=== PATIENT | male | born 1945 | race Caucasian/White ===

== ENCOUNTER → 2017-10-01 11:45 | Outpatient (CLI) | payer MEDICARE, OTHER, SELFPAY | PROVIDERS: Family Provider Family Medicine; PCP Family Medicine; Visit Provider Family Medicine | DX: G63 Polyneuropathy in diseases classified elsewhere (principal); G62.9 Polyneuropathy, unspecified | CPT/HCPCS: 95886; 95912 ==

== ENCOUNTER → 2017-10-14 12:05 | Outpatient (CLI) | payer MEDICARE, OTHER, SELFPAY ==
[2017-10-14 14:10] LABS: Vitamin B12 > 1000 pg/mL (239-931)
[2017-10-16 18:37] LABS: Homocysteine 9.8 umol/L (< 11.4)
== END ==
PROVIDERS: Family Provider Family Medicine; PCP Family Medicine; Visit Provider Family Medicine
DX: E53.8 Deficiency of other specified B group vitamins (principal); E88.9 Metabolic disorder, unspecified; G63 Polyneuropathy in diseases classified elsewhere; G53 Cranial nerve disorders in diseases classified elsewhere
CPT/HCPCS: 36415; 81291; 82607; 83090

== ENCOUNTER → 2018-04-06 11:11 | Outpatient (CLI) | payer MEDICARE, OTHER, SELFPAY ==
[2018-04-06 12:13] LABS: Hemoglobin A1C% w Est Avg Glu 5.7 % (4.0-6.0)
[2018-04-06 12:14] LABS: BUN Creatinine Ratio 13.3 (6-22); Blood Urea Nitrogen 12 mg/dL (9-20); Calcium 9.9 mg/dL (8.4-10.2); Carbon Dioxide 27 mmol/L (22-32); Chloride 105 mmol/L (98-107); Estimated Glomerular Filt Rate > 60.0 mL/min (>60); Glucose 96 mg/dL (80-110); HEMOLYSIS < 15 (0-50); Potassium 4.5 mmol/L (3.4-5.1); Sodium 144 mmol/L (137-145)
== END ==
PROVIDERS: Family Provider Family Medicine; PCP Family Medicine; Visit Provider Family Medicine
DX: E11.40 Type 2 diabetes mellitus with diabetic neuropathy, unspecified (principal)
CPT/HCPCS: 36415; 80048; 83036

== ENCOUNTER → 2018-05-28 09:37 | Outpatient (CLI) | payer MEDICARE, OTHER, SELFPAY ==
[2018-06-01 22:15] LABS: Albumin 100 %; Protein/ Creatinine Ratio 99 mg/g creat (22-128); Total Urine Protein 11 mg/dL (5-25); Urine Creatinine, Random 111 mg/dL (20-320)
[2018-06-04 12:06] LABS: Albumin 4.2 g/dL (3.8-4.8); Alpha 1 Globulin 0.3 g/dL (0.2-0.3); Alpha 2 Globulin 0.8 g/dL (0.5-0.9); Beta 1 Globulin 0.4 g/dL (0.4-0.6); Gamma Globulin 0.7 g/dL (0.8-1.7); Protein, Total 6.8 g/dL (6.1-8.1)
== END ==
PROVIDERS: PCP Family Medicine; Visit Provider Family Medicine
DX: E88.9 Metabolic disorder, unspecified (principal); G63 Polyneuropathy in diseases classified elsewhere
CPT/HCPCS: 36415; 84155; 84156; 84165; 84166; 84443

== ENCOUNTER → 2018-06-08 14:44 | Outpatient (CLI) | payer MEDICARE, OTHER, SELFPAY ==
--- NOTE | 2018-06-08 14:46 | DI.MRI.S_ITS ---
PROCEDURE: MR HEAD/BRAIN WO CON INDICATIONS: idiopathic neuropathy, rule out NPH, tumor TECHNIQUE: Non-contrast axial T1 spin echo, axial T2 fast spin echo, sagittal and axial FLAIR, coronal T2 fast spin echo, axial gradient echo, axial diffusion and ADC through the brain. COMPARISON: [facility], MR, STROKE PROTOCOL, 02/11/2016, 7:56. FINDINGS: Image quality: Excellent. CSF spaces: Ventricles are moderately dilated but symmetric in size and shape. Basal cisterns are patent. No extra-axial fluid collections. Brain: No intracranial bleeds or mass effects. There is moderate cerebral volume loss for age. Foci of periventricular white matter T2 hyperintensity are slightly increased compared to the last exam on 02/11/2016, compatible chronic small vessel ischemic changes. Brainstem appears normal. Diffusion-weighted images show no acute ischemic insults. No chronic ischemic insults. Normal intravascular flow voids are present. Skull and face: Calvarial bone marrow is normal in signal. Orbits are normal. Unchanged subcutaneous nodule at midline. Sinuses: Bilateral maxillary sinus mucosal thickening and mucous retention cysts. Mastoids are clear. IMPRESSION: 1. No acute intracranial abnormalities. 2. Ventricular dilation may be secondary to central atrophy or normal pressure hydrocephalus. Recommend clinical correlation. 3. There are foci of periventricular white matter T2 hyperintensity, compatible chronic small vessel ischemic changes. A differential diagnosis is demyelinating process such as multiple sclerosis. 4. Bilateral maxillary sinusitis. Dictated by: Elsa Pickard M.D. on 06/08/2018 at 16:13 Approved by: Elsa Pickard M.D. on 06/08/2018 at 16:21
== END ==
PROVIDERS: PCP Family Medicine; Visit Provider Family Medicine
DX: G60.9 Hereditary and idiopathic neuropathy, unspecified (principal); J32.0 Chronic maxillary sinusitis; E88.9 Metabolic disorder, unspecified
CPT/HCPCS: 70551

== ENCOUNTER → 2019-01-06 08:48 | Outpatient (CLI) | payer MEDICARE, OTHER, SELFPAY ==
[2019-01-06 09:27] LABS: Hemoglobin A1C% w Est Avg Glu 5.6 % (4.0-6.0)
[2019-01-06 09:53] LABS: Alanine Aminotransferase 21 IU/L (21-72); Albumin Globulin Ratio 1.5 (1.0-2.8); Alkaline Phosphatase 82 U/L (38-126); Aspartate Aminotransferase 32 IU/L (17-59); Bilirubin Total 0.6 mg/dL (0.2-1.3); Blood Urea Nitrogen 18 mg/dL (9-20); Calcium 9.8 mg/dL (8.4-10.2); Carbon Dioxide 27 mmol/L (22-32); Chloride 104 mmol/L (98-107); Cholesterol 206 mg/dL (140-199); Estimated Glomerular Filt Rate > 60.0 mL/min (>60); Globulin 2.6 g/dL (1.7-4.1); Glucose 114 mg/dL (80-110); HDL Cholesterol 47 mg/dL (40-60); HEMOLYSIS < 15 (0-50); LDL Cholesterol Calculated 107 mg/dL (<100); Potassium 4.4 mmol/L (3.4-5.1); Sodium 139 mmol/L (137-145); Total Protein 6.6 g/dL (6.3-8.2); Triglycerides 261 mg/dL (35-150)
[2019-01-06 09:54] LABS: Creatinine Urine Random 90.5 mg/dL
== END ==
PROVIDERS: PCP Family Medicine; Visit Provider Family Medicine
DX: E11.40 Type 2 diabetes mellitus with diabetic neuropathy, unspecified (principal); E53.8 Deficiency of other specified B group vitamins; E66.9 Obesity, unspecified; E78.5 Hyperlipidemia, unspecified; E88.9 Metabolic disorder, unspecified; G63 Polyneuropathy in diseases classified elsewhere; I10 Essential (primary) hypertension; I25.10 Atherosclerotic heart disease of native coronary artery without angina pectoris; Z95.5 Presence of coronary angioplasty implant and graft
CPT/HCPCS: 36415; 80053; 80061; 82043; 82570; 83036

== ENCOUNTER → 2019-03-01 16:29 | Outpatient (CLI) | payer MEDICARE, OTHER, SELFPAY ==
--- NOTE | 2019-03-01 16:35 | DI.MRI.S_ITS ---
PROCEDURE: MR CERVICAL SPINE WO CON INDICATIONS: radiculopathy TECHNIQUE: Noncontrast sagittal T1 spin echo and T2 fast spin echo, sagittal STIR, foraminal oblique sagittal T2 fast spin echo, and axial gradient echo or T2 fast spin echo through the cervical spine. COMPARISON: [facility], MR, MR THORACIC SPINE WO CON, 03/01/2019, 16:59. FINDINGS: Image quality: Excellent. Alignment and Curvature: There is normal bony alignment. Bone Marrow: Degenerative marrow signal changes are present. Spinal Cord: Visualized spinal cord has normal size and signal. No cerebellar tonsillar herniation. Paraspinous Soft Tissues: No paravertebral masses. Prevertebral soft tissues are normal in thickness. C2-C3: Preserved disc height. Mild disc desiccation. There is diffuse posterior disc bulge. Uncovertebral hypertrophy. There is bilateral facet arthropathy, moderate on the left and mild on the right. The central canal is patent. Severe left foraminal stenosis. No right foraminal stenosis. Possible left nerve root impingement. C3-C4: Mild loss of disc height. Mild disc desiccation. There is diffuse posterior disc bulge. Uncovertebral hypertrophy. There is moderate bilateral facet arthropathy. The central canal is patent. Severe left and moderate right foraminal stenosis.. Possible left nerve root impingement. C4-C5: Moderate loss of disc height. Mild disc desiccation. There is diffuse posterior disc bulge. Uncovertebral hypertrophy. Severe right and moderate left facet arthropathy. The central canal is mildly narrowed. Severe right and moderate to severe left foraminal stenosis.. Possible right nerve root impingement. C5-C6: Moderate loss of disc height. Mild disc desiccation. There is diffuse posterior disc bulge. Uncovertebral hypertrophy. Moderate bilateral facet arthropathy. The central canal is mildly narrowed. Severe right and mild left foraminal stenosis. Possible right nerve root impingement. C6-C7: Mild loss of disc height. Mild disc desiccation. There is diffuse posterior disc bulge. Uncovertebral hypertrophy. Moderate bilateral facet arthropathy. The central canal is mildly narrowed. Moderate left and mild right foraminal stenosis. Possible left nerve root impingement. C7-T1: Minimal loss of disc height. Mild disc desiccation. There is mild posterior disc bulge. The central canal is patent. No significant foraminal stenosis. IMPRESSION: 1. Multilevel degenerative disc disease and facet arthropathy as described. 2. Mild central canal stenosis at C5 and C5, C5-C6 and C6-C7. 3. Multilevel foraminal stenosis as described. Dictated by: Elsa Pickard M.D. on 03/02/2019 at 10:29 Approved by: Elsa Pickard M.D. on 03/02/2019 at 18:25
--- NOTE | 2019-03-01 16:35 | DI.MRI.S_ITS ---
PROCEDURE: MR THORACIC SPINE WO CON INDICATIONS: radiculopathy TECHNIQUE: Noncontrast sagittal T1 spine echo and T2 fast spin echo, sagittal STIR, axial T1 and T2 fast spin echo through the thoracic spine. COMPARISON: [facility], , MR LUMBAR SPINE WO CON, 03/01/2019, 17:17. FINDINGS: Image quality: Excellent. Alignment and Curvature: There is normal bony alignment. Bone Marrow: Marrow is of normal overall signal. No acute vertebral body compression fractures. Spinal Cord: Visualized spinal cord is normal in size and signal. Paraspinous Soft Tissues: No paravertebral masses. Miscellaneous: There is diffuse mild to moderate degenerative disease in thoracic spine there is mild central canal at T8-T9, T9-T10 and T10-T11. The foramina appear widely patent at all scanned levels. IMPRESSION: 1. Diffuse mild to moderate degenerative disc disease in thoracic spine. 2. Mild central canal stenosis at T8-T9, T9-T10 and T10-T11. Dictated by: Elsa Pickard M.D. on 03/02/2019 at 10:26 Approved by: Elsa Pickard M.D. on 03/02/2019 at 18:26
--- NOTE | 2019-03-01 16:35 | DI.MRI.S_ITS ---
PROCEDURE: MR LUMBAR SPINE WO CON INDICATIONS: radiculopathy TECHNIQUE: Noncontrast sagittal T1 spin echo and T2 fast echo, sagittal STIR, axial T1 and T2 fast spin echo through the lumbar spine. In cases with scoliosis, additional coronal T2 fast spin echo may be performed. COMPARISON: None. FINDINGS: Image quality: Excellent. Alignment and Curvature: There is normal bony alignment. Bone Marrow: Degenerative endplate signal changes are present in lumbar spine, most pronounced in the inferior endplate of L4 and L5, and superior endplate of S1. No acute vertebral body compression fractures. Spinal Cord: Conus medullaris terminates at the L1-L2 level. Visualized cord demonstrates normal signal and size. Paraspinous Soft Tissues: No paravertebral masses. L1-L2: Preserved disc height. Mild disc desiccation. There is diffuse posterior disc bulge. Mild bilateral facet arthropathy and hypertrophy of ligamentum flavum. The central canal is mildly narrowed. No foraminal stenosis. No definitive nerve root impingement. L2-L3: Preserved disc height. Mild disc desiccation. There is diffuse posterior disc bulge and disc osteophyte complex. Mild bilateral facet arthropathy and hypertrophy of ligamentum flavum. The central canal is moderately narrowed. There is moderate narrowing of the lateral recess bilaterally. Mild bilateral foraminal stenosis. No definitive nerve root impingement. L3-L4: Preserved disc height. Moderate disc desiccation. There is diffuse posterior disc bulge and disc osteophyte complex, more eccentric on the left. Moderate bilateral facet arthropathy and hypertrophy of ligamentum flavum. There is epidural lipomatosis. The central canal is severely narrowed. There is mild narrowing of lateral recesses bilaterally. Moderate left and mild right foraminal stenosis. Possible left nerve root impingement. L4-L5: Mild loss of disc height. Moderate disc desiccation. There is diffuse posterior disc bulge and disc osteophyte complex. There is superimposed posterior central disc protrusion. Mild bilateral facet arthropathy and hypertrophy of ligamentum flavum. There is epidural lipomatosis. The central canal is severely narrowed. There is moderate to severe narrowing of lateral recesses bilaterally. Moderate bilateral foraminal stenosis. Possible bilateral nerve root impingement. L5-S1: Mild loss of disc height. Moderate disc desiccation. There is diffuse posterior disc bulge and disc osteophyte complex. Moderate bilateral facet arthropathy. The central canal is mildly narrowed. Moderate left and mild right foraminal stenosis. No definitive bilateral nerve root impingement. IMPRESSION: 1. Multilevel degenerative disc disease and facet arthropathy as described. 2. Severe central canal stenosis at L3-L4 and L4-L5, and moderate central canal stenosis at L2 at L3. 3. Multilevel foraminal stenoses and narrowing of lateral recesses as described. Dictated by: Elsa Pickard M.D. on 03/02/2019 at 10:13 Approved by: Elsa Pickard M.D. on 03/02/2019 at 18:27
== END ==
PROVIDERS: PCP Family Medicine; Visit Provider Family Medicine
DX: M50.11 Cervical disc disorder with radiculopathy, high cervical region (principal); M51.14 Intervertebral disc disorders with radiculopathy, thoracic region; M51.16 Intervertebral disc disorders with radiculopathy, lumbar region; M51.17 Intervertebral disc disorders with radiculopathy, lumbosacral region; M47.22 Other spondylosis with radiculopathy, cervical region; M47.26 Other spondylosis with radiculopathy, lumbar region; M47.27 Other spondylosis with radiculopathy, lumbosacral region; M48.02 Spinal stenosis, cervical region; M48.04 Spinal stenosis, thoracic region; M48.061 Spinal stenosis, lumbar region without neurogenic claudication; M48.07 Spinal stenosis, lumbosacral region; G91.2 (Idiopathic) normal pressure hydrocephalus; R27.0 Ataxia, unspecified
CPT/HCPCS: 72141; 72146; 72148

== ENCOUNTER 2019-04-11 17:59 | Emergency (ER) | payer MEDICARE, OTHER, SELFPAY ==
[2019-04-11 18:11] VITALS: BP 146/83; PULSE 114; RESP 19; TEMP 36.8; O2SAT 96; BMI 29.6
--- NOTE | 2019-04-11 18:20 | ED_ITS ---
HPI - Extremity Injury (Lower) General Chief Complaint: Extremity Injury, Lower Stated Complaint: GLF Time Seen by Provider: 04/11/19 18:05 Source: patient, family and EMS Mode of arrival: EMS Limitations: no limitations History of Present Illness HPI Narrative: The patient has peripheral neuropathy. Recent evaluation has included MRIs of the brain, C-spine, T-spine, and L-spine. Hydrocephalus has been discomfort. He has no history of stroke or TIA. He generally has restless leg type symptoms in the left leg. Around his house he generally uses a cane or a walker. He took trash out tonight prior to arrival. He developed weakness in his legs and fell and is yard. There is no head, neck or torso injury. He has no confusion, no visual changes or speech changes. He has no deficits in his extremities. He complains of no pain at this time. Is normal range of motion upper extremities. He has no problem moving his lower extremities while sitting on the gurney here in the ER. He complained of weakness earlier when he was out and about. Related Data Home Medications Medication Instructions Recorded Confirmed furosemide 40 mg PO PRN PRN #0 10/04/16 04/01/19 aspirin 325 mg tablet,delayed 325 mg PO DAILY 09/09/17 04/01/19 release Previous Rx's Medication Instructions Recorded Disabled parking permit #1 ea 09/09/17 cyanocobalamin (vitamin B-12) 1,000 mcg PO DAILY #90 tab 09/10/17 1,000 mcg tablet ketoconazole 2 % shampoo 1 applictn TOP Q2W #120 ml 05/26/18 Disabled Parking Permit #1 ea 09/06/18 gabapentin 100 mg capsule 100 mg PO QID #360 cap 01/12/19 atorvastatin 40 mg tablet 40 mg PO HS #90 tab 04/01/19 carvedilol 3.125 mg tablet 3.125 mg PO BID #180 tab 04/01/19 folic acid 1 mg tablet 1 mg PO DAILY #90 tab 04/01/19 lisinopril 10 mg tablet 10 mg PO BID #180 tab 04/01/19 metformin 500 mg tablet 250 mg PO BIDCC #90 tab 04/01/19 pyridoxine (vitamin B6) 50 mg 50 mg PO DAILY #90 tab 04/01/19 tablet Allergies Allergy/AdvReac Type Severity Reaction Status Date / Time No Known Drug Allergies Allergy Verified 04/01/19 08:52 Review of Systems Review of Systems ROS Unobtainable: All systems reviewed & are unremarkable except as noted in HPI and below Constitutional Constitutional: Denies lethargy and Reports weakness Eyes Eyes: Denies change in vision, Denies eye discharge, Denies irritation and Denies loss of vision ENT Ears, Nose, Mouth, and Throat: Denies change in voice, Denies vertigo, Denies dizziness, Denies neck pain and Denies sore throat Cardiovascular Cardiovascular: Denies chest pain, Denies lightheadedness, Denies palpitations, Denies dyspnea and Denies orthopnea Respiratory Respiratory: Denies cough, Denies dyspnea and Denies wheezing Gastrointestinal Gastrointestinal: Denies abdominal pain, Denies change in bowel habits, Denies diarrhea, Denies nausea and Denies vomiting Genitourinary Genitourinary: Denies urinary incontinence and Denies urinary urgency Musculoskeletal Musculoskeletal: Denies back pain, Denies neck pain and Denies numbness Comments: Lower extremity weakness Integumentary/Breasts Skin/Breast: Denies pruritus, Denies erythema, Denies rash and Denies wounds Neurologic Neurologic: Denies confusion, Denies vertigo, Denies dizziness, Denies loss of vision, Denies memory loss, Denies numbness and Reports weakness Psychiatric Psychiatric: Denies confusion and Denies memory loss Endocrine Endocrine: Denies palpitations Hematologic/Lymphatic Hematologic/Lymphatic: Denies easy bleeding and Denies easy bruising Allergic/Immunologic Allergic/Immunologic: Denies wheezing Patient History Medical History (Updated 04/12/19 @ 01:58 by Jose Alejandro Castanon MD) Acne (Chronic ~1958) CAD (coronary artery disease) (Chronic ~2012) Chickenpox (Chronic ~1949) Class 1 obesity (08/28/16) Collar bone fracture (Resolved ~1950) Community acquired pneumonia (Inactive) History of ankle fracture (Resolved ~2015) History of rib fracture (Resolved ~1984) 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 Father No problems noted. Sister No problems noted. Social History Smoking Status: Never smoker Smoking Status: Never smoker alcohol intake frequency: 3 or more drinks per day Alcohol type: wine Substance Use Type: does not use Exam Initial Vital Signs Initial Vital Signs: Vital Signs Temperature 98.2 F 04/11/19 18:11 Pulse Rate 114 H 04/11/19 18:11 Respiratory Rate 19 04/11/19 18:11 Blood Pressure 146/83 H 04/11/19 18:11 Pulse Oximetry 96 04/11/19 18:11 Const General: cooperative and well developed Nutritional Appearance: well nourished Orientation: alert, awake, oriented x3 and not confused HENMN Head: normocephalic and atraumatic Eyes General: appearance normal, both eyes and all related structures Eyelids: eyelids normal Conjunctivae: conjunctivae normal Sclera: sclerae normal Pupils: PERRL EOM: EOM intact bilaterally Neck Neck: full ROM and No tender Chest Chest: normal inspection of the chest Resp Effort & Inspection: normal respiratory effort and able to speak in complete s entences Auscultation: clear to auscultation bilaterally, no rales, no rhonchi and no wheezes Cardio Rate: regular rate Rhythm: regular rhythm Heart Sounds: no click, no gallops, no murmurs and no rubs Pulses: normal peripheral pulses GI Inspection: non-distended Palpation: soft, no hepatosplenomegaly and No tender Auscultation: normal bowel sounds Back/Spine/Pelvis Back: No back tenderness and No ecchymosis Skin General: no rashes or lesions noted, No jaundice and No petechiae Neuro General: alert, oriented x3, gait normal and no focal motor deficits Speech: speech normal Motor: other (Right foot drop, motor exam is otherwise intact.) Sensory Exam: no sensory deficits noted Other: The patient has a wide-based gait, the right footdrop is noted when he is up and ambulating. He has tested in the ER with a walker. Course Course Course Narrative: Recent MRIs reviewed. He has had receptive the brain MRI. He has multilevel DJD noted on the C-spine, T-spine and L-spine. Especially notable in the L-spine is L4-5 area of central canal stenosis, with moderate bilateral foraminal stenosis. Possible bilateral nerve root impingement is noted. His exam is not indicative of radiculopathy, more consistent with a isolated right footdrop. The patient has had extensive evaluation. He has undergone recent MRIs as discussed. He has been seen by Neurology. Apparently he has undergone testing of peripheral nerves in the past. He has been prescribed bilateral posterior splints for his legs. He is not commonly using the splints. He was not using a walker cane when he fell tonight. He complains primarily of right leg pain, but there is no obvious abnormality on exam. He is the chronic foot drop. We discussed his extensive prior workup. We discussed MRI results in the clinic findings. I have recommend he uses the right foot posterior splint more consistently, I do not see a need for him to use the left posterior splint. We discussed more consistent use of canes and walkers avoid falls. I've asked him to follow up with his PCM to further use records, and discuss potential further workup and/or management. Vital Signs Vital signs: Vital Signs - 8 hr 04/11/19 18:11 04/11/19 19:29 Temperature 98.2 F Pulse Rate 114 H 94 H Respiratory Rate 19 19 Blood Pressure 146/83 H 153/81 H Pulse Oximetry 96 94 Discharge Plan Departure Patient Disposition: Home Clinical Impression: Foot drop, right Peripheral neuropathy Qualifiers: Peripheral neuropathy type: polyneuropathy, unspecified Qualified Code(s): G62.9 - Polyneuropathy, unspecified Discharge Date/Time: 04/11/19 19:30 Instructions: DI for Peripheral Neuropathy Activity Restrictions/Additional Instructions: I would recommend you keep the right foot posterior splint on any time your up and about. Use a cane or walker as a situation demands. Use extra caution to avoid falls. Follow-up with her doctor regarding the neuropathy. It sounds like you've had rather extensive neurologic evaluation. Your doctor can guide you with additional workup if necessary, but also provide suggestions with ongoing management of the neuropathy and dropped foot. Return the ER as necessary. Prescriptions: No Action furosemide 40 MG tablet 40 mg PO PRN PRNQty: 0 RF: 0 cyanocobalamin (vitamin B-12) 1,000 mcg tablet 1,000 mcg PO DAILY Qty: 90 RF: 3 (DME) Disabled Parking Permit Qty: 1 RF: 0 aspirin 325 mg tablet,delayed release (DR/EC) 325 mg PO DAILY RF: 0 (DME) Disabled parking permit Qty: 1 RF: 0 ketoconazole 2 % shampoo 1 applictn TOP Q2W Qty: 120 RF: 0 gabapentin 100 mg capsule 100 mg PO QID Qty: 360 RF: 1 carvedilol 3.125 mg tablet 3.125 mg PO BID Qty: 180 RF: 3 folic acid 1 mg tablet 1 mg PO DAILY Qty: 90 RF: 3 lisinopril 10 mg tablet 10 mg PO BID Qty: 180 RF: 3 pyridoxine (vitamin B6) 50 mg tablet 50 mg PO DAILY Qty: 90 RF: 3 metformin [Glucophage] 500 mg tablet 250 mg PO BIDCC Qty: 90 RF: 3 atorvastatin 40 mg tablet 40 mg PO HS Qty: 90 RF: 3 Referrals: Tatum Yen DO [Primary Care Provider] -
[2019-04-11 19:29] VITALS: BP 153/81; PULSE 94; RESP 19; O2SAT 94
== END 2019-04-11 19:30 | disposition home or self-care (01) ==
PROVIDERS: Emergency Provider Emergency Medicine; PCP Family Medicine
DX: M21.371 Foot drop, right foot (principal); G62.9 Polyneuropathy, unspecified
CPT/HCPCS: 99282

== ENCOUNTER 2019-04-14 17:21 | Observation (INO) | payer MEDICARE, OTHER, SELFPAY ==
--- NOTE | 2019-04-14 14:40 | DI.RAD.S_ITS ---
PROCEDURE: XR KNEE RT 3V INDICATIONS: leg/ankle pain after fall TECHNIQUE: 3 views of the knee were acquired. COMPARISON: [facility], , KNEE 3V RIGHT, 12/03/2014, 11:20. FINDINGS: Bones: There is an oblique fracture involving the fibular neck with mild displacement. No suspicious bony lesions. Chondrocalcinosis. Degenerative disease. Soft tissues: No joint effusion. No suspicious soft tissue calcifications. IMPRESSION: 1. Mildly displaced proximal fibular fracture. 2. 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 Dictated by: Elsa Pickard M.D. on 04/14/2019 at 16:06 Approved by: Elsa Pickard M.D. on 04/14/2019 at 16:09
--- NOTE | 2019-04-14 14:40 | DI.RAD.S_ITS ---
PROCEDURE: XR FOOT RT MIN 3V INDICATIONS: ankle and foot pain after fall TECHNIQUE: 3 views of the foot were acquired. COMPARISON: None. FINDINGS: Bones: Old distal fibular fracture is internal fixation. Multiple ossicles are seen adjacent to the medial relative, likely sequelae of old injury. No definitive acute fractures. Degenerative changes of the tarsometatarsal joints and interphalangeal joint. No suspicious bony lesions. There is calcaneal spurring. Soft tissues: Small tibiotalar joint effusion. Achilles tendon appears normal. IMPRESSION: No definitive acute fractures. Old distal fibular fracture with internal fixation and old medial malleolar fracture. Dictated by: Elsa Pickard M.D. on 04/14/2019 at 16:03 Approved by: Elsa Pickard M.D. on 04/14/2019 at 16:06
--- NOTE | 2019-04-14 14:40 | DI.RAD.S_ITS ---
PROCEDURE: XR ANKLE RT MIN 3V INDICATIONS: ankle and foot pain after fall TECHNIQUE: 3 views of the ankle were acquired. COMPARISON: [facility], CR, XR KNEE RT 3V, 04/14/2019, 14:45. FINDINGS: Bones: Old healed internally fixed distal fibular fracture. Osseous fragment distal to the medial malleolus are probably sequelae of old injury. There is a surgical anchor in the medial malleolus. Ankle mortise is slightly widened medially. No suspicious bony lesions. There is calcaneal spurring. Soft tissues: [id number] tibiotalar joint effusion. Achilles tendon appears normal. IMPRESSION: 1. Old distal fibular fracture and medial malleolar fracture. 2. Slight widening of the medial ankle mortise. 3. [id number] tibiotalar joint effusion. Dictated by: Elsa Pickard M.D. on 04/14/2019 at 15:57 Approved by: Elsa Pickard M.D. on 04/14/2019 at 16:03
--- NOTE | 2019-04-14 14:40 | DI.RAD.S_ITS ---
PROCEDURE: XR ELBOW RT MIN 3V INDICATIONS: fall on right elbow TECHNIQUE: 3 views of the elbow were acquired. COMPARISON: [facility], CR, XR KNEE RT 3V, 04/14/2019, 14:45. [facility], CR, XR FOOT RT MIN 3V, 04/14/2019, 14:45. [facility], CR, XR ANKLE RT MIN 3V, 04/14/2019, 14:45. FINDINGS: Bones: There is a fracture of the olecranon process with 6 mm displacement of a fracture fragment. Cannot rule out a No suspicious bony lesions. Mild/moderate degenerative joint disease. Possible small intra-articular body. Soft tissues: Suspect small elbow joint effusion. No suspicious soft tissue calcifications. Marked soft tissue swelling is present over the olecranon IMPRESSION: 1. Displaced olecranon fracture with marked soft tissue swelling. 2. Cannot rule out a nondisplaced radial head fracture. 3. Small elbow effusion. The result was discussed with Dr. Yen. Dictated by: Elsa Pickard M.D. on 04/14/2019 at 15:47 Approved by: Elsa Pickard M.D. on 04/14/2019 at 15:53
[2019-04-14 16:30] VITALS: BP 154/86; PULSE 83; RESP 20; TEMP 37
[2019-04-14 17:36] VITALS: BMI 28.8
--- NOTE | 2019-04-14 18:05 | P.HP_ITS ---
History of Present Illness History of Present Illness Date Patient Seen: 04/14/19 Time Patient Seen: 18:08 Chief complaint: RUE AND RLE FRACTURES Narrative: Patient is a 73-year-old male with a history of peripheral neuropathy, right-sided foot drop, possible normal pressure hydrocephalus, CAD, diabetes, hypertension, hyperlipidemia who was cleaning out magazines on Thursday night. He placed them in the bin and then tried to pivot on his right foot which gave way and snapped. He fell, hitting his right knee as well as his right elbow. He was seen here in the emergency department and evaluated and thought to have minor injuries and sent home to follow up with me in clinic. He does have a history of a right ankle fracture and has AFO's for that ankle. He reported tenderness over the proximal fibula down the right leg and has swelling and pain to the right elbow. Given his history of fractures without significant pain I orderd xrays and He was found to have fractures at both locations. 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) Hypertension (Chronic ~1999) Measles (Chronic ~1949) Normal pressure hydrocephalus (Acute) Peripheral neuropathy (Acute) Psoriasis (Chronic ~2015) Viral cardiomyopathy (Chronic ~2014) Family & Social History Social History: household members spouse Prior Living Arrangements House Safety & Behavioral: Feels Safe in Current Yes Environment Been Physically Hurt or No Threatened By a Person Suicidal Ideation Description None Suicide Plan Description No Plan Tobacco & Substance use: Smoking Status Never smoker alcohol intake current alcohol intake frequency 0-2 drinks per day Substance Use Type does not use Meds Home Medications and Allergies Home Medications Medication Instructions Recorded Confirmed Type Disabled parking permit #1 ea 09/09/17 04/14/19 Rx aspirin 325 mg tablet,delayed 325 mg PO DAILY 09/09/17 04/14/19 History release cyanocobalamin (vitamin B-12) 1,000 mcg PO DAILY #90 tab 09/10/17 04/14/19 Rx 1,000 mcg tablet Disabled Parking Permit #1 ea 09/06/18 04/14/19 Rx atorvastatin 40 mg tablet 40 mg PO HS #90 tab 04/01/19 04/14/19 Rx carvedilol 3.125 mg tablet 3.125 mg PO BID #180 tab 04/01/19 04/14/19 Rx folic acid 1 mg tablet 1 mg PO DAILY #90 tab 04/01/19 04/14/19 Rx lisinopril 10 mg tablet 10 mg PO BID #180 tab 04/01/19 04/14/19 Rx metformin 500 mg tablet 250 mg PO BIDCC #90 tab 04/01/19 04/14/19 Rx pyridoxine (vitamin B6) 50 mg 50 mg PO DAILY #90 tab 04/01/19 04/14/19 Rx tablet gabapentin 100 mg PO QID PRN MDD 400 mg 04/14/19 04/14/19 History Allergies Allergy/AdvReac Type Severity Reaction Status Date / Time No Known Drug Allergies Allergy Verified 04/14/19 14:07 Review of Systems Constitutional Constitutional: Denies chills, Denies fever(s) and Denies night sweats Eyes Eyes: Denies blurry vision and Denies irritation ENT Ears, Nose, Mouth, and Throat: No nasal congestion, No nasal discharge, No post nasal drip and No sore throat Cardiovascular Cardiovascular: Denies chest pain, Denies lightheadedness and Denies shortness of breath Respiratory Respiratory: Denies cough and Denies dyspnea Gastrointestinal Gastrointestinal: Denies abdominal pain, Denies heartburn, Denies nausea and Denies vomiting Exam Vital Signs (past 8 hours): - 04/14/19 16:30 Temperature 98.6 F Pulse Rate 83 Respiratory Rate 20 Blood Pressure 154/86 H Narrative Exam Narrative: General: Well-developed, well-nourished, male, no acute distress. Heart: Regular rate and rhythm, no murmurs appreciated Lungs: Clear to auscultation bilaterally, no wheezes, rales or rhonchi Extremities: Warm and well perfused, he has a 6-7 cm diameter 3 cm deep fluid- filled swelling on his right olecranon process, he has good range of motion of the elbow, has tenderness to palpation over the proximal end of the fibula no pain over the lateral malleolus Objective Imaging Elbow x-ray: Radiologist's impression: FINDINGS: Bones: There is a fracture of the olecranon process with 6 mm displacement of a fracture fragment. Cannot rule out a No suspicious bony lesions. Mild/moderate degenerative joint disease. Possible small intra-articular body. Soft tissues: Suspect small elbow joint effusion. No suspicious soft tissue calcifications. Marked soft tissue swelling is present over the olecranon IMPRESSION: 1. Displaced olecranon fracture with marked soft tissue swelling. 2. Cannot rule out a nondisplaced radial head fracture. 3. Small elbow effusion. Knee x-ray: Radiologist's impression: FINDINGS: Bones: There is an oblique fracture involving the fibular neck with mild displacement. No suspicious bony lesions. Chondrocalcinosis. Degenerative disease. Soft tissues: No joint effusion. No suspicious soft tissue calcifications. IMPRESSION: 1. Mildly displaced proximal fibular fracture. 2. 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 Assessment & Plan Assessment & Plan narrative: 73-year-old male with peripheral neuropathy and proximal fibula fracture and olecranon fracture admitted for fracture managemen t. 1. Consult to orthopedics. 2. PT/OT evaluation 3. pain control. so far this has not been an issue. will do tylenol and ketorolac. Will continue his home medications for blood pressure, diabetes, and peripheral neuropathy. DVT prophylaxis: lovenox Code status: DNR Anticipate that patient will discharge home once his fractures are stabilized and a plan made for home care. Quality VTE Deep Vein Thrombosis/Pulmonary Embolism Present on Admission: No
[2019-04-14] MEDS: LISINOPRIL 10 MG TABLET PO (20:21)
[2019-04-14] MEDS: ATORVASTATIN 20 MG TABLET 40 MG PO (20:21)
[2019-04-14] MEDS: METFORMIN HCL 500 MG TABLET 250 MG PO (20:22)
--- NOTE | 2019-04-14 20:25 | PM.CN ---
History of Present Illness Consult details Date Patient Seen: 04/14/19 Time Patient Seen: 20:25 Chief complaint: RUE AND RLE FRACTURES Reason for consult: Right olecranon enthesophyte fracture, right proximal fibula fracture. Narrative: Patient is a 63-year-old male with a diagnosis of normal pressure hydrocephalus which hasn't have severe balance issues. He also has peripheral neuropathy. He is acutely aware of his balance issues but still has occasional falls. The other day patient was taking the trash out to the curb and was making a slow terminally states he felt like his right leg gave out from underneath him he fell onto his right leg and his right elbow. Since that time he has had a large swelling of the right elbow but has been using his elbow pain free since that time. Regarding his right leg he does have pain with weight-bearing but has been able be weight-bearing as tolerated since that time with a front wheel walker. He has no pain in the leg at baseline only with weight-bearing at this time. Patient denies any ankle pain. Patient does have previous bilateral ankle fractures. [facility] Medical History Acne (Chronic ~1958) CAD (coronary artery disease) (Chronic ~2012) Chickenpox (Chronic ~1949) Class 1 obesity (08/28/16) Collar bone fracture (Resolved ~1950) Community acquired pneumonia (Inactive) History of ankle fracture (Resolved ~2015) History of rib fracture (Resolved ~1984) Homozygous MTHFR mutation [id number] (Chronic) Hypertension (Chronic ~1999) Measles (Chronic ~1949) Normal pressure hydrocephalus (Acute) Peripheral neuropathy (Acute) Psoriasis (Chronic ~2015) Viral cardiomyopathy (Chronic ~2014) Surgical History Anesthesia (Inactive) History of angioplasty (08/09/14) History of inguinal hernia repair (Resolved ~1954) Status post appendectomy (~1952) Undescended testicle, unilateral (Resolved) Family History Brother No problems noted. Father No problems noted. Sister No problems noted. Social History household members: spouse Smoking Status: Never smoker alcohol intake: current Meds Home Medications and Allergies Home Medications Medication Instructions Recorded Confirmed Type Disabled parking permit #1 ea 09/09/17 04/14/19 Rx aspirin 325 mg tablet,delayed 325 mg PO DAILY 09/09/17 04/14/19 History release cyanocobalamin (vitamin B-12) 1,000 mcg PO DAILY #90 tab 09/10/17 04/14/19 Rx 1,000 mcg tablet Disabled Parking Permit #1 ea 09/06/18 04/14/19 Rx atorvastatin 40 mg tablet 40 mg PO HS #90 tab 04/01/19 04/14/19 Rx carvedilol 3.125 mg tablet 3.125 mg PO BID #180 tab 04/01/19 04/14/19 Rx folic acid 1 mg tablet 1 mg PO DAILY #90 tab 04/01/19 04/14/19 Rx lisinopril 10 mg tablet 10 mg PO BID #180 tab 04/01/19 04/14/19 Rx metformin 500 mg tablet 250 mg PO BIDCC #90 tab 04/01/19 04/14/19 Rx pyridoxine (vitamin B6) 50 mg 50 mg PO DAILY #90 tab 04/01/19 04/14/19 Rx tablet gabapentin 100 mg PO QID PRN MDD 400 mg 04/14/19 04/14/19 History Allergies Allergy/AdvReac Type Severity Reaction Status Date / Time No Known Drug Allergies Allergy Verified 04/14/19 14:07 Review of Systems Review of Systems ROS Unobtainable: All systems reviewed & are unremarkable except as noted in HPI and below Exam Vital Signs (past 8 hours): - 04/14/19 16:30 Temperature 98.6 F Pulse Rate 83 Respiratory Rate 20 Blood Pressure 154/86 H Narrative Exam Narrative: Large bursal swelling over the right elbow. Full strength with flexion and extension range of motion of the elbow. Mild tenderness to palpation of the tip of the olecranon. No open wounds at the right elbow. No pain with pronation supination of the forearm. Neurovascular intact in the right upper extremity. Tenderness to palpation over the right proximal fibula. Mild swelling and ecchymosis. No pain whatsoever at the medial malleolus or lateral malleolus of the ankle no pain with external rotation stress test. Objective Imaging Right elbow: My impression: Small chip fracture of the tip of the olecranon which likely represents only a small portion of the triceps insertion. Right leg: My impression: Minimally displaced proximal fibular fracture. Previous right ankle fracture. No acute fractures in the ankle. Assessment & Plan Assessment & Plan narrative: Patient is a 73-year-old male who sustained a right proximal fibula fracture during a ground level fall as well as a small tip of the olecranon/enthesophyte fracture of the right elbow. Regarding his right elbow he can continue to use the elbow as tolerated. Regarding the right lower extremity on transition into a Cam boot and be weight-bearing as tolerated in his Cam boot while in follow-up with me in my clinic in 2 weeks time. Time Spent With Patient Time with patient: 15-24 minutes
[2019-04-14] MEDS: carvediloL 3.125 MG TABLET PO (20:27)
[2019-04-14 23:35] VITALS: BP 151/74; PULSE 86; RESP 16; TEMP 36.2; O2SAT 98
[2019-04-15] VITALS: O2SAT 98
[2019-04-15 04:03] VITALS: BP 139/69; PULSE 85; RESP 16; TEMP 36.4; O2SAT 95
[2019-04-15 07:00] VITALS: BP 150/88; PULSE 77; RESP 17; TEMP 36.8; O2SAT 98
--- NOTE | 2019-04-15 07:38 | P.DS_ITS ---
History of Present Illness History of Present Illness Chief complaint: RUE AND RLE FRACTURES Narrative: Patient is a 73-year-old male with a history of peripheral neuropathy, right-sided foot drop, possible normal pressure hydrocephalus, CAD, diabetes, hypertension, hyperlipidemia who was cleaning out magazines on Thursday night. He placed them in the bin and then tried to pivot on his right foot which gave way and snapped. He fell, hitting his right knee as well as his right elbow. He was seen here in the emergency department and evaluated and thought to have minor injuries and sent home to follow up with me in clinic. He does have a history of a right ankle fracture and has AFO's for that ankle. He reported tenderness over the proximal fibula down the right leg and has swelling and pain to the right elbow. Given his history of fractures without significant pain I orderd xrays and He was found to have fractures at both locations. Discharge Providers Provider Date of admission: 04/14/19 17:21 Discharge Date: 04/15/19 Primary care physician: Tatum Yen DO Consults: 04/14/19 17:38 Consult to Discharge Planning Routine Comment: Consult to Occupational Therapy Evaluate & Treat Comment: fracture Physician Instructions: Evaluate and treat Consult to Orthopedic Surgery Routine Comment: Consulting Provider: Jhonatan Birch Reason for consultation: fractures Has provider been notified: Yes Consult to Physical Therapy Evaluate & Treat Comment: fracture Physician Instructions: Evaluate and Treat Discharge provider: Tatum Yen DO Summary Hospital Course Discharge Diagnosis: Fracture of the right proximal fibula Right ulna fracture Diabetes Hypertension Hyperlipidemia Peripheral neuropathy Normal pressure hydrocephalus Gait disturbance Hospital Course: 73-year-old male with peripheral neuropathy and proximal fibula fracture and olecranon fracture admitted for fracture management. Appreciate orthopedics consult. The right elbow does not need any intervention at this time. I will continue to follow him outpatient for his swollen bursa. Cam boot to of right lower extremity. He will follow-up with orthopedics in 2 weeks. Worked with physical therapy on appropriate ambulation given his pre- existing balance issues. Home medications for blood pressure, diabetes, and peripheral neuropathy were continued. DVT prophylaxis: lovenox Code status: DNR Status at Discharge Cognitive/behavioral status at discharge: oriented Functional status at discharge: uses cane/walker Overall status at discharge: patient is progressing back to baseline Time Spent with Patient Time spent: Less than 30 minutes Exam Vital Signs (past 8 hours): - 04/15/19 00:00 04/15/19 04:03 Temperature 97.6 F Pulse Rate 85 Respiratory Rate 16 Blood Pressure 139/69 Pulse Oximetry 98 95 Oxygen Delivery Method Room Air Oxygen Flow Rate 0 Narrative Exam Narrative: General: Well-developed, well-nourished, male, no acute d istress. Heart: Regular rate and rhythm, no murmurs appreciated Lungs: Clear to auscultation bilaterally, no wheezes, rales or rhonchi Extremities: Warm and well perfused, he has a 6-7 cm diameter 3 cm deep fluid- filled swelling on his right olecranon process, he has good range of motion of the elbow, has tenderness to palpation over the proximal end of the fibula no pain over the lateral malleolus Discharge Plan Discharge Plan Patient Disposition: Home Discharge orders & Medications Prescriptions: Continued cyanocobalamin (vitamin B-12) 1,000 mcg tablet 1,000 mcg PO DAILY Qty: 90 RF: 3 (DME) Disabled Parking Permit Qty: 1 RF: 0 aspirin 325 mg tablet,delayed release (DR/EC) 325 mg PO DAILY RF: 0 (DME) Disabled parking permit Qty: 1 RF: 0 carvedilol 3.125 mg tablet 3.125 mg PO BID Qty: 180 RF: 3 folic acid 1 mg tablet 1 mg PO DAILY Qty: 90 RF: 3 lisinopril 10 mg tablet 10 mg PO BID Qty: 180 RF: 3 pyridoxine (vitamin B6) 50 mg tablet 50 mg PO DAILY Qty: 90 RF: 3 metformin [Glucophage] 500 mg tablet 250 mg PO BIDCC Qty: 90 RF: 3 atorvastatin 40 mg tablet 40 mg PO HS Qty: 90 RF: 3 gabapentin 100 mg capsule 100 mg PO QID MDD 400 mg PRN (Reason: Pain (Scale Score 4-6)) RF: 0 Follow up/Referrals: Jhonatan Birch MD [Physician] - 2 Weeks Tatum Yen DO [Primary Care Provider] - 1 Week Discharge Health Status Multidrug resistant organism: No MDRO Diet/Activity/Treatments Diet: Diet as Tolerated Discharge Data Primary Care Provider: Tatum Yen Attending Provider: Tatum Yen Admit Date/Time: 04/14/19 17:21 Quality VTE Deep Vein Thrombosis/Pulmonary Embolism Present on Admission: No
[2019-04-15] MEDS: METFORMIN HCL 500 MG TABLET 250 MG PO (08:00)
[2019-04-15] MEDS: carvediloL 3.125 MG TABLET PO (08:01)
[2019-04-15] MEDS: ENOXAPARIN 40 MG/0.4 ML SYRINGE SUBCUT (08:01)
[2019-04-15] MEDS: LISINOPRIL 10 MG TABLET PO (08:01)
--- NOTE | 2019-04-15 08:39 | DI.RAD.S_ITS ---
PROCEDURE: XR TIBIA FUBULA RT 2V INDICATIONS: fibula fracture TECHNIQUE: 2 views of the tibia and fibula were acquired. COMPARISON: [facility], CR, ANKLE 3 VIEWS RIGHT, 05/31/2015, 14:45. [facility], CR, KNEE 3V RIGHT, 12/03/2014, 11:20. [facility], CR, XR KNEE RT 3V, 04/14/2019, 14:45. [facility], CR, XR FOOT RT MIN 3V, 04/14/2019, 14:45. [facility], CR, XR ANKLE RT MIN 3V, 04/14/2019, 14:45. [facility], CR, ANKLE 3 VIEWS LEFT, 10/09/2016, 10:56. [facility], CR, FOOT 3V LEFT, 10/09/2016, 10:56. FINDINGS: Bones: There is a redemonstrated acute oblique fracture of the proximal fibular metadiaphysis with mild anterior and medial displacement of the distal fracture component. There is redemonstration of internal fixation hardware along the right distal fibular metadiaphysis, similar in appearance to prior comparison exams. Partially imaged calcific bodies distal to the medial malleolus are consistent with the sequela of prior chronic fracture/injury. Soft tissues: Vascular calcifications are noted. IMPRESSION: 1. Redemonstrated mildly displaced acute oblique fracture of the proximal right fibular metadiaphysis. 2. Redemonstrated internal fixation hardware along the distal right fibula. Dictated by: Hernesto Banuelos M.D. on 04/15/2019 at 9:14 Approved by: Hernesto Banuelos M.D. on 04/15/2019 at 9:26
--- NOTE | 2019-04-15 09:00 | OT.IP.EVAL ---
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) Hypertension (Chronic ~1999) Measles (Chronic ~1949) Normal pressure hydrocephalus (Acute) Peripheral neuropathy (Acute) Psoriasis (Chronic ~2015) Viral cardiomyopathy (Chronic ~2014) Surgical History (Last Reviewed 04/14/19 @ 20:26 by Jhonatan Birch MD) Anesthesia (Inactive) History of angioplasty (08/09/14) History of inguinal hernia repair (Resolved ~1954) Status post appendectomy (~1952) Undescended testicle, unilateral (Resolved) Occupational Therapy Inpatient Evaluation/Re-Eval M1 PT/OT-IP Prior Functional Status Start: 04/15/19 10:07 Freq: NEEDED Status: Active Protocol: Document 04/15/19 10:07 [facility] (Rec: 04/15/19 10:34 [facility] [id number]) Medical Review Prior Functional Status Medical History Reviewed Yes Communication Independent. Mobility and Gait Prior to fall, per pt right leg gave out while taking the trash out used a SPC all the time. Now pt has one FWW upstairs and another oone downstairs. Activities of Daily Living and IADL's Per pt completely independent. Social History Household Members spouse Living Arrangements House Number of Floors (Floors) Two Floors Number of Stairs To Enter/Railing? 3 steps with bilateral wide rails to get into the house. 8 steps, landing, and another 6 steps with right handrail going down on both set of steps to get to master bedroom. Home Environment Standard Height Toilet,Walk in Shower,Built-In Shower Seat Home Equipment Front Wheel Walker,Straight Cane,Grab Bars Near Toilet, Grab Bars In Shower Additional Social History Comment Pt able to provide lifting assist for pt. M2 OT-IP Current Condition Start: 04/15/19 10:07 Freq: Status: Active Protocol: Document 04/15/19 10:07 [facility] (Rec: 04/15/19 10:34 [facility] [id number]) Occupational Therapy Current Condition Current Condition Evaluation Date 04/15/19 Treatment Diagnosis Right olecranon enthesophyte fx, right proximal fibula fx, decreased mob. Diagnosis Onset Date 04/15/19 Weight Bearing Status Weight Bearing Status Weight Bear as Tolerated Allowed Weight Bearing Amount (enter % Per Dr. Birch, pt use of right or #) (%) elbow as tolerated and RLE use of CAm boot WBAT. M3 OT- IP Subjective and Pain Start: 04/15/19 10:07 Freq: Status: Active Protocol: Document 04/15/19 10:07 [facility] (Rec: 04/15/19 10:34 [facility] [id number]) OT- Subjective Occupational Therapy Visit Type Type Initial Evaluation Visit Start Time 09:00 Visit Stop Time 09:05 Total Visit Minutes 15 Notes Pt also seen when present from 954 to 1005. Occupational Therapy Visit Comments Patient Comments Pt not wanting to shower and states just wants to go home. Patient/Caregiver Goals To go home. OT Pain Assessment Pain When Pain Assessed At Rest Pain Present Pain Present Denied Pain M4 OT- IP ADL's Start: 04/15/19 10:07 Freq: Status: Active Protocol: Document 04/15/19 10:07 [facility] (Rec: 04/15/19 10:34 [facility] [id number]) OT [id number] Comments OT Self-Feeding Comments Not at meal time. OT ADL-Dressing General Eval Upper Body Dressing Ability Independent Lower Body Dressing Ability Standby Assistance Areas Needing Assistance Orthosis/Prosthesis Comments OT Dressing Comments Pt needing initial cues how to dolores CAM boot, in addition educated to dolores pants first and then boot. Encouraged pt to sit for LB dressing needs at this time for safety. Suggested at home can wear old sweat pants and cut off at the bottom . OT ADL-Toileting Comments OT Toileting Comments Pt not having to use the toilet. OT ADL-Bathing Comments OT Bathing Comments Pt refused. Educated to place a trash bag over his boot while showering and can be taken off to clean his leg for hygiene needs. M6 OT- IP Functional Cognition Start: 04/15/19 10:07 Freq: Status: Active Protocol: Document 04/15/19 10:07 [facility] (Rec: 04/15/19 10:34 [facility] [id number]) Cognitive Factors Limiting Selfcare Function Cognitive Ability Level of Alertness Alert Patient Orientation Name,Place,Situation Attention Span Ability Capable of Focused Attention, Capable of Sustained Attention Ability to Follow Commands Able to Follow One Step Commands,Able to Follow Multi- Step Commands Memory Description Short Term Impaired Safety Awareness Underestimates Need for Assistance Problem Solving Ability Needs Assist to Identify Solutions Executive Function Ability Unable to Switch Focus,Unable to Filter Distractions Cognitive Comments Cognitive Assessment Comments Pt gets distracted easily and needing cues to focus on one thing at a time. Pt's aware and able to provide safety cues for pt. OT- Vision and Hearing OT- Vision Assessment Visual Acuity Glasses All The Time M7 OT- IP Mobility and Balance Start: 04/15/19 10:07 Freq: Status: Active Protocol: Document 04/15/19 10:07 [facility] (Rec: 04/15/19 10:34 [facility] [id number]) OT-Transfer Assessment Sit to and From Stand Sit to and from Stand Contact Guard Assistance,1 Person Assistance,Use of Upper Extremities Transfers Transfer Ability Contact Guard Assistance Devices Transfer Assistive Devices Gait Belt,Front Wheeled Walker Comments Mobility Comments Recommended pt have gait belt at home, but pt and states will not need it as pt does not want to have to assist him for his fear of her getting hurt if falling. OT- Balance Assessment Sitting Balance and Reactions Static Sitting Balance Ability Normal Dynamic Sitting Balance Ability Normal Standing Balance and Reactions Static Standing Balance Ability Good M8 OT- IP Objective Assessments Start: 04/15/19 10:07 Freq: Status: Active Protocol: Document 04/15/19 10:07 [facility] (Rec: 04/15/19 10:34 [facility] [id number]) OT Sensation Assessment Edema Edema Present Edema Comments Right elbow swollen. M9 OT- IP Assessment and Plan Start: 04/15/19 10:07 Freq: Status: Active Protocol: Document 04/15/19 10:07 [facility] (Rec: 04/15/19 10:34 [facility] [id number]) OT Summary Assessment and Plan Potential Rehabilitation Potential Good Analytic Complexity at Evaluation Low Summary OT Impairments Balance,Functional Cognition, Dressing,Bathing,Shower Transfers Progress Towards Goals Progressing Toward Goals Assessment Summary Pt low complexity and main barriers are decreased safety awareness, dynamic balance, easily distracted and needing to slow down. Pt looking to go home with to assist but not able to provide physical assist. Recommended outpt PT. Goals Self-Feeding Goal Independent Grooming Goal Independent Dressing Goal Independent Toileting Goal Independent Bathing Goal Minimal Assistance Toilet Transfer Goal Independent Shower Transfer Goal Contact Guard Assistance Patient/Caregiver Education Goal Caregiver Independent Assisting Patient Days to Meet Goals 3 Frequency of Treatment Frequency Of Treatment Once a Day Treatment Plan OT Treatment Plan ADL Training,Functional Cognition Training,Functional Mobility,Patient/Family Education,Discharge Planning Discharge Recommendations OT Discharge Recommendations Home with 17/11 Assist, Outpatient PT
--- NOTE | 2019-04-15 09:07 | CM.DANOTE ---
Addendum entered by Bella Bloom LPN 04/15/19 14:17: PT did see pt as planned and notes that pt will have supportive assist from his and his 's sister (who lives with them). He is currently going to OUTPT PT and PT recommends he continue this after d/c. Original Note: Discharge Planning/Care Management DCP: assessment: case received, EMR reviewed,dc order and d/c summary noted. Met with pt. Introduced self and role. Pt is a 73 year old male who admitted to care of PCP Dr. Delaney. Payer: Medicare and [employer]. Admission status: in review: Per UR RIKY Arias. Pt with a recent fall at home that resulted in RUE and LE fractures. Dr. Birch,orthopedics, has consulted and with plan for outpt followup. Pt was currently in process of working with OT Chelsi who explained that PT would also see pt and the therapists were in process of obtained the needed specialized boot for RLE. Pt confirms this, says his Geri is able to provide any supportive assist that may be needed. He says he expects to go home today after he is fitted with the boot and received training from the therapy team. Will follow prn. As per above: plan: d/c to home setting today. CM Discharge Assessment Start: 04/15/19 09:06 Freq: Status: Active Protocol: Document 04/15/19 09:06 [facility] (Rec: 04/15/19 09:07 IT [id number]) Discharge Planning Assessment Advance Directives? Yes History Provided By Patient,Medical Record Prior Living Arrangements House Household Members spouse Independent with ADL's Yes Is patient alert and oriented? Yes Review Status In Process
--- NOTE | 2019-04-15 10:17 | PC.NURSE ---
Addendum entered by Eden Louis R.N. 04/15/19 12:46: camboot order placed for patients r.leg. Verbal . Original Note: Pt is a&Ox3. He has a tennis ball sized lump to his r.elbow from where he fell and fx area. Pt also fitted for a boot to his r.leg as he fx this. Worked with physical therapist and he is ok to go home.. He will be leaving soon.
--- NOTE | 2019-04-15 12:31 | PT.IIE ---
Current Diagnoses Pain in unspecified ankle and joints of unspecified foot (04/14/19) Pain in unspecified lower leg (04/14/19) Unspecified fall, initial encounter (04/14/19) Personal history of (healed) traumatic fracture (04/14/19) Surgical History (Last Reviewed 04/14/19 @ 20:26 by Jhonatan Birch MD) Anesthesia (Inactive) History of angioplasty (08/09/14) History of inguinal hernia repair (Resolved ~1954) Status post appendectomy (~1952) Undescended testicle, unilateral (Resolved) Medical History (Last Reviewed 04/14/19 @ 20:26 by Jhonatan Birch MD) Acne (Chronic ~1958) CAD (coronary artery disease) (Chronic ~2012) Chickenpox (Chronic ~1949) Class 1 obesity (08/28/16) Collar bone fracture (Resolved ~1950) Community acquired pneumonia (Inactive) History of ankle fracture (Resolved ~2015) History of rib fracture (Resolved ~1984) Homozygous MTHFR mutation [id number] (Chronic) Hypertension (Chronic ~1999) Measles (Chronic ~1949) Normal pressure hydrocephalus (Acute) Peripheral neuropathy (Acute) Psoriasis (Chronic ~2015) Viral cardiomyopathy (Chronic ~2014) Physical Therapy Inpatient Evaluation/Re-Eval M1 PT/OT-IP Prior Functional Status Start: 04/15/19 08:13 Freq: NEEDED Status: Active Protocol: Document 04/15/19 09:20 [facility] (Rec: 04/15/19 11:20 [facility] [id number]) Medical Review Prior Functional Status Medical History Reviewed Yes Communication No noted deficits. Pt able to make needs known. Mobility and Gait Pt reports he was modified I with SPC for majority of mobility and gait (did not need in house) prior to fall earlier this week. Pt has been using cane and FWW since fall for inc'd stability. Pt also states he has used a R AFO since he broke his R ankle a couple years ago. Activities of Daily Living and IADL's Pt reports I with ADLs and IADLs. Prior Functional Level (Other details) Pt able to drive prior to fall . Pt notes that he has fallen several times in the last year but states they were nothing serious. He has been attending OP PT to improve his LE strength and balance. Social History Household Members spouse,family Living Arrangements House Number of Floors (Floors) Two Floors Number of Stairs To Enter/Railing? 3 steps with bilateral wide rails to get into the house bottom floor of house with pt' s bedroom. 6 steps, landing, and another 8 steps (L rail ascending) to get up to kitchen and main living area. 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 Pt has 3 EMILY bottom floor of house (B wide rails), and full flight of stairs up to main living area (L rail ascending). Pt's and her sister will be available to assist throughout the day as needed but likely will not be able to assist pt with mobility. M1 PT/OT-IP Prior Functional Status Start: 04/15/19 10:07 Freq: NEEDED Status: Active Protocol: Document 04/15/19 10:07 [facility] (Rec: 04/15/19 10:34 [facility] [id number]) Medical Review Prior Functional Status Medical History Reviewed Yes Communication Independent. Mobility and Gait Prior to fall, per pt right leg gave out while taking the trash out used a SPC all the time. Now pt has one FWW upstairs and another oone downstairs. Activities of Daily Living and IADL's Per pt completely independent. Social History Household Members spouse Living Arrangements House Number of Floors (Floors) Two Floors Number of Stairs To Enter/Railing? 3 steps with bilateral wide rails to get into the house. 8 steps, landing, and another 6 steps with right handrail going down on both set of steps to get to master bedroom. Home Environment Standard Height Toilet,Walk in Shower,Built-In Shower Seat Home Equipment Front Wheel Walker,Straight Cane,Grab Bars Near Toilet, Grab Bars In Shower Additional Social History Comment Pt able to provide lifting assist for pt. M2 PT-IP Current Condition Start: 04/15/19 08:13 Freq: NEEDED Status: Active Protocol: Document 04/15/19 09:20 [facility] (Rec: 04/15/19 11:20 [id number]) Physical Therapy Current Condition Current Condition Evaluation Date 04/15/19 Treatment Diagnosis R prox fibula fx, R olecranon fx, difficulty walking, limited activity vikotria Onset Date 04/11/19 Weight Bearing Status Weight Bearing Status Weight Bear as Tolerated Allowed Weight Bearing Amount (enter % R LE WBAT with cam boot or #) (%) R UE use as tolerated per Dr Alexandro Birch's consult M3 PT-IP Subjective Start: 04/15/19 08:13 Freq: NEEDED Status: Active Protocol: Document 04/15/19 09:20 [facility] (Rec: 04/15/19 11:20 [id number]) Subjective Physical Therapy Visit Type Type Initial Evaluation Visit Start Time 09:20 Visit Stop Time 09:52 Total Visit Minutes 32 Notes IE led by SPT Yeni, supervised by PT Ean 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 I was able to get around the house fine the past few days Patient Goals Return home Therapy Pain Assessment Pain When Pain Assessed At Rest Pain Present Pain Present Denied Pain Location R elbow Scale Used golf ball sized lump on R elbow, pt denies pain R leg Scale Used pt noted mild pain over R prox fibula during strength assessment Description Acute,Sharp M4 PT-IP Mobility and Gait Start: 04/15/19 08:13 Freq: NEEDED Status: Active Protocol: Document 04/15/19 09:20 [facility] (Rec: 04/15/19 11:20 [id number]) PT-Bed Mobility Assessment Supine to Sit Supine to Sit Standby Assistance Scooting Scooting to Edge of Bed Standby Assistance PT-Transfer Assessment Sit to and From Stand Sit to and from Stand Standby Assistance,Use of Upper Extremities Equipment Transfer Assistive Device Gait Belt,Front Wheeled Walker Orthotic/Prosthetic Devices or Brace: Yes Transfers Transfer Destination Chair Transfer Technique ambulate with FWW Transfer Ability Level of Assist Contact Guard Assistance,Use of Upper Extremities Comments Mobility Comments Pt in bed upon assessment. Pt required no more than SBA to complete supine to sit and scoot to EOB. Fitted pt with XL Cam boot. Pt able to stand SBA with FWW. Ambulated to stairs and back to room, and completed stand to sit to bed SBA. Pt then requested to move to chair and was able to complete sit to/from stand and step with FWW SBA. Pt left in chair at end of session, call light and needs within reach, in room. Pt demonstrated impulsive behavior throughout mobility and poor attention to task. Gait Assessment Gait Gait Assistance Required: Contact Guard Assist,Minimum Assistance,1 Person Assist Distance (Feet) 200 Able to Maintain Weight Bearing Status Yes During Gait Assistive Devices Assistive Device Gait Belt,Straight Cane,Front Wheeled Walker Orthotic/Prosthetic Devices or Brace: Yes Gait Deviations General Gait Pattern Antalgic,Decreased Stride Length,Decreased Feet Clearance Factors Limiting Gait Function Factors Limiting Gait Function Decreased Activity Tolerance, Decreased Sensation,Decreased Strength,Difficulty Following Directions,Poor Balance,Poor Safety Awareness Comments Gait Comments Pt able to ambulate ~200 ft to stairs and back to room, cam boot on. Pt required CGA to ambulate with FWW. Attempted ambulation with SPC and pt required CGA to min A d/t dec' d stability and safety. Educated pt and re: using FWW for mobility and ambulation at home to improve safety. Pt and agreed. Stair Climbing Assessment Evaluation Level of Assist On Stairs Contact Guard Assistance Devices Stair Climbing Assistive Devices Straight Cane,Left Railing, Right Railing Technique/Endurance Stair Climbing Direction Ascend and Descend Stair Climbing Technique Step to Step Number of Steps Climbed 3 Query Text: Stair Climbing Set # Repetitions (reps) 3 Comments Stair Climbing Comments Pt completed 3 rounds of stair climbing with CGA. Educated pt to use step to pattern and up with the good, down with the bad. Initial round completed with B railing support. Second round attempted with L railing support but pt demonstrated poor stability when descending . Third round completed with L railing and SPC for stability . Pt demonstrated improved stability with use of SPC. Educated pt to use SPC when climbing stairs to improve safety. PT-Balance Assessment Sitting Balance and Reactions Static Sitting Balance Ability Good Dynamic Sitting Balance Ability Good Standing Balance and Reactions Static Standing Balance Ability Fair Dynamic Standing Balance Ability Fair Device Used FWW, SPC M5 PT-IP Objective Assessments Start: 04/15/19 08:13 Freq: NEEDED Status: Active Protocol: Document 04/15/19 09:20 J (Rec: 04/15/19 11:20 J [id number]) Orientation Orientation/Cognition Level of Alertness Alert Orientation Name,Day of Week,Place, Situation Language Function Ability No Deficits Noted Safety Awareness Decreased Safety Awareness Memory Description No Deficits Noted Comments No noted communication deficits. Pt demonstrates impulsivity throughout session and decreased safety awareness. Required cuing for attention to task to improve safety. Gross Range of Motion Upper Extremity ROM Assessment Within Functional Limits Lower Extremity ROM Assessment Within Functional Limits Strength Upper Extremity Strength Assessment Right Impaired Lower Extremity Strength Assessment Right Impaired Hip 4/5 Knee 4/5 Ankle 4/5 Sensation Assessment Sensation Gross Sensation Right LE Impaired,Left LE Impaired Light Touch Impaired Comments Sensation Comments Pt reports hx of peripheral neuropathy with dec'd sensation around B ankles and feet Muscle Tone Muscle Tone WNL Yes M6 PT-IP Treatment Start: 04/15/19 08:13 Freq: NEEDED Status: Active Protocol: Document 04/15/19 09:20 JG (Rec: 04/15/19 11:20 JG [id number]) Physical Therapy Treatment Education Education Provided Weight Bearing Status,Safety Brace Education Donning,Patient,Caregiver Equipment Issued Equipment Type and Company Cam boot size XL M7 PT-IP Assessment and Plan Start: 04/15/19 08:13 Freq: NEEDED Status: Active Protocol: Document 04/15/19 09:20 JG (Rec: 04/15/19 11:20 JG [id number]) PT Summary Assessment and Plan Potential Rehabilitation Potential Excellent Status of Condition at Evaluation Stable Summary Impairments Pain,Strength,Balance, Sensation,Cognition,Bed Mobility,Transfers,Gait, Activity Tolerance Assessment Summary Pt is low complexity 73 yo male presenting 4 day s/p fall with R proximal tibia fx and R olecranon fx. Pt states that he did not fall, I twisted and felt the bone break and then my leg gave out from under me. Provided pt with cam boot. Pt required no more than SBA for bed mobility, CGA for mobility and ambulation with FWW. Recommended pt to use FWW vs SPC d/t dec'd safety with SPC. PT recommending d/c to home with assist and OP PT to improve strength and balance once medically cleared. Frequency of Treatment Frequency Of Treatment Discharge Recommendations To Nursing Amount of Assist Needed Standby Assistance Discharge Recommendations PT Discharge Recommendations Home with Assistance, Outpatient PT note reviewed by Ean , PT
== END 2019-04-15 11:30 | disposition home or self-care (01) ==
LOC: AC 17:28
PROVIDERS: Admitting Provider Family Medicine; PCP Family Medicine; Visit Provider Family Medicine
DX: S52.021D Displaced fracture of olecranon process without intraarticular extension of right ulna, subsequent encounter for closed fracture with routine healing (principal); M25.521 Pain in right elbow; S82.491D Other fracture of shaft of right fibula, subsequent encounter for closed fracture with routine healing; W18.39XD Other fall on same level, subsequent encounter; G62.9 Polyneuropathy, unspecified; I25.10 Atherosclerotic heart disease of native coronary artery without angina pectoris; I10 Essential (primary) hypertension; G91.2 (Idiopathic) normal pressure hydrocephalus
CPT/HCPCS: 73080; 73562; 73590; 73610; 73630; 96372; 97161; 97165; 97530; 99217; 99219; G0378; G0379; J1650

== ENCOUNTER → 2019-05-31 09:38 | Outpatient (CLI) | payer MEDICARE, OTHER, SELFPAY ==
[2019-05-31 10:22] LABS: Hemoglobin A1C% w Est Avg Glu 5.4 % (4.0-6.0)
[2019-05-31 10:26] LABS: Alanine Aminotransferase 21 IU/L (<50); Albumin 4.4 g/dL (3.5-5.0); Albumin Globulin Ratio 1.5 (1.0-2.8); Alkaline Phosphatase 95 U/L (38-126); Aspartate Aminotransferase 28 IU/L (17-59); Bilirubin Total 0.8 mg/dL (0.2-1.3); Blood Urea Nitrogen 16 mg/dL (9-20); Calcium 9.7 mg/dL (8.4-10.2); Carbon Dioxide 26 mmol/L (22-32); Chloride 103 mmol/L (98-107); Estimated Glomerular Filt Rate > 60.0 mL/min (>60); Glucose 121 mg/dL (80-110); HEMOLYSIS < 15 (0-50); Potassium 4.5 mmol/L (3.4-5.1); Sodium 141 mmol/L (137-145); Total Protein 7.4 g/dL (6.3-8.2)
[2019-05-31 11:16] LABS: Vitamin B12 632 pg/mL (239-931)
[2019-06-01 14:08] LABS: Homocysteine 12.3 umol/L (< 11.4)
[2019-06-06 08:50] LABS: Methylmalonic Acid 125 nmol/L (87-318)
== END ==
PROVIDERS: PCP Family Medicine; Referring Provider Family Medicine; Visit Provider Family Medicine
DX: E11.40 Type 2 diabetes mellitus with diabetic neuropathy, unspecified (principal); E72.12 Methylenetetrahydrofolate reductase deficiency; E88.9 Metabolic disorder, unspecified; G63 Polyneuropathy in diseases classified elsewhere; I10 Essential (primary) hypertension
CPT/HCPCS: 80053; 82607; 83036; 83090; 83921

== ENCOUNTER 2019-07-11 10:26 | Day surgery (SDC) | payer MEDICARE, OTHER, SELFPAY ==
[2019-07-11 10:47] VITALS: BMI 28.8
[2019-07-11 10:52] VITALS: BP 183/98; PULSE 106; RESP 15; TEMP 36.9; O2SAT 96
[2019-07-11] MEDS: LACTATED RINGERS 1,000 ML 200 ML IV (11:00)
--- NOTE | 2019-07-11 12:27 | P.HP_ITS ---
History of Present Illness History of Present Illness Date Patient Seen: 07/11/19 Time Patient Seen: 12:28 Chief complaint: [id number] SCREENING COLONOSCOPY Narrative: Patient presents for colorectal screening. They had a prior colonoscopy 10 years ago normal. No personal or family history of colon cancer. On further history denies any recent gastrointestinal symptoms. No nausea, vomiting, abdominal pain, loss of appetite, unexplained weight loss, change in bowel habits, diarrhea, constipation, melena, hematochezia, or bright red blood per rectum. 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 Father No problems noted. Sister No problems noted. Social History: household members spouse Tobacco & Substance use: Smoking Status Never smoker alcohol intake current alcohol intake frequency 0-2 drinks per day Substance Use Type does not use Meds Home Medications and Allergies Home Medications Medication Instructions Recorded Confirmed Type aspirin 325 mg tablet,delayed 325 mg PO DAILY 09/09/17 07/11/19 History release cyanocobalamin (vitamin B-12) 1,000 mcg PO DAILY #90 tab 09/10/17 07/11/19 Rx 1,000 mcg tablet Disabled Parking Permit #1 ea 09/06/18 06/08/19 Rx atorvastatin 40 mg tablet 40 mg PO HS #90 tab 04/01/19 07/11/19 Rx folic acid 1 mg tablet 1 mg PO DAILY #90 tab 04/01/19 07/11/19 Rx lisinopril 10 mg tablet 10 mg PO BID #180 tab 04/01/19 07/11/19 Rx metformin 500 mg tablet 250 mg PO BIDCC #90 tab 04/01/19 07/11/19 Rx pyridoxine (vitamin B6) 50 mg 50 mg PO DAILY #90 tab 04/01/19 07/11/19 Rx tablet gabapentin 100 mg PO QID PRN MDD 400 mg 04/14/19 07/11/19 History carvedilol 25 mg PO BID 07/11/19 07/11/19 History furosemide 40 mg PO DAILY PRN 07/11/19 07/11/19 History Allergies Allergy/AdvReac Type Severity Reaction Status Date / Time No Known Drug Allergies Allergy Verified 07/11/19 10:38 Review of Systems Review of Systems Narrative: A 10 point review of systems is negative except as noted in the HPI Exam Vital Signs (past 8 hours): - 07/11/19 10:52 Temperature 98.4 F Pulse Rate 106 H Respiratory Rate 15 Blood Pressure 183/98 H Pulse Oximetry 96 Oxygen Delivery Method Room Air Narrative Exam Narrative: General-no acute distress, well nourished HEENT-moist mucous membranes, no scleral icterus Neck-supple, no lymphadenopathy Chest- non labored respirations, clear to auscultation bilaterally Cardiac-regular rate no peripheral edema Abdomen-soft, nontender, non distended Extremities-warm, well perfused Neurological-alert and oriented, no focal deficits Assessment & Plan Assessment and plan (1) Screening for colon cancer: Current visit: Yes Status: Acute Assessment & Plan narrative: The patient requires colorectal screening and colo noscopy is recommended. Technical details were discussed. Risks, benefits, alternatives explained. Risks including but not limited to myocardial infarction, aspiration, bleeding, pain, missed lesion, incomplete examination, need for further radiographic studies, colonic perforation, and need for major abdominal surgery were discussed. All questions were answered to their satisfaction, and they are in agreement with this plan.
[2019-07-11] MEDS: MIDAZOLAM 5 MG/5 ML VIAL IV (12:53)
--- NOTE | 2019-07-11 12:53 | PM.OP.ENDO ---
Operative Date/Time/Diagnoses Date of procedure: 07/11/19 Time of procedure: 12:54 Pre-op diagnosis: Screening colonoscopy Post-op diagnosis: same Procedure & Clinicians Study performed: Colonoscopy Same procedure as scheduled: Yes Indications: Last colonoscopy 10 years ago presents for routine screening Surgeon: Hector Reyes Procedure Notes SCOAP/Timeout: Performed Procedure in detail: Patient placed in left lateral decubitus position. Time out was performed. Procedural sedation was administered with Versed and Fentanyl. A rectal exam demonstrated no external hemorrhoids no internal masses. Colonoscopy scope was placed into the rectum and advanced through the colon to the cecum. The ileocecal valve was identified. The scope was then slowly withdrawn examining colon thoroughly in all directions. The colonoscopy was notable for the following 1. Sigmoid diverticulosis 2. No masses or polyps 3. Quality of prep excellent Scope withdrawal time: 6 Sedation minutes: 20 Findings: polyp Specimen(s): none sent Complications: none Impression: Diverticulosis Post-procedure Recommendations: Colonscopy in 10 years Disposition: same day surgery
[2019-07-11] MEDS: fentaNYL 250 MCG/5 ML INJ IV (12:54)
[2019-07-11 12:58] VITALS: BP 144/80; PULSE 89; RESP 16; TEMP 37.8; O2SAT 96
[2019-07-11 13:15] VITALS: BP 143/81; PULSE 84; RESP 14; O2SAT 96
--- NOTE | 2019-07-11 13:24 | SUR.PHASEI ---
Pt awake and oriented, taken from endo to phase II, PO fluids given.
--- NOTE | 2019-07-11 13:45 | SUR.PHASEII ---
1320 800 ml IV fluid LR infused.
== END 2019-07-11 13:30 | disposition home or self-care (01) ==
PROVIDERS: PCP Family Medicine; Referring Provider Surgery; Visit Provider Surgery
PROC: 0DJD8ZZ Inspection of Lower Intestinal Tract, Via Natural or Artificial Opening Endoscopic (ICD-10-PCS; CPT 45378; principal; 2019-07-11 11:30)
DX: Z12.11 Encounter for screening for malignant neoplasm of colon (principal); E66.9 Obesity, unspecified; I10 Essential (primary) hypertension; I25.10 Atherosclerotic heart disease of native coronary artery without angina pectoris; K57.30 Diverticulosis of large intestine without perforation or abscess without bleeding
CPT/HCPCS: G0121; 99152; J2250; J3010

== ENCOUNTER → 2019-11-30 11:35 | Outpatient (CLI) | payer MEDICARE, OTHER, SELFPAY ==
[2019-11-30 13:19] LABS: Hemoglobin A1C% w Est Avg Glu 5.7 % (4.0-6.0)
[2019-11-30 14:02] LABS: Alanine Aminotransferase 25 IU/L (<50); Albumin 4.2 g/dL (3.5-5.0); Albumin Globulin Ratio 1.8 (1.0-2.8); Alkaline Phosphatase 89 U/L (38-126); Aspartate Aminotransferase 29 IU/L (17-59); BUN Creatinine Ratio 28.9 (6-22); Bilirubin Total 0.8 mg/dL (0.2-1.3); Blood Urea Nitrogen 24 mg/dL (9-20); Calcium 10.1 mg/dL (8.4-10.2); Carbon Dioxide 25 mmol/L (22-32); Chloride 104 mmol/L (98-107); Cholesterol 175 mg/dL (140-199); Estimated Glomerular Filt Rate > 60.0 mL/min (>60); Globulin 2.3 g/dL (1.7-4.1); Glucose 92 mg/dL (80-110); HDL Cholesterol 54 mg/dL (40-60); HEMOLYSIS < 15 (0-50); LDL Cholesterol Calculated 85 mg/dL (<100); Sodium 138 mmol/L (137-145); Total Protein 6.5 g/dL (6.3-8.2); Triglycerides 178 mg/dL (35-150)
[2019-11-30 15:17] LABS: Creatinine Urine Random 137.5 mg/dL
[2019-11-30 15:21] LABS: Microalbumin Urine Random 1.1 mg/dL (0-1.6)
[2019-12-01 07:09] LABS: Homocysteine 10.7 umol/L (0.0-19.2)
== END ==
PROVIDERS: PCP Family Medicine; Referring Provider Family Medicine; Visit Provider Family Medicine
DX: E11.40 Type 2 diabetes mellitus with diabetic neuropathy, unspecified (principal); E53.8 Deficiency of other specified B group vitamins; E72.12 Methylenetetrahydrofolate reductase deficiency; E78.5 Hyperlipidemia, unspecified; G62.9 Polyneuropathy, unspecified; I10 Essential (primary) hypertension
CPT/HCPCS: 36415; 80053; 80061; 82043; 82570; 83036; 83090

== ENCOUNTER → 2020-06-07 10:50 | Outpatient (CLI) | payer MEDICARE, OTHER, SELFPAY ==
[2020-06-07 11:41] LABS: Hemoglobin A1C% w Est Avg Glu 5.6 % (4.0-6.0)
[2020-06-07 12:08] LABS: Alanine Aminotransferase 21 IU/L (<50); Albumin 4.1 g/dL (3.5-5.0); Albumin Globulin Ratio 1.6 (1.0-2.8); Alkaline Phosphatase 84 U/L (38-126); Aspartate Aminotransferase 28 IU/L (17-59); Bilirubin Total 0.4 mg/dL (0.2-1.3); Blood Urea Nitrogen 17 mg/dL (9-20); Calcium 9.4 mg/dL (8.4-10.2); Carbon Dioxide 28 mmol/L (22-32); Chloride 107 mmol/L (98-107); Cholesterol 151 mg/dL (140-199); Estimated Glomerular Filt Rate > 60.0 mL/min (>60); Globulin 2.6 g/dL (1.7-4.1); Glucose 115 mg/dL (80-110); HDL Cholesterol 54 mg/dL (40-60); HEMOLYSIS < 15 (0-50); LDL Cholesterol Calculated 71 mg/dL (<100); Potassium 4.9 mmol/L (3.4-5.1); Sodium 139 mmol/L (137-145); Total Protein 6.7 g/dL (6.3-8.2); Triglycerides 128 mg/dL (35-150)
== END ==
PROVIDERS: PCP Family Medicine; Referring Provider Family Medicine; Visit Provider Family Medicine
DX: E11.40 Type 2 diabetes mellitus with diabetic neuropathy, unspecified (principal); E78.5 Hyperlipidemia, unspecified; I10 Essential (primary) hypertension
CPT/HCPCS: 36415; 80053; 80061; 83036

== ENCOUNTER → 2020-11-29 10:52 | Outpatient (CLI) | payer MEDICARE, OTHER, SELFPAY ==
[2020-11-29 12:17] LABS: Hemoglobin A1C% w Est Avg Glu 5.4 % (4.0-6.0)
[2020-11-29 12:23] LABS: Blood Urea Nitrogen 18 mg/dL (9-20); Calcium 9.2 mg/dL (8.4-10.2); Carbon Dioxide 24 mmol/L (22-32); Chloride 106 mmol/L (98-107); Estimated Glomerular Filt Rate > 60.0 mL/min (>60); Glucose 91 mg/dL (80-110); HEMOLYSIS < 15 (0-50); Potassium 4.7 mmol/L (3.4-5.1); Sodium 137 mmol/L (137-145)
== END ==
PROVIDERS: PCP Family Medicine; Referring Provider Family Medicine; Visit Provider Family Medicine
DX: E11.40 Type 2 diabetes mellitus with diabetic neuropathy, unspecified (principal)
CPT/HCPCS: 36415; 80048; 83036

== ENCOUNTER → 2021-01-02 11:04 | Outpatient (CLI) | payer MEDICARE, OTHER, SELFPAY ==
--- NOTE | 2021-01-02 | DI.MRI.S_ITS ---
PROCEDURE: MR LUMBAR SPINE WO CON INDICATIONS: Radiculopathy, lumbar region TECHNIQUE: Noncontrast sagittal T1 spin echo and T2 fast echo, sagittal STIR, axial T1 and T2 fast spin echo through the lumbar spine. In cases with scoliosis, additional coronal T2 fast spin echo may be performed. COMPARISON: [facility], MR, MR LUMBAR SPINE WO CON, 03/01/2019, 17:17. FINDINGS: Image quality: Excellent. Alignment and Curvature: There is normal bony alignment. Bone Marrow: Reactive endplate changes noted adjacent to the L4-L5 and L5-S1 discs. No acute vertebral body compression fractures. Spinal Cord: Conus medullaris terminates at the L1 level. Visualized cord demonstrates normal signal and size. Paraspinous Soft Tissues: No paravertebral masses. T12-L1: Normal appearance. L1-L2: Loss of disc signal. Mild, diffuse disc bulge. Mild narrowing of the central canal. Mild bilateral neural foraminal narrowing. No neural compression. L2-L3: Loss of disc signal. Mild, diffuse disc bulge. Mild bilateral facet hypertrophy. Mild to moderate narrowing of the central canal. Mild to moderate bilateral neural foraminal narrowing. No neural compression. Fissure noted in the posterior annulus. L3-L4: Loss of disc signal. Mild, diffuse disc bulge moderate bilateral facet hypertrophy. Moderate narrowing of the central canal. Mild to moderate bilateral neural foraminal narrowing. No neural compression. Fissure noted in the in the anterior annulus. L4-L5: Loss of disc signal and height. Moderate, diffuse disc bulge. Moderate bilateral facet hypertrophy. Severe narrowing of the central canal with compression of the nerve roots of the cauda equina. Moderate to severe right and moderate left neural foraminal narrowing with slight compression of the exiting right L4 nerve root. L5-S1: Loss of disc signal mild loss of disc height. Mild, diffuse disc bulge. Moderate bilateral facet hypertrophy. Mild to moderate narrowing of the central canal. Nhex-ty-sqtdhjpt right and moderate left neural foraminal narrowing. No neural compression. Fissure noted in the posterior annulus. IMPRESSION: 1. Multilevel degenerative disc disease. 2. Multilevel facet arthropathy. 3. Severe L4-L5 central canal narrowing with compression of the traversing nerve roots of the cauda equina. 3. Moderate to severe right L4-L5 neural foraminal narrowing with slight compression of the exiting right L4 nerve root. Dictated by: Dotty Nicole MD, PhD on 01/02/2021 at 17:14 Approved by: Dotty Nicole MD, PhD on 01/02/2021 at 17:17
== END ==
PROVIDERS: PCP Family Medicine; Referring Provider Physical Medicine & Rehabilitation; Visit Provider Physical Medicine & Rehabilitation
DX: M51.16 Intervertebral disc disorders with radiculopathy, lumbar region (principal); M51.17 Intervertebral disc disorders with radiculopathy, lumbosacral region; M47.26 Other spondylosis with radiculopathy, lumbar region; M47.27 Other spondylosis with radiculopathy, lumbosacral region; M48.061 Spinal stenosis, lumbar region without neurogenic claudication; M48.07 Spinal stenosis, lumbosacral region
CPT/HCPCS: 72148

== ENCOUNTER → 2021-01-30 10:33 | Outpatient (CLI) | payer MEDICARE, OTHER, SELFPAY ==
[2021-01-30 11:37] LABS: Add Manual Diff / Slide Review NO; Basophils Absolute Auto 0 /uL (0-100); Basophils Percent Auto 0.5 % (0-2); Eosinophils Absolute Auto 200 /uL (0-450); Hematocrit 41.3 % (41-53); Hemoglobin 13.5 g/dL (13.5-17.5); Lymphocytes Absolute Auto 900 /uL (1100-4500); Lymphocytes Percent Auto 13.7 % (25-40); Mean Corpuscular HGB Conc 32.6 % (30-36); Mean Corpuscular Hemoglobin 31.4 PG (26-34); Mean Corpuscular Volume 96.1 fL (80-100); Monocytes Absolute Auto 600 /uL (0-900); Monocytes Percent Auto 9.4 % (3-14); Neutrophils Absolute Auto 4700 /uL (1500-7000); Neutrophils Percent Auto 73.4 % (50-75); Platelet Count 193 X10^3/uL (150-400); White Blood Cell Count 6.3 X10^3/uL (4.5-11.0)
[2021-01-30 11:54] LABS: Hemoglobin A1C% w Est Avg Glu 5.5 % (4.0-6.0)
[2021-01-30 12:12] LABS: BUN Creatinine Ratio 28.4 (6-22); Blood Urea Nitrogen 27 mg/dL (9-20); Calcium 9.8 mg/dL (8.4-10.2); Carbon Dioxide 27 mmol/L (22-32); Chloride 106 mmol/L (98-107); Estimated Glomerular Filt Rate > 60.0 mL/min (>60); Glucose 122 mg/dL (80-110); HEMOLYSIS < 15 (0-50); Sodium 140 mmol/L (137-145)
== END ==
PROVIDERS: PCP Family Medicine; Referring Provider Orthopaedic Surgery Orthopaedic Surgery of the Spine; Visit Provider Orthopaedic Surgery Orthopaedic Surgery of the Spine
DX: Z01.818 Encounter for other preprocedural examination (principal); R73.9 Hyperglycemia, unspecified
CPT/HCPCS: 36415; 80048; 83036; 85025; 93005

== ENCOUNTER → 2021-02-04 14:07 | Outpatient (CLI) | payer MEDICARE, OTHER, SELFPAY ==
--- NOTE | 2021-02-04 14:14 | DI.CT.S_ITS ---
PROCEDURE: CT LUMBAR SPINE WO CON INDICATIONS: Spinal stenosis, lumbar region with neurogenic claudication TECHNIQUE: Noncontrast 3 mm thick sections acquired from the T12 level to the sacrum. Sagittal and coronal reformats were constructed. For radiation dose reduction, the following was used: automated exposure control. COMPARISON: [facility], RF, LUMBAR TRANSFORAMINAL SOPHIE, 08/20/2020, 14:27. [facility], MR, MR LUMBAR SPINE WO CON, 01/02/2021, 11:23. [facility], MR, MR LUMBAR SPINE WO CON, 03/01/2019, 17:17. FINDINGS: Image quality: Excellent. Bones: No acute vertebral body compression fractures. No suspicious lytic or blastic bony lesions. No pars defects. Mild levoconvex scoliotic curvature is noted. Minimal retrolisthesis can be seen at L2-L3 and at L4-L5. T12-L1: Normal. L1-L2: The disc height is well preserved. Moderate generalized disc bulge is seen. Mild facet joint hypertrophy is seen. There is [id number]-ygdtkzas left-sided and no significant right-sided neural foraminal narrowing seen Mild central canal narrowing is seen. L2-L3: Minimal loss of disc height is seen. Endplate irregularity and sclerosis can be seen. At least moderate disc bulge is seen. There is vznn-ud-pnzvbbfc left-sided and mild right-sided neural foraminal narrowing seen. At least moderate central canal narrowing is seen at this level. L3-L4: The disc height is well preserved. At least moderate disc bulge is seen at this level. At least moderate facet hypertrophy can be seen. Mild to moderate bilateral neural foraminal narrowing can be seen. At least moderate central canal narrowing is seen at this level. L4-L5: Moderate loss of disc height is seen. Vacuum disc phenomenon is seen at this level. Endplate irregularity and sclerosis can be seen. At least moderate disc bulge is seen. At least moderate facet hypertrophy can be seen at this level. There is at least moderate bilateral neural foraminal narrowing seen, right worse than left. At least moderate central canal narrowing is seen at this level. L5-S1: Moderate loss of disc height is seen. Vacuum disc phenomenon is seen at this level. Endplate irregularity and sclerosis can be seen. At least moderate disc bulge is seen. At least moderate facet hypertrophy is seen. There is moderate to severe bilateral neural foraminal narrowing seen. Moderate to severe central canal narrowing is also seen at this level. Soft tissues: No retroperitoneal masses or hematomas. Visualized aorta is normal in caliber. Atherosclerotic calcification is noted. IMPRESSION: Multiple levels of lumbar spine degenerative change are seen, which are overall worst at the L4-L5 and L5-S1 levels. The degenerate changes are similar to the recent prior MRI examination. Dictated by: Vahe Santana M.D. on 02/04/2021 at 16:44 Approved by: Vahe Santana M.D. on 02/04/2021 at 16:48
== END ==
PROVIDERS: PCP Family Medicine; Referring Provider Orthopaedic Surgery Orthopaedic Surgery of the Spine; Visit Provider Orthopaedic Surgery Orthopaedic Surgery of the Spine
DX: M48.062 Spinal stenosis, lumbar region with neurogenic claudication (principal); M47.816 Spondylosis without myelopathy or radiculopathy, lumbar region; M47.817 Spondylosis without myelopathy or radiculopathy, lumbosacral region
CPT/HCPCS: 72131

== ENCOUNTER → 2021-04-01 13:45 | Outpatient (CLI) | payer MEDICARE, OTHER, SELFPAY ==
[2021-04-01 17:06] LABS: COVID19 -Nasal RAPID Negative (Negative)
== END ==
PROVIDERS: PCP Family Medicine; Visit Provider Nurse Practitioner Family
DX: Z20.822 Contact with and (suspected) exposure to COVID-19 (principal)
CPT/HCPCS: 87635; C9803

== ENCOUNTER 2021-04-04 11:04 | Observation (INO) | payer MEDICARE, OTHER, SELFPAY ==
[2021-03-27 09:52] VITALS: BMI 30.8
[2021-04-03] VITALS (15 sets, daily range): BP systolic 120–164; BP diastolic 48–80; PULSE 72–91; RESP 8–16; TEMP 36.4–37.3; O2SAT 90–98; BMI 29.9
--- NOTE | 2021-04-03 | DI.RAD.S_ITS ---
PROCEDURE: XR LUMBAR SPINE 2-3V INDICATIONS: L4-5 L5-S1 TLIF TECHNIQUE: 3 views of the lumbar spine were acquired. COMPARISON: [facility] [place], CR, XR LUMBAR SPINE WITH OLBIQUES PLUS FLEXION EXTENSION, 11/04/2019, 15:38. [facility], RF, LUMBAR TRANSFORAMINAL SOPHIE, 08/20/2020, 14:27. [facility], CT, CT LUMBAR SPINE WO CON, 02/04/2021, 14:13. FINDINGS: 3 intraoperative fluoroscopy images demonstrate discectomy and posterior fusion at L4-L5 and L5-S1. Disc prostheses are noted. Pedicular screws and fusion rods are in expected position. IMPRESSION: Discectomy and posterior fusion at L4-L5 and L5-S1. Dictated by: Elsa Pickard M.D. on 04/03/2021 at 17:11 Approved by: Elsa Pickard M.D. on 04/03/2021 at 17:13
[2021-04-03] MEDS: LACTATED RINGERS 1,000 ML 42 ML IV ×2 (06:58→09:32)
[2021-04-03] MEDS: ACETAMINOPHEN 325 MG TABLET 975 MG PO (07:08)
--- NOTE | 2021-04-03 07:44 | PM.PREOP ---
Pre-operative Note COVID-19 COVID-19 status: Negative Result date/Date tested (Pos, Neg/Pending): 04/01/21 Interval Note History & Physical reviewed/Exam performed by Physician: Yes Changes to H&P: No
[2021-04-03] MEDS: CEFAZOLIN 2 GM/20 ML SYRINGE IV ×3 (08:00→23:45)
[2021-04-03] MEDS: BUPIVACAINE 0.25% (PF) 30 ML, EPINEPHrine 0.3 MG INJ (08:53)
--- NOTE | 2021-04-03 08:56 | SUR.OPER ---
Prone on spine table, head in foam head support, padded chest and pelvic supports, gel pad at knees, lower legs supported by pillows; nipples, genitalia and toes free of pressure, arms secured on foam padded arm boards at <90 degrees abduction. Tape over blanket at thigh secured to table.Gel pad placed between heels.
[2021-04-03] MEDS: BUPIVACAINE LIPOSOME 266 MG/20 ML VIAL INJ (11:34)
--- NOTE | 2021-04-03 11:45 | SUR.OPER ---
1140 to end of case Thuy lewis
--- NOTE | 2021-04-03 11:54 | P.OP_ITS ---
Operative Date/Time/Diagnoses Date of procedure: 04/03/21 Time of procedure: 07:45 Pre-op diagnosis: 1. L4-5, L5-S1 spinal stenosis with neurogenic claudication 2. Lumbar scoliosis Post-op diagnosis: same Procedure & Clinicians Procedure: 1. L4-5, L5-S1 Postero-lateral and posterior interbody fusion 2. L4-5, L5-S1 interbody cage placement. 3. L4-5, L5-S1 decompressive laminectomy with bilateral facetecomies 4. L4-5, L5-S1 Posterior segmental instrumentation 5. [place] of bone marrow from iliac crest 6. Utilization of microsurgical technique and operating microscope 7. Robotic navigation surgery Same procedure as scheduled: Yes Indications: Patient has been having chronic back pain and worsening lumbar radiculopathy. Patient failed multiple conservative management with worsening pain weakness and numbness in his lower extremity. Patient has been having difficulty performing activity of daily living. After discussing risks benefits of treatment options, patient elected proceed with surgery. Surgeon: Angelica Bolaños Manufacturing Inspector: Miko Smallwood Click Yes if Unassisted: No Anesthesia Type: General Operative Notes Closure Type: primary Specimen(s): none sent Prosthetic devices, grafts, tissues, transplants, or devices: Globus CREO MIS screws, Rise cages Applied: catheter Estimated Blood Loss (mL): 100 Blood products transfused: none Procedure in detail: Patient was seen in the preoperative area. Risks and benefits of the surgery was discussed with the patient. Informed consent was obtained from the patient and placed in the chart. Surgical site was marked. Patient was taken to the operati ve room. General anesthesia was administered. Prophylactic antibiotic was given to the patient less than 30 min before the incision was made. Patient was placed into a prone position on the [place] table. Patient's back was then prepped and draped in the sterile fashion. Time-out was performed at this time. After patient was prepped and draped, patient's PSIS was palpated and marked bilaterally. Small 1 cm incision was made over the PSIS for placement of the reference probes. Two trocar was placed into the PSIS 1 on each side. The reference probe was attached to the trocar of the reference apparatus. At this time the C-arm imaging was used to confirm AP and lateral of L4-L5, L5- S1 vertebrae and merged the C-arm imaging using the RSVP Law robotic navigation system with the CT of the lumbar spine. After successful merging was completed and confirmed, skin marker was used to nicolas out the skin incision using the RSVP Law robotic arm. Bilateral incision was made at this time. Pre templated trajectory was used and guided using the RSVP Law robotic navigation system for bilateral L4, L5, S1 pedicle screw placement. This was done by using the robotic arm to guide the high-speed bur to make a cortical entry point. Next a drill was placed also using the robotic arm and guided using the navigation system drilling partially through bilateral L4, L5 and S1 pedicles. Next L4, L5, S1 pedicle screws it was pre templated and measured was placed onto the power driver recruiter and inserted into the pedicles bilaterally. After all 6 screws were placed C-arm imaging was taken of both AP and lateral to confirm the placement. Excellent placement of the screws were confirmed and a matched precisely with the pre planned screw placement using the navigation system. MARs retractor was inserted using [employer] guidence. Globus MARS retractors was placed inside the incision and docked onto the L4 and L5 lamina. Using microsurgical technique and operating microscope, a L4, L5 laminectomy and L4-5, L5-S1 facetectomy was performed using a Kerr[place] rongeur. Patient was found have severe lateral recess and neural foramen stenosis which was fully decompressed after the laminectomy facetectomy. More than 75% of the facets were removed during the process of decompression rendering L4-5, L5-S1 level grossly unstable and required a fusion procedure at the same time. The disc space at L4-5, L5-S1 was identified, and a total diskectomy was performed at L4- 5, L5-S1 level. The endplates were decorticated using a rasp and shaver. The total diskectomy and decortication was performed at L4-5, L5-S1 level in order to to accomplish a L4-5, L5-S1 fusion. The local bone from the laminectomy and facetectomy was saved for local bone grafting. After the total diskectomy and decortication was completed, Trifecta bone graft material was combined with local bone that was harvested earlier. At this time, a separate skin is incision was made over the iliac crest. A Jamshidi needle was inserted into the iliac crest through a separate skin incision. 5 cc of bone marrow aspiration was obtained through the separate skin incision using a Jamshidi needle from the iliac crest. The bone marrow aspiration was combined with local bone and the Trifecta bone grafting material. The bone grafting material was placed into the L4-5, L5-S1 interbody space along with a expandable cage. The cage was expanded to its maximum height using the torque limiting screwdriver. The disc preparation as well as the cage insertion were also performed under navigation guidance. After the cage was placed, AP and lateral C-arm imaging was taken to confirm placement of the cage and excellent position was confirmed. Globus MARS retractor was inserted and docked onto the L4-5, L5-S1 posterol ateral gutter on the right side. Using the power drill, posterior-lateral decortication was performed at L4-5, L5-S1 level until bleeding cortical bone was identified. The remaining bone grafting material was placed into the L4-5, L5-S1 posterior lateral gutter he order to accomplish posterolateral fusion at the L4-5, L5-S1 level. At this time the tulips were attached to the L4, L5, S1 pedicle screw shanks. After measuring the length of the rods, they were inserted into the tulips of the pedicle screws and locked in place using locking caps and torque limiting screwdriver bilaterally. Total 6 caps and 2 titanium rods was used in order to complete the posterior instrumentation construct. After all the hardware was placed, and confirmed with AP and lateral C-arm imaging, the wound was then irrigated with sterile normal saline and packed with Ray-Robbi gauze for 3 min to accomplish hemostasis. After the gauze was removed the deep fascia was closed with #1 Vicryl suture. The subcutaneous layer was closed with 2-0 Vicryl. The skin was closed with skin deepthi. Patient tolerated the procedure well. There were no complications. Neuro monitoring system was used to monitor patient's neurologic status throughout entire procedure. There was no disturbance of the neural monitoring signals throughout the case. Complications: none Post-operative Condition: stable Disposition: PACU Plan for aftercare: Admit to inpatient hospital
[2021-04-03] MEDS: fentaNYL 100 MCG/2 ML INJ IV (12:30)
[2021-04-03] MEDS: hydrOXYzine 50 MG/ML INJ 25 MG IM (12:34)
[2021-04-03] MEDS: OXYCODONE IR 5 MG TABLET PO (12:57)
--- NOTE | 2021-04-03 13:47 | SUR.PHASEI ---
1350 hrs: Pt transported to room 210 in stable condition by RN and ADOLESCENT COUNSELOR. Bedside report to RIKY Miller, all questions answered.
[2021-04-03] MEDS: SODIUM CHLORIDE 0.9% 1,000 ML 100 ML IV ×2 (13:57→23:44)
--- NOTE | 2021-04-03 14:50 | PT.IIE ---
Current Diagnoses Other spondylosis with radiculopathy, thoracic region (04/03/21) Spinal stenosis, lumbar region without neurogenic claudication (04/03/21) Surgery Performed Operation Date: 04/03/21 07:45 Actual Procedures p L4-5, L5-S1 TLIF with posterior instrumentation-Robot - Angelica Bolaños MD Surgical History (Last Updated 03/27/21 @ 10:07 by Sheila Duckworth RN) Anesthesia History of angioplasty (08/09/14) Status post appendectomy (~1952) Undescended testicle, unilateral Medical History (Last Updated 03/29/20 @ 13:52 by Tatum Yen DO) Acne (~1958) Ankle effusion CAD (coronary artery disease) (~2012) Chickenpox (~1949) Class 1 obesity (08/28/16) Closed right fibular fracture Collar bone fracture (~1950) Community acquired pneumonia History of ankle fracture (~2015) History of rib fracture (~1984) Homozygous MTHFR mutation 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 Hypertension (~1999) Macular degeneration, age related, nonexudative (~03/29/20) Measles (~1949) Normal pressure hydrocephalus Olecranon fracture Peripheral neuropathy Psoriasis (~2015) Viral cardiomyopathy (~2014) Physical Therapy Inpatient Evaluation/Re-Eval M1 PT/OT-IP Prior Functional Status Start: 04/03/21 16:11 Freq: NEEDED Status: Active Protocol: Document 04/03/21 14:50 AB (Rec: 04/03/21 16:27 AB [id number]) Medical Review Prior Functional Status Medical History Reviewed Yes Communication able to make needs known Mobility and Gait pt stated that he is modified independent with all mobilities and ambulation using 2 walking sticks and occasionally one walking stick depending on back pain but uses his 4WW at night when he has to use the toilet Prior Functional Level (Other details) pt stated that he has ongoing balance issues due to his normal pressure hydrocephalus and has R ankle problems wherein a nerve test was conducted and stated that nerve for ankle control is affected Social History Household Members spouse Living Arrangements House Number of Floors (Floors) Two Floors Number of Stairs To Enter/Railing? pt will stay on main level of the house has 3 steps L rail ascending to enter and also uses his walking stick on the other side Home Environment Built-In Shower Seat Home Equipment Front Wheel Walker,Four Wheel Walker,Straight Cane,Hand Held Shower,Grab Bars Near Toilet, Grab Bars In Shower Additional Social History Comment spouse works and cannot be with pt all the time to assist but stated that she works ~ 4 min away and can come in to assist pt when needed M2 PT-IP Current Condition Start: 04/03/21 16:11 Freq: NEEDED Status: Active Protocol: Document 04/03/21 14:50 AB (Rec: 04/03/21 16:27 AB [email or web address]) Physical Therapy Current Condition Current Condition Evaluation Date 04/03/21 Treatment Diagnosis s/p L4-5, L5S1 TLIF; difficulty in walking Onset Date 04/03/21 M3 PT-IP Subjective Start: 04/03/21 16:11 Freq: NEEDED Status: Active Protocol: Document 04/03/21 14:50 AB (Rec: 04/03/21 16:27 AB [email or web address]) Subjective Physical Therapy Visit Type Type Initial Evaluation Visit Start Time 14:50 Visit Stop Time 15:40 Total Visit Minutes 50 Number of NEWS GATHERING TECHNICIAN Visits 0 Physical Therapy Visit Comments Patient Comments agreeable to do PT M4 PT-IP Mobility and Gait Start: 04/03/21 16:11 Freq: NEEDED Status: Active Protocol: Document 04/03/21 14:50 AB (Rec: 04/03/21 16:27 AB [email or web address]) PT-Bed Mobility Assessment Rolling Type of Rolling Log Rolling Level of Assist Moderate Assistance Supine to Sit Supine to Sit Minimal Assistance Sit to Supine Sit to Supine Minimal Assistance PT-Transfer Assessment Sit to and From Stand Sit to and from Stand Minimal Assistance,1 Person Assistance,Use of Upper Extremities Equipment Transfer Assistive Device Gait Belt,Front Wheeled Walker Orthotic/Prosthetic Devices or Brace: No Comments Mobility Comments educated pt on back precautions. spouse in room with pt. pt completed log roll supine to sit mod A for rolling and min A for supine to sit with max cues for techniques. pt was able to sit on EOB SBA. no c/o dizziness. pt completed sit to stand min A and cues. ambulated in room using FWW min A ~ 60 ft. presents with unsteady wide based gait with (+) R foot drop but able to elevate RLE up to clear off floor. pt requested to go back to bed after ambulation. completed sit to supine min A and cues for techniques. positioned pt in bed. call light and table placed within reach. caregiver training set up for tomorrow with pt and spouse: 10 am 04/04. Gait Assessment Gait Gait Assistance Required: Minimum Assistance Distance (Feet) 50 Able to Maintain Weight Bearing Status Yes During Gait Assistive Devices Assistive Device Gait Belt,Front Wheeled Walker Orthotic/Prosthetic Devices or Brace: No Gait Deviations General Gait Pattern Antalgic,Decreased Stride Length,Decreased Feet Clearance,Step-to Gait Factors Limiting Gait Function Factors Limiting Gait Function Decreased Activity Tolerance, Decreased Strength,Limited Range of Motion,Pain,Poor Balance,Poor Safety Awareness PT-Balance Assessment Sitting Balance and Reactions Static Sitting Balance Ability Good Dynamic Sitting Balance Ability Fair Standing Balance and Reactions Static Standing Balance Ability Fair Dynamic Standing Balance Ability Fair Device Used FWW M5 PT-IP Objective Assessments Start: 04/03/21 16:11 Freq: NEEDED Status: Active Protocol: Document 04/03/21 14:50 AB (Rec: 04/03/21 16:27 AB [email or web address]) Orientation Orientation/Cognition Level of Alertness Alert Orientation Name Safety Awareness Decreased Safety Awareness Memory Description Short Term Impaired Gross Range of Motion Lower Extremity ROM Assessment Within Functional Limits Strength Lower Extremity Strength Assessment Right Impaired Hip 4-/5 Knee 3+/5 Ankle DF 3-/5 Sensation Assessment Sensation Gross Sensation WNL Muscle Tone Muscle Tone WNL Yes M6 PT-IP Treatment Start: 04/03/21 16:11 Freq: NEEDED Status: Active Protocol: Document 04/03/21 14:50 AB (Rec: 04/03/21 16:27 AB [email or web address]) Physical Therapy Treatment Education Education Provided Precautions,Weight Bearing Status,Post-Op Packet,Safety M7 PT-IP Assessment and Plan Start: 04/03/21 16:11 Freq: NEEDED Status: Active Protocol: Document 04/03/21 14:50 AB (Rec: 04/03/21 16:27 AB [email or web address]) PT Summary Assessment and Plan Potential Rehabilitation Potential Fair Status of Condition at Evaluation Stable Summary Impairments Pain,ROM,Strength,Balance, Coordination,Sensation,Tone, Cognition,Bed Mobility, Transfers,Gait,Activity Tolerance Assessment Summary pt requiring min A with mobility. caregiver training set up for tomorrow at 10 am. stair climbing training also will be conducted prior to d/c . will continue to assess progress. Goals Bed Mobility Goal Standby Assistance Transfer Goal Standby Assistance,Front Wheeled Walker Gait Goal Standby Assistance,Front Wheel Walker Gait Distance 150 Other Goals improve bed mobility, transfers using FWW/4WW mod I improve ambulation using 4WW mod I 200 ft up/down 3 steps L rail + SPC SBA Days to Meet Goals 5 Frequency of Treatment Frequency Of Treatment Twice a Day Treatment Plan Physical Therapy Treatment Plan Bed Mobility Training,Transfer Training,Gait Training, Therapeutic Exercise,Balance Retraining,Post Op Education, Discharge Planning,Hot or Cold Pack,Neuromuscular Re-ed, Coordination Retraining,Manual Therapy Precautions Lumbar Precautions Log Roll,No Twisting,Limit Bending,Lifting Restriction of 10 lbs,Gait Belt above Incisional Area Recommendations To Nursing Amount of Assist Needed 1 Person Assist Discharge Recommendations PT Discharge Recommendations Home with Assistance,Home Health Transportation Needs at Discharge Private Vehicle
[2021-04-03] MEDS: METFORMIN HCL 500 MG TABLET 250 MG PO (16:51)
[2021-04-03] MEDS: SENNOSIDES 8.6 MG TABLET 17.2 MG PO (20:17)
[2021-04-03] MEDS: ATORVASTATIN 20 MG TABLET 40 MG PO (20:18)
[2021-04-03] MEDS: DOCUSATE 100 MG CAPSULE PO (20:18)
[2021-04-03] MEDS: carvediloL 12.5 MG TABLET 25 MG PO (20:20)
[2021-04-03] MEDS: lisinopriL 10 MG TABLET PO (20:20)
[2021-04-03] MEDS: ACETAMINOPHEN 325 MG TABLET 650 MG PO (23:45)
[2021-04-04 01:02] VITALS: BP 128/61; PULSE 73; RESP 16; TEMP 37.3; O2SAT 93
[2021-04-04 04:57] VITALS: BP 126/59; PULSE 69; RESP 17; TEMP 36.9; O2SAT 96
[2021-04-04 07:40] VITALS: BP 150/68; PULSE 68; RESP 16; TEMP 37.1; O2SAT 97
[2021-04-04] MEDS: carvediloL 12.5 MG TABLET 25 MG PO (08:15)
[2021-04-04] MEDS: METFORMIN HCL 500 MG TABLET 250 MG PO (08:16)
[2021-04-04] MEDS: PYRIDOXINE (VITAMIN B6) 50 MG TABLET PO (08:16)
[2021-04-04] MEDS: DOCUSATE 100 MG CAPSULE PO (08:16)
[2021-04-04] MEDS: lisinopriL 10 MG TABLET PO (08:16)
[2021-04-04] MEDS: CYANOCOBALAMIN (VITAMIN B-12) 500 MCG TABLET 1000 MCG PO (08:19)
[2021-04-04] MEDS: CODEINE/ACETAMINOPHEN 30/300 TABLET 1 TAB PO (08:53)
--- NOTE | 2021-04-04 09:34 | PM.DS.1 ---
History of Present Illness History of Present Illness Date Patient Seen: 04/04/21 Time Patient Seen: 07:45 Chief complaint: Low back pain s/p TLIF Narrative: Patient is complaining of mild low back pain this morning. His pain is well controlled with Tylenol. He worked with physical therapy yesterday and is overall feeling well and would like to be discharged home today. Denies any new numbness or tingling. No fevers, chills, night sweats. Discharge Providers Provider Discharge Date: 04/04/21 Primary care physician: Tatum Yen DO Consults: 04/03/21 13:16 Consult to Occupational Therapy Evaluate & Treat Comment: Physician Instructions: Evaluate and treat Consult to Physical Therapy Evaluate & Treat Comment: Physician Instructions: Evaluate and Treat Discharge provider: Andree Curtis PA-C Summary Hospital Course Discharge Diagnosis: 1. L4-5, L5-S1 spinal stenosis with neurogenic claudication 2. Lumbar scoliosis Hospital Course: Date of procedure: 04/03/21 Time of procedure: 07:45 Procedure & Clinicians Procedure: 1. L4-5, L5-S1 Postero-lateral and posterior interbody fusion 2. L4-5, L5-S1 interbody cage placement. 3. L4-5, L5-S1 decompressive laminectomy with bilateral facetecomies 4. L4-5, L5-S1 Posterior segmental instrumentation 5. [place] of bone marrow from iliac crest 6. Utilization of microsurgical technique and operating microscope 7. Robotic navigation surgery Same procedure as scheduled: Yes Indications: Patient has been having chronic back pain and worsening lumbar radiculopathy. Patient failed multiple conservative management with worsening pain weakness and numbness in his lower extremity.? Patient has been having difficulty performing activity of daily living.? After discussing risks benefits of treatment options, patient elected proceed with surgery. Surgeon: Agnelica Bolaños Plant Operator Control Room Operator: Miko Smallwood Click Yes if Unassisted: No Anesthesia Type: General Operative Notes Closure Type: primary Specimen(s): none sent Prosthetic devices, grafts, tissues, transplants, or devices: Globus CREO MIS screws, Rise cages Applied: catheter Estimated Blood Loss (mL): 100 Blood products transfused: none Status at Discharge Cognitive/behavioral status at discharge: oriented Functional status at discharge: uses cane/walker Overall status at discharge: patient is progressing back to baseline Exam Vital Signs (past 8 hours): - 04/04/21 04:57 04/04/21 07:40 Temperature 98.5 F 98.7 F Pulse Rate 69 68 Respiratory Rate 17 16 Blood Pressure 126/59 L 150/68 H Pulse Oximetry 96 97 Oxygen Delivery Method Room Air Oxygen Flow Rate 0 Narrative Exam Narrative: Pleasant 75-year-old male, resting comfortably in bed, no acute distress. Dressing demonstrates bloody discharge and was changed today. There is no active bleeding. Some ecchymosis, no signs of hematoma. Bilateral lower extremity: Lower extremity motor functions grossly intact, sensation is grossly intact to light touch, calves are soft and nontender to palpation. Objective Labs Result Diagrams: 04/04/21 06:30 Labs: Laboratory Results - last 24 hr 04/04/21 06:30 Hgb 12.0 L Hct 35.0 L PFSH Medical History Acne (~1958) Ankle effusion CAD (coronary artery disease) (~2012) Chickenpox (~1949) Class 1 obesity (08/28/16) Closed right fibular fracture Collar bone fracture (~1950) Community acquired pneumonia History of ankle fracture (~2015) History of rib fracture (~1984) Homozygous MTHFR mutation [id number] Hypertension (~1999) Macular degeneration, age related, nonexudative (~03/29/20) Measles (~1949) Normal pressure hydrocephalus Olecranon fracture Peripheral neuropathy Psoriasis (~2015) Viral cardiomyopathy (~2014) Surgical History Anesthesia History of angioplasty (08/09/14) History of inguinal hernia repair (~1954) History of selective injection of anesthetic agent around lumbar nerve root (~07/2020) Hx of hand surgery Status post appendectomy (~1952) Undescended testicle, unilateral Family History Brother No problems noted. Father No problems noted. Sister No problems noted. Social History household members: spouse Smoking Status: Never smoker alcohol intake: current Discharge Assessment & Plan Assessment and Plan Assessment: stable s/p TLIF Plan of Treatment: -mobilize with PT. Limit bending lifting twisting. Weightbearing as tolerated with front wheel walker -change pain medications to Tylenol No. 3 per patient request -DC home today once cleared by PT Discharge Plan Discharge Plan Patient Disposition: Home Discharge orders & Medications Discharge Orders: Discharge (Order); Ordered 04/04/21 Ordered By: Andree Curtis Prescriptions: New acetaminophen 500 mg capsule 500 mg PO Q4H MDD Max 3000 mg a day total PRN (Reason: Pain, Mild (1-3)) Qty: 90 0RF acetaminophen-codeine 300-30 mg Tablet 1 tab PO Q4HR MDD acetaminophen max 3,000mg/day PRN (Reason: Pain, Moderate (4-6)) Qty: 20 0RF docusate sodium 100 mg Capsule 100 mg PO BID PRN (Reason: Constipation from narcotic pain med) Qty: 14 0RF Continued (DME) Disabled Parking Permit Qty: 1 0RF Dose Instruction: As directed Rx Instructions: I find this patient to be medically disabled and qualified for disabled parking as indicated, and signed, on the accompanying disabled parking application. metformin [Glucophage] 500 mg tablet 250 mg PO BIDCC Qty: 90 3RF lisinopril 10 mg tablet 10 mg PO BID Qty: 180 3RF atorvastatin 40 mg tablet 40 mg PO HS Qty: 90 3RF cyanocobalamin (vitamin B-12) 1,000 mcg tablet 1,000 mcg PO DAILY Qty: 90 3RF pyridoxine (vitamin B6) 50 mg tablet 50 mg PO DAILY Qty: 90 3RF furosemide 40 mg tablet 40 mg PO DAILY PRN (Reason: Edema) Qty: 30 0RF gabapentin 100 mg capsule 100 mg PO QID MDD 400 mg PRN (Reason: Pain (Scale Score 4-6)) Qty: 360 1RF aspirin 325 mg tablet,delayed release (DR/EC) 325 mg PO DAILY 0RF (DME) Disabled parking pass Qty: 1 0RF Rx Instructions: Pt unable to walk more then 200 feet without stopping to rest. carvedilol 25 mg Tablet 25 mg PO BID 0RF Rx Instructions: must administer with a meal/food Follow up/Referrals: Angelica Bolaños MD [Physician] - (10-14 days for postoperative visit) Tatum Yen DO [Primary Care Provider] - Diet/Activity/Treatments Diet: Diet as Tolerated and Regular Other treatments: Medications: -OTC Tylenol 500 mg 1 tablet every 4 hours as needed for pain/fever. -Tylenol #3 take 1 tablet every 4 hours as needed for moderate-severe pain (narcotic pain medication). -Max 3,000mg acetaminophen per day from all sources. -As needed medications: -Ducolax and /or MiraLax as needed for constipation from narcotic pain medications. -Pepcid AC as needed for stomach upset. Dressing/Wound care: -Keep dressing in place until postoperative follow-up office visit. -Okay to shower. Keep wound out of direct water stream. Can use PressNSeal plastic wrap to protect from shower stream. No soaking or submerging until all the scabs fall off (approximately 6 weeks). -Please call the office if dressing becomes wet, soiled, or saturated. Activities: -Limit bending, lifting, twisting. -Weight-bearing as tolerated. Use front wheeled walker, and progress to cane when safe. -Continue with home exercises as directed by your physical therapist. -Ice your incision as needed for pain/inflammation/swelling. Protect your skin with a folded pillowcase. Follow-up: -Follow-up with your surgeon or PA in the office in 10-14 days after surgery. -Follow-up with your surgeon 6 weeks postoperatively. Call the office if you have chest pain, shortness of breath, significant swelling that will not resolve with elevating, fever over 101?, significantly worsening pain. [facility]: [phone] Skin/Wound/Dressing Care Report to your healthcare provider any signs of infection, such as:: chills, fever, night sweats, unusual drainage and unusual redness Visit Report/Discharge Packet Instructions: DI for Transforaminal Lumbar Interbody Fusion Stand Alone Forms: Surgery Discharge Discharge Data Primary Care Provider: Tatum Yen Attending Provider: Angelica Bolaños VTE Deep Vein Thrombosis/Pulmonary Embolism Present on Admission: No
--- NOTE | 2021-04-04 10:26 | PT.IPTN ---
Current Diagnoses Other spondylosis with radiculopathy, thoracic region (04/04/21) Spinal stenosis, lumbar region without neurogenic claudication (04/04/21) Surgery Performed Operation Date: 04/03/21 07:45 Actual Procedures p L4-5, L5-S1 TLIF with posterior instrumentation-Robot - Angelica Bolaños MD Physical Therapy Treatment Note M2 PT-IP Current Condition Start: 04/03/21 16:11 Freq: NEEDED Status: Active Protocol: Document 04/03/21 14:50 AB (Rec: 04/03/21 16:27 AB [id number]) Physical Therapy Current Condition Current Condition Evaluation Date 04/03/21 Treatment Diagnosis s/p L4-5, L5S1 TLIF; difficulty in walking Onset Date 04/03/21 M3 PT-IP Subjective Start: 04/03/21 16:11 Freq: NEEDED Status: Active Protocol: Document 04/04/21 10:03 KS (Rec: 04/04/21 12:25 KS [id number]) Subjective Physical Therapy Visit Type Type Treatment Note Visit Start Time 10:03 Visit Stop Time 10:26 Total Visit Minutes 23 Notes Spouse present for caregiver training Number of CERTIFIED LACTATION EDUCATOR Visits 1 Physical Therapy Visit Comments Patient Comments agreeable to do PT M4 PT-IP Mobility and Gait Start: 04/03/21 16:11 Freq: NEEDED Status: Active Protocol: Document 04/04/21 10:03 KS (Rec: 04/04/21 12:25 KS [id number]) PT-Bed Mobility Assessment Rolling Type of Rolling Log Rolling Level of Assist Standby Assistance Supine to Sit Supine to Sit Standby Assistance Sit to Supine Sit to Supine Contact Guard Assistance Scooting Scooting to Edge of Bed Standby Assistance PT-Transfer Assessment Sit to and From Stand Sit to and from Stand Contact Guard Assistance,1 Person Assistance,Use of Upper Extremities Equipment Transfer Assistive Device Gait Belt,Front Wheeled Walker Orthotic/Prosthetic Devices or Brace: No Transfers Transfer Destination Bed Transfer Technique pt ambulated w/ FWW Transfer Ability Level of Assist Contact Guard Assistance,1 Person Assistance,Use of Upper Extremities Comments Mobility Comments Pt in bed w/ spouse in room upon arrival from therapy and able to recall 3/3 spinal precautions. SBA for logroll and sup<>sit as well as scooting EOB. Demonstrated gaitbelt application. Pt sit<> stand CGA w/ cues for hand placement w/ FWW. He then ambulated ~120 ft to stairs w/ FWW CGA demonstrating his reported usual WBOS and R foot drop. He then ascended/ descended 3 stairs w/ 1 rail and 1 SPC SBA w/ step to pattern. He then ambulated additional ~120 ft back to room w/ FWW SBA to CGA and returned to bed, CGA for sit<> sup. Pt left in bed w/ all needs in reach. Gait Assessment Gait Gait Assistance Required: Standby Assistance,Contact Guard Assist,1 Person Assist Distance (Feet) 240 Able to Maintain Weight Bearing Status Yes During Gait Assistive Devices Assistive Device Gait Belt,Front Wheeled Walker Orthotic/Prosthetic Devices or Brace: No Gait Deviations General Gait Pattern Antalgic,Decreased Stride Length,Decreased Feet Clearance,Step-to Gait Factors Limiting Gait Function Factors Limiting Gait Function Decreased Activity Tolerance, Decreased Strength,Limited Range of Motion,Pain,Poor Balance,Poor Safety Awareness Comments Gait Comments Please refer to mobility section for details. Stair Climbing Assessment Evaluation Level of Assist On Stairs Standby Assistance,1 Person Assistance Devices Stair Climbing Assistive Devices Straight Cane,Right Railing Technique/Endurance Stair Climbing Direction Ascend and Descend Stair Climbing Technique Step to Step Number of Steps Climbed 3 Stair Climbing Set # Repetitions (reps) 1 Comments Stair Climbing Comments Pt ascended/descended 3 steps w/ 1 rail and SPC and step to pattern w/ min cues for sequencing. Pt and stated they feel safe to complete stairs at home. PT-Balance Assessment Sitting Balance and Reactions Static Sitting Balance Ability Good Dynamic Sitting Balance Ability Fair Standing Balance and Reactions Static Standing Balance Ability Fair Dynamic Standing Balance Ability Fair Device Used FWW M5 PT-IP Objective Assessments Start: 04/03/21 16:11 Freq: NEEDED Status: Active Protocol: Document 04/03/21 14:50 AB (Rec: 04/03/21 16:27 AB [id number]) Orientation Orientation/Cognition Level of Alertness Alert Orientation Name Safety Awareness Decreased Safety Awareness Memory Description Short Term Impaired Gross Range of Motion Lower Extremity ROM Assessment Within Functional Limits Strength Lower Extremity Strength Assessment Right Impaired Hip 4-/5 Knee 3+/5 Ankle DF 3-/5 Sensation Assessment Sensation Gross Sensation WNL Muscle Tone Muscle Tone WNL Yes M6 PT-IP Treatment Start: 12/08/21 16:11 Freq: NEEDED Status: Active Protocol: Document 04/04/21 10:03 KS (Rec: 04/04/21 12:25 KS [id number]) Physical Therapy Treatment Education Education Provided Precautions,Weight Bearing Status,Post-Op Packet,Safety Other Treatments Other Treatment Performed Caregiver training M7 PT-IP Assessment and Plan Start: 04/03/21 16:11 Freq: NEEDED Status: Active Protocol: Document 04/04/21 10:03 KS (Rec: 04/04/21 12:25 KS [id number]) PT Summary Assessment and Plan Potential Rehabilitation Potential Good Status of Condition at Evaluation Stable Summary Impairments Pain,ROM,Strength,Balance, Coordination,Sensation,Tone, Cognition,Bed Mobility, Transfers,Gait,Activity Tolerance Assessment Summary Pt showed improvement w/ bed mobility and tolerance for activity. SBA to CGA for bed mobility, CGA for transfers, SBA to CGA for ~240 ft ambulation w/ FWW and stairs w / 1 rail and SPC. Pts able to provide assist and cues needed. Pt with good recall of spinal precautions. Pt and state they feel safe to return home. He will benefit from outpatient rehab when appropriate to improve balance and mobility. Goals Bed Mobility Goal Standby Assistance Transfer Goal Standby Assistance,Front Wheeled Walker Gait Goal Standby Assistance,Front Wheel Walker Gait Distance 150 Other Goals improve bed mobility, transfers using FWW/4WW mod I improve ambulation using 4WW mod I 200 ft up/down 3 steps L rail + SPC SBA Days to Meet Goals 5 Frequency of Treatment Frequency Of Treatment Twice a Day Treatment Plan Physical Therapy Treatment Plan Bed Mobility Training,Transfer Training,Gait Training, Therapeutic Exercise,Balance Retraining,Post Op Education, Discharge Planning,Hot or Cold Pack,Neuromuscular Re-ed, Coordination Retraining,Manual Therapy Precautions Lumbar Precautions Log Roll,No Twisting,Limit Bending,Lifting Restriction of 10 lbs,Gait Belt above Incisional Area Recommendations To Nursing Amount of Assist Needed 1 Person Assist Discharge Recommendations PT Discharge Recommendations Home with Assistance,Home Health Transportation Needs at Discharge Private Vehicle
--- NOTE | 2021-04-04 11:44 | OT.IP.EVAL ---
Current Diagnoses Other spondylosis with radiculopathy, thoracic region (04/04/21) Spinal stenosis, lumbar region without neurogenic claudication (04/04/21) Surgery Performed Operation Date: 04/03/21 07:45 Actual Procedures p L4-5, L5-S1 TLIF with posterior instrumentation-Robot - Angelica Bolaños MD Past Medical History (Last Reviewed 04/04/21 @ 09:37 by Andree Curtis PA-C) Acne (~1958) Ankle effusion CAD (coronary artery disease) (~2012) Chickenpox (~1949) Class 1 obesity (08/28/16) Closed right fibular fracture Collar bone fracture (~1950) Community acquired pneumonia History of ankle fracture (~2015) History of inguinal hernia repair (~1954) History of rib fracture (~1984) History of selective injection of anesthetic agent around lumbar nerve root (~07/2020) 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 Hx of hand surgery Hypertension (~1999) Macular degeneration, age related, nonexudative (~03/29/20) Measles (~1949) Normal pressure hydrocephalus Olecranon fracture Peripheral neuropathy Psoriasis (~2015) Viral cardiomyopathy (~2014) Surgical History (Last Reviewed 04/04/21 @ 09:37 by Andree Curtis PA-C) Anesthesia History of angioplasty (08/09/14) History of inguinal hernia repair (~1954) History of selective injection of anesthetic agent around lumbar nerve root (~07/2020) Hx of hand surgery Status post appendectomy (~1952) Undescended testicle, unilateral Occupational Therapy Inpatient Evaluation/Re-Eval M1 PT/OT-IP Prior Functional Status Start: 04/03/21 16:11 Freq: NEEDED Status: Active Protocol: Document 04/04/21 11:32 [facility] (Rec: 04/04/21 12:19 [facility] [id number]) Medical Review Prior Functional Status Medical History Reviewed Yes Communication able to make needs known Mobility and Gait pt stated that he is modified independent with all mobilities and ambulation using 2 walking sticks and occasionally one walking stick depending on back pain but uses his 4WW at night when he has to use the toilet Activities of Daily Living and IADL's Pt states prior able to do his ADL needs. Prior Functional Level (Other details) pt stated that he has ongoing balance issues due to his normal pressure hydrocephalus and has R ankle problems wherein a nerve test was conducted and stated that nerve for ankle control is affected Social History Household Members spouse Living Arrangements House Number of Floors (Floors) Two Floors Number of Stairs To Enter/Railing? pt will stay on main level of the house has 3 steps L rail ascending to enter and also uses his walking stick on the other side Home Environment Built-In Shower Seat Home Equipment Front Wheel Walker,Four Wheel Walker,Straight Cane,Hand Held Shower,Grab Bars Near Toilet, Grab Bars In Shower Additional Social History Comment spouse works and cannot be with pt all the time to assist but stated that she works ~ 4 min away and can come in to assist pt when needed M2 OT-IP Current Condition Start: 04/04/21 12:10 Freq: Status: Active Protocol: Document 04/04/21 11:32 [facility] (Rec: 04/04/21 12:19 [facility] [id number]) Occupational Therapy Current Condition Current Condition Evaluation Date 04/04/21 Treatment Diagnosis S/P L4-5, L5-S1 TLIF Diagnosis Onset Date 04/03/21 Post Operative Precautions Lumbar Precautions Log Roll,No Twisting,Limit Bending,Lifting Restriction of 10 lbs,Gait Belt above Incisional Area M3 OT- IP Subjective and Pain Start: 04/04/21 12:10 Freq: Status: Active Protocol: Document 04/04/21 11:32 [facility] (Rec: 04/04/21 12:19 [facility] [id number]) OT- Subjective Occupational Therapy Visit Type Type Initial Evaluation Visit Start Time 11:32 Visit Stop Time 11:46 Total Visit Minutes 24 Occupational Therapy Visit Comments Patient Comments Pt agreed to get dresses. Patient/Caregiver Goals TO go home. OT Pain Assessment Pain When Pain Assessed During Mobility Pain Present Pain Present Pain Reported Location Lower Back Intensity 2 M4 OT- IP ADL's Start: 04/04/21 12:10 Freq: Status: Active Protocol: Document 04/04/21 11:32 [facility] (Rec: 04/04/21 12:19 [facility] [id number]) OT ADL-Oral Care Comments Oral Care Comments Pt states to do at home. Educated best to spit into a cup to best follow his back precautions. OT ADL-Dressing General Eval Lower Body Dressing Ability Standby Assistance Areas Needing Assistance Retrieving/Set-up of Clothing Comments OT Dressing Comments Pt able to use instructor tap dancing and long handled shoe horn to get dressed on his own. OT ADL-Toileting Comments OT Toileting Comments Pt states not having to go. Educated wet ones will be helpful for hygiene needs. OT ADL-Bathing Comments OT Bathing Comments Pt states to shower at home. Educated best to cover his back bandage while showering and to have his assist him. M5 OT- IP IADL's Start: 04/04/21 12:10 Freq: Status: Active Protocol: Document 04/04/21 11:32 [facility] (Rec: 04/04/21 12:19 [facility] [id number]) OT-Instrumental Activities of Daily Living Home Safety Awareness Home Safety Comments Pt's to assist for his needs. M6 OT- IP Functional Cognition Start: 04/04/21 12:10 Freq: Status: Active Protocol: Document 04/04/21 11:32 [facility] (Rec: 04/04/21 12:19 [facility] [id number]) Cognitive Factors Limiting Selfcare Function Cognitive Ability Level of Alertness Alert Patient Orientation Name,Place,Situation Attention Span Ability Capable of Focused Attention, Capable of Sustained Attention Ability to Follow Commands Able to Follow One Step Commands Safety Awareness Decreased Ability to Apply Precautions Cognitive Comments Cognitive Assessment Comments Pt needing reminders to keep the FWW close to him when coming to stand or sitting. Pt tends to push on the FWW to stand, pt states has higher surfaces at home to help come up to stand. OT- Vision and Hearing OT- Hearing Assessment OT- Hearing Assessment WFL OT- Vision Assessment Visual Acuity Glasses All The Time M7 OT- IP Mobility and Balance Start: 04/04/21 12:10 Freq: Status: Active Protocol: Document 04/04/21 11:32 [facility] (Rec: 04/04/21 12:19 [facility] [id number]) OT- Bed Mobility Assessment Rolling Type of Rolling Roll to Left Level of Assistance Standby Assistance Supine to Sit Supine to Sit Assist Standby Assistance OT-Transfer Assessment Sit to and From Stand Sit to and from Stand Standby Assistance,Contact Guard Assistance,Minimal Assistance Transfers Transfer Ability Standby Assistance Technique Transfer Destination Bed,Chair Transfer Technique Stand Step Pivot Devices Transfer Assistive Devices Gait Belt,Front Wheeled Walker Comments Mobility Comments Pending on level of surfaces coming to stand from, pt needing CAROL to no assist to stand. OT- Balance Assessment Sitting Balance and Reactions Static Sitting Balance Ability Good Dynamic Sitting Balance Ability Good Standing Balance and Reactions Static Standing Balance Ability Fair M9 OT- IP Assessment and Plan Start: 04/04/21 12:10 Freq: Status: Active Protocol: Document 04/04/21 11:32 [facility] (Rec: 04/04/21 12:19 [facility] [id number]) OT Summary Assessment and Plan Potential Rehabilitation Potential Good Analytic Complexity at Evaluation Low Summary OT Impairments Functional Mobility,Toileting, Bathing Progress Towards Goals Progressing Toward Goals Goals Toileting Goal Independent Bathing Goal Minimal Assistance Toilet Transfer Goal Independent Days to Meet Goals 1 Frequency of Treatment Frequency Of Treatment Once a Day Treatment Plan OT Treatment Plan ADL Training,Functional Cognition Training,Functional Mobility,Patient/Family Education,Discharge Planning Discharge Recommendations OT Discharge Recommendations Home with 17/11 Assist Available Home Equipment Needs Long shoe horn issued Transportation Needs at Discharge Private Vehicle
--- NOTE | 2021-04-04 14:22 | CM.DANOTE ---
DCP assessment- Brief: patient is a 75 yr old male who underwent a Spinal Surgery preformed by . Patient lives with his Geri in a two story home in [place] but only needs to be on the main floor. patient and patients have caregiver training at 10 am today to help assess patients readiness to DC home. Patient uses walking sticks at his base line and a 4WW at night to help ambulate to and from the bathroom. Patient works but only about 4 miles from their home and feels comfortable with being home when the patient needs her. Patient is independent with all other ADLs CM asked patient and patients if they were interested in services to help the patient at home and they said they didn't feel it was needed at this time. I: Medicare and for life Plan: Dc home with no identified DC planning needs identified at this time. Kasia Michaud Discharge Planning/Care Management CM Discharge Assessment Start: 04/04/21 14:21 Freq: Status: Active Protocol: Document 04/04/21 10:20 [facility] (Rec: 04/04/21 14:22 [id number]) Discharge Planning Assessment Assigned Component Overhaul Operator Kasia Spangler RN Case aron DPOA/Assigned Designee Name Geri Gaona- Contact Information [phone] Advance Directives? Yes Advance Directives on File No History Provided By Medical Record Prior Living Arrangements House Household Members spouse Type of transporation used prior to Drives own vehicle admit Independent with ADL's Yes Is patient alert and oriented? Yes DME Already Rented / Owned FWW / Walker Barriers to Discharge No Discharge Plan Home Referrals Initiated None needed Review Status In Process Next Review Type Continued Stay Review Pre-Anesthesia Assessment Start: 03/27/21 09:52 Freq: Status: Complete Protocol: Document 03/27/21 09:52 [facility] (Rec: 03/27/21 10:28 [facility] [id number]) Pre-Anesthesia Assessment Patient Information Reviewed Via Phone Assessment Assessment Completed With Patient Diagnostic Results BMP/CMP,CBC,EKG Comment Labs/EKG @ 01/30/21, COVID screen @ 04/01/21 Primary Care Provider Tatum Yen Seen Specialist in Last 12 Months Yes Specialist Seen Circuit Breaker Mechanic,Opthamologist/ Skydiving Instructor,Orthopedist Primary Language Scottish Preferred Language Scottish Jr. Java Developer Required No Height 187.96 cm Weight 108.862 kg Body Mass Index (BMI) 30.8 Hearing Ability Normal Visual Assist Glasses Dentition Type Teeth, Natural Present,Teeth, Missing Barriers to Learning None Hx Anesthesia Reactions No Hx Family Anesthesia Reaction No Hx Malignant Hyperthermia No Hx Blood Transfusions No Hx Blood Transfusion Reaction No Anesthesia Review Requested No Earth Mover No alcohol intake current alcohol intake frequency 0-2 drinks per day Smoking Status Never smoker Substance Use Type does not use Pain Present Pain Reported Musculoskeletal Symptoms Abnormal Gait,Back Pain, Difficulty Walking,Numbness, Radiating Pain into Limb History of Falling (Recent or History of Yes ) Patient is completely paralyzed or No completely immobile Prosthesis or Orthotic Device Cane Mental Status Oriented to own ability Comment Ambulates with two canes, balance issues Is patient on oxygen? No Does patient have LI/SOB No Hx Sleep Apnea No CPAP/BIPAP use not prescribed Currently Taking a Beta Bob Yes: Carvedilol Can You Climb a Flight of Stairs Without Yes SOB Hx Chest Pain No Hx SOB No Hx Syncope or Dizziness No Has a Circuit Breaker Mechanic Yes: Dr. Solorzano-last visit 01/30/21 Cardiac Testing Echo @ [facility] 01/31/21 Hx Pacemaker/ICD No Pacemaker Rep Required? No Cardiac Clearance Received Yes Comment Cardiac records scanned Diet Type At Home Regular dysphagia No Bladder Pattern Urgency Urinary Catheter Present No Hx Urinary Self Catheterization No Diabetes Yes: Pt does not check blood sugars at home HgbA1C 5.5 Date 01/30/21 Hx Drug Resistant Organism No Presence of External or Internal Medical Yes: Cardiac stents, hardware Devices in RT ankle Have you had any close contact with No someone diagnosed with COVID-19? Received a COVID vaccine? Yes: + Booster Received all doses? Yes Marital Status Lives With spouse,family Prior Living Arrangements House Number of Floors (Floors) Two Floors Support System Spouse Does the Patient Have Assistance After Yes Surgery Patient Discharge Plan Description Return Home Comment Pt advised 1-2 night length of stay per surgeon Feels Safe in Current Environment Yes Been Physically Hurt or Threatened By a No Person in Current Environment Do you have thoughts of harming yourself None or others? Are you currently considering suicide? No Do you have a plan to hurt yourself or No Plan others? Do You Have Any Spiritual Beliefs That No May Affect Your HC Choices? Do You Have Any Cultural Practices That No May Affect Your HC Choices? Comment [employer] Who Can We Speak to About Patient's Care Family, friends Identifying Code for Release of Patient Declines to issue Information Health Care Proxy/Next of Kin Geri () Health Care Proxy Emergency Contact Name Geri () Emergency Contact Advance Directives? Yes Advance Directives on File No Requested Patient Bring Advanced Yes Directives DOS Power of Fish Seiner Yes Power of Fish Seiner Name Geri Gaona Power of Fish Seiner PAC Instructions Diabetes instructions,Do not shave/clip surgical site, Durable medical equipment, Medications to take/avoid, Nasal antibiotic,No ETOH/ petroleum product on skin DOS, NPO,Post-op transportation,Pre -surgical wash,Sensory aids, Sturdy shoes/comfortable clothes,Do not bring valuables and remove jewelry
== END 2021-04-04 12:46 | disposition home or self-care (01) ==
LOC: OR 11:19 → AC 11:19
PROVIDERS: Admitting Provider Orthopaedic Surgery Orthopaedic Surgery of the Spine; PCP Family Medicine; Referring Provider Physical Medicine & Rehabilitation; Visit Provider Orthopaedic Surgery Orthopaedic Surgery of the Spine
PROC: (CPT 63047; principal; 2021-04-03 07:45)
DX: M48.061 Spinal stenosis, lumbar region without neurogenic claudication (principal); M47.26 Other spondylosis with radiculopathy, lumbar region; I25.10 Atherosclerotic heart disease of native coronary artery without angina pectoris; E11.9 Type 2 diabetes mellitus without complications; Z79.84 Long term (current) use of oral hypoglycemic drugs; I10 Essential (primary) hypertension; E78.5 Hyperlipidemia, unspecified
CPT/HCPCS: 63047; 63048; 22853 ×2; 22633; 22634; 22842; 36415; 72100; 76000; 82962; 85014; 85018; 97116; 97161; 97165; 97530; C1776; G0378; C9290; J0171; J0330; J0690; J1100; J2250; J2405; J2704; J3010; J3410

== ENCOUNTER → 2021-05-20 09:14 | Outpatient (CLI) | payer MEDICARE, OTHER, SELFPAY ==
[2021-04-03 13:48] VITALS: BMI 29.9
[2021-05-20 10:25] LABS: Hemoglobin A1C% w Est Avg Glu 5.4 % (4.0-6.0)
[2021-05-20 10:37] LABS: Creatinine Urine Random 108.5 mg/dL
[2021-05-20 10:38] LABS: Alanine Aminotransferase 16 IU/L (<50); Albumin Globulin Ratio 1.6 (1.0-2.8); Alkaline Phosphatase 100 U/L (38-126); Aspartate Aminotransferase 24 IU/L (17-59); BUN Creatinine Ratio 18.4 (6-22); Bilirubin Total 0.5 mg/dL (0.2-1.3); Blood Urea Nitrogen 14 mg/dL (9-20); Calcium 9.8 mg/dL (8.4-10.2); Carbon Dioxide 25 mmol/L (22-32); Chloride 105 mmol/L (98-107); Cholesterol 162 mg/dL (140-199); Estimated Glomerular Filt Rate > 60.0 mL/min (>60); Globulin 2.5 g/dL (1.7-4.1); Glucose 124 mg/dL (80-110); HDL Cholesterol 59 mg/dL (40-60); HEMOLYSIS < 15 (0-50); LDL Cholesterol Calculated 77 mg/dL (<100); Potassium 4.7 mmol/L (3.4-5.1); Sodium 136 mmol/L (137-145); Total Protein 6.5 g/dL (6.3-8.2); Triglycerides 128 mg/dL (35-150)
[2021-05-20 10:40] LABS: Microalbumi Creatinin Ratio Ur 16.5 ug/mg CR (<30); Microalbumin Urine Random 1.8 mg/dL (0-1.6)
== END ==
PROVIDERS: PCP Family Medicine; Referring Provider Family Medicine; Visit Provider Family Medicine
DX: E11.40 Type 2 diabetes mellitus with diabetic neuropathy, unspecified (principal); G62.9 Polyneuropathy, unspecified; E78.5 Hyperlipidemia, unspecified; I10 Essential (primary) hypertension; I25.10 Atherosclerotic heart disease of native coronary artery without angina pectoris; Z95.5 Presence of coronary angioplasty implant and graft
CPT/HCPCS: 36415; 80053; 80061; 82043; 82570; 83036

== ENCOUNTER → 2021-09-27 10:53 | Outpatient (CLI) | payer MEDICARE, OTHER, SELFPAY ==
[2021-04-03 13:48] VITALS: BMI 29.9
[2021-09-27 11:37] LABS: Add Manual Diff / Slide Review NO; Basophils Absolute Auto 0 /uL (0-100); Basophils Percent Auto 0.7 % (0-2); Eosinophils Absolute Auto 100 /uL (0-450); Eosinophils Percent Auto 3.1 % (2-4); Hematocrit 40.8 % (41-53); Hemoglobin 13.8 g/dL (13.5-17.5); Lymphocytes Absolute Auto 1100 /uL (1100-4500); Lymphocytes Percent Auto 23.9 % (25-40); Mean Corpuscular HGB Conc 33.8 % (30-36); Mean Corpuscular Hemoglobin 31.4 PG (26-34); Mean Corpuscular Volume 92.9 fL (80-100); Monocytes Absolute Auto 400 /uL (0-900); Monocytes Percent Auto 8.7 % (3-14); Neutrophils Absolute Auto 3000 /uL (1500-7000); Neutrophils Percent Auto 63.6 % (50-75); Platelet Count 160 X10^3/uL (150-400); Red Blood Cell Count 4.39 X10^6/uL (4.5-5.9); Red Cell Distribution Width 14.7 % (11.6-14.8); White Blood Cell Count 4.7 X10^3/uL (4.5-11.0)
[2021-09-27 11:47] LABS: Hemoglobin A1C% w Est Avg Glu 5.6 % (4.0-6.0)
[2021-09-27 12:14] LABS: Alanine Aminotransferase 19 IU/L (<50); Albumin 4.1 g/dL (3.5-5.0); Albumin Globulin Ratio 1.7 (1.0-2.8); Alkaline Phosphatase 92 U/L (38-126); Aspartate Aminotransferase 28 IU/L (17-59); BUN Creatinine Ratio 22.7 (6-22); Bilirubin Total 0.6 mg/dL (0.2-1.3); Blood Urea Nitrogen 20 mg/dL (9-20); Calcium 9.4 mg/dL (8.4-10.2); Carbon Dioxide 26 mmol/L (22-32); Chloride 106 mmol/L (98-107); Estimated Glomerular Filt Rate > 60 mL/min (>60); Globulin 2.4 g/dL (1.7-4.1); Glucose 112 mg/dL (80-110); HEMOLYSIS < 15 (0-50); Potassium 5.3 mmol/L (3.4-5.1); Sodium 139 mmol/L (137-145); Total Protein 6.5 g/dL (6.3-8.2)
[2021-09-27 12:45] LABS: Prostate Specific Antigen Scrn 1.13 ng/mL (0.1-4.0)
== END ==
PROVIDERS: PCP Family Medicine; Referring Provider Family Medicine; Visit Provider Family Medicine
DX: E11.40 Type 2 diabetes mellitus with diabetic neuropathy, unspecified (principal); Z12.5 Encounter for screening for malignant neoplasm of prostate; E78.2 Mixed hyperlipidemia; E88.9 Metabolic disorder, unspecified; G63 Polyneuropathy in diseases classified elsewhere; I10 Essential (primary) hypertension; R35.1 Nocturia
CPT/HCPCS: 36415; 80053; 83036; 85025; G0103

== ENCOUNTER 2021-11-06 09:44 | Observation (INO) | payer MEDICARE, OTHER, SELFPAY ==
[2021-04-03 13:48] VITALS: BMI 29.9
[2021-11-06] VITALS (21 sets, daily range): BP systolic 156–175; BP diastolic 76–94; PULSE 71–104; RESP 12–24; TEMP 36.6–37; O2SAT 95–98; BMI 29.9
[2021-11-06 10:05] LABS: Add Manual Diff / Slide Review NO; Basophils Absolute Auto 0 /uL (0-100); Basophils Percent Auto 0.6 % (0-2); Eosinophils Absolute Auto 200 /uL (0-450); Eosinophils Percent Auto 2.3 % (2-4); Hemoglobin 14.5 g/dL (13.5-17.5); Lymphocytes Absolute Auto 1300 /uL (1100-4500); Lymphocytes Percent Auto 20.5 % (25-40); Mean Corpuscular HGB Conc 34.5 % (30-36); Mean Corpuscular Hemoglobin 32.3 PG (26-34); Mean Corpuscular Volume 93.6 fL (80-100); Monocytes Absolute Auto 600 /uL (0-900); Monocytes Percent Auto 8.4 % (3-14); Neutrophils Absolute Auto 4500 /uL (1500-7000); Neutrophils Percent Auto 68.2 % (50-75); Platelet Count 225 X10^3/uL (150-400); Red Blood Cell Count 4.48 X10^6/uL (4.5-5.9); Red Cell Distribution Width 14.4 % (11.6-14.8); White Blood Cell Count 6.6 X10^3/uL (4.5-11.0)
[2021-11-06 10:11] LABS: Alanine Aminotransferase 27 IU/L (<50); Albumin 4.3 g/dL (3.5-5.0); Albumin Globulin Ratio 1.4 (1.0-2.8); Alkaline Phosphatase 108 U/L (38-126); Aspartate Aminotransferase 41 IU/L (17-59); BUN Creatinine Ratio 22.6 (6-22); Bilirubin Total 0.8 mg/dL (0.2-1.3); Blood Urea Nitrogen 19 mg/dL (9-20); Calcium 9.3 mg/dL (8.4-10.2); Carbon Dioxide 22 mmol/L (22-32); Chloride 104 mmol/L (98-107); Creatine Kinase 398 U/L (55-170); Estimated Glomerular Filt Rate > 60 mL/min (>60); Glucose 190 mg/dL (80-110); HEMOLYSIS < 15 (0-50); Potassium 4.9 mmol/L (3.4-5.1); Sodium 140 mmol/L (137-145); Total Protein 7.3 g/dL (6.3-8.2)
--- NOTE | 2021-11-06 10:15 | DI.CT.S_ITS ---
PROCEDURE: CT HEAD/BRAIN WO CON INDICATIONS: fall with head injury TECHNIQUE: Noncontrast 4.5 mm thick angled axial sections acquired from the foramen magnum to the vertex, with coronal and sagittal reformats. For radiation dose reduction, the following was used: automated exposure control, adjustment of mA and/or kV according to patient size. COMPARISON: [facility], CT, CT CERVICAL SPINE WO CON, 11/06/2021, 10:22. [facility], MR, MR HEAD/BRAIN WO CON, 06/08/2018, 15:01. FINDINGS: Image quality: Excellent. CSF spaces: Basal cisterns are patent. No extra-axial fluid collections. The ventricles are symmetric in size and shape. Brain: No intracranial bleeds or masses. There is cerebral volume loss for age, with resultant ventricular and sulcal prominence. There are periventricular and deep white matter chronic small vessel ischemic changes. There is intracranial internal carotid artery atherosclerosis. Skull and face: Mild scalp hematoma can be seen involving the left posterior superior region. No underlying calvarial fracture can be seen. Calvarium and visualized facial bones appear intact, without suspicious lesions. Sinuses: Mucous retention cysts are seen within the left maxillary sinus. Visualized sinuses and mastoids are otherwise relatively clear. IMPRESSION: No acute intracranial hemorrhage is seen. No acute intracranial process is seen. Left posterior scalp hematoma seen, without an associated calvarial fracture. Dictated by: Vahe Santana M.D. on 11/06/2021 at 9:33 Approved by: Vahe Santana M.D. on 11/06/2021 at 9:35
--- NOTE | 2021-11-06 10:17 | ED.SYNCOPE ---
HPI - Syncope General Chief Complaint: Fall Stated Complaint: Syncope Time Seen by Provider: 11/06/21 09:55 History of Present Illness HPI narrative: 75-year-old male nonsmoker with history of hypertension and hyperlipidemia as well as type 2 diabetes on metformin presents by EMS for evaluation of a syncopal episode with head injury just prior to arrival. He states he was in his normal state of health and walking across the room with his walker and the next thing he knew he was waking up on the ground. He states he had no dizziness or lightheadedness nor any chest pain, shortness of breath or palpitations leading into this. He had not just stood up, recently changed position, use the bathroom or other. He denies any recent medication or dietary change. He states that he struck his head suffering a laceration and denies other injury. He is never had a syncopal episode before. He denies runny nose, sore throat or cough. He denies any blurred vision or trouble with speech. He has no chest pain or shortness of breath. He has no abdominal pain nor extremity injury Related Data Home Medications Medication Instructions Recorded Confirmed aspirin 325 mg tablet,delayed 325 mg PO DAILY 09/09/17 11/06/21 release carvedilol 25 mg tablet 25 mg PO BID 03/27/21 11/06/21 Previous Rx's Medication Instructions Recorded Disabled Parking Permit #1 ea 09/06/18 Disabled parking pass #1 ea 08/15/19 atorvastatin 40 mg tablet 40 mg PO HS #90 tabs 09/03/20 cyanocobalamin (vitamin B-12) 1,000 mcg PO DAILY #90 tabs 09/03/20 1,000 mcg tablet lisinopril 10 mg tablet 10 mg PO BID #180 tabs 09/03/20 metformin 500 mg tablet 250 mg PO BIDCC #90 tabs 09/03/20 (Glucophage) pyridoxine (vitamin B6) 50 mg 50 mg PO DAILY #90 tabs 09/03/20 tablet furosemide 40 mg tablet 40 mg PO DAILY PRN Edema #30 tabs 09/12/20 docusate sodium 100 mg capsule 100 mg PO BID PRN Constipation 04/04/21 from narcotic pain med #14 caps gabapentin 100 mg capsule 100 mg PO QID PRN Pain (Scale 08/28/21 Score 4-6) #360 caps tamsulosin 0.4 mg capsule (Flomax) 0.4 mg PO BEDTIME #90 caps 09/24/21 Allergies Allergy/AdvReac Type Severity Reaction Status Date / Time No Known Drug Allergies Allergy Verified 09/24/21 13:04 Review of Systems Review of Systems Narrative: GENERAL: Denies chills, fatigue, malaise, fever, sweats. HEENT: Denies sinus pain, ear pain, sore throat, difficulty swallowing, dizziness. RESPIRATORY: Denies dyspnea, cough, wheezing, hemoptysis, sputum. CARDIOVASCULAR: See HPI GASTROINTESTINAL: Denies nausea, vomiting, abdominal pain, diarrhea, constipation, melena. : Denies dysuria, frequency, incontinence, hematuria, urinary retention. MUSCULOSKELETAL: denies weakness, joint pain, or bony pain SKIN: Denies rash, skin lesions, or other NEUROLOGIC: Denies weakness, headache, numbness, change in speech, confusion, seizures, incoordination. PSYCHIATRIC: No concerning psychosocial issues. 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 Father No problems noted. Sister No problems noted. Social History household members: spouse Smoking Status: Never smoker alcohol intake: current Smoking Status: Never smoker alcohol intake frequency: 0-2 drinks per day Alcohol type: wine Substance Use Type: does not use Exam Narrative Exam Narrative: GENERAL: [75] year old patient appears stated age. Well-developed patient, in mild distress. GCS 15 HEAD: EYES: Pupils equal round and reactive. No hyphema. Extraocular motions intact. No scleral icterus. No injection or drainage. ENT: Nose without bleeding, purulent drainage. No nasal septal hematoma or hemotympanum Throat without erythema, tonsillar hypertrophy or exudate. Airway patent. NECK: Trachea midline. Non tender CARDIOVASCULAR: Regular rate and rhythm without murmurs, gallops, or rubs. RESPIRATORY: Clear to auscultation. Breath sounds equal bilaterally. No wheezes, rales, or rhonchi. GASTROINTESTINAL: Abdomen soft, non-tender, nondistended. EXTREMITIES: No edema or joint tenderness. BACK: Nontender without deformity or crepitance. No flank tenderness. NEURO: AOx3. SKIN: No rash or erythema of visible areas Initial Vital Signs Initial Vital Signs: Vital Signs Pulse Rate 103 H 11/06/21 10:10 Pulse Oximetry 97 11/06/21 10:10 Course Orders Ordered: ED Orders 11/06/21 09:55 EKG-12 Lead Stat 11/06/21 10:01 Complete Blood Count AUTO DIFF Stat Comprehensive Metabolic Panel Stat D Dimer Stat NT-proBNP (BNP-Adult 18+) Stat Troponin & CK Cardiac Panel Stat 11/06/21 10:15 CT head/brain wo con Stat 11/06/21 10:23 COVID19 -Nasal RAPID/Pre-Proc Stat 11/06/21 10:27 CT cervical spine wo con Stat 11/06/21 11:43 CT angio chest PE protocol Stat Discontinued Medications Bupivacaine HCl/Epinephrine Bitart (Bupivacaine 0.5% W/ Epi (Pf) 30 Ml Vial) 5 ml SUBCUT NOW ONE Stop: 11/06/21 10:50 Last Admin: 11/06/21 11:12 Dose: 5 ml Documented By: SALLY Sodium Chloride (Normal Saline 0.9%) 500 mls @ 1,000 mls/hr IV BOLUS ONE Stop: 11/06/21 10:24 Last Infusion: 11/06/21 11:15 Dose: 0 mls/hr Documented By: Admin: 11/06/21 10:41 Dose: 1,000 mls/hr Documented By: SALLY Sodium Chloride (Normal Saline 0.9%) 500 mls @ 1,000 mls/hr IV BOLUS ONE Stop: 11/06/21 10:44 Last Infusion: 11/06/21 13:03 Dose: 0 mls/hr Documented By: Admin: 11/06/21 12:22 Dose: 1,000 mls/hr Documented By: SALLY Vital Signs Vital signs: Vital Signs - 8 hr 11/06/21 10:40 11/06/21 11:00 11/06/21 11:12 Pulse Rate 97 H 94 H 98 H Respiratory Rate 19 21 24 Blood Pressure Pulse Oximetry 96 98 97 11/06/21 11:12 11/06/21 11:30 11/06/21 11:30 Pulse Rate 100 H Respiratory Rate 23 Blood Pressure 171/86 H 161/77 H Pulse Oximetry 11/06/21 11:55 11/06/21 11:55 11/06/21 12:00 Pulse Rate 98 H Respiratory Rate 17 Blood Pressure 167/83 H 159/79 H Pulse Oximetry 98 11/06/21 12:00 11/06/21 12:30 11/06/21 12:30 Pulse Rate 95 H 92 H Respiratory Rate 12 Blood Pressure 156/76 H Pulse Oximetry 97 96 11/06/21 13:00 11/06/21 13:00 11/06/21 13:30 Pulse Rate 92 H Respiratory Rate 16 Blood Pressure 161/76 H 163/78 H Pulse Oximetry 97 11/06/21 13:30 11/06/21 14:00 11/06/21 14:00 Pulse Rate 91 H 95 H Respiratory Rate 12 18 Blood Pressure 168/89 H Pulse Oximetry 96 97 11/06/21 14:30 11/06/21 14:30 Pulse Rate 91 H Respiratory Rate 13 Blood Pressure 169/82 H Pulse Oximetry 95 MDM - Syncope Lab Data Result diagrams: 11/06/21 10:01 11/06/21 10:01 Labs: Lab Results 11/06/21 11/06/21 11/06/21 Range/Units 10:01 10:01 10:01 WBC 6.6 (4.5-11.0) X10^3/uL RBC 4.48 L (4.5-5.9) X10^6/uL Hgb 14.5 (13.5-17.5) g/dL Hct 42.0 (41-53) % MCV 93.6 (80-100) fL MCH 32.3 (26-34) PG MCHC 34.5 (30-36) % RDW 14.4 (11.6-14.8) % Plt Count 225 (150-400) X10^3/uL Neut % (Auto) 68.2 (50-75) % Lymph % (Auto) 20.5 L (25-40) % Meriwether % (Auto) 8.4 (3-14) % Eos % (Auto) 2.3 (2-4) % Baso % (Auto) 0.6 (0-2) % Neut # (Auto) 4500 (1599-6510) /uL Lymph # (Auto) 1300 (1472-0124) /uL Meriwether # (Auto) 600 (0-900) /uL Eos # (Auto) 200 (0-450) /uL Baso # (Auto) 0 (0-100) /uL D-Dimer 2795 H (<230) ng/mL Sodium 140 (137-145) mmol/L Potassium 4.9 (3.4-5.1) mmol/L Chloride 104 (98-107) mmol/L Carbon Dioxide 22 (22-32) mmol/L BUN 19 (9-20) mg/dL Creatinine 0.84 (0.66-1.25) mg/dL Estimated GFR > 60 (>60) mL/min BUN/Creatinine Ratio 22.6 H (6-22) Glucose 190 H (80-110) mg/dL Calcium 9.3 (8.4-10.2) mg/dL Total Bilirubin 0.8 (0.2-1.3) mg/dL AST 41 (17-59) IU/L ALT 27 (<50) IU/L Alkaline Phosphatase 108 (38-126) U/L Total Creatine Kinase 398 H (55-170) U/L CK-MB (CK-2) 6.91 H (<2.37) ng/mL CK-MB (CK-2) Rel Index 1.7 (1.5-5.0) % Troponin I 0.028 (0.01-0.034) ng/mL NT-Pro-B Natriuret Pep 402 (<450) pg/mL Total Protein 7.3 (6.3-8.2) g/dL Albumin 4.3 (3.5-5.0) g/dL Globulin 3.0 (1.7-4.1) g/dL Albumin/Globulin Ratio 1.4 (1.0-2.8) SARS-CoV-2 (PCR) (Negative) 11/06/21 Range/Units 10:23 WBC (4.5-11.0) X10^3/uL RBC (4.5-5.9) X10^6/uL Hgb (13.5-17.5) g/dL Hct (41-53) % MCV (80-100) fL MCH (26-34) PG MCHC (30-36) % RDW (11.6-14.8) % Plt Count (150-400) X10^3/uL Neut % (Auto) (50-75) % Lymph % (Auto) (25-40) % Meriwether % (Auto) (3-14) % Eos % (Auto) (2-4) % Baso % (Auto) (0-2) % Neut # (Auto) (5633-5519) /uL Lymph # (Auto) (3777-2999) /uL Meriwether # (Auto) (0-900) /uL Eos # (Auto) (0-450) /uL Baso # (Auto) (0-100) /uL D-Dimer (<230) ng/mL Sodium (137-145) mmol/L Potassium (3.4-5.1) mmol/L Chloride (98-107) mmol/L Carbon Dioxide (22-32) mmol/L BUN (9-20) mg/dL Creatinine (0.66-1.25) mg/dL Estimated GFR (>60) mL/min BUN/Creatinine Ratio (6-22) Glucose (80-110) mg/dL Calcium (8.4-10.2) mg/dL Total Bilirubin (0.2-1.3) mg/dL AST (17-59) IU/L ALT (<50) IU/L Alkaline Phosphatase (38-126) U/L Total Creatine Kinase (55-170) U/L CK-MB (CK-2) (<2.37) ng/mL CK-MB (CK-2) Rel Index (1.5-5.0) % Troponin I (0.01-0.034) ng/mL NT-Pro-B Natriuret Pep (<450) pg/mL Total Protein (6.3-8.2) g/dL Albumin (3.5-5.0) g/dL Globulin (1.7-4.1) g/dL Albumin/Globulin Ratio (1.0-2.8) SARS-CoV-2 (PCR) Negative (Negative) Imaging Data CT scan - head: Radiologist's Impression: No acute intracranial hemorrhage CT - cervical spine: Radiologist's Impression: Negative for acute fracture ECG Data Interpretation: [1014] EKG is sinus tachycardia [101] with left bundle branch block, no obvious ectopy or evidence of violations of Sgarbossa's criteria (unchanged from prior) Discharge Plan Departure Patient Disposition: Admitted as Observation Clinical Impression: Syncope Admit Date/Time: 11/06/21 14:49 Admit Provider: Shavonne Theodore
[2021-11-06 10:23] LABS: NT-proBNP (BNP-Adult 18+) 402 pg/mL (<450); Troponin I 0.028 ng/mL (0.01-0.034)
[2021-11-06 10:26] LABS: CKMB % Relative Index 1.7 % (1.5-5.0); Creatine Kinase MB 6.91 ng/mL (<2.37)
--- NOTE | 2021-11-06 10:27 | DI.CT.S_ITS ---
PROCEDURE: CT CERVICAL SPINE WO CON INDICATIONS: syncope, head injury TECHNIQUE: Noncontrast 3 mm thick sections acquired from the skull base to the T4 level. Sagittal and coronal reformats were then constructed. For radiation dose reduction, the following was used: automated exposure control, adjustment of mA and/or kV according to patient size. COMPARISON: [facility], CT, CT HEAD/BRAIN WO CON, 11/06/2021, 10:22. FINDINGS: Image quality: Excellent. Bones: No fractures or dislocations. Visualized superior ribs are intact. Levoconvex cervical thoracic scoliotic curvature is seen. No focal AP alignment abnormality is seen. Focal degenerative change is seen involving the C1-C2 interface anteriorly. Mild disc space narrowing is seen at C3-C4. There is moderate to severe disc space narrowing at C4-C5 and C5-C6, with moderate disc space narrowing at C6-C7. Posteriorly directed endplate osteophytes are seen, which are worst at C5-C6. Facet arthropathy is seen throughout, which is more prominent on the left than on the right. Soft tissues: Prevertebral soft tissues are normal in thickness. No paravertebral hematomas. No apical pneumothoraces. Atherosclerotic calcification is noted. There is a left neck lipoma seen on the right side inferiorly and deeply, as on series 3, image 28 measuring 6 cm. IMPRESSION: Negative for acute fracture. Multiple levels of degenerative change are seen, which are overall worst at the C5-C6 level. Dictated by: Vahe Santana M.D. on 11/06/2021 at 9:36 Approved by: Vahe Santana M.D. on 11/06/2021 at 9:38
[2021-11-06] MEDS: SODIUM CHLORIDE 0.9% 500 ML 1000 ML IV ×2 (10:41→12:22)
[2021-11-06 11:12] LABS: D Dimer 2795 ng/mL (<230)
[2021-11-06] MEDS: BUPIVACAINE 0.5% W/ EPI (PF) 30 ML VIAL 5 ML SUBCUT (11:12)
[2021-11-06 11:21] LABS: COVID19 -Nasal RAPID Negative (Negative)
--- NOTE | 2021-11-06 11:43 | DI.CT.S_ITS ---
PROCEDURE: CT ANGIO CHEST PE PROTOCOL INDICATIONS: syncope, tachycardia, critical trop TECHNIQUE: After the administration of intravenous contrast, 2 mm thick sections acquired from the pulmonary apices to the posterior costophrenic angles. 3-dimensional maximum intensity projection (MIP) coronal and sagittal reformats were then acquired through the thorax. For radiation dose reduction, the following was used: automated exposure control, adjustment of mA and/or kV according to patient size. COMPARISON: None. FINDINGS: Image quality: Excellent. Pulmonary arteries: Pulmonary arteries are normal in size, and demonstrate no intraluminal filling defects to suggest central pulmonary embolism. Lungs and pleura: There is a very minimal appearance of scattered ground-glass as well as patchy opacities which are most severe in the left base. No effusions. Mediastinum: Heart size is enlarged, without pericardial effusion. No mediastinal or hilar adenopathy. Thoracic aorta is normal in caliber and enhancement. Esophagus is normal in caliber, without hiatal hernia. Bones and chest wall: No suspicious bony lesions. Ribs and thoracic spine appear intact throughout. Thyroid gland is unremarkable. No axillary or supraclavicular adenopathy. Abdomen: Visualized upper abdominal solid organs appear normal in the early arterial phase of enhancement. IMPRESSION: No pulmonary embolism. Ground-glass and patchy opacities within the lungs bilaterally most severe in the left base. Overall appearance is most consistent with pneumonia. Recommend interval follow-up to document resolution. Dictated by: Kelsey Fortune M.D. on 11/06/2021 at 11:57 Approved by: Kelsey Fortune M.D. on 11/06/2021 at 11:58
--- NOTE | 2021-11-06 19:48 | DI.MRI.S_ITS ---
PROCEDURE: MR STROKE Pre- and post-contrast brain MRI, non-contrast brain MR angiogram, pre- and postcontrast neck MR angiogram INDICATIONS: syncope TECHNIQUE: Brain: Noncontrast axial T1 spin echo, axial T2 fast spin echo, sagittal and axial FLAIR, coronal T2 fast spin echo, axial gradient echo, axial diffusion and ADC through the brain. After the administration of contrast, axial 3D VIBE of the cranial vasculature and brain. Brain MRA: Non-contrast 3-D time of flight MR angiogram, with multiple tjiranv-tprwvhgqq-nvhjfbpkbq (MIP) reformats performed. Neck MRA: Axial and sagittal TruFISP through the neck. Coronal dynamic MR angiogram during administration of contrast in the arterial and venous phases, with 3-dimenstional aqudajy-hhexlethh-mvqbrqfbul (MIP) reformats constructed from subtraction images. COMPARISON: [facility], MR, MR HEAD/BRAIN WO CON, 06/08/2018, 15:01[facility], CT, CT HEAD/BRAIN WO CON, 11/06/2021, 10:22. [facility], MR, STROKE PROTOCOL, 02/11/2016, 7:56. FINDINGS: Image quality: Excellent. BRAIN: CSF spaces: There is moderate cerebral volume loss with prominence of the ventricles and sulci. Basal cisterns are patent. No extra-axial fluid collections. Brain: Diffusion weighted images demonstrate no acute infarcts. No intracranial hemorrhage, mass, or mass effect. There are subcortical and periventricular foci of white matter T2 hyperintensity consistent with mild chronic small vessel ischemic changes. Brainstem appears normal. No abnormal intracranial enhancement. Skull and face: Calvarial marrow signal is normal. Orbits appear normal. Sinuses: There is mild mucosal thickening within the ethmoid and maxillary sinuses. There is partial fluid opacification of the left mastoid air cells. BRAIN MR ANGIOGRAM: Anterior circulation: Intracranial internal carotid arteries are normal in size and patent bilaterally. The flow within the paired anterior cerebral arteries is symmetric and patent bilaterally. The flow within the middle cerebral arteries is symmetric and patent bilaterally. The anterior communicating artery is patent. No high-grade stenoses, occlusions, or aneurysms. Posterior circulation: The visualized portions of the vertebral arteries are patent and join to form a patent basilar artery. The flow within the posterior cerebral arteries is symmetric and patent bilaterally. No high-grade stenoses, occlusions, or aneurysms. NECK MR ANGIOGRAM: Carotids: Great vessels demonstrate a bovine aortic arch with common origin of the right brachiocephalic and left common carotid arteries as they arise from the aortic arch. The origins of the common carotid arteries appear patent. The calibers and courses of both common carotid arteries are normal. There is mild narrowing of less than 50% in the left carotid bulb. The right carotid bulb appears widely patent. There is also mild narrowing of less than 50% in the proximal left external carotid artery at its origin. The internal carotid arteries demonstrate normal course and caliber. Posterior circulation: The origins of the vertebral arteries appear patent. More superior portions of both vertebral arteries demonstrate normal course and caliber, and join to form a normal appearing basilar artery. Miscellaneous: Subclavian arteries appear patent. Pre-contrast images through the neck demonstrate no soft tissue abnormalities. IMPRESSION: BRAIN MRI: 1. No infarct or other acute intracranial abnormality. 2. Moderate cerebral volume loss and mild chronic white matter small vessel ischemic changes. BRAIN MR ANGIOGRAM: 1. No high-grade stenosis or occlusion of the central intracranial arteries. NECK MR ANGIOGRAM: 1. No high-grade stenosis or occlusion of the head and neck arteries. There is mild narrowing of less than 50% in the left carotid bulb. Dictated by: Omid Tapia M.D. on 11/06/2021 at 22:14 Approved by: Omid Tapia M.D. on 11/06/2021 at 22:21
--- NOTE | 2021-11-06 20:02 | DI.ECHO.S_ITS ---
[facility] +---------+ : : [address] : [place] : : : : [id number] : : : : Phone: [phone] Echocardiogram Report + + :Name: MAMADOU KHAN Study Date: 11/07/2021 Height: 75 in : :[facility] ReadingLocation: Weight: 240 lb : : Gender: Male BSA: 2.4 m2 : :: 1945 Age: 75 yrs BP: 147/77 mmHg: :Reason For Study: SYNCOPE : :Ordering Physician: DAQUAN, : :ABBY Performed By: Elaine Arredondo : :Referring: ABBY BUTT : + + Interpretation Summary 1) Mildly enlarged left ventricle with moderately reduced systolic function (EF 35-40%). 2) Normal right ventricular size and function. 3) Severely enlarged left atrium. 4) There is mild aortic regurgitation. 5) There is mild to moderate mitral regurgitation. 6) Compared to the Echo done 08/10/2014, LVEF has improved from 25-30% to 35- 40% on this study. Procedure: A two-dimensional transthoracic echocardiogram with color flow and Doppler was performed. The study quality was technically adequate. Comparison is made with the echocardiogram of 08/10/2014. The patient was in sinus rhythm with heart rates between 68-75 bpm during the exam. Left Ventricle: The left ventricle is mildly dilated. There is mild concentric left ventricular hypertrophy. The ejection fraction is estimated to be 35-40%. There is moderate global hypokinesis of the left ventricle. Right Ventricle: The right ventricle is normal in size and function. Atria: The left atrium is severely dilated. Right atrial size is normal. There is no Doppler evidence for an interatrial shunt. Mitral Valve: The mitral valve is normal in structure and function. There is mild to moderate mitral regurgitation. Aortic Valve: The aortic valve opens well. There is no aortic valve stenosis. There is mild aortic regurgitation. Tricuspid Valve: The tricuspid valve is normal in structure and function. There is mild tricuspid regurgitation. The right ventricular systolic pressure is estimated to be at least 31 mmHg based on an estimated right atrial pressure of 8 mm Hg. Pulmonic Valve: The pulmonic valve is not well visualized. There is trace pulmonic regurgitation. Great Vessels: The aortic root is normal size. The dimensions of the ascending aorta are normal. The IVC is dilated (diameter is greater than 2.1 cm) yet it collapses greater than 50% with a sniff. This suggests a right atrial pressure of 8 mm Hg. Pericardium/ Pleura There is no pericardial effusion. There is no pleural effusion. MMode/2D Measurements & Calculations LVIDd: 6.0 cm LVOT diam: 2.3 cm LVIDs: 4.4 cm Ao root diam: 3.7 cm FS: 25.9 % asc Aorta Diam: 3.8 cm EPSS: 1.4 cm IVSd: 1.2 cm LVPWd: 1.0 cm LV rush. diameter/BSA (cm/m^2): 2.5 LV sys. diameter/BSA (cm/m^2): 1.9 LA A2 area: 28.7 cm2 RA long axis: 5.3 cm LA A4 area: 30.7 cm2 RA area: 14.1 cm2 LA length (vol): 6.1 cm RA vol: 31.9 ml LA vol: 122.8 ml RA : 13.4 ml/m2 LA vol index: 51.8 ml/m2 IVC diam: 2.1 cm RVD1 (basal): 3.9 cm RVD2 (mid): 3.7 cm TAPSE: 2.3 cm Doppler Measurements & Calculations Ao V2 max: 152.0 cm/sec LVOT Max Jarrell: 80.1 cm/sec Ao V2 mean: 95.7 cm/sec LV V1 max P.6 mmHg Ao max P.2 mmHg LV V1 VTI: 17.5 cm Ao mean P.3 mmHg BLUE(I,D): 2.4 cm2 Ao V2 VTI: 30.4 cm BLUE(V,D): 2.2 cm2 sev ratio: 0.57 BLUE indexed to BSA (cm^2/m^2): 1.0 MV E max jarrell: 55.9 cm/sec TR max jarrell: 240.7 cm/sec MV A max jarrell: 48.6 cm/sec TR max P.2 mmHg MV E/A: 1.2 PA V2 max: 102.7 cm/sec Med Peak E' Jarrell: 4.8 cm/sec PA V2 mean: 65.3 cm/sec E/E' med: 11.5 PA mean P.0 mmHg Lat Peak E' Jarrell: 5.4 cm/sec PA Accel Time: 0.06 sec E/E' lat: 10.4 E/e' average: 11.0 MV P1/2t: 53.3 msec MV 2t max jarrell: 59.2 cm/sec SV(LVOT): 73.5 ml MVA(P1/2t): 4.1 cm2 Reading Physician:03:56 PM
[2021-11-06 20:36] LABS: Magnesium 1.8 mg/dL (1.6-2.3)
--- NOTE | 2021-11-06 21:16 | P.HP_ITS ---
History of Present Illness History of Present Illness Date Patient Seen: 11/06/21 Time Patient Seen: 18:11 Chief complaint: Syncope Narrative: Sanya Gaona is a 75-year-old male with a medical history CAD, hypertension, viral cardiomyopathy, chronic back pain with neuropathy, hyperlipidemia, anemia, spinal stenosis, and spondylosis ( lumbar-sacral), [id number]-[id number] type 2 diabetes, and nocturia who presented to the ED via EMS for evaluation of a syncopal episode with head laceration. The patient reported that he was in his normal state of health and walking across the room with his walker and the next thing he knew he was waking up on the ground.? Patient denied precipitating symptoms to syncope such as dizziness, lightheadedness, changes in vision, difficulty swallowing, dysarthria, new or different extremity pain numbness or tingling, weakness, numbness, chest pain, shortness of breath, or palpitations. He denies proceeding changes in position, use of bathroom, vomiting, fever, chills, nausea, diarrhea, dietary changes, or drops in blood pressure. Denies previous syncopal. The patient denies cough, respiratory symptoms, ear nose or mouth issues, head back or neck trauma, fever, body aches, chills, abdominal pain, constipation, dysuria or urinary symptoms, recent illness, injury, or trauma. Patient states he has recently started Flomax for nocturia, no other medication changes. [place] 2 [place] ago. Upon admit patient is resting comfortably in bed asymptomatic vital signs temp 98?, BP 166/83, HR 71, R 20, O2 saturation 97% on room air. The patient's CBC and CMP are predominantly WNL with the exception of glucose of 190. Patient's D-dimer 2795, CTA demonstrated no pulmonary emboli, but did demonstrate ground- glass and patchy opacities in bilateral lungs, greatest severity in the left lower lung. T CK 398, CK-MB 6.91, initial troponin is normal but slightly elevated 0.028. Patient's C-spine negative for any acute fractures, head CT negative for any acute intracranial processes, patient's EKG demonstrated sinus tachycardia with a rate of 101 a left bundle-branch block without ST or T-wave c hanges, no real changes in comparison to prior EKG on file. Patient admitted for syncope and risk stratification rule out. 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 Father No problems noted. Sister No problems noted. Social History: household members spouse Safety & Behavioral: Feels Safe in Current Yes Environment Been Physically Hurt or No Threatened By a Person Tobacco & Substance use: Smoking Status Never smoker alcohol intake current alcohol intake frequency 0-2 drinks per day Substance Use Type does not use Meds Home Medications and Allergies Home Medications Medication Instructions Recorded Confirmed Type aspirin 325 mg tablet,delayed 325 mg PO DAILY 09/09/17 11/06/21 History release Disabled Parking Permit #1 ea 09/06/18 11/06/21 Rx Disabled parking pass #1 ea 08/15/19 11/06/21 Rx atorvastatin 40 mg tablet 40 mg PO HS #90 tabs 09/03/20 11/06/21 Rx cyanocobalamin (vitamin B-12) 1,000 mcg PO DAILY #90 tabs 09/03/20 11/06/21 Rx 1,000 mcg tablet lisinopril 10 mg tablet 10 mg PO BID #180 tabs 09/03/20 11/06/21 Rx metformin 500 mg tablet 250 mg PO BIDCC #90 tabs 09/03/20 11/06/21 Rx (Glucophage) pyridoxine (vitamin B6) 50 mg 50 mg PO DAILY #90 tabs 09/03/20 11/06/21 Rx tablet furosemide 40 mg tablet 40 mg PO DAILY PRN Edema #30 tabs 09/12/20 11/06/21 Rx carvedilol 25 mg tablet 25 mg PO BID 03/27/21 11/06/21 History docusate sodium 100 mg capsule 100 mg PO BID PRN Constipation 04/04/21 11/06/21 Rx from narcotic pain med #14 caps gabapentin 100 mg capsule 100 mg PO QID PRN Pain (Scale 08/28/21 11/06/21 Rx Score 4-6) #360 caps tamsulosin 0.4 mg capsule (Flomax) 0.4 mg PO BEDTIME #90 caps 09/24/21 11/06/21 Rx Allergies Allergy/AdvReac Type Severity Reaction Status Date / Time No Known Drug Allergies Allergy Verified 09/24/21 13:04 Review of Systems Review of Systems Narrative: All 12 point systems reviewed with the patient and are negative except otherwise documented. Exam Vital Signs (past 8 hours): - 11/06/21 13:30 11/06/21 13:30 11/06/21 14:00 Temperature Pulse Rate 91 H Respiratory Rate 12 Blood Pressure 163/78 H 168/89 H Pulse Oximetry 96 Oxygen Flow Rate 11/06/21 14:00 11/06/21 14:30 11/06/21 14:30 Temperature Pulse Rate 95 H 91 H Respiratory Rate 18 13 Blood Pressure 169/82 H Pulse Oximetry 97 95 Oxygen Flow Rate 11/06/21 15:00 11/06/21 15:00 11/06/21 15:30 Temperature Pulse Rate 91 H Respiratory Rate 16 Blood Pressure 173/82 H 175/82 H Pulse Oximetry 95 Oxygen Flow Rate 11/06/21 15:30 11/06/21 15:45 11/06/21 20:00 Temperature 98.0 F 98.6 F Pulse Rate 90 71 87 Respiratory Rate 17 20 17 Blood Pressure 166/83 H 158/77 H Pulse Oximetry 95 97 96 Oxygen Flow Rate 0 Oxygen Delivery Method Room Air Oxygen Flow Rate 0 Narrative Exam Narrative: General: Patient is a well-developed, well-nourished pleasant elderly male who appears younger than stated age in no distress at this time. HEENT: Normocephalic, atraumatic, extraocular muscles intact, wears glasses, oral pharynx is clear and mucous membranes are moist. Neck is supple and symmetric, trachea is midline, no adenopathy, no thyroid enlargement, nontender, no masses palpated. Negative for JVD Chest: Normal AP diameter and contour without kyphoscoliosis, no nasal flaring, retractions, or tachypneic labored Lungs: Auscultation of all lung gibbs are clear without adventitious sounds, wheezes, rhonchi, or rales. Cardio: S1 & S2 with regular rate and rhythm without murmur, rubs, or gallops, no carotid bruit, no cardiac pulsations present. Abdomen: Soft nontender, negative for organomegaly, or masses. Bowel sounds are present in all 4 quadrants without guarding or rebound, no CVA tenderness. Musculoskeletal: Muscle strength and tone are equal within normal limits, no deformity, crepitus, effusions, cyanosis, clubbing or edema present. Full range of motion intact radial and pedal pulses are normal. Skin: Warm dry and intact without rashes, ulcerations or petechiae. Neuro: Alert and orientated x3, strength is +5/5 in all extremities, sensation to touch intact, no gross deficits noted of cranial nerves. Uses a walker. Psych: Patient has a well-kept appearance, appropriate affect, mental status attitude thought context and judgment are appropriate for age. Objective Labs Result Diagrams: 11/06/21 10:01 11/06/21 10:01 Labs: Laboratory Results - last 24 hr 11/06/21 11/06/21 11/06/21 10: 10:01 10:01 WBC 6.6 RBC 4.48 L Hgb 14.5 Hct 42.0 MCV 93.6 MCH 32.3 MCHC 34.5 RDW 14.4 Plt Count 225 Neut % (Auto) 68.2 Lymph % (Auto) 20.5 L [place] % (Auto) 8.4 Eos % (Auto) 2.3 Baso % (Auto) 0.6 Neut # (Auto) 4500 Lymph # (Auto) 1300 [place] # (Auto) 600 Eos # (Auto) 200 Baso # (Auto) 0 D-Dimer 2795 H Sodium 140 Potassium 4.9 Chloride 104 Carbon Dioxide 22 BUN 19 Creatinine 0.84 Estimated GFR > 60 BUN/Creatinine Ratio 22.6 H Glucose 190 H Calcium 9.3 Magnesium Total Bilirubin 0.8 AST 41 ALT 27 Alkaline Phosphatase 108 Total Creatine Kinase 398 H CK-MB (CK-2) 6.91 H CK-MB (CK-2) Rel Index 1.7 Troponin I 0.028 NT-Pro-B Natriuret Pep 402 Total Protein 7.3 Albumin 4.3 Globulin 3.0 Albumin/Globulin Ratio 1.4 SARS-CoV-2 (PCR) 11/06/21 11/06/21 10:01 10:23 WBC RBC Hgb Hct MCV MCH MCHC RDW Plt Count Neut % (Auto) Lymph % (Auto) [place] % (Auto) Eos % (Auto) Baso % (Auto) Neut # (Auto) Lymph # (Auto) [place] # (Auto) Eos # (Auto) Baso # (Auto) D-Dimer Sodium Potassium Chloride Carbon Dioxide BUN Creatinine Estimated GFR BUN/Creatinine Ratio Glucose Calcium Magnesium 1.8 Total Bilirubin AST ALT Alkaline Phosphatase Total Creatine Kinase CK-MB (CK-2) CK-MB (CK-2) Rel Index Troponin I NT-Pro-B Natriuret Pep Total Protein Albumin Globulin Albumin/Globulin Ratio SARS-CoV-2 (PCR) Negative Assessment & Plan Assessment & Plan narrative: Sanya Gaona is a 75-year-old male with a medical history CAD, hypertension, viral cardiomyopathy, chronic back pain with neuropathy, hyperlipidemia, anemia, spinal stenosis, and spondylosis ( lumbar-sacral), [id number] type 2 diabetes, and nocturia who presented to the ED via EMS for evaluation of a syncopal episode with head laceration. Admitted to observation for syncope and risk stratification. Will assess and trend patient's orthostatic blood pressures, troponin, lipids, and complete current MR and echo. 1. Syncope, unprovoked, acute, present on admission -patient is asymptomatic stable resting comfortably in bed -Risk stratification to rule out but not limited to autonomic dysfunction, sick sinus syndrome, stroke, hypotension, hypoglycemia. -Continue ASA, lipitor -NIH=0 -patient up with assist only, fall precautions -orthostatics Q 4 while awake -Risk stratification: Lipids, mag, UA, ordered. -MR Brain 06/08/2018:Noted ventricular dilation may be secondary to central atrophy or normal pressure hydrocephalus and foci of periventricular white matter T2 hyperintensity, compatible chronic small vessel ischemic changes. A differential diagnosis is demyelinating process such as multiple sclerosis.? -In reviewing patients medications he just recently started Flomax, which may be affecting his B/P. -I reviewed [facility], Dr. Colby orthopedic surgical, and Dr. Solorzano [facility] notes and diagnostics. 2. CAD of [place] artery without angina, chronic, with a history of viral cardiomyopathy, related to NIDDM, present on admission -orthostatics ordered -echo ordered for tomorrow -last echo 02/01/[address] [facility] [address] Solorzano: LVEF 65% no changes from 12/18/2017 -lipids 3. Essential hypertension, acute on chronic, present on admission -initial blood pressure 173/94, admitting 166/83 -will continue carvedilol, lisinopril-increased dosage from 10 mg b.i.d. to 20 mg b.i.d. -echo today -orthostatics q.4 hours while awake -initial troponin 0.028, patient is asymptomatic will trend troponin x3 q.6 hours -EKG demonstrated sinus tachycardia with a rate of 101, left bundle-branch block without ST or T-wave changes, EKG unchanged from previous. -tele monitoring 4. Hyperlipidemia, mixed, secondary to NIDDM, chronic, present on admission -continue Lipitor 5. Overweight as evidence by BMI of 30, acute on chronic, present on admission -dietary consult ordered for consideration 6. 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 Odz-rnnsljf-mpttykedr type 2 diabetes, acute on chronic, present on admission -initial glucose 190 -patient admitted under diabetic protocol, glucose checks a.c. HS, low carb diet -A1c ordered -continue metformin Code status:Full Surrogate decision maker: Geri THOMAS PCR: Negative DVT/VTE prophylaxis: Lovenox 40 and SCDs Disposition: Patient admitted for observation for syncope risk stratification, expected length of stay less than 2 midnights. I have utilized all available immediate resources to obtain, update, or review the patient's current medications. I confirmed that the patient's advanced care plan is present, Code status is documented and/or surrogate decision maker is listed in the patient's medical record. ? Time Spent With Patient Critical Care time: I spent a total of [] minutes of critical care time on this patient's care today; this time is exclusive of procedural time. Quality VTE Deep Vein Thrombosis/Pulmonary Embolism Present on Admission: No
[2021-11-06] MEDS: carvediloL 12.5 MG TABLET 25 MG PO (21:44)
[2021-11-06] MEDS: lisinopriL 10 MG TABLET PO (21:45)
[2021-11-06] MEDS: TAMSULOSIN 0.4 MG CAPSULE PO (21:45)
[2021-11-06] MEDS: GABAPENTIN 100 MG CAPSULE PO (21:46)
[2021-11-06] MEDS: DOCUSATE 100 MG CAPSULE PO (21:46)
[2021-11-06 22:48] LABS: Troponin I 0.193 ng/mL (0.01-0.034)
[2021-11-06 23:04] LABS: Hemoglobin A1C% w Est Avg Glu 5.8 % (4.0-6.0)
[2021-11-07] VITALS (12 sets, daily range): BP systolic 126–158; BP diastolic 66–84; PULSE 76–90; RESP 17–21; TEMP 36.4–37.4; O2SAT 96–100
[2021-11-07 01:16] LABS: Appearance Urine UA CLEAR; Bilirubin Urine UA NEGATIVE (NEGATIVE); Color Urine UA YELLOW; Glucose Urine UA NEGATIVE (Negative); Ketones Urine UA TRACE (NEGATIVE); Leukocyte Esterase Urine UA NEGATIVE (NEGATIVE); Nitrite Urine UA NEGATIVE (Negative); Occult Blood Urine UA NEGATIVE (Negative); Protein Urine UA NEGATIVE (Negative); Specific Gravity Urine UA 1.015 (1.000-1.035); Urobilinogen Urine UA 0.2 E.U./dL (0.2); pH Urine UA 6.5 (4.5-8.0)
[2021-11-07 01:23] LABS: Bacteria Urine None Seen; Culture Indicated Urine Cult Not Indicated; RBC Urine 0-1/HPF (0-5/HPF); WBC Urine None Seen (0-5/HPF)
[2021-11-07 05:54] LABS: Cholesterol 170 mg/dL (140-199); HDL Cholesterol 52 mg/dL (40-60); LDL Cholesterol Calculated 95 mg/dL (<100); Triglycerides 114 mg/dL (35-150)
[2021-11-07 06:03] LABS: NT-proBNP (BNP-Adult 18+) 4050 pg/mL (<450)
[2021-11-07 06:13] LABS: Troponin I 0.132 ng/mL (0.01-0.034)
[2021-11-07] MEDS: METFORMIN HCL 500 MG TABLET 250 MG PO ×2 (09:18→16:15)
[2021-11-07] MEDS: carvediloL 12.5 MG TABLET 25 MG PO ×2 (09:18→20:28)
[2021-11-07] MEDS: ASPIRIN EC 325 MG TABLET PO (09:18)
[2021-11-07] MEDS: lisinopriL 10 MG TABLET 20 MG PO ×2 (09:18→20:28)
[2021-11-07] MEDS: ENOXAPARIN 40 MG/0.4 ML SYRINGE SUBCUT (09:18)
[2021-11-07] MEDS: SODIUM CHLORIDE 0.9% FLUSH 10 ML IV ×2 (09:19→20:28)
--- NOTE | 2021-11-07 11:55 | PT.IIE ---
Surgical History (Last Reviewed 11/06/21 @ 21:33 by Lauren Rios [facility]) Anesthesia History of angioplasty (08/09/14) History of inguinal hernia repair (~1954) History of selective injection of anesthetic agent around lumbar nerve root (~07/2020) Hx of hand surgery Status post appendectomy (~1952) Undescended testicle, unilateral Medical History (Last Updated 09/24/21 @ 13:08 by Wilver Kerr MD) Acne (~1958) Ankle effusion CAD (coronary artery disease) (~2012) Chickenpox (~1949) Class 1 obesity (08/28/16) Closed right fibular fracture Collar bone fracture (~1950) Community acquired pneumonia History of ankle fracture (~2015) History of fracture of ankle (08/28/16) History of rib fracture (~1984) Homozygous MTHFR mutation [id number] Hypertension (~1999) Macular degeneration, age related, nonexudative (~03/29/20) Measles (~1949) Normal pressure hydrocephalus Olecranon fracture Psoriasis (~2015) Viral cardiomyopathy (~2014) Physical Therapy Inpatient Evaluation/Re-Eval M1 PT/OT-IP Prior Functional Status Start: 11/07/21 13:44 Freq: NEEDED Status: Active Protocol: Document 11/07/21 11:55 AB (Rec: 11/07/21 13:52 AB [id number]) Medical Review Prior Functional Status Medical History Reviewed Yes Communication able to make needs known Mobility and Gait pt stated that he is modified independent with all mobilities and ambulation using FWW indoors and 4WW for outdoor mobility Social History Household Members spouse Living Arrangements House Number of Floors (Floors) Two Floors Number of Stairs To Enter/Railing? pt stays on main level of the house has 3 steps L rail + R wall to enter the house Home Environment Standard Height Toilet,Walk in Shower,Built-In Shower Seat Home Equipment Front Wheel Walker,Four Wheel Walker,Straight Cane,Hand Held Shower,Grab Bars Near Toilet, Grab Bars In Shower M2 PT-IP Current Condition Start: 11/07/21 13:44 Freq: NEEDED Status: Active Protocol: Document 11/07/21 11:55 AB (Rec: 11/07/21 13:52 AB [email or web address]) Physical Therapy Current Condition Current Condition Evaluation Date 11/07/21 Treatment Diagnosis syncope; difficulty in walking Onset Date 11/06/21 M3 PT-IP Subjective Start: 11/07/21 13:44 Freq: NEEDED Status: Active Protocol: Document 11/07/21 11:55 AB (Rec: 11/07/21 13:52 AB [id number]) Subjective Physical Therapy Visit Type Type Initial Evaluation Visit Start Time 11:55 Visit Stop Time 12:25 Total Visit Minutes 30 Number of FIBER ARTIST Visits 0 Physical Therapy Visit Comments Patient Comments pt initially refusing PT and stated that he had PT before and there is nothing they can do with his legs. Explained to pt the purpose of PT eval while here in the hospital and agreed to do eval. Therapy Pain Assessment Pain Present Pain Present Denied Pain M4 PT-IP Mobility and Gait Start: 11/07/21 13:44 Freq: NEEDED Status: Active Protocol: Document 11/07/21 11:55 AB (Rec: 11/07/21 13:52 AB [email or web address]) PT-Transfer Assessment Sit to and From Stand Sit to and from Stand Independent Equipment Transfer Assistive Device Gait Belt,Front Wheeled Walker Orthotic/Prosthetic Devices or Brace: No Comments Mobility Comments pt sitting on chair and completed sit to stand mod I. ambulated in room using FWW SBA ~ 30 ft. agreed to ambulate in the hallway and completed ~ 250 ft using 4WW SBA. pt with chronic R ankle problems with nerve involvement and has a slight R foot drop but pt able to control RLE with use of FWW/ 4WW without LOB. completed up/ down steps using L rail and stated that he has a R side wall that he holds on to. completed x 2 sets SBA. pt assisted back to his room and ambulated from wc to chair using 4WW SBA. positioned pt on chair for lunch. call light and table placed within reach. pt refused further PT interventions. Gait Assessment Gait Gait Assistance Required: Standby Assistance,1 Person Assist Distance (Feet) 250 Able to Maintain Weight Bearing Status Yes During Gait Assistive Devices Assistive Device Front Wheeled Walker,4 Wheeled Walker Orthotic/Prosthetic Devices or Brace: No Gait Deviations General Gait Pattern Antalgic,Decreased Stride Length,Decreased Feet Clearance,Flexed Trunk Factors Limiting Gait Function Factors Limiting Gait Function Decreased Activity Tolerance, Decreased Sensation,Decreased Strength,Limited Range of Motion,Pain,Poor Balance,Poor Safety Awareness Stair Climbing Assessment Evaluation Level of Assist On Stairs Standby Assistance Devices Stair Climbing Assistive Devices Left Railing,Right Railing Technique/Endurance Stair Climbing Direction Ascend and Descend Stair Climbing Technique Step to Step Number of Steps Climbed 3 Query Text: Stair Climbing Set # Repetitions (reps) 2 PT-Balance Assessment Sitting Balance and Reactions Static Sitting Balance Ability Normal Dynamic Sitting Balance Ability Normal Standing Balance and Reactions Static Standing Balance Ability Good Dynamic Standing Balance Ability Fair Device Used FWW/4WW M5 PT-IP Objective Assessments Start: 11/07/21 13:44 Freq: NEEDED Status: Active Protocol: Document 11/07/21 11:55 AB (Rec: 11/07/21 13:52 AB [id number]) Orientation Orientation/Cognition Level of Alertness Alert Orientation Name,Age,Birthday,Month,Date, Year,Day of Week,Place, Situation Language Function Ability No Deficits Noted Safety Awareness Decreased Safety Awareness Memory Description No Deficits Noted Gross Range of Motion Lower Extremity ROM Assessment Within Functional Limits Strength Lower Extremity Strength Assessment Within Functional Limits Muscle Tone Muscle Tone WNL Yes M6 PT-IP Treatment Start: 11/07/21 13:44 Freq: NEEDED Status: Active Protocol: Document 11/07/21 11:55 AB (Rec: 11/07/21 13:52 AB [id number]) Physical Therapy Treatment Education Education Provided Safety M7 PT-IP Assessment and Plan Start: 11/07/21 13:44 Freq: NEEDED Status: Active Protocol: Document 11/07/21 11:55 AB (Rec: 11/07/21 13:52 AB [email or web address]) PT Summary Assessment and Plan Potential Rehabilitation Potential Good Status of Condition at Evaluation Stable Summary Impairments Pain,ROM,Strength,Balance, Coordination,Sensation,Tone, Cognition,Bed Mobility, Transfers,Gait,Activity Tolerance Assessment Summary PT eval completed and pt requiring SBA with mobility using FWW/4WW. pt refused further PT interventions and will have his spouse assist him when needed. pt may go home when medically stable. Frequency of Treatment Frequency Of Treatment Discharge Recommendations To Nursing Amount of Assist Needed Standby Assistance Discharge Recommendations PT Discharge Recommendations Home Transportation Needs at Discharge Private Vehicle
--- NOTE | 2021-11-07 12:33 | CM.DANOTE ---
Initial DCP Assessment Note Pt is a 75 yo male, resident [facility], arrives after a syncopal episode w/subsequent head laceration PCP: Wilver Kerr Payer: [employer] Reviewed chart, met w/patient to introduce self and role; patient lives independently with spouse and plans to return home upon DC, upon this visit, patient awaiting visit from Dr Theodore to discuss next steps in medical POC Plan: DC home w/family expected HUMAIRA Ríos Discharge Planning/Care Management CM Discharge Assessment Start: 11/07/21 12:31 Freq: Status: Active Protocol: Document 11/07/21 12:31 FRANCISCA (Rec: 11/07/21 12:33 [id number]) Discharge Planning Assessment Assigned [employer] HUMAIRA Funez DPOA/Assigned Designee Name Geri Gaona, spouse Contact Information [phone] cell [phone] home Advance Directives? Yes Advance Directives on File No History Provided By Patient,Medical Record Has Patient been admitted in last 30 No days? Prior Living Arrangements House Household Members spouse Type of transporation used prior to Drives own vehicle admit Independent with ADL's Yes Is patient alert and oriented? Yes Barriers to Discharge No Comment Home w/spouse when medically cleared Discharge Plan Home Referrals Initiated None needed
--- NOTE | 2021-11-07 13:29 | OT.IPNOTE ---
Attempted to see pt for OT eval , pt states has a supportive and feels back to baseline for his ADl needs. Therefore discharge OT eval orders.
--- NOTE | 2021-11-07 14:55 | DI.NM.S_ITS ---
PROCEDURE: NM LUCY PERF SPECT R&S PHARM Rest and pharmacological stress myocardial perfusion SPECT with gated imaging and ejection fraction RADIOPHARMACEUTICAL: 8.9 mCi Tc-99m tetrafosmin IV at rest and 27.4 mCi Tc-99m tetrafosmin IV at peak effect of pharmacological stress. Ydl-sfx-ahxowzye was performed. INDICATIONS: syncope TECHNIQUE: Radiopharmaceutical was injected at peak stress test, and also at rest. SPECT images were obtained. SPECT myocardial perfusion images were displayed in short axis, horizontal long axis, and vertical long axis views. Gated images were reviewed using [employer] software. COMPARISON: None. CARDIAC STRESS: A pharmacologic stress test was performed under the supervision of an attending staff, using an infusion of lexiscan 0.4mg IV X1. Hemodynamic data: There is normal blood pressure and heart rate response to pharmacologic stress. Symptoms: The patient denied anginal chest pain. Aminophylline: none EKG: Resting ECG showed sinus rhythm with LBBB. Non diagnostic ST segment with lexiscan due to baseline LBBB; occasional PVCs during the study. FINDINGS: Raw data: There is good myocardial uptake of radiotracer. No significant motion artifacts. Left ventricle function: Gated images demonstrate septal dysynchrony. No segmental wall motion abnormalities. No transient ischemic dilation; TID is 1.08 (normal less than 1.3). Left ventricle post stress end diastolic volume is 184 mL. Left ventricle stress ejection fraction is 58%; normal range is above 45%. Myocardial perfusion: There is a fixed mid-distal anterior wall defect that improves with prone imaging suggesting artifact but underlying old non-transmural infarction can't be excluded. No ischemia. IMPRESSION: Possibly normal, low risk pharm nuclear stress test 1) There is a fixed mid-distal anterior wall defect that improves with prone imaging suggesting artifact but underlying old non-transmural infarction can't be excluded. No ischemia. 2) Enlarged left ventricle (post stress EDV 184cc) with normal systolic function (EF post stress EF 58%). Septal wall motion consistent with the underlying LBBB. 3) No angina during the study. 4) ECG non-diagnostic due to baseline LBBB. 5) Compared to the nuc stress done 08/30/2014, no new perfusion defects are seen on this study. Dictated by: Yasmin Reyes MD on 11/08/2021 at 14:51 Approved by: Yasmin Reyes MD on 11/08/2021 at 14:55
--- NOTE | 2021-11-07 16:22 | PM.PN.1 ---
Subjective Subjective Date Patient Seen: 11/07/21 Interval history: 75 y/o male admitted following an unprovoked syncopal episode. Patient denies shortness of breath, chest pain, or light headedness. He was walking and fell abuptly to the floor. NO further episodes or prior episodes. No orthostatic changes in blood pressure ( patient on B-mendoza) Exam Vital Signs (past 8 hours): - 11/07/21 09:00 11/07/21 09:18 11/07/21 09:18 Temperature Pulse Rate 82 82 Pulse Rate [Orthostatic Lying] Pulse Rate [Orthostatic Sitting] Pulse Rate [Orthostatic Standing] Respiratory Rate Blood Pressure 158/84 H 158/84 H Blood Pressure [Orthostatic Lying] Blood Pressure [Orthostatic Sitting] Blood Pressure [Orthostatic Standing] Pulse Oximetry 97 Oxygen Delivery Method Room Air Oxygen Flow Rate 0 11/07/21 13:00 11/07/21 12:00 11/07/21 14:02 Temperature 97.6 F Pulse Rate 78 Pulse Rate [Orthostatic Lying] 82 Pulse Rate [Orthostatic Sitting] 84 Pulse Rate [Orthostatic Standing] 85 Respiratory Rate 21 Blood Pressure 147/68 H Blood Pressure [Orthostatic Lying] 148/72 H Blood Pressure [Orthostatic Sitting] 150/72 H Blood Pressure [Orthostatic Standing] 149/76 H Pulse Oximetry 96 98 Oxygen Delivery Method Room Air Oxygen Flow Rate 0 0 Oxygen Delivery Method Room Air Oxygen Flow Rate 0 Narrative Exam Narrative: pleasant male in no acute distress Resp Other: Lungs: clear to auscultation Cardio Other: CV: RRR nl Sl S2 GI Other: Abd: soft/ non tender/ non distended Extrem Other: No edema Objective Labs Result Diagrams: 11/06/21 10:01 11/06/21 10:01 Labs: Laboratory Results - last 24 hr 11/06/21 11/06/21 11/06/21 10:01 10:01 21:20 Hemoglobin A1c 5.8 Magnesium 1.8 Troponin I 0.193 H* NT-Pro-B Natriuret Pep Triglycerides Cholesterol LDL Cholesterol, Calc HDL Cholesterol Urine Color Urine Appearance Urine pH Ur Specific [place] Urine Protein Urine Glucose (UA) Urine Ketones Urine Occult Blood Urine Nitrate Urine Bilirubin Urine Urobilinogen Ur Leukocyte Esterase Urine RBC Urine WBC Urine Bacteria Ur Culture Indicated? 11/07/21 11/07/21 11/07/21 00:55 05:25 05:25 Hemoglobin A1c Magnesium Troponin I 0.132 H* NT-Pro-B Natriuret Pep 4050 H Triglycerides 114 Cholesterol 170 LDL Cholesterol, Calc 95 HDL Cholesterol 52 Urine Color Yellow Urine Appearance Clear Urine pH 6.5 Ur Specific [place] 1.015 Urine Protein Negative Urine Glucose (UA) Negative Urine Ketones Trace H Urine Occult Blood Negative Urine Nitrate Negative Urine Bilirubin Negative Urine Urobilinogen 0.2 Ur Leukocyte Esterase Negative Urine RBC 0-1/hpf Urine WBC None seen Urine Bacteria None seen Ur Culture Indicated? Cult not indicated [facility] Medical History (Updated 11/06/21 @ 21:[address] 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 Father No problems noted. Sister No problems noted. Social History household members: spouse Smoking Status: Never smoker alcohol intake: current Assessment & Plan Assessment & Plan narrative: Syncope, unprovoked, acute, present on admission -patient is asymptomatic stable resting comfortably in bed -Risk stratification to rule out but not limited to autonomic dysfunction, sick sinus syndrome, stroke, hypotension, hypoglycemia. -Continue ASA, lipitor -NIH=0 -patient up with assist only,? fall precautions -orthostatics Q 4 while awake -Risk stratification:? Lipids, mag, UA, ordered. -MR Brain 06/08/2018:Noted ventricular dilation may be secondary to central atrophy or normal pressure hydrocephalus and foci of periventricular white matter T2 hyperintensity, compatible chronic small vessel ischemic changes. A differential diagnosis is demyelinating process such as multiple sclerosis.? -no evidence of orthostasis -no evidence of stroke . 2. 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 Solorzano:? LVEF 65% no changes from 12/18/2017 -lipids -Cardiac enzymes elevated, troponin. .193, and .132, will get serial troponins -as he is asymptomatic, will get stress test tomorrow if troponins continue to trend downward -Echo ?Mildly enlarged left ventricle with moderately reduced systolic function (EF 35-40%). 2) Normal right ventricular size and function. 3) Severely enlarged left atrium. 4) There is mild aortic regurgitation. 5) There is mild to moderate mitral regurgitation. 6) Compared to the Echo done 08/10/2014, LVEF has improved from 25-30% to 35- 40% on this study. 3. Essential hypertension, acute on chronic, present on admission -initial blood pressure 173/94, admitting 166/83 -will continue carvedilol, lisinopril-increased dosage from 10 mg b.i.d. to 20 mg b.i.d. -echo today -orthostatics q.4 hours while awake -initial troponin 0.028, patient is asymptomatic will trend troponin x3 q.6 hours -EKG demonstrated sinus tachycardia with a rate of 101, left bundle-branch block without ST or T-wave changes, EKG unchanged from previous. -tele monitoring 4. Hyperlipidemia, mixed, secondary to NIDDM, chronic, present on admission -continue Lipitor 5. Overweight as evidence by BMI of 30, acute on chronic, present on admission -dietary consult ordered for consideration 6. 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 Fww-wqxnvxr-ziwommowo type 2 diabetes, acute on chronic, present on admission -initial glucose 190 -patient admitted under diabetic protocol, glucose checks a.c. HS, low carb diet -A1c ordered -continue metformin Time Spent With Patient Critical Care time: I spent a total of [] minutes of critical care time on this patient's care today; this time is exclusive of procedural time. Quality VTE Deep Vein Thrombosis/Pulmonary Embolism Present on Admission: No
[2021-11-07] MEDS: TAMSULOSIN 0.4 MG CAPSULE PO (20:29)
[2021-11-07] MEDS: ATORVASTATIN 20 MG TABLET 40 MG PO (20:29)
[2021-11-07 20:38] LABS: Troponin I 0.055 ng/mL (0.01-0.034)
[2021-11-08] VITALS (8 sets, daily range): BP systolic 133–149; BP diastolic 66–83; PULSE 76–89; RESP 18–22; TEMP 36.9–37.6; O2SAT 95–98
[2021-11-08] MEDS: ENOXAPARIN 40 MG/0.4 ML SYRINGE SUBCUT (08:30)
[2021-11-08] MEDS: SODIUM CHLORIDE 0.9% FLUSH 10 ML IV (08:31)
[2021-11-08] MEDS: ASPIRIN EC 325 MG TABLET PO (08:31)
--- NOTE | 2021-11-08 14:46 | DIET.CONS ---
Dietary Consultation Note Admission Date: 11/06/2021 14:49 Assessment: Rec OP nutrition counseling for BMI management. Ht: 190.5 cm Wt: 110.1 kg BMI: 29.9 UBW: 11/06/21 Breakfast Carbohydrate Consistent Diet Diet Modifications: Carbohydrate level: Small (2 CHO) Bedtime snack: Yes 11/06/21 Dinner Heart Healthy Diet Diet Modifications: Sodium Level: 2 gm Sodium Nutrition Percent Meal Consumed 100% 11/08/21 10:42 Percent Meal Consumed 100% 11/07/21 18:54 Percent Meal Consumed 100% 11/07/21 14:03 Percent Meal Consumed 100% 11/07/21 09:00 Percent Meal Consumed 90 11/06/21 17:47 Labs: RBC 4.48 X10^6/uL (4.5-5.9) L 11/06/21 10:01 Hgb 14.5 g/dL (13.5-17.5) 11/06/21 10:01 Hct 42.0 % (41-53) 11/06/21 10:01 Creatinine 0.84 mg/dL (0.66-1.25) 11/06/21 10:01 Hemoglobin A1c 5.8 % (4.0-6.0) 11/06/21 10:01 NT-Pro-B Natriuret Pep 4050 pg/mL (<450) H 11/07/21 05:25 Electronically Signed by: Joanna Álvarez 11/08/21 14:46 Clinical Dietitian [address] [address]
--- NOTE | 2021-11-08 16:24 | PM.DS.1 ---
History of Present Illness History of Present Illness Date Patient Seen: 11/08/21 Chief complaint: Syncope Narrative: Sanya Gaona is a 75-year-old male with a medical history CAD, hypertension, viral cardiomyopathy, chronic back pain with neuropathy, hyperlipidemia, anemia, spinal stenosis, and spondylosis ( lumbar-sacral), [id number] type 2 diabetes, and nocturia who presented to the ED via EMS for evaluation of a syncopal episode with head laceration. The patient reported that he was in his normal state of health and walking across the room with his walker and the next thing he knew he was waking up on the ground.? Patient denied precipitating symptoms to syncope such as dizziness, lightheadedness, changes in vision, difficulty swallowing, dysarthria, new or different extremity pain numbness or tingling, weakness, numbness, chest pain, shortness of breath, or palpitations. He denies proceeding changes in position, use of bathroom, vomiting, fever, chills, nausea, diarrhea, dietary changes, or drops in blood pressure.? Denies previous syncopal.? The patient denies cough, respiratory symptoms, ear nose or mouth issues, head back or neck trauma, fever, body aches, chills, abdominal pain, constipation, dysuria or urinary symptoms, recent illness, injury, or trauma.? Patient states he has recently started Flomax for nocturia, no other medication changes.? [place] 2 [place] ago. Upon admit patient is resting comfortably in bed asymptomatic vital signs temp 98?, BP 166/83, HR 71, R 20, O2 saturation 97% on room air.? The patient's CBC and CMP are predominantly WNL with the exception of glucose of 190.? Patient's D-dimer 2795, CTA demonstrated no pulmonary emboli, but did demonstrate ground-glass and patchy opacities in bilateral lungs, greatest severity in the left lower lung.? T CK 398, CK-MB 6.91, initial troponin is normal but slightly elevated 0.028.? Patient's C-spine negative for any acute fractures, head CT negative for any acute intracranial processes, patient's EKG demonstrated sinus tachycardia with a rate of 101 a left bundle-branch block without ST or T-wave changes, no real changes in comparison to prior EKG on file.? Patient admitted for syncope and risk stratification rule out. Discharge Providers Provider Date of admission: 11/06/21 14:49 Discharge Date: 11/08/21 Primary care physician: Wilver Kerr MD Consults: 11/06/21 19:46 Consult to Dietitian, Adult Routine Comment: Reason For Exam: BMI 30 Consult to Occupational Therapy Evaluate & Treat Comment: syncope, walker Physician Instructions: Evaluate and treat Consult to Physical Therapy Evaluate & Treat Comment: syncope, walker Physician Instructions: Evaluate and Treat 11/06/21 19:47 Consult to Discharge Planning Routine Comment: Safety in the home Discharge provider: Shavonne Theodore MD Summary Hospital Course Discharge Diagnosis: 1. Syncope 2. Elevated Troponin, no evidence of PA 3. Hypertension 4. Hyperlipidemia 5. Head Laceration 6. type 2 Diabetes 7. Chronic Back Pain Hospital Course: Patient admitted to the hospital for evaluation of an unprovoked syncopal episode. Patient had Orthostatic vitals that were negative. He underwent Brain MRI which was negative for acute stroke. Patient had a Chest CTA which revealed no pulmonary emboli He underwent Cardiac Echo which revealed the following: Mildly enlarged left ventricle with moderately reduced systolic function (EF 35-40%). 2) Normal right ventricular size and function. 3) Severely enlarged left atrium. 4) There is mild aortic regurgitation. 5) There is mild to moderate mitral regurgitation. 6) Compared to the Echo done 08/10/2014, LVEF has improved from 25-30% to 35- 40% on this study. Patient had no chest pain but did have elevated cardiac enzymes, Troponins were .193, .132, .055. As a result he had an echo with findings above. He underwent Stress test which revealed no reversible ischemia. Patient had no further syncope. He was deemed appropriate for discharge home. He will follow up with Dr. Alcantara for [place] Patch to monitor for tachy or bradyarrhythmias as an etiology of his syncope. If this is negative consider EEG to r/o seizure focus given history of NPH.. Status at Discharge Cognitive/behavioral status at discharge: oriented Functional status at discharge: uses cane/walker Overall status at discharge: patient is progressing back to baseline Exam Vital Signs (past 8 hours): - 11/08/21 09:00 11/08/21 12:21 11/08/21 12:05 Temperature 99 F Pulse Rate 76 Pulse Rate [Orthostatic Lying] 78 Pulse Rate [Orthostatic Sitting] 81 Pulse Rate [Orthostatic Standing] 89 Respiratory Rate 19 Blood Pressure 138/69 Blood Pressure [Orthostatic Lying] 133/67 Blood Pressure [Orthostatic Sitting] 134/66 Blood Pressure [Orthostatic Standing] 140/72 Pulse Oximetry 96 95 Oxygen Delivery Method Room Air Oxygen Flow Rate 0 11/08/21 12:05 Temperature 99.6 F Pulse Rate Pulse Rate [Orthostatic Lying] Pulse Rate [Orthostatic Sitting] Pulse Rate [Orthostatic Standing] Respiratory Rate 22 Blood Pressure Blood Pressure [Orthostatic Lying] Blood Pressure [Orthostatic Sitting] Blood Pressure [Orthostatic Standing] Pulse Oximetry 96 Oxygen Delivery Method Oxygen Flow Rate Oxygen Delivery Method Room Air Oxygen Flow Rate 0 Narrative Exam Narrative: Pleasant Male in No acute distress HENMT Other: NC/Posterior scalp with deepthi in place, no erythema or exudates Resp Other: Lungs: clear to auscultation Cardio Other: CV: RRR nl Sl S2 2/6 NELSY GI Other: Abd: soft/ nontender/ non distended Extrem Other: no edema Objective Labs Result Diagrams: 11/06/21 10:01 11/06/21 10:01 Labs: Laboratory Results - last 24 hr 11/07/21 19:55 Troponin I 0.055 H [facility] Medical History (Updated 11/06/21 @ 21:33 by JUANY Alvarado-ARNALDO) Acne (~1958) Ankle effusion CAD (coronary artery disease) (~2012) Chickenpox (~1949) Class 1 obesity (08/28/16) Closed right fibular fracture Collar bone fracture (~1950) Community acquired pneumonia History of ankle fracture (~2015) History of fracture of ankle (08/28/16) History of rib fracture (~1984) Homozygous MTHFR mutation [id number] Hypertension (~1999) Macular degeneration, age related, nonexudative (~03/29/20) Measles (~1949) Normal pressure hydrocephalus Olecranon fracture Psoriasis (~2015) Viral cardiomyopathy (~2014) Surgical History Anesthesia History of angioplasty (08/09/14) History of inguinal hernia repair (~1954) History of selective injection of anesthetic agent around lumbar nerve root (~07/2020) Hx of hand surgery Status post appendectomy (~1952) Undescended testicle, unilateral Family History (Reviewed 11/06/21 @ 21:33 by Lauren Rios [facility]) Brother No problems noted. Father No problems noted. Sister No problems noted. Social History household members: spouse Smoking Status: Never smoker alcohol intake: current Discharge Assessment & Plan Assessment and Plan Assessment: 1. Syncope 2. Elevated Troponin, no evidence of PA 3. Hypertension 4. Hyperlipidemia 5. Head Laceration 6. type 2 Diabetes 7. Chronic Back Pain Plan of Treatment: Discharge home f/u with Dr. Ann Discharge Plan Discharge Plan Patient Disposition: Home Discharge orders & Medications Prescriptions: Continued metformin [Glucophage] 500 mg tablet 250 mg PO BIDCC Qty: 90 3RF lisinopril 10 mg tablet 10 mg PO BID Qty: 180 3RF atorvastatin 40 mg tablet 40 mg PO HS Qty: 90 3RF cyanocobalamin (vitamin B-12) 1,000 mcg tablet 1,000 mcg PO DAILY Qty: 90 3RF pyridoxine (vitamin B6) 50 mg tablet 50 mg PO DAILY Qty: 90 3RF furosemide 40 mg tablet 40 mg PO DAILY PRN (Reason: Edema) Qty: 30 0RF gabapentin 100 mg capsule 100 mg PO QID MDD 400 mg PRN (Reason: Pain (Scale Score 4-6)) Qty: 360 1RF aspirin 325 mg tablet,delayed release (DR/EC) 325 mg PO DAILY tamsulosin [Flomax] 0.4 mg capsule 0.4 mg PO BEDTIME Qty: 90 0RF carvedilol 25 mg Tablet 25 mg PO BID Rx Instructions: must administer with a meal/food docusate sodium 100 mg Capsule 100 mg PO BID PRN (Reason: Constipation from narcotic pain med) Qty: 14 0RF No Action (DME) Disabled Parking Permit Qty: 1 0RF Dose Instruction: As directed Rx Instructions: I find this patient to be medically disabled and qualified for disabled parking as indicated, and signed, on the accompanying disabled parking application. (DME) Disabled parking pass Qty: 1 0RF Rx Instructions: Pt unable to walk more then 200 feet without stopping to rest. Follow up/Referrals: Wilver Kerr MD [Primary Care Provider] - Discharge Health Status Multidrug resistant organism: No MDRO Diet/Activity/Treatments Diet: Low-sodium and Low-cholesterol Discharge Data Primary Care Provider: Wilver Kerr Attending Provider: Shavonne Theodore VTE Deep Vein Thrombosis/Pulmonary Embolism Present on Admission: No
== END 2021-11-08 18:15 | disposition home or self-care (01) ==
LOC: ED 11:23 → AC 14:50 → ICU 15:38 → AC 23:04
PROVIDERS: Nurse Practitioner Family; Admitting Provider Internal Medicine; Emergency Provider Emergency Medicine; PCP Family Medicine; Referring Provider Emergency Medicine; Visit Provider Internal Medicine
DX: R55 Syncope and collapse (principal); I25.10 Atherosclerotic heart disease of native coronary artery without angina pectoris; I10 Essential (primary) hypertension; E78.5 Hyperlipidemia, unspecified; M48.00 Spinal stenosis, site unspecified; M47.817 Spondylosis without myelopathy or radiculopathy, lumbosacral region; E11.9 Type 2 diabetes mellitus without complications; R00.0 Tachycardia, unspecified; R77.8 Other specified abnormalities of plasma proteins; S01.91XA Laceration without foreign body of unspecified part of head, initial encounter; W19.XXXA Unspecified fall, initial encounter; Z79.84 Long term (current) use of oral hypoglycemic drugs; Z20.822 Contact with and (suspected) exposure to COVID-19
CPT/HCPCS: 36415; 70450; 70548; 70553; 71275; 72125; 78452; 80053; 80061; 81001; 82550; 82553; 82962; 83036; 83735; 83880; 84484; 85025; 85379; 87635; 93005; 93010; 93017; 93306; 96372; 97161; 99284; C9803; G0378; A9502; A9579; J1650; J2785

== ENCOUNTER → 2022-01-23 09:41 | Outpatient (CLI) | payer MEDICARE, OTHER, SELFPAY ==
[2021-11-06 16:06] VITALS: BMI 29.9
[2022-01-23 11:03] LABS: Alanine Aminotransferase 16 IU/L (<50); Albumin Globulin Ratio 1.6 (1.0-2.8); Alkaline Phosphatase 80 U/L (38-126); Aspartate Aminotransferase 28 IU/L (17-59); BUN Creatinine Ratio 18.9 (6-22); Bilirubin Total 0.6 mg/dL (0.2-1.3); Blood Urea Nitrogen 14 mg/dL (9-20); Carbon Dioxide 26 mmol/L (22-32); Chloride 105 mmol/L (98-107); Estimated Glomerular Filt Rate > 60 mL/min (>60); Globulin 2.5 g/dL (1.7-4.1); Glucose 119 mg/dL (80-110); HEMOLYSIS < 15 (0-50); Potassium 4.4 mmol/L (3.4-5.1); Sodium 141 mmol/L (137-145); Total Protein 6.5 g/dL (6.3-8.2)
== END ==
PROVIDERS: PCP Family Medicine; Referring Provider Nurse Practitioner; Visit Provider Nurse Practitioner
DX: I42.0 Dilated cardiomyopathy (principal)
CPT/HCPCS: 36415; 80053

== ENCOUNTER → 2022-04-02 10:53 | Outpatient (CLI) | payer MEDICARE, OTHER, SELFPAY ==
[2021-11-06 16:06] VITALS: BMI 29.9
[2022-04-02 12:45] LABS: Alanine Aminotransferase 18 IU/L (<50); Albumin 3.8 g/dL (3.5-5.0); Albumin Globulin Ratio 1.6 (1.0-2.8); Alkaline Phosphatase 98 U/L (38-126); Aspartate Aminotransferase 21 IU/L (17-59); BUN Creatinine Ratio 18.3 (6-22); Bilirubin Total 0.5 mg/dL (0.2-1.3); Blood Urea Nitrogen 17 mg/dL (9-20); Calcium 9.4 mg/dL (8.4-10.2); Carbon Dioxide 25 mmol/L (22-32); Chloride 104 mmol/L (98-107); Estimated Glomerular Filt Rate > 60 mL/min (>60); Globulin 2.4 g/dL (1.7-4.1); Glucose 100 mg/dL (80-110); HEMOLYSIS < 15 (0-50); Sodium 137 mmol/L (137-145); Total Protein 6.2 g/dL (6.3-8.2)
[2022-04-02 12:55] LABS: Potassium 5.5 mmol/L (3.4-5.1)
== END ==
PROVIDERS: PCP Family Medicine; Referring Provider Nurse Practitioner; Visit Provider Nurse Practitioner
DX: I44.7 Left bundle-branch block, unspecified (principal); I42.9 Cardiomyopathy, unspecified
CPT/HCPCS: 36415; 80053

== ENCOUNTER → 2022-04-09 10:54 | Outpatient (CLI) | payer MEDICARE, OTHER, SELFPAY ==
[2021-11-06 16:06] VITALS: BMI 29.9
[2022-04-09 14:10] LABS: BUN Creatinine Ratio 18.8 (6-22); Blood Urea Nitrogen 18 mg/dL (9-20); Calcium 9.6 mg/dL (8.4-10.2); Carbon Dioxide 26 mmol/L (22-32); Chloride 105 mmol/L (98-107); Estimated Glomerular Filt Rate > 60 mL/min (>60); Glucose 97 mg/dL (80-110); HEMOLYSIS < 15 (0-50); Sodium 139 mmol/L (137-145)
[2022-04-09 14:23] LABS: Potassium 5.9 mmol/L (3.4-5.1)
== END ==
PROVIDERS: PCP Family Medicine; Referring Provider Nurse Practitioner; Visit Provider Nurse Practitioner
DX: B33.24 Viral cardiomyopathy (principal)
CPT/HCPCS: 36415; 80048

== ENCOUNTER → 2022-04-21 11:04 | Outpatient (CLI) | payer MEDICARE, OTHER, SELFPAY ==
[2021-11-06 16:06] VITALS: BMI 29.9
[2022-04-21 13:32] LABS: BUN Creatinine Ratio 18.4 (6-22); Blood Urea Nitrogen 16 mg/dL (9-20); Calcium 9.4 mg/dL (8.4-10.2); Carbon Dioxide 26 mmol/L (22-32); Chloride 104 mmol/L (98-107); Estimated Glomerular Filt Rate > 60 mL/min (>60); Glucose 124 mg/dL (80-110); HEMOLYSIS < 15 (0-50); Potassium 4.7 mmol/L (3.4-5.1); Sodium 141 mmol/L (137-145)
== END ==
PROVIDERS: PCP Family Medicine; Referring Provider Nurse Practitioner; Visit Provider Nurse Practitioner
DX: B33.24 Viral cardiomyopathy (principal)
CPT/HCPCS: 36415; 80048

== ENCOUNTER → 2023-01-09 10:47 | Outpatient (CLI) | payer MEDICARE, OTHER, SELFPAY ==
[2021-11-06 16:06] VITALS: BMI 29.9
[2023-01-09 12:51] LABS: Hemoglobin A1C% w Est Avg Glu 5.5 % (4.0-6.0)
[2023-01-09 13:14] LABS: Creatinine Urine Random 122.3 mg/dL
[2023-01-09 13:18] LABS: Microalbumi Creatinin Ratio Ur 24.5 ug/mg CR (<30)
== END ==
PROVIDERS: PCP Family Medicine; Referring Provider Family Medicine; Visit Provider Family Medicine
DX: E11.40 Type 2 diabetes mellitus with diabetic neuropathy, unspecified (principal); I10 Essential (primary) hypertension
CPT/HCPCS: 36415; 82043; 82570; 83036

== ENCOUNTER → 2023-02-20 10:54 | Outpatient (CLI) | payer MEDICARE, OTHER, SELFPAY ==
[2021-11-06 16:06] VITALS: BMI 29.9
[2023-02-20 12:23] LABS: BUN Creatinine Ratio 15.9 (6-22); Blood Urea Nitrogen 14 mg/dL (9-20); Calcium 9.4 mg/dL (8.4-10.2); Carbon Dioxide 26 mmol/L (22-32); Chloride 104 mmol/L (98-107); Cholesterol 146 mg/dL (140-199); Estimated Glomerular Filt Rate > 60 mL/min (>60); Glucose 98 mg/dL (80-110); HDL Cholesterol 52 mg/dL (40-60); HEMOLYSIS < 15 (0-50); LDL Cholesterol Calculated 80 mg/dL (<100); Potassium 4.7 mmol/L (3.4-5.1); Sodium 137 mmol/L (137-145); Triglycerides 70 mg/dL (35-150)
== END ==
PROVIDERS: PCP Family Medicine; Referring Provider Internal Medicine Cardiovascular Disease; Visit Provider Internal Medicine Cardiovascular Disease
DX: I25.10 Atherosclerotic heart disease of native coronary artery without angina pectoris (principal); I44.7 Left bundle-branch block, unspecified; I42.9 Cardiomyopathy, unspecified
CPT/HCPCS: 36415; 80048; 80061

== ENCOUNTER → 2023-05-01 15:12 | Outpatient (CLI) | payer MEDICARE, OTHER, SELFPAY ==
[2021-11-06 16:06] VITALS: BMI 29.9
--- NOTE | 2023-05-01 15:19 | DI.CT.S_ITS ---
PROCEDURE: CT LUMBAR SPINE WO CON INDICATIONS: Spinal stenosis, lumbar region with neurogenic claudication TECHNIQUE: Noncontrast 3 mm thick sections acquired from the T12 level to the sacrum. Sagittal and coronal reformats were constructed. For radiation dose reduction, the following was used: automated exposure control. COMPARISON: [facility], CT, CT LUMBAR SPINE WO CON, 02/04/2021, 14:13. FINDINGS: Image quality: Excellent. Bones: Low bone mineralization. Compression deformity of the inferior endplate of L1. No endplate retropulsion. Surgical fusion L4 through S1, without hardware complication. Grade 1 retrolisthesis of L1 on L2 and L2 on L3. T12-L1: Moderate disc height loss. Vacuum disc phenomenon. L1-L2: Broad-based disc bulge, facet hypertrophy, ligamentum flavum hypertrophy and epidural lipomatosis causing moderate spinal canal narrowing. L2-L3: Broad-based disc bulge, facet hypertrophy and arthrosis causing severe spinal canal narrowing. L3-L4: Broad-based disc bulge, facet arthrosis and hypertrophy and epidural lipomatosis causing severe spinal canal narrowing. L4-L5: Right partial laminectomy. Facet arthrosis and hypertrophy. Epidural lipomatosis. L5-S1: Laminectomy. Soft tissues: No retroperitoneal masses or hematomas. Visualized aorta is normal in caliber. IMPRESSION: Acute to subacute endplate deformity of the L1 inferior endplate, without retropulsion. Degenerative disc disease, as above. Of note, there is moderate spinal canal narrowing at L1-2, severe spinal canal narrowing at L2-3 and L3-4. Dictated by: Sanya Melchor M.D. on 05/01/2023 at 17:15 Approved by: Sanya Melchor M.D. on 05/01/2023 at 17:19
== END ==
LOC: CT 15:13
PROVIDERS: PCP Family Medicine; Referring Provider Physician Assistant Surgical; Visit Provider Physician Assistant Surgical
DX: M48.062 Spinal stenosis, lumbar region with neurogenic claudication (principal); M51.36 Other intervertebral disc degeneration, lumbar region; M43.8X6 Other specified deforming dorsopathies, lumbar region; Z98.1 Arthrodesis status
CPT/HCPCS: 72131

== ENCOUNTER → 2023-06-11 09:22 | Outpatient (CLI) | payer MEDICARE, OTHER, SELFPAY ==
[2021-11-06 16:06] VITALS: BMI 29.9
[2023-06-11 10:30] LABS: Add Manual Diff / Slide Review NO; Basophils Absolute Auto 0 /uL (0-100); Basophils Percent Auto 0.6 % (0-2); Eosinophils Absolute Auto 200 /uL (0-450); Hematocrit 39.7 % (41-53); Hemoglobin 13.3 g/dL (13.5-17.5); Lymphocytes Absolute Auto 1200 /uL (1100-4500); Lymphocytes Percent Auto 23.4 % (25-40); Mean Corpuscular HGB Conc 33.4 % (30-36); Mean Corpuscular Hemoglobin 31.7 PG (26-34); Monocytes Absolute Auto 500 /uL (0-900); Monocytes Percent Auto 9.7 % (3-14); Neutrophils Absolute Auto 3300 /uL (1500-7000); Neutrophils Percent Auto 63.3 % (50-75); Platelet Count 189 X10^3/uL (150-400); Red Blood Cell Count 4.18 X10^6/uL (4.5-5.9); Red Cell Distribution Width 14.4 % (11.6-14.8); White Blood Cell Count 5.3 X10^3/uL (4.5-11.0)
[2023-06-11 11:22] LABS: Hemoglobin A1C% w Est Avg Glu 5.5 % (4.0-6.0)
[2023-06-11 11:37] LABS: Alanine Aminotransferase 16 IU/L (<50); Albumin 3.8 g/dL (3.5-5.0); Albumin Globulin Ratio 1.4 (1.0-2.8); Alkaline Phosphatase 97 U/L (38-126); Aspartate Aminotransferase 23 IU/L (17-59); BUN Creatinine Ratio 20.4 (6-22); Bilirubin Total 0.6 mg/dL (0.2-1.3); Blood Urea Nitrogen 20 mg/dL (9-20); Calcium 9.4 mg/dL (8.4-10.2); Carbon Dioxide 25 mmol/L (22-32); Chloride 104 mmol/L (98-107); Estimated Glomerular Filt Rate > 60 mL/min (>60); Globulin 2.7 g/dL (1.7-4.1); Glucose 106 mg/dL (80-110); HEMOLYSIS < 15 (0-50); Potassium 5.2 mmol/L (3.4-5.1); Sodium 137 mmol/L (137-145); Total Protein 6.5 g/dL (6.3-8.2)
[2023-06-11 12:00] LABS: Prostate Specific Antigen Scrn 1.19 ng/mL (0.1-4.0)
== END ==
PROVIDERS: PCP Family Medicine; Referring Provider Family Medicine; Visit Provider Family Medicine
DX: Z00.00 Encounter for general adult medical examination without abnormal findings (principal); E78.5 Hyperlipidemia, unspecified; E11.40 Type 2 diabetes mellitus with diabetic neuropathy, unspecified; Z12.5 Encounter for screening for malignant neoplasm of prostate; I10 Essential (primary) hypertension; I25.10 Atherosclerotic heart disease of native coronary artery without angina pectoris; Z95.5 Presence of coronary angioplasty implant and graft
CPT/HCPCS: 36415; 80053; 83036; 85025; G0103

== ENCOUNTER → 2023-12-04 09:41 | Outpatient (CLI) | payer MEDICARE, OTHER, SELFPAY ==
[2021-11-06 16:06] VITALS: BMI 29.9
[2023-12-04 11:50] LABS: Hemoglobin A1C% w Est Avg Glu 5.2 % (4.0-6.0)
== END ==
PROVIDERS: PCP Family Medicine; Referring Provider Family Medicine; Visit Provider Family Medicine
DX: E11.40 Type 2 diabetes mellitus with diabetic neuropathy, unspecified (principal)
CPT/HCPCS: 36415; 83036

== ENCOUNTER → 2024-01-05 14:57 | Outpatient (CLI) | payer MEDICARE, OTHER, SELFPAY ==
[2021-11-06 16:06] VITALS: BMI 29.9
== END ==
PROVIDERS: PCP Family Medicine; Visit Provider Physician Assistant
DX: L72.3 Sebaceous cyst (principal)
CPT/HCPCS: 87070; 87075; 87205

== ENCOUNTER → 2024-03-11 09:51 | Outpatient (CLI) | payer MEDICARE, OTHER, SELFPAY ==
[2021-11-06 16:06] VITALS: BMI 29.9
[2024-03-11 11:08] LABS: Hemoglobin A1C% w Est Avg Glu 5.6 % (4.0-6.0)
[2024-03-11 11:28] LABS: Alanine Aminotransferase 25 IU/L (<50); Albumin 3.8 g/dL (3.5-5.0); Albumin Globulin Ratio 1.6 (1.0-2.8); Alkaline Phosphatase 92 U/L (38-126); Aspartate Aminotransferase 31 IU/L (17-59); BUN Creatinine Ratio 14.7 (6-22); Bilirubin Total 0.7 mg/dL (0.2-1.3); Blood Urea Nitrogen 15 mg/dL (9-20); Calcium 9.7 mg/dL (8.4-10.2); Carbon Dioxide 23 mmol/L (22-32); Chloride 104 mmol/L (98-107); Estimated Glomerular Filt Rate > 60 mL/min (>60); Globulin 2.4 g/dL (1.7-4.1); Glucose 113 mg/dL (80-110); HEMOLYSIS < 15 (0-50); Sodium 135 mmol/L (137-145); Total Protein 6.2 g/dL (6.3-8.2)
[2024-03-11 11:36] LABS: Potassium 5.5 mmol/L (3.4-5.1)
== END ==
PROVIDERS: PCP Family Medicine; Referring Provider Family Medicine; Visit Provider Family Medicine
DX: E11.40 Type 2 diabetes mellitus with diabetic neuropathy, unspecified (principal); L40.9 Psoriasis, unspecified
CPT/HCPCS: 36415; 80053; 83036

== ENCOUNTER → 2024-03-22 11:39 | Outpatient (CLI) | payer MEDICARE, OTHER, SELFPAY ==
[2021-11-06 16:06] VITALS: BMI 29.9
--- NOTE | 2024-03-22 11:41 | DI.CT.S_ITS ---
PROCEDURE: CT LUMBAR SPINE WO CON INDICATIONS: chronic low back pain with left radiculopathy TECHNIQUE: Noncontrast 3 mm thick sections acquired from the T12 level to the sacrum. Sagittal and coronal reformats were constructed. For radiation dose reduction, the following was used: automated exposure control. COMPARISON: [facility], CT, CT LUMBAR SPINE WO CON, 05/01/2023, 15:21. FINDINGS: Image quality: Excellent. Bones: There is increasing anterior compression deformity involving the inferior L1 endplate. The posterior aspect of the L1 inferior endplate protrudes into the spinal canal and results in increasing central spinal stenosis. There is again seen surgical fusion L4-S1. There is mild retrolisthesis of L1 on L2 and L2 on L3. T12-L1: Moderate degenerative disc disease is present. L1-L2: There is progressing central spinal stenosis with the AP diameter measuring 6.5 mm. L2-L3: There is again seen is circumferential disc bulging and ligamentum flavum hypertrophy with central spinal stenosis. No change. L3-L4: There is again seen circumferential disc bulging, facet arthropathy and ligamentum flavum hypertrophy resulting in central spinal stenosis. No change. L4-L5: There is circum pharyngeal disc bulging and ligamentum flavum hypertrophy with facet arthropathy resulting in central spinal stenosis. No change. L5-S1: There has been a laminectomy at this level with no significant central spinal stenosis. Soft tissues: No retroperitoneal masses or hematomas. Visualized aorta is normal in caliber. IMPRESSION: L1 inferior compression fracture has progressed as compared to previous study resulting in central spinal stenosis. Facet arthropathy and circumferential disc bulging is again seen resulting in multilevel central spinal stenosis. Dictated by: Christiano Foster M.D. on 03/22/2024 at 13:34 Approved by: Christiano Foster M.D. on 03/22/2024 at 13:47
== END ==
LOC: CT 11:40
PROVIDERS: PCP Family Medicine; Referring Provider Family Medicine; Visit Provider Family Medicine
DX: M47.816 Spondylosis without myelopathy or radiculopathy, lumbar region (principal); M48.061 Spinal stenosis, lumbar region without neurogenic claudication; M51.369 Other intervertebral disc degeneration, lumbar region without mention of lumbar back pain or lower extremity pain; M48.56XA Collapsed vertebra, not elsewhere classified, lumbar region, initial encounter for fracture; G62.9 Polyneuropathy, unspecified; M54.9 Dorsalgia, unspecified; G89.29 Other chronic pain
CPT/HCPCS: 72131

== ENCOUNTER → 2024-04-05 13:14 | Outpatient (CLI) | payer MEDICARE, OTHER, SELFPAY ==
[2021-11-06 16:06] VITALS: BMI 29.9
--- NOTE | 2024-04-05 14:20 | DI.RAD.S_ITS ---
PROCEDURE: XR ANKLE LT MIN 3V INDICATIONS: deep wound L lateral ankle TECHNIQUE: 3 views of the ankle were acquired. COMPARISON: [facility], CR, XR ANKLE RT MIN 3V, 04/14/2019, 14:45. FINDINGS: Bones: No acute fracture dislocation or bony architectural abnormality. Degenerative changes tibiotalar joint medially with osteophyte formation and joint space narrowing. Spurring plantar fascia insertion site calcaneus and midfoot enthesophytes. Soft tissues: No tibiotalar joint effusion. Achilles tendon appears normal. Soft tissue defect lateral malleolus. Arterial calcifications. IMPRESSION: Soft tissue defect lateral malleolus. No definite underlying bony architectural abnormality to suggest osteomyelitis. If osteomyelitis is of strong clinical concern MRI is recommended as it is much more sensitive in evaluation. Dictated by: Jesús Valdez M.D. on 04/05/2024 at 15:32 Approved by: Jesús Valdez M.D. on 04/05/2024 at 15:34
[2024-04-05 15:45] LABS: Alanine Aminotransferase 23 IU/L (<50); Albumin 3.8 g/dL (3.5-5.0); Albumin Globulin Ratio 1.5 (1.0-2.8); Alkaline Phosphatase 123 U/L (38-126); Aspartate Aminotransferase 28 IU/L (17-59); BUN Creatinine Ratio 19.6 (6-22); Bilirubin Total 0.5 mg/dL (0.2-1.3); Blood Urea Nitrogen 21 mg/dL (9-20); Calcium 9.7 mg/dL (8.4-10.2); Carbon Dioxide 26 mmol/L (22-32); Chloride 104 mmol/L (98-107); Estimated Glomerular Filt Rate > 60 mL/min (>60); Globulin 2.6 g/dL (1.7-4.1); Glucose 103 mg/dL (80-110); HEMOLYSIS < 15 (0-50); Potassium 5.2 mmol/L (3.4-5.1); Sodium 134 mmol/L (137-145); Total Protein 6.4 g/dL (6.3-8.2)
== END ==
PROVIDERS: PCP Family Medicine; Referring Provider Physician Assistant; Visit Provider Physician Assistant
DX: E87.5 Hyperkalemia (principal); S90.912A Unspecified superficial injury of left ankle, initial encounter
CPT/HCPCS: 36415; 73610; 80053; 87070; 87077; 87147; 87186; 87205

== ENCOUNTER → 2024-04-15 09:08 | Outpatient (CLI) | payer MEDICARE, OTHER, SELFPAY ==
[2021-11-06 16:06] VITALS: BMI 29.9
[2024-04-15 09:49] LABS: Add Manual Diff / Slide Review NO; Basophils Absolute Auto 0 /uL (0-100); Basophils Percent Auto 0.3 % (0-2); Eosinophils Absolute Auto 200 /uL (0-450); Eosinophils Percent Auto 3.2 % (2-4); Hematocrit 39.9 % (41-53); Hemoglobin 13.1 g/dL (13.5-17.5); Lymphocytes Absolute Auto 1100 /uL (1100-4500); Lymphocytes Percent Auto 17.9 % (25-40); Mean Corpuscular HGB Conc 32.8 % (30-36); Mean Corpuscular Hemoglobin 32.2 PG (26-34); Mean Corpuscular Volume 98.2 fL (80-100); Monocytes Absolute Auto 600 /uL (0-900); Neutrophils Absolute Auto 4200 /uL (1500-7000); Neutrophils Percent Auto 68.6 % (50-75); Platelet Count 181 X10^3/uL (150-400); Red Blood Cell Count 4.06 X10^6/uL (4.5-5.9); Red Cell Distribution Width 14.1 % (11.6-14.8); White Blood Cell Count 6.1 X10^3/uL (4.5-11.0)
== END ==
PROVIDERS: PCP Family Medicine; Referring Provider Physician Assistant; Visit Provider Physician Assistant
DX: E11.621 Type 2 diabetes mellitus with foot ulcer (principal); L97.523 Non-pressure chronic ulcer of other part of left foot with necrosis of muscle
CPT/HCPCS: 36415; 85025

== ENCOUNTER → 2024-05-03 10:35 | Outpatient (CLI) | payer MEDICARE, OTHER, SELFPAY ==
[2021-11-06 16:06] VITALS: BMI 29.9
== END ==
PROVIDERS: PCP Family Medicine; Referring Provider Physician Assistant; Visit Provider Surgery
DX: E11.42 Type 2 diabetes mellitus with diabetic polyneuropathy (principal); E11.621 Type 2 diabetes mellitus with foot ulcer; L97.322 Non-pressure chronic ulcer of left ankle with fat layer exposed; R60.0 Localized edema; I25.10 Atherosclerotic heart disease of native coronary artery without angina pectoris; I10 Essential (primary) hypertension; R26.89 Other abnormalities of gait and mobility; Z74.09 Other reduced mobility
CPT/HCPCS: 11042; 99203; 99214

== ENCOUNTER → 2024-05-10 10:20 | Outpatient (CLI) | payer MEDICARE, OTHER, SELFPAY ==
[2021-11-06 16:06] VITALS: BMI 29.9
== END ==
LOC: WC 10:21
PROVIDERS: PCP Family Medicine; Referring Provider Physician Assistant; Visit Provider Surgery
DX: E11.42 Type 2 diabetes mellitus with diabetic polyneuropathy (principal); E11.622 Type 2 diabetes mellitus with other skin ulcer; L97.312 Non-pressure chronic ulcer of right ankle with fat layer exposed; L53.9 Erythematous condition, unspecified; R60.0 Localized edema; L08.89 Other specified local infections of the skin and subcutaneous tissue; Z74.09 Other reduced mobility
CPT/HCPCS: 11042; 87070; 87077; 87186; 87205; 99213

== ENCOUNTER → 2024-05-12 16:32 | Outpatient (CLI) | payer MEDICARE, OTHER, SELFPAY ==
[2021-11-06 16:06] VITALS: BMI 29.9
--- NOTE | 2024-05-12 16:33 | DI.US.S_ITS ---
PROCEDURE: US ARTERIAL DUPLEX LE LT INDICATIONS: eval arterial status TECHNIQUE: Color and pulse Doppler interrogation was performed of the left lower extremity arterial system, with image documentation. COMPARISON: None. FINDINGS: Common femoral artery: 134 cm/sec, with triphasic flow. Deep femoral artery: 101 cm/sec, with triphasic flow. Proximal superficial femoral artery: 179 cm/sec, with triphasic flow. Mid superficial femoral artery: 108 cm/sec, with triphasic flow. Distal superficial femoral artery: 83 cm/sec, with triphasic flow. Popliteal artery: 50 cm/sec, with triphasic flow. Posterior tibial artery: 77 cm/sec, with biphasic hyperemic flow. Anterior tibial artery/dorsalis pedis: 11 cm/sec, with monophasic flow. Crowe-scale imaging description: Moderate calcified plaque is seen IMPRESSION: Less than 50% narrowing is seen at the proximal superficial femoral artery, without dampened waveforms. No focal elevated velocity in the calf, however there are monophasic waveforms in the anterior tibial artery, which may indicate small vessel disease Dictated by: Dakota Padilla M.D. on 05/12/2024 at 22:06 Approved by: Dakota Padilla M.D. on 05/12/2024 at 22:08
== END ==
LOC: US 16:32
PROVIDERS: PCP Family Medicine; Referring Provider Surgery; Visit Provider Surgery
DX: E11.621 Type 2 diabetes mellitus with foot ulcer (principal); I70.90 Unspecified atherosclerosis
CPT/HCPCS: 93926

== ENCOUNTER → 2024-05-17 10:39 | Outpatient (CLI) | payer MEDICARE, OTHER, SELFPAY ==
[2021-11-06 16:06] VITALS: BMI 29.9
[2024-05-17 11:39] LABS: Add Manual Diff / Slide Review NO; Basophils Absolute Auto 0 /uL (0-100); Basophils Percent Auto 0.6 % (0-2); Eosinophils Absolute Auto 200 /uL (0-450); Eosinophils Percent Auto 2.9 % (2-4); Hematocrit 40.5 % (41-53); Hemoglobin 13.6 g/dL (13.5-17.5); Lymphocytes Absolute Auto 1100 /uL (1100-4500); Lymphocytes Percent Auto 19.3 % (25-40); Mean Corpuscular HGB Conc 33.5 % (30-36); Mean Corpuscular Hemoglobin 32.4 PG (26-34); Mean Corpuscular Volume 96.7 fL (80-100); Monocytes Absolute Auto 500 /uL (0-900); Neutrophils Absolute Auto 3800 /uL (1500-7000); Neutrophils Percent Auto 68.2 % (50-75); Platelet Count 197 X10^3/uL (150-400); Red Blood Cell Count 4.19 X10^6/uL (4.5-5.9); Red Cell Distribution Width 14.6 % (11.6-14.8); White Blood Cell Count 5.6 X10^3/uL (4.5-11.0)
== END ==
PROVIDERS: PCP Family Medicine; Referring Provider Surgery; Visit Provider Surgery
DX: L08.9 Local infection of the skin and subcutaneous tissue, unspecified (principal); E11.622 Type 2 diabetes mellitus with other skin ulcer; L97.325 Non-pressure chronic ulcer of left ankle with muscle involvement without evidence of necrosis; L53.8 Other specified erythematous conditions; R60.0 Localized edema; E11.40 Type 2 diabetes mellitus with diabetic neuropathy, unspecified
CPT/HCPCS: 11042; 36415; 85025

== ENCOUNTER → 2024-05-17 14:26 | Outpatient (CLI) | payer MEDICARE, OTHER, SELFPAY ==
[2021-11-06 16:06] VITALS: BMI 29.9
== END ==
PROVIDERS: PCP Family Medicine; Referring Provider Physician Assistant; Visit Provider Surgery
DX: E11.622 Type 2 diabetes mellitus with other skin ulcer (principal); L97.325 Non-pressure chronic ulcer of left ankle with muscle involvement without evidence of necrosis; L53.8 Other specified erythematous conditions; R60.0 Localized edema; E11.40 Type 2 diabetes mellitus with diabetic neuropathy, unspecified
CPT/HCPCS: 11042; 99213

== ENCOUNTER → 2024-05-24 09:52 | Outpatient (CLI) | payer MEDICARE, OTHER, SELFPAY ==
[2021-11-06 16:06] VITALS: BMI 29.9
== END ==
LOC: WC 09:55
PROVIDERS: PCP Family Medicine; Referring Provider Physician Assistant; Visit Provider Surgery
DX: E11.622 Type 2 diabetes mellitus with other skin ulcer (principal); L97.315 Non-pressure chronic ulcer of right ankle with muscle involvement without evidence of necrosis; L53.8 Other specified erythematous conditions; R60.0 Localized edema; E11.42 Type 2 diabetes mellitus with diabetic polyneuropathy
CPT/HCPCS: 11042; 99213

== ENCOUNTER → 2024-05-25 10:57 | Outpatient (CLI) | payer MEDICARE, OTHER, SELFPAY ==
[2021-11-06 16:06] VITALS: BMI 29.9
[2024-05-25 12:49] LABS: Erythrocyte Sedimentation Rate 30 MM/HR (0-15)
[2024-05-25 12:59] LABS: C-Reactive Protein Quant 2.6 mg/dL (<1.0)
== END ==
PROVIDERS: PCP Family Medicine; Referring Provider Surgery; Visit Provider Surgery
DX: L97.312 Non-pressure chronic ulcer of right ankle with fat layer exposed (principal)
CPT/HCPCS: 36415; 85651; 86140

== ENCOUNTER → 2024-05-31 10:54 | Outpatient (CLI) | payer MEDICARE, OTHER, SELFPAY ==
[2021-11-06 16:06] VITALS: BMI 29.9
== END ==
PROVIDERS: PCP Family Medicine; Referring Provider Family Medicine; Visit Provider Surgery
DX: E11.622 Type 2 diabetes mellitus with other skin ulcer (principal); L97.315 Non-pressure chronic ulcer of right ankle with muscle involvement without evidence of necrosis; E11.42 Type 2 diabetes mellitus with diabetic polyneuropathy; R60.0 Localized edema
CPT/HCPCS: 11042; 99213

== ENCOUNTER → 2024-06-07 13:54 | Outpatient (CLI) | payer MEDICARE, OTHER, SELFPAY ==
[2021-11-06 16:06] VITALS: BMI 29.9
== END ==
LOC: WC 13:56
PROVIDERS: PCP Family Medicine; Referring Provider Physician Assistant; Visit Provider Surgery
DX: E11.622 Type 2 diabetes mellitus with other skin ulcer (principal); L97.325 Non-pressure chronic ulcer of left ankle with muscle involvement without evidence of necrosis; E11.42 Type 2 diabetes mellitus with diabetic polyneuropathy; R60.0 Localized edema
CPT/HCPCS: 11042; 99213

== ENCOUNTER → 2024-06-09 15:31 | Outpatient (CLI) | payer MEDICARE, OTHER, SELFPAY ==
[2021-11-06 16:06] VITALS: BMI 29.9
--- NOTE | 2024-06-09 15:32 | DI.NM.S_ITS ---
PROCEDURE: NM BONE 3 PHASE RADIOPHARMACEUTICAL: 21.0 mCi Tc-99m MDP IV. INDICATIONS: left lateral ankle ulcer down to fascia TECHNIQUE: Multiple bone scintigrams were obtained after intravenous injection of Tc-99m MDP, including flow, blood pool, and delayed images centered to the region of interest. COMPARISON: [facility], CR, XR ANKLE LT MIN 3V, 04/05/2024, 14:18. FINDINGS: There is increased radiotracer uptake in the left ankle and foot during immediate flow, intermediate blood pool and delayed images. Delayed images demonstrate increased FDG uptake and the distal tibia and fibula, the talus, the calcaneus, multiple midfoot tarsal bones and in the toes. IMPRESSION: Left ankle and foot abnormal 3 phase radiotracer uptake concerning for cellulitis with multifocal osteomyelitis. Recommend MRI of the left ankle and foot with and without contrast if clinically indicated. Dictated by: Dotty Nicole MD, PhD on 06/10/2024 at 12:41 Approved by: Dotty Nicole MD, PhD on 06/10/2024 at 12:45
== END ==
PROVIDERS: PCP Family Medicine; Referring Provider Surgery; Visit Provider Surgery
DX: E11.621 Type 2 diabetes mellitus with foot ulcer (principal); L97.528 Non-pressure chronic ulcer of other part of left foot with other specified severity
CPT/HCPCS: 78315; A9503

== ENCOUNTER → 2024-06-14 13:35 | Outpatient (CLI) | payer MEDICARE, OTHER, SELFPAY ==
[2021-11-06 16:06] VITALS: BMI 29.9
== END ==
LOC: WC 13:36
PROVIDERS: PCP Family Medicine; Referring Provider Physician Assistant; Visit Provider Surgery
DX: E11.42 Type 2 diabetes mellitus with diabetic polyneuropathy (principal); E11.622 Type 2 diabetes mellitus with other skin ulcer; L97.322 Non-pressure chronic ulcer of left ankle with fat layer exposed; R60.0 Localized edema; M86.172 Other acute osteomyelitis, left ankle and foot; Z79.2 Long term (current) use of antibiotics
CPT/HCPCS: 11042; 87070; 87075; 87077; 87147; 87186; 87205; 99213

== ENCOUNTER → 2024-06-21 14:23 | Outpatient (CLI) | payer MEDICARE, OTHER, SELFPAY ==
[2021-11-06 16:06] VITALS: BMI 29.9
== END ==
PROVIDERS: PCP Family Medicine; Referring Provider Physician Assistant; Visit Provider Surgery
DX: E11.622 Type 2 diabetes mellitus with other skin ulcer (principal); L97.325 Non-pressure chronic ulcer of left ankle with muscle involvement without evidence of necrosis; M86.172 Other acute osteomyelitis, left ankle and foot; E11.42 Type 2 diabetes mellitus with diabetic polyneuropathy; R60.0 Localized edema
CPT/HCPCS: 11042

== ENCOUNTER → 2024-06-28 13:53 | Outpatient (CLI) | payer MEDICARE, OTHER, SELFPAY ==
[2021-11-06 16:06] VITALS: BMI 29.9
== END ==
PROVIDERS: PCP Family Medicine; Referring Provider Physician Assistant; Visit Provider Surgery
DX: E11.622 Type 2 diabetes mellitus with other skin ulcer (principal); L97.325 Non-pressure chronic ulcer of left ankle with muscle involvement without evidence of necrosis; M86.172 Other acute osteomyelitis, left ankle and foot; R60.0 Localized edema; E11.40 Type 2 diabetes mellitus with diabetic neuropathy, unspecified
CPT/HCPCS: 11042; 99213

== ENCOUNTER → 2024-07-05 13:37 | Outpatient (CLI) | payer MEDICARE, OTHER, SELFPAY ==
[2021-11-06 16:06] VITALS: BMI 29.9
--- NOTE | 2024-07-05 | OV.WND_ITS ---
PROGRESS NOTE DETAILS PATIENT NAME: MAMADOU KHAN PATIENT NUMBER: [id number] CLINICIAN: JUANJOSE COOLEY RN PATIENT DATE OF : 1945 PHYSICIAN / COMPENSATION AND HRIS ANALYST: LUIGINEMO PATIENT SUBJECTIVE CHIEF COMPLAINT THIS INFORMATION WAS OBTAINED FROM THE PATIENT. WOUND ON MY ANKLE. GENERAL NOTES DIABETIC ULCER OF MALLEOLUS. ALLERGIES PLAVIX (SEVERITY: SEVERE, REACTION: FULL BODY RASH) HPI THIS INFORMATION WAS OBTAINED FROM THE PATIENT. THE FOLLOWING HPI ELEMENTS WERE DOCUMENTED FOR THE PATIENT'S WOUND: LOCATION: LEFT ANKLE DURATION: 04/10/24 CONTEXT: DIABETIC THE PATIENT IS AN 78-YEAR-OLD MALE WITH DIABETES, NEUROPATHY, HYPERTENSION, AND CAD WHO RETURNS TODAY FOR FOLLOW UP OF DIABETIC ULCER LEFT ANKLE WITH OSTEOMYELITIS. THE PATIENT IS RECEIVING DAILY DRESSING CHANGES WITH GENTAMICIN CREAM WITH TUBIGRIP FOR COMPRESSION AND IS RINSING THE WOUND WITH VASHE SOLUTION WITH EACH DRESSING CHANGE. THE PATIENT DENIES HAVING ANY PAIN OR DISCOMFORT NOR HAS HE NOTED ANY REDNESS. HE HAS NOT HAD ANY FEVER OR CHILLS AND REPORTS THAT THE DRAINAGE HAS BEEN MINIMAL. THE PATIENT HAS COMPLETED 2 COURSES OF LINEZOLID AND IS CURRENTLY ON LEVAQUIN. THE PATIENT REPORTS A GOOD APPETITE AND IS TAKING PROTEIN SUPPLEMENTS. 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 HE DENIES HAVING ANY OTHER RECENT CHANGES IN HIS OVERALL HEALTH. RECENT HEMOGLOBIN A1C WAS 5.6 IN MARCH 16, 2024. ABIS INDICATE PAD ON THE LEFT. THE PATIENT HAS DECREASED MOBILITY AND GAIT INSTABILITY BECAUSE OF NEUROPATHY FROM SEVERE BACK PROBLEMS AND AMBULATES WITH THE USE OF A WALKER. ON EXAM TODAY THE ULCER HAS STABLE MEASUREMENTS AND THE TISSUE QUALITY DOES APPEAR TO BE IMPROVED. ARTERIAL DOPPLER SHOWED MONOPHASIC WAVEFORMS IN THE ANTERIOR TIBIAL ARTERY. THE PATIENT RECENTLY UNDERWENT ANGIOPLASTY OF THE LEFT LOWER EXTREMITY AND WAS STARTED ON PLAVIX HOWEVER HE STOPPED TAKING THE PLAVIX BECAUSE OF A RASH. THE PATIENT WAS SEEN BY THE ID SERVICE AND IV ANTIBIOTIC THERAPY WAS RECOMMENDED BUT HAS NOT YET BEEN STARTED. THE PATIENT IS NOT INTERESTED IN HAVING HYPERBARIC OXYGEN THERAPY. LABS: 06/14/24: CULTURE GREW STAPHYLOCOCCUS AUREUS 06/10/24: BONE SCAN: LEFT ANKLE AND FOOT ABNORMAL 3 PHASE RADIOTRACER UPTAKE CONCERNING FOR CELLULITIS WITH MULTIFOCAL OSTEOMYELITIS. 05/25/24: ESR 30, CRP 2.6 05/17/24: WBC 5.6, HEMOGLOBIN 13.6, HCT 40.5, PLT 197 05/12/24: ARTERIAL DUPLEX SCAN: LESS THAN 50% NARROWING IS SEEN AT THE PROXIMAL SUPERFICIAL FEMORAL ARTERY, MAMADOU KHAN [id number] 1945 WITHOUT DAMPENED WAVEFORMS. NO FOCAL ELEVATED VELOCITY IN THE CALF, HOWEVER THERE ARE MONOPHASIC WAVEFORMS IN THE ANTERIOR TIBIAL ARTERY, WHICH MAY INDICATE SMALL VESSEL DISEASE 05/10/24: CULTURE GREW PSEUDOMONAS AERUGINOSA AND ENTEROCOCCUS FAECALIS 04/15/24: WBC 6.1, HEMOGLOBIN 13.1, HCT 39.9, PLT 181, SODIUM 134, POTASSIUM 5.2, ELECTROLYTES OTHERWISE NORMAL, GFR GREATER THAN 60, LFTS NORMAL 04/05/24: X-RAY LEFT ANKLE:SOFT TISSUE DEFECT LATERAL MALLEOLUS. NO DEFINITE UNDERLYING BONY ARCHITECTURAL ABNORMALITY TO SUGGEST OSTEOMYELITIS. 04/05/24: CULTURES GREW MRSA AND ENTEROCOCCUS FAECALIS MEDICAL HISTORY THIS INFORMATION WAS OBTAINED FROM THE PATIENT. PATIENT HAS A MEDICAL HISTORY OF: TYPE II DIABETES HYPERTENSION HYPERLIPIDEMIA NEUROPATHY MACULAR DEGENERATION HOMOZYGOUS MTHFR MUTATION PSORIASIS CHICKENPOX VIRAL CARDIOMYOPATHY CORONARY ARTERY DISEASE OBESITY MELANOMA ADDITIONAL INFORMATION DOES PATIENT HAVE A HISTORY OF CANCER? YES? COMPLETE ALL QUESTIONS.: YES LOCATION OF CANCER: SKIN CANCER SURGICAL HISTORY THIS INFORMATION WAS OBTAINED FROM THE PATIENT. PATIENT HAS A SURGICAL HISTORY OF: HAND SURGERY- UNDESCENDED TESTICLE, UNILATERAL- INGUINAL HERNIA REPAIR- APPENDECTOMY- ANGIOPLASTY- PACE MAKER- OBJECTIVE VITALS HEIGHT/LENGTH: 74 IN (187.96 CM), WEIGHT: 252.3 LBS (114.68 KGS), BMI: 32.4, TEMPERATURE: 99.5 ?F (37.5 ?C), PULSE: 79 BPM, RESPIRATORY RATE: 18 BREATHS/MIN, BLOOD PRESSURE: 134/78 MMHG, PULSE OXIMETRY: 96 %. GENERAL NOTES PT DOES NOT CHECK CBG. PHYSICAL EXAM MAMADOU KHAN [id number] 1945 CONSTITUTIONAL: VITAL SIGNS REVIEWED AND NOTED. WELL DEVELOPED, WELL NOURISHED, AND IN NO ACUTE DISTRESS. ALERT AND ORIENTED X3. RESPIRATORY: EVEN RESPIRATIONS WITHOUT USE OF ACCESSORY MUSCLES. NO INTERCOASTAL RETRACTIONS NOTED. EVEN AND NON LABORED RESPIRATION. INTEGUMENTARY (HAIR, SKIN): NO SWELLING OR TENDERNESS. SEE WOUND ASSESSMENT. SKIN WARM AND DRY. NO RASHES. NEUROLOGICAL: DECREASED LOWER EXTREMITY SENSATION. PSYCHIATRIC: ORIENTATION TO TIME, PLACE AND PERSON: NORMAL AFFECT WITH NORMAL THOUGHT PATTERN. ADDITIONAL INFORMATION THE PATIENT'S POTENTIAL TO HEAL IS: FAIR. WOUND ASSESSMENT(S) WOUND #1 LEFT, LATERAL MALLEOLUS IS A CANALES GRADE 3 DIABETIC ULCER ACQUIRED ON 04/10/2024 AND HAS RECEIVED A STATUS OF NOT HEALED. INITIAL WOUND ENCOUNTER MEASUREMENTS ARE 2.6CM LENGTH X 2.3CM WIDTH X 0.4 CM DEPTH, WITH AN AREA OF 5.98 SQ CM AND A VOLUME OF 2.392 CUBIC CM.INITIAL WOUND ENCOUNTER PREVIOUS MEASUREMENTS FROM 06/28/2024 ARE 2.6CM LENGTH X 2.4CM WIDTH X 0.3CM DEPTH, WITH AN AREA OF 6.24 SQ CM AND A VOLUME OF 1.872 CUBIC CM. MUSCLE AND ADIPOSE ARE EXPOSED. NO TUNNELING HAS BEEN NOTED. NO SINUS TRACT HAS BEEN NOTED. NO UNDERMINING HAS BEEN NOTED. THERE IS A MODERATE AMOUNT OF SEROUS DRAINAGE NOTED WHICH HAS NO ODOR. THE PATIENT REPORTS A WOUND PAIN OF LEVEL 0/10. THE WOUND MARGIN IS ROLLED WOUND BED HAS YES, BRIGHT RED, PINK, FIRM, GRANULATION, YES SLOUGH, YES ESCHAR, NO EPITHELIALIZATION. THE PERIWOUND SKIN EXHIBITED EDEMA. THE PERIWOUND SKIN DID NOT EXHIBIT BRAWNY INDURATION, EXCORIATION, INDURATION, CALLUS, CREPITUS, FLUCTUANCE, RASH, MACERATION, ATROPHIE THAI, CYANOSIS, ECCHYMOSIS, ERYTHEMA, HEMOSIDEROSIS, PALLOR AND RUBOR. THE PERIWOUND SKIN WAS MOIST. THE PERIWOUND SKIN WAS NOT FRIABLE AND DRY/SCALY. THE TEMPERATURE OF THE PERIWOUND SKIN IS WNL. PERIWOUND SKIN DOES NOT EXHIBIT SIGNS OR SYMPTOMS OF INFECTION. LOCAL PULSE IS DOPPLER. ADDITIONAL INFORMATION OTHER DEVITALIZED TISSUE PRESENT: BIOFILM KALEIGH/VASCULAR COMPLETED?: 05/12/24 ARTERIAL ULTRASOUND RESULTS?: NO FOCAL ELEVATED VELOCITY IN THE CALF, HOWEVER THERE ARE MONOPHASIC WAVEFORMS IN THE ANTERIOR TIBIAL ARTERY, WHICH MAY INDICATE SMALL VESSEL DISEASE ASSESSMENT ACTIVE PROBLEMS ICD-10 (ENCOUNTER DIAGNOSIS) E11.42 - TYPE 2 DIABETES MELLITUS WITH DIABETIC POLYNEUROPATHY (ENCOUNTER DIAGNOSIS) E11.622 - TYPE 2 DIABETES MELLITUS WITH OTHER SKIN ULCER (ENCOUNTER DIAGNOSIS) L97.322 - NON-PRESSURE CHRONIC ULCER OF LEFT ANKLE WITH FAT LAYER EXPOSED (ENCOUNTER DIAGNOSIS) M86.172 - OTHER ACUTE OSTEOMYELITIS, LEFT ANKLE AND FOOT GENERAL NOTES ULCER LEFT ANKLE STABLE, BONE SCAN SHOWS EVIDENCE FOR MULTIFOCAL OSTEOMYELITIS, STABLE THE FOLLOWING FACTORS HAVE BEEN IDENTIFIED THAT MAY AFFECT WOUND HEALING: DEVITALIZED TISSUE BIOFILM DIABETES NEUROPATHY POSSIBLE PAD MAMADOU KHAN [id number] 1945 GOALS: REMOVE DEVITALIZED TISSUE REMOVE AND PREVENT BIOFILM PREVENT INFECTION ASSESS ARTERIAL CIRCULATION WOUND CLOSURE PREVENT RECURRENCE PLAN: DEBRIDEMENT, SWITCH TO DRESSING CHANGES WITH URGO CLEAN EVERY OTHER DAY, RINSE WITH VASHE SOLUTION WITH EACH DRESSING CHANGE. CONTINUE LEVAQUIN UNTIL IV ANTIBIOTIC THERAPY IS STARTED. CONTINUE PROTEIN SUPPLEMENTATION, FOLLOW UP IN 1 WEEK FOR A RECHECK. THE PATIENT HAS DECIDED THAT HE DOES NOT WANT TO PROCEED WITH HYPERBARIC OXYGEN THERAPY AT THIS TIME. HE WAS APPROVED FOR THE USE OF SKIN SUBSTITUTES. PROCEDURES WOUND #1 WOUND #1 (DIABETIC ULCER) IS LOCATED ON THE LEFT, LATERAL MALLEOLUS. A SKIN/SUBCUTANEOUS TISSUE LEVEL SURGICAL DEBRIDEMENT WITH A TOTAL AREA DEBRIDED OF 5.98 SQ CM. WAS PERFORMED BY NEMO MEYERS MD. SUBCUTANEOUS WAS REMOVED ALONG WITH DEVITALIZED TISSUE: BIOFILM, EXUDATE AND SLOUGH. THE FOLLOWING INSTRUMENT(S) WERE USED: CURETTE. PAIN CONTROL WAS ACHIEVED USING EMLA LIDOCAINE/PRILOCAINE 2.5%/2.5%. A TIME OUT WAS CONDUCTED PRIOR TO THE START OF THE PROCEDURE. A MODERATE AMOUNT OF BLEEDING WAS CONTROLLED WITH SILVER NITRATE. THE PROCEDURE WAS TOLERATED WELL WITH A PAIN LEVEL OF 0 THROUGHOUT AND A PAIN LEVEL OF 0 FOLLOWING THE PROCEDURE. POST DEBRIDEMENT MEASUREMENTS: 2.6CM LENGTH X 2.3CM WIDTH X 0.5CM DEPTH; WITH AN AREA OF 5.98 SQ CM AND A VOLUME OF 2.99 CUBIC CM. ADDITIONAL INFORMATION MUSCLE FASCIA OR BONE REMOVED AND SENT TO PATHOLOGY?: NO PLAN WOUND ORDERS: WOUND #1 LEFT, LATERAL MALLEOLUS HAND HYGIENE HAND HYGIENE - WASH HANDS BEFORE AND AFTER WOUND CARE. CALL THE WOUND CENTER AT [phone] IF YOU HAVE SIGNS OR SYMPTOMS OF INFECTION, FEVER CHILLS OR SHAKES, INCREASED DRAINAGE, INCREASED ODOR OR UNUSUAL REDNESS. AFTER WOUND CENTER HOURS PLEASE NOTIFY YOUR PCP OR GO TO THE EMERGENCY ROOM. CLEANSER CLEANSE WOUND WITH NORMAL SALINE CLEANSE WOUND WITH HYPOCHLOROUS ACID (VASHE OR SIMILAR) THEN APPLY HYPOCHLOROUS ACID SOAKED 4X4 GAUZE TO WOUND BED FOR 5-10 MINUTES AFTER WOUND ASSESSMENT COMPLETED. MAY SHOWER, LEAVE WOUND DRESSING INTACT. COVER WOUND DRESSING WITH A WATERPROOF BARRIER. KEEP DRESSING DRY. NO BATHS PLEASE. PROCEDURE / ANESTHETIC 4% TOPICAL LIDOCAINE TO WOUND BED PRIOR TO PROCEDURE, IN CLINIC ONLY. DRESSING ORDERS APPLY DRESSING(S) AND SECURE WITH: - [employer] CUT TO SIZE OF WOUND. SILICONE BORDER SUPERABSORBENT PAD. DRESSING CHANGE FREQUENCY CHANGE DRESSING EVERY OTHER DAY. - TWICE AT HOME. CHANGE DRESSING IF IT BECOMES SOILED OR WET. ADDITIONAL ORDERS: MAMADOU KHAN [id number] 1945 OFF-LOADING / PRESSURE RELIEF OTHER ORDER: - CONTINUE USE OF ANKLE KEEPER FOR OFFLOADING. KEEP PRESSURE OFF ANKLE. FLOAT ANKLE OFF MATTRESS. DIETARY TAKE VITAMIN C 1000MG BY MOUTH DAILY. TAKE ZINC 25MG BY MOUTH DAILY. INCREASE THE PROTEIN IN YOUR DIET. FOLLOW-UP APPOINTMENTS RETURN APPOINTMENT 1 WEEK OTHER ORDERS: - PLEASE PICK THEM UP AND CONTINUE TAKING LEVAQUIN PRESCRIBED. WE WILL CONTACT INFECTIOUS DISEASE TO GET TREATMENT PLAN FOR IV ANTIBIOTICS. SCRIBING ATTESTATION I ATTEST, THE NURSE, THAT I SCRIBED THESE ORDERS FOR THE WOUND CARE PROVIDER. PROVIDER REVIEW AND ATTESTATION: REVIEWED AND EVALUATED LABS. REVIEWED HOSPITAL RECORDS. DISCUSSED THE PLAN OF CARE @ BEDSIDE WITH - THE PATIENT I AGREE AND ATTEST TO THE ABOVE INFORMATION PROVIDED FROM OTHER LICENSED PROFESSIONALS. HBO2 THERAPY-DIABETIC WOUND(S) LOWER EXTREMITY EVALUATE FOR HBO THERAPY. COMPLETE HBO CLEARANCE. OBTAIN CHEST X-RAY. INDICATION: IF APPROPRIATE FOR TREATMENT, BEGIN HBO THERAPY PER PROTOCOL. TREATMENT PROTOCOL: 2.0 EMMA X 90 MINUTES WITH 100% OXYGEN. OFFLOAD EXTREMITY, CONTINUE WOUND CARE, MANAGE BLOOD SUGAR. USE TREATMENT PROTOCOL: TOTAL # OF HBO TREATMENTS: 30 TREATMENTS AND REEVALUATE. ASCENT TIME: 1.0 PSI/MINUTE MAY ADVANCE TO 1.5PSI/MINUTE TOLERATED. DESCENT TIME: 1.0 PSI/MINUTE MAY ADVANCE TO 1.5PSI/MINUTE TOLERATED. FOR DIABETIC PATIENTS-FINGER STICK BLOOD GLUCOSE PRE- AND POST- HBO TREATMENT. PRE AND POST VITAL SIGNS FOR EACH TREATMENT. MEDICATIONS PRESCRIBED: LEVOFLOXACIN - ORAL 500 MG 1 TABLET ONCE DAILY FOR 1 WEEK STARTING 07/05/2024 PLAN OF CARE: 01. ENSURE/ESTABLISH OPTIMAL BLOOD FLOW : - COMPLETE LOWER EXTREMITY ASSESSMENT STATUS: CONTINUED DATE: 06/28/2024 - PERFORM NON-INVASIVE VASCULAR TESTING (I.E. KALEIGH) AND DOCUMENT FINDINGS. CONSIDER REPEATING WHEN WOUND HEALING <40% AFTER 30 DAYS OF WOUND CARE. STATUS: COMPLETED DATE: 05/12/2024 02. ASSESS FOR/TREAT INFECTION : - EVALUATE FOR SIGNS AND SYMPTOMS OF INFECTION AND DOCUMENT FINDINGS. STATUS: CONTINUED DATE: 06/28/2024 03. DEBRIDE WEEKLY OR MORE OFTEN PRN : - EVALUATE PATIENT IN CENTER WEEKLY TO ASSESS WOUND BED AND MARGINS FOR NEED FOR DEBRIDEMENT. STATUS: CONTINUED DATE: 06/28/2024 04. OPTIMIZE GLUCOSE CONTROL AND NUTRITION : - ORDER/REVIEW PERTINENT LABS TO EVALUATE RENAL FUNCTION, GLUCOSE CONTROL, AND NUTRITIONAL STATUS. STATUS: CONTINUED DATE: 06/28/2024 05. OFFLOADING PLAN : - EVALUATE PLAN FOR OFFLOADING STATUS: CONTINUED DATE: 06/28/2024 06. OPTIMIZE HOST FACTORS: - ASSESS AND REVIEW PATIENT HISTORY FOR WOUND ETIOLOGY, CO-MORBID CONDITIONS, MEDICATION REGIME, AND SMOKING HISTORY. MAMADOU KHAN [id number] 1945 STATUS: CONTINUED DATE: 06/28/2024 07. DRESSING SELECTION : - EVALUATE FOR DRESSING-RELATED FACTORS, SUCH AVAILABILITY, WEAR TIME, ADAPTABILITY AND USE TO BETTER OPTIMIZE WOUND HEALING AND PATIENT COMPLIANCE. STATUS: CONTINUED DATE: 06/28/2024 08. ADVANCED MODALITIES : - RE-EVALUATE PLAN OF CARE IF NO EVIDENCE OF HEALING (40% IN 4 WEEKS). STATUS: CONTINUED DATE: 06/28/2024 09. FALL PREVENTION : - COMPLETE FALL ASSESSMENT. STATUS: COMPLETED DATE: 05/03/2024 10. PAIN MANAGEMENT : - COMPLETE PAIN ASSESSMENT STATUS: CONTINUED DATE: 06/28/2024 11. MEASURABLE GOALS FOR WOUND HEALING AND/OR HYPERBARIC OXYGEN THERAPY : - WOUND CLOSURE STATUS: CONTINUED DATE: 06/28/2024 12. DURATION/FREQUENCY OF WOUND CARE VISITS : - 1X WEEKLY FOR 30 DAYS STATUS: CONTINUED DATE: 06/28/2024 ELECTRONIC SIGNATURE(S) SIGNED BY: DATE: NEMO MEYERS MD 07/06/2024 16:19:23 (PT) ENTERED BY: NEMO MEYERS MD ON 07/05/2024 16:07:13 (PT) MAMADOU KHAN [id number] 1945
== END ==
LOC: WC 13:38
PROVIDERS: PCP Family Medicine; Referring Provider Physician Assistant; Visit Provider Surgery
DX: E11.622 Type 2 diabetes mellitus with other skin ulcer (principal); L97.325 Non-pressure chronic ulcer of left ankle with muscle involvement without evidence of necrosis; M86.172 Other acute osteomyelitis, left ankle and foot; E11.40 Type 2 diabetes mellitus with diabetic neuropathy, unspecified; R60.0 Localized edema; I10 Essential (primary) hypertension
CPT/HCPCS: 11042

== ENCOUNTER → 2024-07-11 15:38 | Outpatient (CLI) | payer MEDICARE, OTHER, SELFPAY ==
[2021-11-06 16:06] VITALS: BMI 29.9
== END ==
PROVIDERS: PCP Family Medicine; Referring Provider Family Medicine; Visit Provider Surgery
DX: E11.622 Type 2 diabetes mellitus with other skin ulcer (principal); L97.325 Non-pressure chronic ulcer of left ankle with muscle involvement without evidence of necrosis; M86.172 Other acute osteomyelitis, left ankle and foot; E11.40 Type 2 diabetes mellitus with diabetic neuropathy, unspecified; R60.0 Localized edema
CPT/HCPCS: 11042

== ENCOUNTER → 2024-07-15 13:42 | Outpatient (CLI) | payer MEDICARE, OTHER, SELFPAY ==
[2021-11-06 16:06] VITALS: BMI 29.9
--- NOTE | 2024-07-15 13:44 | DI.RAD.S_ITS ---
PROCEDURE: XR LUMBAR SPINE MIN 4V INDICATIONS: BACK PAIN TECHNIQUE: 5 views of the lumbar spine were acquired, including bilateral oblique views. COMPARISON: [facility], CT, CT LUMBAR SPINE WO CON, 03/22/2024, 11:52. [facility], CR, XR LUMBAR SPINE 2-3V, 04/03/2021, 12:31. FINDINGS: Bones: Patient is status post posterior fusion at L4 through S1 levels with surgical hardware and intervertebral spacers are seen. 5 nonrib-bearing vertebrae are present. There is normal bony alignment. No gross hardware loosening or failure. Chronic appearing anterior wedge compression deformity at L1 level is again seen unchanged from previous CT study. Significant degenerative endplate changes are noted throughout lower thoracic and lumbar spine. No suspicious bony lesions. Soft tissues: Overlying bowel gas pattern is normal. No suspicious soft tissue calcifications. Oblique images: No pars defects. IMPRESSION: 1. Prior posterior fusion at L4-5 and L5-S1 levels with surgical hardware in place. No evidence of hardware loosening or failure. 2. Stable chronic appearing anterior wedge compression deformity at L1 level with up to 50% loss of L1 vertebral body height unchanged from previous study. 3. Degenerative disc disease throughout lower thoracic and lumbar spine. No gross pars defects. Dictated by: Loc Colby M.D. on 07/15/2024 at 14:19 Approved by: Loc Colby M.D. on 07/15/2024 at 14:22
--- NOTE | 2024-07-15 13:56 | DI.RAD.S_ITS ---
PROCEDURE: FL GUIDED PICC PLACEMENT INDICATIONS: iv abx, tx osteo COMPARISON: None. FINDINGS: PICC was placed by the intravenous therapy team from the right side. Fluoroscopic spot film demonstrates the tip of PICC projecting to the area of the mid SVC IMPRESSION: Tip of PICC projects to the area of the mid SVC. Dictated by: Sanya Melchor M.D. on 07/15/2024 at 15:37 Approved by: Sanya Melchor M.D. on 07/15/2024 at 15:37
== END ==
PROVIDERS: PCP Family Medicine; Referring Provider Family Medicine; Visit Provider Family Medicine
DX: Z45.2 Encounter for adjustment and management of vascular access device (principal); M86.172 Other acute osteomyelitis, left ankle and foot; M51.34 Other intervertebral disc degeneration, thoracic region; M51.369 Other intervertebral disc degeneration, lumbar region without mention of lumbar back pain or lower extremity pain; M43.8X6 Other specified deforming dorsopathies, lumbar region; M47.9 Spondylosis, unspecified; M54.9 Dorsalgia, unspecified; Z98.1 Arthrodesis status
CPT/HCPCS: 36573; 72110

== ENCOUNTER → 2024-07-19 13:22 | Outpatient (CLI) | payer MEDICARE, OTHER, SELFPAY ==
[2021-11-06 16:06] VITALS: BMI 29.9
== END ==
PROVIDERS: PCP Family Medicine; Referring Provider Family Medicine; Visit Provider Surgery
DX: E11.622 Type 2 diabetes mellitus with other skin ulcer (principal); L97.325 Non-pressure chronic ulcer of left ankle with muscle involvement without evidence of necrosis; M86.172 Other acute osteomyelitis, left ankle and foot; R60.0 Localized edema; E11.40 Type 2 diabetes mellitus with diabetic neuropathy, unspecified
CPT/HCPCS: 11042

== ENCOUNTER → 2024-07-26 13:21 | Outpatient (CLI) | payer MEDICARE, OTHER, SELFPAY ==
[2021-11-06 16:06] VITALS: BMI 29.9
== END ==
LOC: WC 13:23
PROVIDERS: PCP Family Medicine; Referring Provider Family Medicine; Visit Provider Surgery
DX: E11.622 Type 2 diabetes mellitus with other skin ulcer (principal); L97.325 Non-pressure chronic ulcer of left ankle with muscle involvement without evidence of necrosis; M86.172 Other acute osteomyelitis, left ankle and foot; R60.0 Localized edema; E11.42 Type 2 diabetes mellitus with diabetic polyneuropathy
CPT/HCPCS: 11042; 97607; 99213

== ENCOUNTER 2024-07-27 19:02 | Emergency (ER) | payer MEDICARE, OTHER, SELFPAY ==
[2021-11-06 16:06] VITALS: BMI 29.9
[2024-07-27 19:20] VITALS: BP 186/88; PULSE 80; RESP 18; TEMP 36.8; O2SAT 99; BMI 30.4
--- NOTE | 2024-07-28 00:11 | ED.RECABL ---
HPI - Recheck/Abnormal Lab/Rx General Chief Complaint: Recheck/Abnormal Lab/Rx Stated Complaint: PICC line leaking Time Seen by Provider: 07/28/24 00:11 Source: patient and family Mode of arrival: Ambulatory History of Present Illness HPI narrative: 78-year-old male with a past medical history of hypertension, hyperlipidemia, diabetes, comes into the ED from home for evaluation of issues with PICC line. 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 He is supposed to have antibiotic infusions daily for 5 weeks. They state that when they were trying to give the medication they noticed leak from the tube, on evaluation there appeared to be small puncture wound noted to the inner aspect of the PICC line. Patient denies any trauma to the extremity, states he does not know how this happened. He denies any other symptoms or injuries at this time he states he is only here to have his PICC line replaced. He states that he does have all of the tubing medication at home and just needs the PICC line replaced. Related Data Home Medications Medication Instructions Recorded Confirmed aspirin 325 mg tablet,delayed 325 mg PO DAILY 09/09/17 07/20/24 release Previous Rx's Medication Instructions Recorded Disabled Parking Permit #1 ea 09/06/18 cyanocobalamin (vitamin B-12) 1,000 mcg PO DAILY #90 tabs 09/03/20 1,000 mcg tablet pyridoxine (vitamin B6) 50 mg 50 mg PO DAILY #90 tabs 09/03/20 tablet furosemide 40 mg tablet 40 mg PO DAILY PRN Edema #30 tabs 09/12/20 empagliflozin 10 mg tablet 10 mg PO DAILY #90 tabs 06/16/23 (Jardiance) atorvastatin 40 mg tablet 40 mg PO HS #90 tabs 07/13/23 lisinopril 10 mg tablet 10 mg PO BID #180 tabs 09/08/23 tamsulosin 0.4 mg capsule (Flomax) 0.8 mg (2 x 0.4 mg) PO BEDTIME 12/07/23 #180 caps triamcinolone acetonide 0.1 % 1 applic topical BID #80 grams 12/07/23 topical cream carvedilol 25 mg tablet 25 mg PO BID #180 tabs 02/15/24 metformin 500 mg tablet 250 mg (1/2 x 500 mg) PO BIDCC #90 02/15/24 tabs omeprazole 20 mg capsule,delayed 20 mg PO DAILY #90 caps 02/15/24 release clobetasol 0.05 % scalp solution 1 applic topical BID 2 weeks #25 mL 03/15/24 gabapentin 600 mg tablet 600 mg PO TID #90 tabs 06/29/24 Disabled Parking Permit #1 ea 07/18/24 calcitonin (salmon) 200 1 spray intranasal (ALT) DAILY 07/20/24 unit/actuation nasal spray sacral fx 3 months #3.7 mL Allergies Allergy/AdvReac Type Severity Reaction Status Date / Time clopidogrel [From Plavix] Allergy Rash Verified 07/27/24 19:20 Review of Systems Review of Systems Narrative: General: Positive Issue with PICC line, Denies fever, chills, weight loss HEENT: Denies headache, eye drainage, eye irritation, head trauma, sore throat, voice change Cardiovascular: Denies any chest pain, palpitations, tachycardia Respiratory: Denies any shortness of breath, cough, wheeze, stridor GI/: Denies any abdominal pain, nausea, vomiting, diarrhea, bright red blood per rectum, melanotic stools, urinary frequency, urinary retention, dysuria, hematuria MSK: Denies any joint pain, muscle pains, swelling Skin: Denies any rashes, lesions, discoloration Neuro: Denies any headache, lightheadedness, dizziness, fainting, weakness Psych: Denies SI/HI Patient History Medical History Acne (~1958) Ankle effusion CAD (coronary artery disease) (~2012) Chickenpox (~1949) Chronic back pain Class 1 obesity (08/28/16) Closed right fibular fracture Collar bone fracture (~1950) Community acquired pneumonia Compression fracture of L1 lumbar vertebra History of ankle fracture (~2015) History of fracture of ankle (08/28/16) History of rib fracture (~1984) 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 Father No problems noted. Sister No problems noted. Social History household members: spouse Smoking Status: Never smoker alcohol intake: current Smoking Status: Never smoker alcohol intake frequency: 0-2 drinks per day Alcohol type: wine Exam Narrative Exam Narrative: General: Cooperative, well-developed, not in acute distress HEENT: Normocephalic, atraumatic, PERRLA, normal sclera, eyelids normal Neck: Active full range of motion, atraumatic Chest: Normal to inspection, negative crepitus, no overlying erythema ecchymosis Respiratory: Normal respiratory effort, not in acute respiratory distress, clear to auscultation bilaterally negative cough, wheeze, tachypnea, rhonchi, rales Cardiology: Regular rate rhythm negative gallop, murmur, rubs GI/: No tenderness to palpation, soft, non rigid, normal to inspection, exam deferred MSK: PICC line in place to the right upper extremity, no overlying erythema ecchymosis neurovascularly intact, Full active range of motion in all 4 extremities, atraumatic, no tenderness to palpation of any bony prominences Skin: No rashes or lesions noted Neuro: Alert awake oriented x3, moves all 4 extremities spontaneously, cranial nerves intact, able to answer all questions appropriately follows commands appropriately Psych: Cooperative, negative suicidal or homicidal ideations Initial Vital Signs Initial Vital Signs: Vital Signs Temperature 98.3 F 07/27/24 19:20 Pulse Rate 80 07/27/24 19:20 Respiratory Rate 18 07/27/24 19:20 Blood Pressure 186/88 H 07/27/24 19:20 Pulse Oximetry 99 07/27/24 19:20 Oxygen Delivery Method Room Air 07/27/24 19:20 Course Orders Ordered: ED Orders 07/27/24 19:40 Consult After Hours PICC Line RN Stat 07/28/24 00:43 XR chest for PICC 1V Stat Vital Signs Vital signs: Vital Signs - 8 hr 07/27/24 19:20 07/28/24 01:30 Temperature 98.3 F Pulse Rate 80 95 H Respiratory Rate 18 16 Blood Pressure 186/88 H 175/89 H Pulse Oximetry 99 95 Oxygen Delivery Method Room Air Room Air MDM - Recheck/Abnormal Lab/Rx Differential Diagnosis Differential diagnosis: Likely other (PICC line malfunction) Imaging Data Chest x-ray: My Impression: PICC line does appear to be appropriately placed noted in the right upper extremity Radiologist's Impression: [address] [address] XRay Report Signed Patient: Sanya Gaona MR#: [id number] : 1945 Acct:[id number] Age/Sex: 78 / M Date of Service: 07/15/24 Loc: RAD Accession Number: [id number] Procedure: FL PICC W FLUOROGUIDE Ordering Provider: Wilver Kerr MD PROCEDURE: FL GUIDED PICC PLACEMENT INDICATIONS: iv abx, tx osteo COMPARISON: None. FINDINGS: PICC was placed by the intravenous therapy team from the right side. Fluoroscopic spot film demonstrates the tip of PICC projecting to the area of the mid SVC IMPRESSION: Tip of PICC projects to the area of the mid SVC. [facility] [place] Narrative Medical decision making narrative: 78-year-old male with a past medical history of diabetes hypertension hyperlipidemia presenting for PICC line malfunction. 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 A supposed to have daily antibiotic infusions for 5 weeks, states he is on day 10 of this, he states that he was trying to use it earlier today for his infusion and noticed dripping from it, on inspection there is a puncture wound to the white part of the tubing just past the reddened, PICC line was removed and replaced by the PICC team here in the emergency department, chest x-ray was obtained to verify placement, the official read was not back when patient was requesting to leave, I did take a look at it personally however I did instruct/informed patient and family member that he has been pertinent to wait for the official read, they state that they do not want to wait for this they state they have an appointment at 7:00 a.m. 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 I stated that we will give them a call if the x-ray is abnormal we understand and agree with this plan. Patient has all of his medications and has the ability to give himself his transfusion therefore patient will be sent home with strict return precautions and instructed follow up with his primary care doctor he verbalized understanding of this and agrees to being discharged home with outpatient follow up. Official read of the x-ray showing tip of the PICC in the mid SVC Discharge Plan Departure Patient Disposition: Home Clinical Impression: Status post peripherally inserted central catheter (PICC) central line placement Activity Restrictions/Additional Instructions: Please follow up with your primary care doctor Please read the discharge instructions sheet carefully and bring all papers to all doctor follow-up visits, as it may contain information that your doctor may want to see. Disease processes change and evolve, if your symptoms worsen or if you develop any new symptoms that are concerning to you please return for evaluation. Your evaluation today does not show any evidence of any life-threatening/serious illnesses requiring admission to the hospital or surgery. Please follow-up with your doctor for re-evaluation in approximately 1 day. Seek immediate medical attention for any worrisome symptoms. *If you do not have a primary care provider please contact the [facility] Resource line at [phone]. They will ask some questions about your medical history and help get you set up with a doctor in the community. Prescriptions: No Action (DME) Disabled Parking Permit Qty: 1 0RF Dose Instruction: As directed Rx Instructions: I find this patient to be medically disabled and qualified for disabled parking as indicated, and signed, on the accompanying disabled parking application. cyanocobalamin (vitamin B-12) 1,000 mcg tablet 1,000 mcg PO DAILY Qty: 90 3RF pyridoxine (vitamin B6) 50 mg tablet 50 mg PO DAILY Qty: 90 3RF furosemide 40 mg tablet 40 mg PO DAILY PRN (Reason: Edema) Qty: 30 0RF atorvastatin 40 mg tablet 40 mg PO HS Qty: 90 3RF carvedilol 25 mg tablet 25 mg PO BID Qty: 180 1RF Rx Instructions: must administer with a meal/food. omeprazole 20 mg capsule,delayed release(DR/EC) 20 mg PO DAILY Qty: 90 1RF metformin 500 mg tablet 250 mg PO BIDCC Qty: 90 3RF gabapentin 600 mg tablet 600 mg PO TID Qty: 90 3RF (DME) Disabled Parking Permit See Rx Instructions .ROUTE .MEDSUPPLY Qty: 1 0RF Rx Instructions: I find this patient to be medically disabled and qualified for Disabled Parking as indicated and signed on the accompanying Disabled Parking Application for Individuals. calcitonin (salmon) 200 unit/actuation spray,non-aerosol 1 spray intranasal (ALT) DAILY 90 Days Qty: 3.7 2RF Rx Instructions: sacral fx aspirin 325 mg tablet,delayed release (DR/EC) 325 mg PO DAILY Jardiance 10 mg tablet 10 mg PO DAILY Qty: 90 3RF lisinopril 10 mg tablet 10 mg PO BID Qty: 180 3RF tamsulosin [Flomax] 0.4 mg capsule 0.8 mg PO BEDTIME Qty: 180 3RF triamcinolone acetonide 0.1 % cream 1 applic topical BID Qty: 80 0RF Rx Instructions: apply to affected area on arm and right ear. clobetasol 0.05 % solution 1 applic topical BID 14 Days Qty: 25 1RF Rx Instructions: apply to affected area on scalp Referrals: Wilver Kerr MD [Primary Care Provider] - Stand Alone Forms: Patient Portal/API/Survey
--- NOTE | 2024-07-28 00:43 | DI.RAD.S_ITS ---
PROCEDURE: XR CHEST FOR PICC 1V INDICATIONS: picc line verification COMPARISON: [facility], , CHEST 2 VIEW, 01/26/2017, 14:44. FINDINGS: PICC was placed by the intravenous therapy team from the right side. Fluoroscopic spot film demonstrates the tip of PICC projecting to the area of cavoatrial junction. IMPRESSION: Tip of PICC projects to the area of cavoatrial junction. Dictated by: Lisest Simental M.D. on 07/28/2024 at 3:00 Approved by: Lisset Simental M.D. on 07/28/2024 at 3:00
[2024-07-28 01:30] VITALS: BP 175/89; PULSE 95; RESP 16; O2SAT 95
== END 2024-07-28 02:45 | disposition home or self-care (01) ==
PROVIDERS: Emergency Provider Student in an Organized Health Care Education/Training Program; PCP Family Medicine
DX: Z95.828 Presence of other vascular implants and grafts (principal)
CPT/HCPCS: 99281

== ENCOUNTER → 2024-07-29 09:40 | Outpatient (CLI) | payer MEDICARE, OTHER, SELFPAY ==
[2021-11-06 16:06] VITALS: BMI 29.9
== END ==
PROVIDERS: PCP Family Medicine; Referring Provider Family Medicine; Visit Provider Surgery
DX: E11.621 Type 2 diabetes mellitus with foot ulcer (principal); L97.325 Non-pressure chronic ulcer of left ankle with muscle involvement without evidence of necrosis; R60.0 Localized edema
CPT/HCPCS: 97607

== ENCOUNTER → 2024-08-02 10:47 | Outpatient (CLI) | payer MEDICARE, OTHER, SELFPAY ==
[2021-11-06 16:06] VITALS: BMI 29.9
== END ==
PROVIDERS: PCP Family Medicine; Referring Provider Family Medicine; Visit Provider Physician Assistant
DX: E11.622 Type 2 diabetes mellitus with other skin ulcer (principal); L97.325 Non-pressure chronic ulcer of left ankle with muscle involvement without evidence of necrosis; R60.0 Localized edema
CPT/HCPCS: 97607

== ENCOUNTER → 2024-08-05 15:10 | Outpatient (CLI) | payer MEDICARE, OTHER, SELFPAY ==
[2021-11-06 16:06] VITALS: BMI 29.9
== END ==
PROVIDERS: PCP Family Medicine; Referring Provider Family Medicine; Visit Provider Physician Assistant
DX: E11.622 Type 2 diabetes mellitus with other skin ulcer (principal); L97.325 Non-pressure chronic ulcer of left ankle with muscle involvement without evidence of necrosis
CPT/HCPCS: 97607

== ENCOUNTER → 2024-08-09 09:29 | Outpatient (CLI) | payer MEDICARE, OTHER, SELFPAY ==
[2021-11-06 16:06] VITALS: BMI 29.9
== END ==
PROVIDERS: PCP Family Medicine; Referring Provider Family Medicine; Visit Provider Surgery
DX: E11.622 Type 2 diabetes mellitus with other skin ulcer (principal); L97.325 Non-pressure chronic ulcer of left ankle with muscle involvement without evidence of necrosis; M86.172 Other acute osteomyelitis, left ankle and foot; E11.42 Type 2 diabetes mellitus with diabetic polyneuropathy; R60.0 Localized edema
CPT/HCPCS: 15275; Q4196

== ENCOUNTER → 2024-08-16 09:06 | Outpatient (CLI) | payer MEDICARE, OTHER, SELFPAY ==
[2021-11-06 16:06] VITALS: BMI 29.9
== END ==
LOC: WC 09:07
PROVIDERS: PCP Family Medicine; Referring Provider Family Medicine; Visit Provider Surgery
DX: E11.622 Type 2 diabetes mellitus with other skin ulcer (principal); L97.325 Non-pressure chronic ulcer of left ankle with muscle involvement without evidence of necrosis; E11.42 Type 2 diabetes mellitus with diabetic polyneuropathy; M86.172 Other acute osteomyelitis, left ankle and foot; R60.0 Localized edema
CPT/HCPCS: 15275; 97607; Q4196

== ENCOUNTER → 2024-08-23 09:26 | Outpatient (CLI) | payer MEDICARE, OTHER, SELFPAY ==
[2021-11-06 16:06] VITALS: BMI 29.9
== END ==
PROVIDERS: PCP Family Medicine; Referring Provider Physician Assistant; Visit Provider Surgery
DX: E11.622 Type 2 diabetes mellitus with other skin ulcer (principal); L97.325 Non-pressure chronic ulcer of left ankle with muscle involvement without evidence of necrosis; I96 Gangrene, not elsewhere classified; R60.0 Localized edema; E11.69 Type 2 diabetes mellitus with other specified complication; M86.172 Other acute osteomyelitis, left ankle and foot; E11.40 Type 2 diabetes mellitus with diabetic neuropathy, unspecified; I10 Essential (primary) hypertension; I25.10 Atherosclerotic heart disease of native coronary artery without angina pectoris
CPT/HCPCS: 15275; Q4196

== ENCOUNTER → 2024-08-30 10:54 | Outpatient (CLI) | payer MEDICARE, OTHER, SELFPAY ==
[2021-11-06 16:06] VITALS: BMI 29.9
[2024-08-30 12:50] LABS: Alanine Aminotransferase 16 IU/L (<50); Albumin 3.8 g/dL (3.5-5.0); Albumin Globulin Ratio 1.5 (1.0-2.8); Alkaline Phosphatase 73 U/L (38-126); Aspartate Aminotransferase 24 IU/L (17-59); BUN Creatinine Ratio 19.3 (6-22); Bilirubin Total 0.8 mg/dL (0.2-1.3); Blood Urea Nitrogen 17 mg/dL (9-20); Calcium 9.3 mg/dL (8.4-10.2); Carbon Dioxide 24 mmol/L (22-32); Chloride 104 mmol/L (98-107); Estimated Glomerular Filt Rate > 60 mL/min (>60); Globulin 2.5 g/dL (1.7-4.1); Glucose 107 mg/dL (70-99); HEMOLYSIS < 15 (0-50); Potassium 4.3 mmol/L (3.4-5.1); Sodium 138 mmol/L (137-145); Total Protein 6.3 g/dL (6.3-8.2)
[2024-08-30 15:11] LABS: Clostridium Difficile Tox PCR Positive for C. diff (Negative)
== END ==
PROVIDERS: Surgery; PCP Family Medicine; Referring Provider Family Medicine; Visit Provider Family Medicine
DX: E87.5 Hyperkalemia (principal); R19.7 Diarrhea, unspecified
CPT/HCPCS: 36415; 80053; 87324; 87493

== ENCOUNTER → 2024-08-30 15:27 | Outpatient (CLI) | payer MEDICARE, OTHER, SELFPAY ==
[2021-11-06 16:06] VITALS: BMI 29.9
== END ==
PROVIDERS: PCP Family Medicine; Referring Provider Family Medicine; Visit Provider Surgery
DX: E11.622 Type 2 diabetes mellitus with other skin ulcer (principal); E11.42 Type 2 diabetes mellitus with diabetic polyneuropathy; L97.325 Non-pressure chronic ulcer of left ankle with muscle involvement without evidence of necrosis; M86.172 Other acute osteomyelitis, left ankle and foot; R60.0 Localized edema
CPT/HCPCS: 15271; 97607; 99213; Q4101

== ENCOUNTER → 2024-09-06 09:14 | Outpatient (CLI) | payer MEDICARE, OTHER, SELFPAY ==
[2021-11-06 16:06] VITALS: BMI 29.9
== END ==
PROVIDERS: PCP Family Medicine; Referring Provider Family Medicine; Visit Provider Surgery
DX: E11.622 Type 2 diabetes mellitus with other skin ulcer (principal); E11.42 Type 2 diabetes mellitus with diabetic polyneuropathy; L97.322 Non-pressure chronic ulcer of left ankle with fat layer exposed; M86.172 Other acute osteomyelitis, left ankle and foot
CPT/HCPCS: 15271; 97607; Q4101

== ENCOUNTER → 2024-09-06 13:31 | Outpatient (CLI) | payer MEDICARE, OTHER, SELFPAY ==
[2021-11-06 16:06] VITALS: BMI 29.9
--- NOTE | 2024-09-06 13:33 | DI.RAD.S_ITS ---
PROCEDURE: XR HAND LT MIN 3V INDICATIONS: pain swelling redness to index MCP TECHNIQUE: 3 views of the hand(s) acquired. COMPARISON: None. FINDINGS: Bones: Ulnar minus anomaly noted. Joints: Mild STT and severe 1st CMC degeneration noted. There is moderate degeneration in all interphalangeal joints and mild degeneration in the MCP joints. Synovial swelling MCP and PIP joints noted Soft tissues: A 1.1 cm heterotopic ossification in the radial soft tissues overlying the 2nd metacarpal head noted. IMPRESSION: Multilevel degeneration. Synovial swelling MCP and PIP joints with equivocal marginal erosions. Please correlate with arthritic serologies to evaluate for rheumatoid arthritis Dictated by: Vito Vigil M.D. on 09/07/2024 at 13:14 Approved by: Vito Vigil M.D. on 09/07/2024 at 13:16
--- NOTE | 2024-09-06 13:33 | DI.RAD.S_ITS ---
PROCEDURE: XR CERVICAL SPINE 2V OR 3V INDICATIONS: pain limited ROM x 1 week TECHNIQUE: Four views) of the cervical spine were acquired. COMPARISON: None. FINDINGS: Cervical spine curvature and alignment: Normal. Bones: There are no osseous abnormalities. Disc spaces: Mild C3-4, moderate C4-5, severe C5-6 C6-7 moderate C7-T1 degenerative disc disease noted. There is severe C3-4 through C7-T1 degenerative facet disease. Soft tissues: Moderate atherosclerotic calcifications seen in the region of the carotid bifurcations IMPRESSION: Degeneration. Atherosclerotic calcification in both carotid arteries. Consider carotid Doppler study Dictated by: Vito Vigil M.D. on 09/07/2024 at 13:16 Approved by: Vito Vigil M.D. on 09/07/2024 at 13:18
--- NOTE | 2024-09-06 13:33 | DI.RAD.S_ITS ---
PROCEDURE: XR ELBOW RT MIN 3V INDICATIONS: pain swelling x 1 week TECHNIQUE: 3 views of the elbow were acquired. COMPARISON: None. FINDINGS: Bones: There are no osseous abnormalities. Elbow joint: Mild elbow degeneration appreciated. A 5 mm ossification in the anterior periarticular region may represent a loose body. Small effusion noted. Soft tissues: Heavy ossification of the triceps tendon insertion on the olecranon. Calcification of the lateral collateral ligament insertion on lateral epicondyle and the medial collateral ligament on the medial epicondyle may be stigmata of old trauma MCL or LCL tear IMPRESSION: Mild degeneration. 5 mm anterior periarticular ossification may represent a loose body Small effusion , in the absence of trauma, this is likely inflammatory Heavy ossification of the triceps tendon on the olecranon typically stigmata of old trauma or remote inflammation Dictated by: Vito Vigil M.D. on 09/07/2024 at 16:39 Approved by: Vito Vigil M.D. on 09/07/2024 at 16:42
--- NOTE | 2024-09-06 13:33 | DI.RAD.S_ITS ---
PROCEDURE: XR ELBOW LT MIN 3V INDICATIONS: pain swelling x 1 week TECHNIQUE: 3 views of the elbow were acquired. COMPARISON: None. FINDINGS: Bones: There are no osseous abnormalities. Elbow joint: Normal in width and alignment. Moderate effusion distends the extra synovial fat pes Soft tissues: Calcification in the medial collateral ligament insertion location on the medial humeral epicondyle appreciated. Soft tissue swelling noted IMPRESSION: Moderate effusion in the non traumatic setting may represent infection or inflammation. If there has been trauma , then occult fracture should be suspected. In this case, suggest follow-up plain films in 10 days Calcification in the medial collateral ligament insertion on the medial humeral epicondyle -typically stigmata of old trauma or inflammation. Please correlate with medial instability on physical exam . Dictated by: Vito Vigil M.D. on 09/07/2024 at 13:18 Approved by: Vito Vigil M.D. on 09/07/2024 at 13:20
[2024-09-06 14:50] LABS: Add Manual Diff / Slide Review NO; Basophils Absolute Auto 100 /uL (0-100); Basophils Percent Auto 0.7 % (0-2); Eosinophils Absolute Auto 300 /uL (0-450); Eosinophils Percent Auto 3.5 % (2-4); Hematocrit 36.8 % (41-53); Hemoglobin 12.4 g/dL (13.5-17.5); Lymphocytes Absolute Auto 1100 /uL (1100-4500); Lymphocytes Percent Auto 13.8 % (25-40); Mean Corpuscular HGB Conc 33.6 % (30-36); Mean Corpuscular Hemoglobin 31.4 PG (26-34); Mean Corpuscular Volume 93.5 fL (80-100); Monocytes Absolute Auto 900 /uL (0-900); Monocytes Percent Auto 10.6 % (3-14); Neutrophils Absolute Auto 5900 /uL (1500-7000); Neutrophils Percent Auto 71.4 % (50-75); Platelet Count 301 X10^3/uL (150-400); Red Blood Cell Count 3.94 X10^6/uL (4.5-5.9); Red Cell Distribution Width 14.8 % (11.6-14.8); White Blood Cell Count 8.2 X10^3/uL (4.5-11.0)
[2024-09-06 15:02] LABS: Alanine Aminotransferase 24 IU/L (<50); Albumin 3.8 g/dL (3.5-5.0); Albumin Globulin Ratio 1.4 (1.0-2.8); Alkaline Phosphatase 87 U/L (38-126); Aspartate Aminotransferase 30 IU/L (17-59); BUN Creatinine Ratio 21.6 (6-22); Bilirubin Total 0.7 mg/dL (0.2-1.3); Blood Urea Nitrogen 19 mg/dL (9-20); Calcium 9.4 mg/dL (8.4-10.2); Carbon Dioxide 25 mmol/L (22-32); Chloride 104 mmol/L (98-107); Estimated Glomerular Filt Rate > 60 mL/min (>60); Globulin 2.8 g/dL (1.7-4.1); Glucose 103 mg/dL (70-99); HEMOLYSIS < 15 (0-50); Potassium 4.8 mmol/L (3.4-5.1); Sodium 137 mmol/L (137-145); Total Protein 6.6 g/dL (6.3-8.2); Uric Acid 6.4 mg/dL (3.5-8.5)
[2024-09-06 15:06] LABS: Erythrocyte Sedimentation Rate 55 MM/HR (0-15)
[2024-09-07 13:25] LABS: Rheumatoid Factor < 8.6 IU/mL (<12.0)
== END ==
PROVIDERS: PCP Family Medicine; Referring Provider Physician Assistant; Visit Provider Physician Assistant
DX: I65.23 Occlusion and stenosis of bilateral carotid arteries (principal); M19.042 Primary osteoarthritis, left hand; M19.021 Primary osteoarthritis, right elbow; M67.823 Other specified disorders of tendon, right elbow; M25.421 Effusion, right elbow; M25.422 Effusion, left elbow; M47.9 Spondylosis, unspecified; M50.31 Other cervical disc degeneration, high cervical region; M50.33 Other cervical disc degeneration, cervicothoracic region; M47.812 Spondylosis without myelopathy or radiculopathy, cervical region; M47.813 Spondylosis without myelopathy or radiculopathy, cervicothoracic region; M79.89 Other specified soft tissue disorders
CPT/HCPCS: 36415; 72040; 73080; 73130; 80053; 84550; 85025; 85651; 86140; 86430

== ENCOUNTER → 2024-09-13 14:44 | Outpatient (CLI) | payer MEDICARE, OTHER, SELFPAY ==
[2021-11-06 16:06] VITALS: BMI 29.9
== END ==
PROVIDERS: PCP Family Medicine; Referring Provider Family Medicine; Visit Provider Surgery
DX: E11.622 Type 2 diabetes mellitus with other skin ulcer (principal); E11.42 Type 2 diabetes mellitus with diabetic polyneuropathy; L97.325 Non-pressure chronic ulcer of left ankle with muscle involvement without evidence of necrosis; L98.8 Other specified disorders of the skin and subcutaneous tissue; M86.172 Other acute osteomyelitis, left ankle and foot; E66.9 Obesity, unspecified; Z68.30 Body mass index [BMI] 30.0-30.9, adult
CPT/HCPCS: 11042

== ENCOUNTER → 2024-09-16 15:31 | Outpatient (CLI) | payer MEDICARE, OTHER, SELFPAY ==
[2021-11-06 16:06] VITALS: BMI 29.9
--- NOTE | 2024-09-16 15:32 | DI.US.S_ITS ---
PROCEDURE: US CAROTID DOPPLER BI INDICATIONS: ABNORMAL XRAY TECHNIQUE: Color and pulse Doppler interrogation was performed of both carotid systems, with image documentation and velocity measurements. COMPARISON: None. FINDINGS: Stenosis calculations are based on SRU (Society of Radiologists in Ultrasound) criteria. Right side: Brachial blood pressure: 155/78 mm Hg. Common carotid artery peak systolic velocity: 74 cm/sec. Internal carotid artery peak systolic velocity: 108 cm/sec. Internal carotid artery end diastolic velocity: 29 cm/sec. External carotid artery peak systolic velocity: 124 cm/sec. ICA/CCA peak systolic ratio: 1.5. Crowe scale imaging description: [id number] atherosclerotic plaques are seen in carotid bifurcation and proximal internal carotid artery. Percent internal carotid artery stenosis: Less than 50%. Vertebral artery: Flow direction is antegrade. Left side: Brachial blood pressure: 141/74 mm Hg. Common carotid artery peak systolic velocity: 104 cm/sec. Internal carotid artery peak systolic velocity: 120 cm/sec. Internal carotid artery end diastolic velocity: 35 cm/sec. External carotid artery peak systolic velocity: 146 cm/sec. ICA/CCA peak systolic ratio: 1.2. Crowe scale imaging description: Moderate amount of atherosclerotic plaques are seen in left carotid bifurcation and left proximal internal carotid artery. Percent internal carotid artery stenosis: Less than 50%. Vertebral artery: Flow direction is antegrade. IMPRESSION: 1. In the right carotid artery, there is less than 50% stenosis based on peak systolic velocity criteria. 2. In the left carotid artery, there is less than 50% stenosis based on peak systolic velocity criteria. 3. Antegrade vertebral arteries. Dictated by: Loc Colby M.D. on 09/16/2024 at 16:48 Approved by: Loc Colby M.D. on 09/16/2024 at 16:50
== END ==
PROVIDERS: PCP Family Medicine; Referring Provider Physician Assistant; Visit Provider Physician Assistant
DX: I65.29 Occlusion and stenosis of unspecified carotid artery (principal)
CPT/HCPCS: 93880

== ENCOUNTER → 2024-09-20 15:09 | Outpatient (CLI) | payer MEDICARE, OTHER, SELFPAY ==
[2021-11-06 16:06] VITALS: BMI 29.9
== END ==
PROVIDERS: PCP Family Medicine; Referring Provider Family Medicine; Visit Provider Surgery
DX: E11.622 Type 2 diabetes mellitus with other skin ulcer (principal); E11.42 Type 2 diabetes mellitus with diabetic polyneuropathy; L97.325 Non-pressure chronic ulcer of left ankle with muscle involvement without evidence of necrosis; M86.172 Other acute osteomyelitis, left ankle and foot
CPT/HCPCS: 15271; Q4196

== ENCOUNTER → 2024-09-23 13:35 | Outpatient (CLI) | payer MEDICARE, OTHER, SELFPAY ==
[2021-11-06 16:06] VITALS: BMI 29.9
== END ==
PROVIDERS: PCP Family Medicine; Referring Provider Family Medicine; Visit Provider Surgery
DX: E11.621 Type 2 diabetes mellitus with foot ulcer (principal); L97.325 Non-pressure chronic ulcer of left ankle with muscle involvement without evidence of necrosis; L53.9 Erythematous condition, unspecified; R60.0 Localized edema; R20.8 Other disturbances of skin sensation
CPT/HCPCS: 99213

== ENCOUNTER → 2024-09-27 10:05 | Outpatient (CLI) | payer MEDICARE, OTHER, SELFPAY ==
[2021-11-06 16:06] VITALS: BMI 29.9
== END ==
LOC: WC 10:08
PROVIDERS: PCP Family Medicine; Referring Provider Family Medicine; Visit Provider Surgery
DX: E11.622 Type 2 diabetes mellitus with other skin ulcer (principal); E11.42 Type 2 diabetes mellitus with diabetic polyneuropathy; L97.325 Non-pressure chronic ulcer of left ankle with muscle involvement without evidence of necrosis; M86.172 Other acute osteomyelitis, left ankle and foot; R60.0 Localized edema; E66.9 Obesity, unspecified; Z68.30 Body mass index [BMI] 30.0-30.9, adult
CPT/HCPCS: 11042; 99213

== ENCOUNTER → 2024-09-30 15:45 | Outpatient (CLI) | payer MEDICARE, OTHER, SELFPAY ==
[2024-09-30 09:02] VITALS: BMI 29.9
== END ==
LOC: WC 15:46
PROVIDERS: PCP Family Medicine; Referring Provider Family Medicine; Visit Provider Physician Assistant
DX: E11.622 Type 2 diabetes mellitus with other skin ulcer (principal); L97.325 Non-pressure chronic ulcer of left ankle with muscle involvement without evidence of necrosis; L53.9 Erythematous condition, unspecified; R60.0 Localized edema
CPT/HCPCS: 99213

== ENCOUNTER → 2024-10-03 15:00 | Outpatient (CLI) | payer MEDICARE, OTHER, SELFPAY ==
[2024-09-30 09:02] VITALS: BMI 29.9
== END ==
LOC: WC 15:02
PROVIDERS: PCP Family Medicine; Referring Provider Family Medicine; Visit Provider Surgery
DX: E11.622 Type 2 diabetes mellitus with other skin ulcer (principal); L97.325 Non-pressure chronic ulcer of left ankle with muscle involvement without evidence of necrosis
CPT/HCPCS: 99212

== ENCOUNTER 2024-10-05 11:29 | Emergency (ER) | payer MEDICARE, OTHER, SELFPAY ==
[2024-09-30 09:02] VITALS: BMI 29.9
[2024-10-05 11:35] VITALS: BP 150/76; PULSE 70; RESP 17; TEMP 36.5; O2SAT 96
--- NOTE | 2024-10-05 11:58 | ED_ITS ---
HPI - Back Pain/Injury <Lydia Pulido PA-C - Last Filed: 10/05/24 14:00> General Chief Complaint: Back Pain/Injury Stated Complaint: Fell yesterday, left leg pain, back pain Time Seen by Provider: 10/05/24 11:46 Source: patient and EMS History of Present Illness HPI Narrative: Mr. Gaona is a pleasant 78-year-old male with a past medical history of CAD w/ stents, T2DM, HTN, HLD, chronic low back pain and bilateral neuropathy, chronic left ankle wound following with Wound Care who presents to the emergency department via EMS from home for a fall yesterday now with worsening low back pain and right leg pain. Patient reports having prior lumbar surgeries and having chronic bilateral neuropathy ever since, worsening on the left. He ambulates at baseline with a walker, his states that he has very bad balance. Yesterday afternoon when he was outside taking out the trash, he attempted to put a new bag in the trash can but became off balance while his hands for office walker, and he fell backwards. Patient states he was able to grab onto a large trash can to brace the fall however he landed on his buttocks/low back region, he did not fall all the way back and hit his head. He was able to call a neighbor who helped him up, and he was ambulating normally and doing well for the remainder of the night. Reports however that when he woke up this morning he noticed worsening pain in his low back, hips, and pain spreading down the right leg. Denies any changes in his sensation, bowels or bladder. No fevers or chills. No chest pain or shortness of breath, nausea, vomiting. Reports that he took a dose of Tylenol very early this morning however he continued having difficulty walking and getting ready due to his pain, so EMS was called to bring him to the ER. He is not on blood thinners. Related Data Home Medications ?Medication ?Instructions ?Recorded ?Confirmed aspirin 325 mg tablet,delayed 325 mg PO DAILY 09/09/17 09/30/24 release Previous Rx's ?Medication ?Instructions ?Recorded Disabled Parking Permit #1 ea 09/06/18 cyanocobalamin (vitamin B-12) 1,000 mcg PO DAILY #90 t abs 09/03/20 1,000 mcg tablet pyridoxine (vitamin B6) 50 mg 50 mg PO DAILY #90 tabs 09/03/20 tablet furosemide 40 mg tablet 40 mg PO DAILY PRN Edema #30 tabs 09/12/20 atorvastatin 40 mg tablet 40 mg PO HS #90 tabs 4 tamsulosin 0.4 mg capsule (Flomax) 0.8 mg (2 x 0.4 mg) PO BEDTIME 12/07/23 #180 caps metformin 500 mg tablet 250 mg (1/2 x 500 mg) PO BID CC #90 02/15/24 tabs omeprazole 20 mg capsule,delayed 20 mg PO DAILY #90 ca ps 02/15/24 release clobetasol 0.05 % scalp solution 1 applic topical BID 2 weeks #25 mL 03/15/24 Disabled Parking Permit #1 ea 07/18/24 calcitonin (salmon) 200 1 spray intranasal (ALT) KYLER LY 07/20/24 unit/actuation nasal spray sacral fx 3 months #3.7 mL carvedilol 25 mg tablet 25 mg PO BID #180 tabs 08/16 empagliflozin 10 mg tablet 10 mg PO DAILY #90 tabs (Jardiance) lisinopril 10 mg tablet 10 mg PO BID #180 tabs 08/16 naproxen 500 mg tablet 500 mg PO BID PRN pain #40 t abs 09/06/24 gabapentin 600 mg tablet 600 mg PO TID #270 tabs 10/19 lidocaine 5 % topical patch 1 patch topical DAILY #30 ea 10/05/24 (Lidoderm) Allergies Allergy/AdvReac Type Severity Reaction Status Date / Time clopidogrel (From Plavix) Allergy Rash Verified 10/05/24 11:35 Review of Systems <Lydia Pulido PA-C - Last Filed: 10/05/24 14:00> Review of Systems ROS Unobtainable: All systems reviewed & are unremarkable except as noted in HPI and below Patient History <Lydia Pulido PA-C - Last Filed: 10/05/24 14:00> Medical History Acne (~1958) Ankle effusion CAD (coronary artery disease) (~2012) Chickenpox (~1949) Chronic back pain Class 1 obesity (08/28/16) Closed right fibular fracture Collar bone fracture (~1950) Community acquired pneumonia Compression fracture of L1 lumbar vertebra History of ankle fracture (~2015) History of fracture of ankle (08/28/16) History of rib fracture (~1984) 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 Father No problems noted. Sister No problems noted. Social History household members: spouse Smoking Status: Smoker, status unknown alcohol intake: current Smoking Status: Smoker, status unknown alcohol intake frequency: 0-2 drinks per day Alcohol type: wine Exam <Lydia Pulido PA-C - Last Filed: 10/05/24 14:00> Narrative Exam Narrative: GENERAL: 78 year old patient appears stated age. Well-developed patient, in no acute distress. HEAD: Atraumatic. Normocephalic. NECK: Trachea midline. Cervical ROM intact. CARDIOVASCULAR: Regular rate and rhythm. RESPIRATORY: ?Nonlabored respirations. ?Speaking in clear, full sentences. ?Clear to auscultation. Breath sounds equal bilaterally. No wheezes, rales, or rhonchi. ? GASTROINTESTINAL: Abdomen soft, non-tender, nondistended, protuberant. EXTREMITIES: Left lower extremity compression stocking in place, right foot warm and well perfused. Patient is minimally able to elevate both legs. Decreased sensation to light touch on bilateral feet, reported baseline. BACK: Tenderness to palpation of mid lumbar spine with no overlying skin changes. Patient does also report discomfort to palpation of bilateral hips. NEURO: AOx3. ?Able to provide his own clear history. SKIN: No rash or erythema of visible areas Initial Vital Signs Initial Vital Signs: Vital Signs Temperature 97.7 F 10/05/24 11:35 Pulse Rate 70 10/05/24 11:35 Respiratory Rate 17 10/05/24 11:35 Blood Pressure 150/76 H 10/05/24 11:35 Pulse Oximetry 96 10/05/24 11:35 Oxygen Delivery Method Room Air 10/05/24 11:35 <DO Chel Tang Last Filed: 10/05/24 18:23> Initial Vital Signs Initial Vital Signs: Vital Signs Temperature 97.7 F 10/05/24 11:35 Pulse Rate 70 10/05/24 11:35 Respiratory Rate 17 10/05/24 11:35 Blood Pressure 150/76 H 10/05/24 11:35 Pulse Oximetry 96 10/05/24 11:35 Oxygen Delivery Method Room Air 10/05/24 11:35 Course <Lydia Pulido PA-C - Last Filed: 10/05/24 14:00> Orders Ordered: ED Orders 10/05/24 11:56 CT lumbar spine wo con Stat XR pelvis 1-2V Stat Discontinued Medications Acetaminophen (Acetaminophen 325 Mg Tablet) 975 mg PO NOW ONE Stop: 10/05/24 11:57 Last Admin: 10/05/24 12:09 Dose: 975 mg Documented By: LINDA Lidocaine (Lidocaine 5% Patch) 1 each TOP NOW ONE Stop: 10/05/24 11:57 Last Admin: 10/05/24 12:09 Dose: 1 each Documented By: LINDA Vital Signs Vital signs: Vital Signs - 8 hr 10/05/24 11:35 10/05/24 13:49 10/05/24 13:51 Temperature 97.7 F Pulse Rate 70 66 68 Respiratory Rate 17 Blood Pressure 150/76 H Pulse Oximetry 96 97 96 Oxygen Delivery Method Room Air 10/05/24 13:52 Temperature Pulse Rate Respiratory Rate Blood Pressure 164/73 H Pulse Oximetry Oxygen Delivery Method <DO Chel Tang Last Filed: 10/05/24 18:23> Orders Ordered: ED Orders 10/05/24 11:56 CT lumbar spine wo con Stat XR pelvis 1-2V Stat Discontinued Medications Acetaminophen (Acetaminophen 325 Mg Tablet) 975 mg PO NOW ONE Stop: 10/05/24 11:57 Last Admin: 10/05/24 12:09 Dose: 975 mg Documented By: LINDA Lidocaine (Lidocaine 5% Patch) 1 each TOP NOW ONE Stop: 10/05/24 11:57 Last Admin: 10/05/24 12:09 Dose: 1 each Documented By: LINDA Vital Signs Vital signs: Vital Signs - 8 hr 10/05/24 11:35 10/05/24 13:49 10/05/24 13:51 Temperature 97.7 F Pulse Rate 70 66 68 Respiratory Rate 17 Blood Pressure 150/76 H Pulse Oximetry 96 97 96 Oxygen Delivery Method Room Air 10/05/24 13:52 Temperature Pulse Rate Respiratory Rate Blood Pressure 164/73 H Pulse Oximetry Oxygen Delivery Method MDM - Back Pain/Injury <Lydia Pulido PA-C - Last Filed: 10/05/24 14:00> Medical Records Attestation: I reviewed the patient's medical records. Imaging Data XR Pelvis: Radiologist's Impression: PROCEDURE: XR PELVIS 1-2V INDICATIONS: fall yesterday, low back and BL hip pain R>L TECHNIQUE: 1 view(s) of the pelvis acquired. COMPARISON: [facility], CT, CT LUMBAR SPINE WO CON, 03/22/2024, 11:52. FINDINGS: Bones: No fractures or dislocations. No suspicious bony lesions. Lower lumbar spine postoperative and degenerative changes are seen. There is moderate superior joint space narrowing seen of both hips, with associated remodeling changes with subchondral sclerosis and osteophyte formation. Soft tissues: Visualized bowel gas pattern is normal. No suspicious soft tissue calcifications. Atherosclerotic calcification is noted. IMPRESSION: No displaced fractures are seen on these plain films. If there is focal tenderness, or other clinical concern for a fracture not seen on these images in this patient with a given history of trauma, please consider a dedicated CT or a short-term followup plain film series (in 1-2 weeks) for further evaluation. Postoperative and degenerative changes are seen. Dictated by: Vahe Santana M.D. on 10/05/2024 at 11:28 Approved by: Vahe Santana M.D. on 10/05/2024 at 11:29 CT Lumbar: Radiologist's Impression: PROCEDURE: CT LUMBAR SPINE WO CON INDICATIONS: low back pain; fall yesterday TECHNIQUE: Noncontrast 3 mm thick sections acquired from the T12 level to the sacrum. Sagittal and coronal reformats were constructed. For radiation dose reduction, the following was used: automated exposure control. COMPARISON: [facility], CT, CT LUMBAR SPINE WO CON, 05/01/2023, 15:21. [facility], CT, CT LUMBAR SPINE WO CON, 03/22/2024, 11:52. [facility], CR, XR PELVIS 1-2V, 10/05/2024, 12:10. FINDINGS: Image quality: Excellent. Bones: There is an L1 compression deformity seen, which is slightly worse on the current study than on the 05/01/2023 examination. The fracture margins appear rounded and well corticated. Mild retrolisthesis can be seen at L1-L2, which is slightly worse on the current study than on the prior. Along the right inferior aspect of the L3 vertebral body, there are acute fracture lines seen, with 10-20% loss of height. The fracture lines do not involve the posterior elements. No suspicious lytic or blastic bony lesions. No pars defects. L4 through S1 postoperative hardware can be seen, without findings of failure or loosening. Multiple levels of significant degenerative change can be seen, which are similar to the prior CT. Soft tissues: No retroperitoneal masses or hematomas. Visualized aorta is normal in caliber. Atherosclerotic calcification is noted. IMPRESSION: There is an acute fracture seen involving the L3 fracture inferiorly and on the right, with 10-20% loss of vertebral body height. There is an L1 compression deformity, which appears slightly worse on the current study than on the prior. However, no jocelyn acute features are seen. Intact appearing L4 through S1 postoperative hardware. Dictated by: Vahe Santana M.D. on 10/05/2024 at 12:06 Approved by: Vahe Santana M.D. on 10/05/2024 at 12:10 [facility] Narrative Medical decision making narrative: 78-year-old male with a past medical history of CAD w/ stents, T2DM, HTN, HLD, chronic low back pain and bilateral neuropathy, chronic left ankle wound following with Wound Care who presents to the emergency department via EMS from home for a fall yesterday now with worsening low back pain and right leg pain. Differential diagnosis includes but is not limited to lumbar fracture, hip fracture, lumbar strain, sprain, radiculopathy, etc. On exam patient is in no acute distress, nontoxic appearing, vital signs appropriate, he has tenderness to palpation of mid lumbar spine. Difficulty with ambulation. He declines any pain medication stronger than Tylenol at this time. Will obtain a pelvis x-ray, CT lumbar spine, treat with Tylenol and Lidoderm. Patient feeling better after ED treatment. He ambulates independently with walker. CT lumbar reveals acute fracture seen involving L3 vertebral body inferiorly and on the right with a 10-20% loss of vertebral body height. There is L1 compression deformity which appears slightly worse than priors. Pelvis x- ray reveals no displaced fracture. Patient declines the need for opiate pain medication. He ambulates with walker. Recommended Tylenol, Lidoderm, prompt follow up with PCP or his spine surgeon for further management. We discussed strict ED return precautions. Patient and verbalized understanding of all information agree with the plan. He is stable for discharge home. Discharge Plan Departure Patient Disposition: Home Clinical Impression: Ground-level fall Compression fracture of lumbar vertebra Qualifiers: Encounter type: initial encounter Lumbar vertebra fracture level: L3 Qualified Code(s): S32.030A - Wedge compression fracture of third lumbar vertebra, initial encounter for closed fracture Instructions: DI for Vertebral Fracture Activity Restrictions/Additional Instructions: Dear Mr. Gaona, Thank you for coming to the emergency department. Today you were evaluated for right-sided low back pain. The CT scan of your lumbar spine revealed compression fractures of L1 and also L3 on the right side. Please continue using your walker to ambulate, use Tylenol for pain, and also use the prescribed numbing patches. Follow up with your primary care doctor or your orthopedic doctor as soon as possible for further management. Avoid bending over, heavy lifting, twisting or any movements that exacerbate the pain. Return to the emergency department immediately if you develop any new or worsening symptoms, bowel or bladder changes, inability to walk or stand or other concerns. Please follow up with your primary care doctor within the next 2-3 days for ER follow-up. (If you do not have a PCP you can call [phone]. ?to schedule an appointment with an [facility] Primary Care Provider) IF YOU DEVELOP ANY NEW OR WORSENING SYMPTOMS, RETURN TO THE ER! Please read the attached instructions, they highlight more specific treatments and interventions for you at home. Thank you for letting me participate in your care, Lydia Pulido PA-C Prescriptions: New lidocaine [Lidoderm] 5 % adhesive patch,medicated 1 patch topical DAILY Qty: 30 0RF Rx Instructions: leave on most painful area for up to 12 hrs No Action (DME) Disabled Parking Permit Qty: 1 0RF Dose Instruction: As directed Rx Instructions: I find this patient to be medically disabled and qualified for disabled parking as indicated, and signed, on the accompanying disabled parking application. cyanocobalamin (vitamin B-12) 1,000 mcg tablet 1,000 mcg PO DAILY Qty: 90 3RF pyridoxine (vitamin B6) 50 mg tablet 50 mg PO DAILY Qty: 90 3RF furosemide 40 mg tablet 40 mg PO DAILY PRN (Reason: Edema) Qty: 30 0RF atorvastatin 40 mg tablet 40 mg PO HS Qty: 90 3RF omeprazole 20 mg capsule,delayed release(DR/EC) 20 mg PO DAILY Qty: 90 1RF metformin 500 mg tablet 250 mg PO BIDCC Qty: 90 3RF (DME) Disabled Parking Permit See Rx Instructions .ROUTE .MEDSUPPLY Qty: 1 0RF Rx Instructions: I find this patient to be medically disabled and qualified for Disabled Parking as indicated and signed on the accompanying Disabled Parking Application for Individuals. calcitonin (salmon) 200 unit/actuation spray,non-aerosol 1 spray intranasal (ALT) DAILY 90 Days Qty: 3.7 2RF Rx Instructions: sacral fx carvedilol 25 mg tablet 25 mg PO BID Qty: 180 1RF Rx Instructions: must administer with a meal/food. Jardiance 10 mg tablet 10 mg PO DAILY Qty: 90 1RF lisinopril 10 mg tablet 10 mg PO BID Qty: 180 1RF aspirin 325 mg tablet,delayed release (DR/EC) 325 mg PO DAILY gabapentin 600 mg tablet 600 mg PO TID Qty: 270 3RF tamsulosin [Flomax] 0.4 mg capsule 0.8 mg PO BEDTIME Qty: 180 3RF clobetasol 0.05 % solution 1 applic topical BID 14 Days Qty: 25 1RF Rx Instructions: apply to affected area on scalp naproxen 500 mg tablet 500 mg PO BID PRN (Reason: pain) Qty: 40 0RF Referrals: Wilver Kerr MD [Primary Care Provider, Family Practice] Stand Alone Forms: Patient Portal/API ED Sign-out <Jennifer Sanabria, - Last Filed: 10/05/24 18:23> Cosign ED Attending Cosignature Attestation: I was immediately available in the department for consultation.
[2024-10-05] MEDS: ACETAMINOPHEN 325 MG TABLET 975 MG PO (12:09)
[2024-10-05] MEDS: LIDOCAINE 5% PATCH 1 EACH TOP (12:09)
[2024-10-05 13:49] VITALS: PULSE 66; O2SAT 97
[2024-10-05 13:51] VITALS: PULSE 68; O2SAT 96
[2024-10-05 13:52] VITALS: BP 164/73
--- NOTE | 2024-10-05 13:57 | PC.NURSE ---
Patient abulates with a walker at baseline, and felt his normal when walking around
== END 2024-10-05 14:11 | disposition home or self-care (01) ==
PROVIDERS: Emergency Provider Physician Assistant; PCP Family Medicine
DX: S32.030A Wedge compression fracture of third lumbar vertebra, initial encounter for closed fracture (principal); M79.604 Pain in right leg; M25.552 Pain in left hip; M25.551 Pain in right hip; W18.30XA Fall on same level, unspecified, initial encounter
CPT/HCPCS: 72131; 72170; 99283; 99284

== ENCOUNTER → 2024-10-07 16:05 | Outpatient (CLI) | payer MEDICARE, OTHER, SELFPAY ==
[2024-09-30 09:02] VITALS: BMI 29.9
== END ==
LOC: WC 16:06
PROVIDERS: PCP Family Medicine; Referring Provider Family Medicine; Visit Provider Physician Assistant
DX: I87.2 Venous insufficiency (chronic) (peripheral) (principal); L97.325 Non-pressure chronic ulcer of left ankle with muscle involvement without evidence of necrosis; L53.9 Erythematous condition, unspecified; R60.0 Localized edema
CPT/HCPCS: 99213

== ENCOUNTER → 2024-10-10 10:02 | Outpatient (CLI) | payer MEDICARE, OTHER, SELFPAY ==
[2024-09-30 09:02] VITALS: BMI 29.9
== END ==
LOC: WC 10:04
PROVIDERS: PCP Family Medicine; Referring Provider Family Medicine; Visit Provider Surgery
DX: E11.622 Type 2 diabetes mellitus with other skin ulcer (principal); E11.40 Type 2 diabetes mellitus with diabetic neuropathy, unspecified; L97.325 Non-pressure chronic ulcer of left ankle with muscle involvement without evidence of necrosis; M86.172 Other acute osteomyelitis, left ankle and foot
CPT/HCPCS: 11042; 87070; 87077; 87147; 87186; 87205; 99213

== ENCOUNTER → 2024-10-14 14:35 | Outpatient (CLI) | payer MEDICARE, OTHER, SELFPAY ==
[2024-09-30 09:02] VITALS: BMI 29.9
== END ==
PROVIDERS: PCP Family Medicine; Referring Provider Family Medicine; Visit Provider Physician Assistant
DX: E11.621 Type 2 diabetes mellitus with foot ulcer (principal); L97.325 Non-pressure chronic ulcer of left ankle with muscle involvement without evidence of necrosis; L53.9 Erythematous condition, unspecified; R60.0 Localized edema; R20.8 Other disturbances of skin sensation; Z88.6 Allergy status to analgesic agent
CPT/HCPCS: 99212

== ENCOUNTER 2024-10-14 20:19 | Emergency (ER) | payer MEDICARE, OTHER, SELFPAY ==
[2024-09-30 09:02] VITALS: BMI 29.9
[2024-10-14] VITALS (7 sets, daily range): BP systolic 141–162; BP diastolic 52–70; PULSE 72–80; RESP 14–17; TEMP 36.9–37.3; O2SAT 93–96; BMI 30.4
--- NOTE | 2024-10-14 20:44 | ED_ITS ---
HPI - Fall General Chief Complaint: Fall Stated Complaint: GLF Time Seen by Provider: 10/14/24 20:44 Source: patient and EMS Mode of arrival: EMS History of Present Illness HPI Narrative: Patient is a 78-year-old male with a past medical history of diabetes, hyperlipidemia, normal pressure hydrocephalus, CAD, comes into the ED from home via EMS for evaluation of fall. Patient had 2 falls today 1st at around 3:00 p.m. and the 2nd at 8:00 p.m., states that it was due to his ?right leg giving out he denies any presyncopal or syncopal symptoms secondary to this. States he does have a history of compression fracture in his L1 and L3. This is what normally cause his ?legs to always give out. Patient states that he has a walker at baseline, states that he is still having some mild low back pain, states he had a another fall last week and was diagnosed with the L3 fracture, he states he is also having some pain to his right hip otherwise not complaining of any new symptoms, to note he did have a small laceration to the webbing of his right hand between the 1st and 2nd finger no foreign body not actively bleeding no other complaints at this time Related Data Home Medications ?Medication ?Instructions ?Recorded ?Confirmed aspirin 325 mg tablet,delayed 325 mg PO DAILY 09/09/17 09/30/24 release Previous Rx's ?Medication ?Instructions ?Recorded Disabled Parking Permit #1 ea 09/06/18 cyanocobalamin (vitamin B-12) 1,000 mcg PO DAILY #90 t abs 09/03/20 1,000 mcg tablet pyridoxine (vitamin B6) 50 mg 50 mg PO DAILY #90 tabs 09/03/20 tablet furosemide 40 mg tablet 40 mg PO DAILY PRN Edema #30 tabs 09/12/20 atorvastatin 40 mg tablet 40 mg PO HS #90 tabs 07/12/ 4 tamsulosin 0.4 mg capsule (Flomax) 0.8 mg (2 x 0.4 mg) PO BEDTIME 12/07/23 #180 caps metformin 500 mg tablet 250 mg (1/2 x 500 mg) PO BID CC #90 02/15/24 tabs omeprazole 20 mg capsule,delayed 20 mg PO DAILY #90 ca ps 02/15/24 release clobetasol 0.05 % scalp solution 1 applic topical BID 2 weeks #25 mL 03/15/24 Disabled Parking Permit #1 ea 07/18/24 calcitonin (salmon) 200 1 spray intranasal (ALT) KYLER LY 07/20/24 unit/actuation nasal spray sacral fx 3 months #3.7 mL carvedilol 25 mg tablet 25 mg PO BID #180 tabs 08/16 empagliflozin 10 mg tablet 10 mg PO DAILY #90 tabs (Jardiance) lisinopril 10 mg tablet 10 mg PO BID #180 tabs 08/16 naproxen 500 mg tablet 500 mg PO BID PRN pain #40 t abs 09/06/24 gabapentin 600 mg tablet 600 mg PO TID #270 tabs 10/19 lidocaine 5 % topical patch 1 patch topical DAILY #30 ea 10/05/24 (Lidoderm) tizanidine 4 mg capsule 4 mg PO Q8H PRN muscle spast icity 10/07/24 #60 caps oxycodone-acetaminophen 5 mg-325 1 tab PO Q8H PRN pain #30 tabs 10/11/24 mg tablet (Percocet) Allergies Allergy/AdvReac Type Severity Reaction Status Date / Time clopidogrel (From Plavix) Allergy Rash Verified 10/14/24 20:23 Review of Systems Review of Systems Narrative: General: Denies fever, chills, weight loss HEENT: Denies headache, eye drainage, eye irritation, head trauma, sore throat, voice change Cardiovascular: Denies any chest pain, palpitations, tachycardia Respiratory: Denies any shortness of breath, cough, wheeze, stridor GI/: Denies any abdominal pain, nausea, vomiting, diarrhea, bright red blood per rectum, melanotic stools, urinary frequency, urinary retention, dysuria, hematuria MSK: Positive right hip pain and low back pain Skin: Cut to the right hand Neuro: Denies any headache, lightheadedness, dizziness, fainting, weakness Psych: Denies SI/HI Patient History Medical History Acne (~1958) Ankle effusion CAD (coronary artery disease) (~2012) Chickenpox (~1950) Chronic back pain Class 1 obesity (08/28/16) Closed right fibular fracture Collar bone fracture (~1950) Community acquired pneumonia Compression fracture of L1 lumbar vertebra History of ankle fracture (~2015) History of fracture of ankle (08/28/16) History of rib fracture (~1984) 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 Father No problems noted. Sister No problems noted. Social History household members: spouse Smoking Status: Never smoker alcohol intake: current Smoking Status: Never smoker alcohol intake frequency: 0-2 drinks per day Alcohol type: wine Exam Narrative Exam Narrative: General: Cooperative, well-developed, not in acute distress HEENT: Normocephalic, atraumatic, PERRLA, normal sclera, eyelids normal Neck: Active full range of motion, atraumatic Chest: Normal to inspection, negative crepitus, no overlying erythema ecchymosis Respiratory: Normal respiratory effort, not in acute respiratory distress, clear to auscultation bilaterally negative cough, wheeze, tachypnea, rhonchi, rales Cardiology: Regular rate rhythm negative gallop, murmur, rubs GI/: No tenderness to palpation, soft, non rigid, normal to inspection, exam deferred MSK: Full active range of motion in all 4 extremities, atraumatic, there is some minor tenderness to palpation of the lumbar spine secondary to known compression fractures otherwise lower extremities neurovascularly intact and at baseline, patient does have his left leg wrapped due to history of chronic wound/infection no new complaints about this Skin: There is a 1 cm elliptical laceration between the webbing between the 1st and 2nd finger of the right hand otherwise neurovascular intact no foreign body Neuro: Alert awake oriented x3, moves all 4 extremities spontaneously, cranial nerves intact, able to answer all questions appropriately follows commands appropriately Psych: Cooperative, negative suicidal or homicidal ideations Initial Vital Signs Initial Vital Signs: Vital Signs Pulse Rate 78 10/14/24 20:22 Respiratory Rate 16 10/14/24 20:22 Pulse Oximetry 94 10/14/24 20:22 Procedures Laceration Repair Laceration 1: Time of procedure: 22:10 Site: hand Side (If applicable): right Size (cm): 1 Description: linear Depth: simple, single layer Local Anesthetic: lidocaine 1% Amount of anesthesia used (mL): 2 Pre-repair: wound explored, irrigated extensively and deep structures intact Skin layer closed with: other (ethilon) Skin layer suture size: 4-0 Number of sutures: 3 Technique: simple, interrupted Course Orders Ordered: ED Orders 10/14/24 20:52 CT lumbar spine wo con Stat XR hip w pel RT 2V Stat Vital Signs Vital signs: Vital Signs - 8 hr 10/14/24 20:22 10/14/24 20:23 10/14/24 20:29 Temperature 99.1 F Pulse Rate 78 80 79 Respiratory Rate 16 15 16 Blood Pressure 162/70 H Pulse Oximetry 94 96 93 Oxygen Delivery Method Room Air 10/14/24 20:29 10/14/24 20:30 Temperature Pulse Rate 78 Respiratory Rate 14 Blood Pressure 143/52 H Pulse Oximetry 93 Oxygen Delivery Method MDM - Fall Differential Diagnosis Differential diagnosis: Likely other (Contusion, fracture, laceration, abrasion) Imaging Data Extremity x-ray #1: Radiologist's Impression: [address] [address] XRay Report Signed Patient: Sanya Gaona MR#: [id number] : 1945 Acct:[id number] Age/Sex: 78 / M Date of Service: 10/14/24 Loc: ED Accession Number: [id number] Procedure: XR hip w pel RT 2V Ordering Provider: Earnest Olson D.O. PROCEDURE: XR HIP W PEL IF DONE RT 2V INDICATIONS: pain s/p fall TECHNIQUE: AP pelvis with lateral view(s) of the right hip(s). COMPARISON: None. FINDINGS: Bones: No acute fractures or dislocations. Degenerative changes of the right hip. Pelvic ring appears intact. No suspicious bony lesions. Partially imaged lumbar spinal fusion of the lumbosacral junction. Soft tissues: The visualized bowel gas pattern is normal. No suspicious soft tissue calcifications. IMPRESSION: Bony pelvis and right hip without acute fracture or dislocation. Degenerative changes of the lower lumbar spine and right hip. If there is high clinical suspicion for occult fracture, further evaluation with CT or MRI can be considered. CT lumbar: Radiologist's Impression: [address] [address] [address] Scan Report Signed Patient: Sanya Gaona MR#: [id number] : 1945 Acct:[id number] Age/Sex: 78 / M Date of Service: 10/14/24 Loc: ED Accession Number: [id number] Procedure: CT lumbar spine wo con Ordering Provider: Earnest Oslon D.O. PROCEDURE: CT LUMBAR SPINE WO CON INDICATIONS: Fall, known L1 and L3 compression fracture TECHNIQUE: Noncontrast 3 mm thick sections acquired from the T12 level to the sacrum. Sagittal and coronal reformats were constructed. For radiation dose reduction, the following was used: automated exposure control. COMPARISON: [facility], CT, CT LUMBAR SPINE WO CON, 10/05/2024, 12:05. [facility], CT, CT LUMBAR SPINE WO CON, 03/22/2024, 11:52. FINDINGS: Image quality: Diagnostic Bones: There is stable bony alignment. No new acute vertebral body compression fractures. No suspicious lytic or blastic bony lesions. Stable appearance of L1 compression fracture. Stable minimal retrolisthesis of L1 on L2. Redemonstration of approximately 10-20% loss of the anterior vertebral height of known L3 vertebral body compression fracture. Fracture lines remain visible and not significantly changed. Stable postoperative changes of L4 through S1. No acute hardware complication seen. Multilevel spondylitic changes are otherwise not significantly changed throughout the imaged spine. No suspicious intra osseous lesion. Redemonstration of moderate-severe spinal canal stenosis at L2-3. This is not significantly changed. Similarly, stable appearance of moderate-severe spinal canal stenosis at L3-4. Moderate spinal canal stenosis noted at L4-5. Soft tissues: No retroperitoneal masses or hematomas. Visualized aorta is normal in caliber. IMPRESSION: Stable CT evaluation of the lumbar spine with redemonstration of acute L3 compression fracture. No significant interval loss of vertebral body height. No new, acute compression fractures. Stable appearance of L1 compression fracture deformity. Stable appearance of moderate-severe spinal canal stenosis at L2-3 and L3-4 as well as moderate spinal canal stenosis at L4-5. MDM Narrative Medical decision making narrative: Patient is a 78-year-old male with a past medical history of L1-L3 compression fractures after fall proximally 1 week ago, presenting from home via EMS for evaluation of fall, he states that since he has a chronic skin infection to his left leg he always has to ?compensate to his right and has cause his leg to feel weak/give out states this has been happening after he had fracture of his lumbar spine. He denies any numbness weakness tingling to the lower extremities but does complain of some right hip pain, in addition he states that during his fall today did have a cut to his right hand, 1 cm elliptical laceration noted to the webbing between the 1st and 2nd digit of the right hand, this was repaired with sutures. Patient is not complaining of any new/worsening pain to his lumbar region but due to the fact that he fell again wanted to be evaluated. He is normally using a walker at baseline. Patient's imaging without any new fractures, patient was instructed to follow up with the primary care in outpatient setting verbalized understanding of this and agrees to being discharged home with outpatient follow up Discharge Plan Departure Patient Disposition: Home Clinical Impression: Ground-level fall, Hand laceration Activity Restrictions/Additional Instructions: Please follow up with your primary care doctor Please read the discharge instructions sheet carefully and bring all papers to all doctor follow-up visits, as it may contain information that your doctor may want to see. Disease processes change and evolve, if your symptoms worsen or if you develop any new symptoms that are concerning to you please return for evaluation. Your evaluation today does not show any evidence of any life- threatening/serious illnesses requiring admission to the hospital or surgery. Sergo nelson follow-up with your doctor for re-evaluation in approximately 1 day. Seek immediate medical attention for any worrisome symptoms. *If you do not have a primary care provider please contact the [facility] Resource line at [phone]. They will ask some questions about your medical history and help get you set up with a doctor in the community. Prescriptions: No Action (DME) Disabled Parking Permit Qty: 1 0RF Dose Instruction: As directed Rx Instructions: I find this patient to be medically disabled and qualified for disabled parking as indicated, and signed, on the accompanying disabled parking application. cyanocobalamin (vitamin B-12) 1,000 mcg tablet 1,000 mcg PO DAILY Qty: 90 3RF pyridoxine (vitamin B6) 50 mg tablet 50 mg PO DAILY Qty: 90 3RF furosemide 40 mg tablet 40 mg PO DAILY PRN (Reason: Edema) Qty: 30 0RF atorvastatin 40 mg tablet 40 mg PO HS Qty: 90 3RF omeprazole 20 mg capsule,delayed release(DR/EC) 20 mg PO DAILY Qty: 90 1RF metformin 500 mg tablet 250 mg PO BIDCC Qty: 90 3RF (DME) Disabled Parking Permit See Rx Instructions .ROUTE .MEDSUPPLY Qty: 1 0RF Rx Instructions: I find this patient to be medically disabled and qualified for Disabled Parking as indicated and signed on the accompanying Disabled Parking Application for Individuals. calcitonin (salmon) 200 unit/actuation spray,non-aerosol 1 spray intranasal (ALT) DAILY 90 Days Qty: 3.7 2RF Rx Instructions: sacral fx carvedilol 25 mg tablet 25 mg PO BID Qty: 180 1RF Rx Instructions: must administer with a meal/food. Jardiance 10 mg tablet 10 mg PO DAILY Qty: 90 1RF lisinopril 10 mg tablet 10 mg PO BID Qty: 180 1RF oxycodone-acetaminophen [Percocet] 5-325 mg tablet 1 tab PO Q8H PRN (Reason: pain) Qty: 30 0RF aspirin 325 mg tablet,delayed release (DR/EC) 325 mg PO DAILY gabapentin 600 mg tablet 600 mg PO TID Qty: 270 3RF tizanidine 4 mg capsule 4 mg PO Q8H PRN (Reason: muscle spasticity) Qty: 60 0RF tamsulosin [Flomax] 0.4 mg capsule 0.8 mg PO BEDTIME Qty: 180 3RF clobetasol 0.05 % solution 1 applic topical BID 14 Days Qty: 25 1RF Rx Instructions: apply to affected area on scalp naproxen 500 mg tablet 500 mg PO BID PRN (Reason: pain) Qty: 40 0RF lidocaine [Lidoderm] 5 % adhesive patch,medicated 1 patch topical DAILY Qty: 30 0RF Rx Instructions: leave on most painful area for up to 12 hrs Referrals: Wilver Kerr MD [Primary Care Provider, Family Practice] Stand Alone Forms: Patient Portal/API
--- NOTE | 2024-10-14 20:52 | DI.CT.S_ITS ---
PROCEDURE: CT LUMBAR SPINE WO CON INDICATIONS: Fall, known L1 and L3 compression fracture TECHNIQUE: Noncontrast 3 mm thick sections acquired from the T12 level to the sacrum. Sagittal and coronal reformats were constructed. For radiation dose reduction, the following was used: automated exposure control. COMPARISON: [facility], CT, CT LUMBAR SPINE WO CON, 10/05/2024, 12:05. [facility], CT, CT LUMBAR SPINE WO CON, 03/22/2024, 11:52. FINDINGS: Image quality: Diagnostic Bones: There is stable bony alignment. No new acute vertebral body compression fractures. No suspicious lytic or blastic bony lesions. Stable appearance of L1 compression fracture. Stable minimal retrolisthesis of L1 on L2. Redemonstration of approximately 10-20% loss of the anterior vertebral height of known L3 vertebral body compression fracture. Fracture lines remain visible and not significantly changed. Stable postoperative changes of L4 through S1. No acute hardware complication seen. Multilevel spondylitic changes are otherwise not significantly changed throughout the imaged spine. No suspicious intra osseous lesion. Redemonstration of moderate-severe spinal canal stenosis at L2-3. This is not significantly changed. Similarly, stable appearance of moderate-severe spinal canal stenosis at L3-4. Moderate spinal canal stenosis noted at L4-5. Soft tissues: No retroperitoneal masses or hematomas. Visualized aorta is normal in caliber. IMPRESSION: Stable CT evaluation of the lumbar spine with redemonstration of acute L3 compression fracture. No significant interval loss of vertebral body height. No new, acute compression fractures. Stable appearance of L1 compression fracture deformity. Stable appearance of moderate-severe spinal canal stenosis at L2-3 and L3-4 as well as moderate spinal canal stenosis at L4-5. Dictated by: Shadi Pruitt M.D. on 10/14/2024 at 21:43 Approved by: Shadi Pruitt M.D. on 10/14/2024 at 21:51
--- NOTE | 2024-10-14 20:52 | DI.RAD.S_ITS ---
PROCEDURE: XR HIP W PEL IF DONE RT 2V INDICATIONS: pain s/p fall TECHNIQUE: AP pelvis with lateral view(s) of the right hip(s). COMPARISON: None. FINDINGS: Bones: No acute fractures or dislocations. Degenerative changes of the right hip. Pelvic ring appears intact. No suspicious bony lesions. Partially imaged lumbar spinal fusion of the lumbosacral junction. Soft tissues: The visualized bowel gas pattern is normal. No suspicious soft tissue calcifications. IMPRESSION: Bony pelvis and right hip without acute fracture or dislocation. Degenerative changes of the lower lumbar spine and right hip. If there is high clinical suspicion for occult fracture, further evaluation with CT or MRI can be considered. Dictated by: Shadi Pruitt M.D. on 10/14/2024 at 21:52 Approved by: Shadi Pruitt M.D. on 10/14/2024 at 21:53
[2024-10-14] MEDS: TET,DIPH,PERTUSS(ACELL),VAC/PF 0.5 ML SYRINGE IM (22:28)
== END 2024-10-14 22:49 | disposition home or self-care (01) ==
PROVIDERS: Emergency Provider Student in an Organized Health Care Education/Training Program; PCP Family Medicine
DX: S61.411A Laceration without foreign body of right hand, initial encounter (principal); S32.019D Unspecified fracture of first lumbar vertebra, subsequent encounter for fracture with routine healing; S32.029D Unspecified fracture of second lumbar vertebra, subsequent encounter for fracture with routine healing; S32.039D Unspecified fracture of third lumbar vertebra, subsequent encounter for fracture with routine healing; W18.30XA Fall on same level, unspecified, initial encounter; Z23 Encounter for immunization; E11.621 Type 2 diabetes mellitus with foot ulcer; L97.325 Non-pressure chronic ulcer of left ankle with muscle involvement without evidence of necrosis; L53.9 Erythematous condition, unspecified; R60.0 Localized edema; R20.8 Other disturbances of skin sensation; Z88.6 Allergy status to analgesic agent
CPT/HCPCS: 12001; 72131; 73502; 90471; 99212; 99283; 99284; 90715

== ENCOUNTER 2024-10-14 23:16 | Observation (INO) | payer MEDICARE, OTHER, SELFPAY ==
[2024-09-30 09:02] VITALS: BMI 29.9
--- NOTE | 2024-10-14 23:18 | DI.RAD.S_ITS ---
PROCEDURE: XR CHEST 1V INDICATIONS: weakness, collapsed just after discharge today TECHNIQUE: One view of the chest was acquired. COMPARISON: [facility], CR, XR CHEST FOR PICC 1V, 07/28/2024, 0:54. FINDINGS: Surgical changes and devices: Left-sided cardiac pacer device is in place. Previously seen right upper extremity PICC has been removed. Lungs and pleura: Lungs are clear. No pleural effusions or pneumothorax. Mediastinum: Mediastinal contours appear normal. Heart size is normal. Bones and chest wall: No suspicious bony lesions. Overlying soft tissues appear unremarkable. IMPRESSION: No acute cardiopulmonary abnormalities or focal consolidation. Dictated by: Shadi Pruitt M.D. on 10/14/2024 at 23:51 Approved by: Shadi Pruitt M.D. on 10/14/2024 at 23:52
--- NOTE | 2024-10-14 23:18 | EKG_ITS ---
[address] [address] [address] [address] Test Date: 2024-10-15 Pat Name: Sanya Gaona Department: [facility] Room: Gender: Male Pick Up Operator: KADEN ALBERTO : 1945 Requested By: Order Number: [id number] Reading MD: Vito Paniagua MD Measurements Intervals [place] Rate: 74 P: [place]: QRS: -32 QRSD: 178 T: 112 QT: 496 QTc: 550 Interpretive Statements Ventricular-paced rhythm Electronically Signed On 10-16-2024 6:40:53 PDT by Vito Paniagua MD
--- NOTE | 2024-10-14 23:18 | ED.WEAKNESS ---
HPI - Weakness <Earnest Castellanosdemetrice, DO - Last Filed: 10/16/24 06:29> General Chief complaint: Back Pain/Injury Stated complaint: Weakness Time Seen by Provider: 10/14/24 23:18 History of Present Illness HPI Narrative: Patient is a 78-year-old male with a past medical history of diabetes, hyperlipidemia, normal pressure hydrocephalus, CAD back to the ED for ambulatory issues/weakness. Patient was seen here by me several hours ago had a fall due to the fact that he states that his right leg ?gave out. At that time he denied any new weakness to his right leg, however states that when he tried to go home he was unable to get up the stairs therefore came back to the emergency department. Denies any new symptoms at this time such as headache visual disturbances chest pain shortness breath fever chills nausea vomiting abdominal pain or any other GI/ symptoms time. Patient states he does normally use a walker at baseline no new falls since previously here Related Data Home Medications ?Medication ?Instructions ?Recorded ?Confirmed aspirin 325 mg tablet,delayed 325 mg PO DAILY 09/09/17 10/15/24 release Previous Rx's ?Medication ?Instructions ?Recorded Disabled Parking Permit #1 ea 09/06/18 cyanocobalamin (vitamin B-12) 1,000 mcg PO DAILY #90 tabs 09/03/20 1,000 mcg tablet pyridoxine (vitamin B6) 50 mg 50 mg PO DAILY #90 tabs 09/03/20 tablet furosemide 40 mg tablet 40 mg PO DAILY PRN Edema #30 tabs 09/12/20 atorvastatin 40 mg tablet 40 mg PO HS #90 tabs 07/13/23 tamsulosin 0.4 mg capsule (Flomax) 0.8 mg (2 x 0.4 mg) PO BEDTIME 12/07/23 #180 caps metformin 500 mg tablet 250 mg (1/2 x 500 mg) PO BIDCC #90 02/15/24 tabs omeprazole 20 mg capsule,delayed 20 mg PO DAILY #90 caps 02/15/24 release clobetasol 0.05 % scalp solution 1 applic topical BID 2 weeks #25 mL 03/15/24 Disabled Parking Permit #1 ea 07/18/24 calcitonin (salmon) 200 1 spray intranasal (ALT) DAILY 07/20/24 unit/actuation nasal spray sacral fx 3 months #3.7 mL carvedilol 25 mg tablet 25 mg PO BID #180 tabs 08/16/24 empagliflozin 10 mg tablet 10 mg PO DAILY #90 tabs 08/16/24 (Jardiance) lisinopril 10 mg tablet 10 mg PO BID #180 tabs 08/16/24 naproxen 500 mg tablet 500 mg PO BID PRN pain #40 tabs 09/06/24 gabapentin 600 mg tablet 600 mg PO TID #270 tabs 09/30/24 lidocaine 5 % topical patch 1 patch topical DAILY #30 ea 10/05/24 (Lidoderm) tizanidine 4 mg capsule 4 mg PO Q8H PRN muscle spasticity 10/07/24 #60 caps oxycodone-acetaminophen 5 mg-325 1 tab PO Q8H PRN pain #30 tabs 10/11/24 mg tablet (Percocet) Allergies Allergy/AdvReac Type Severity Reaction Status Date / Time clopidogrel (From Plavix) Allergy Rash Verified 10/14/24 20:23 Review of Systems <Earnest Olson DO - Last Filed: 10/16/24 06:29> Review of Systems Narrative: General: Positive generalized weakness Denies fever, chills, weight loss HEENT: Denies headache, eye drainage, eye irritation, head trauma, sore throat, voice change Cardiovascular: Denies any chest pain, palpitations, tachycardia Respiratory: Denies any shortness of breath, cough, wheeze, stridor GI/: Denies any abdominal pain, nausea, vomiting, diarrhea, bright red blood per rectum, melanotic stools, urinary frequency, urinary retention, dysuria, hematuria MSK: Denies any joint pain, muscle pains, swelling Skin: Denies any rashes, lesions, discoloration Neuro: Denies any headache, lightheadedness, dizziness, fainting, weakness Psych: Denies SI/HI Patient History <Earnest Olson DO - Last Filed: 10/16/24 06:29> Medical History Acne (~1958) Ankle effusion CAD (coronary artery disease) (~2012) Chickenpox (~1949) Chronic back pain Class 1 obesity (08/28/16) Closed right fibular fracture Collar bone fracture (~1950) Community acquired pneumonia Compression fracture of L1 lumbar vertebra History of ankle fracture (~2015) History of fracture of ankle (08/28/16) History of rib fracture (~1984) 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 Father No problems noted. Sister No problems noted. Social History household members: spouse alcohol intake: current alcohol intake frequency: 0-2 drinks per day Alcohol type: wine Exam <Earnest Olson DO - Last Filed: 10/16/24 06:29> Narrative Exam Narrative: General: Cooperative, well-developed, not in acute distress HEENT: Normocephalic, atraumatic, PERRLA, normal sclera, eyelids normal Neck: Active full range of motion, atraumatic Chest: Normal to inspection, negative crepitus, no overlying erythema ecchymosis Respiratory: Normal respiratory effort, not in acute respiratory distress, clear to auscultation bilaterally negative cough, wheeze, tachypnea, rhonchi, rales Cardiology: Regular rate rhythm negative gallop, murmur, rubs GI/: No tenderness to palpation, soft, non rigid, normal to inspection, exam deferred MSK: Full active range of motion in all 4 extremities, atraumatic, left lower extremity is wrapped due to history of chronic leg infection, patient is neurovascularly intact bilateral upper and lower extremities Skin: No rashes or lesions noted Neuro: Alert awake oriented x3, moves all 4 extremities spontaneously, cranial nerves intact, able to answer all questions appropriately follows commands appropriately Psych: Cooperative, negative suicidal or homicidal ideations Initial Vital Signs Initial Vital Signs: Vital Signs Temperature 97.9 F 10/14/24 23:31 Pulse Rate 78 10/14/24 23:31 Respiratory Rate 16 10/14/24 23:31 Blood Pressure 175/76 H 10/14/24 23:31 Pulse Oximetry 95 10/14/24 23:31 Oxygen Delivery Method Room Air 10/14/24 23:31 <Vito Nguyen, DO - Last Filed: 10/15/24 15:28> Initial Vital Signs Initial Vital Signs: Vital Signs Temperature 97.9 F 10/14/24 23:31 Pulse Rate 78 10/14/24 23:31 Respiratory Rate 16 10/14/24 23:31 Blood Pressure 175/76 H 10/14/24 23:31 Pulse Oximetry 95 10/14/24 23:31 Oxygen Delivery Method Room Air 10/14/24 23:31 Course <Earnest Olson, DO - Last Filed: 10/16/24 06:29> Orders Ordered: Hydrocodone Bitart/Acetaminophen (Hydrocodone/Acet 5/325 Tablet) 1 tab PO Q8HR PRN PRN Reason: Pain, Moderate (4-6) Last Admin: 10/16/24 05:42 Dose: 1 tab Documented By: PRASANNA Aspirin (Aspirin Ec 325 Mg Tablet) 325 mg PO DAILY [facility] Last Admin: 10/15/24 09:41 Dose: 325 mg Documented By: LEANN Atorvastatin Calcium (Atorvastatin 20 Mg Tablet) 40 mg PO DAILY [facility] Last Admin: 10/15/24 09:41 Dose: 40 mg Documented By: LEANN Carvedilol (Carvedilol 12.5 Mg Tablet) 25 mg PO BID [facility] Last Admin: 10/15/24 21:04 Dose: 25 mg Documented By: Admin: 10/15/24 09:40 Dose: 25 mg Documented By: LEANN Gabapentin (Gabapentin 600 Mg Tablet) 600 mg PO TID [facility] Last Admin: 10/15/24 21:06 Dose: 600 mg Documented By: Admin: 10/15/24 15:38 Dose: 600 mg Documented By: Admin: 10/15/24 09:41 Dose: 600 mg Documented By: LEANN Insulin Human Lispro (Insulin Lispro 100 Unit/Ml 3ml Vial) 0 unit [facility]BC[facility]; Protocol Last Admin: 10/15/24 21:06 Dose: Not Given Documented By: Admin: 10/15/24 17:04 Dose: Not Given Documented By: Admin: 10/15/24 11:56 Dose: Not Given Documented By: Admin: 10/15/24 08:28 Dose: Not Given Documented By: LEANN Lisinopril (Lisinopril 10 Mg Tablet) 10 mg PO BID [facility] Last Admin: 10/15/24 21:05 Dose: 10 mg Documented By: Admin: 10/15/24 09:40 Dose: 10 mg Documented By: LEANN Tamsulosin HCl (Tamsulosin 0.4 Mg Capsule) 0.4 mg PO DAILY [facility] Last Admin: 10/15/24 09:41 Dose: 0.4 mg Documented By: LEANN Discontinued Medications Acetaminophen (Acetaminophen 325 Mg Tablet) 650 mg PO NOW ONE Stop: 10/15/24 09:17 Last Admin: 10/15/24 09:41 Dose: 650 mg Documented By: LEANN Hydrocodone Bitart/Acetaminophen (Hydrocodone/Acet 5/325 Tablet) 1 tab PO NOW ONE Stop: 10/15/24 15:52 Last Admin: 10/15/24 16:00 Dose: 1 tab Documented By: CARA Famotidine (Famotidine 20 Mg/2 Ml Vial) 20 mg IV NOW ONE Stop: 10/15/24 18:59 Last Admin: 10/15/24 19:12 Dose: 20 mg Documented By: GABRIELA Sodium Chloride (Normal Saline 0.9%) 1,000 mls @ 1,000 mls/hr IV BOLUS ONE Stop: 10/15/24 00:56 Last Infusion: 10/15/24 01:31 Dose: Infused Documented By: Admin: 10/15/24 00:14 Dose: 1,000 mls/hr Documented By: PRASANNA Lidocaine HCl (Lidocaine 2% (Glydo) 6 Ml Gel) 6 ml TOP NOW ONE Stop: 10/15/24 03:10 Last Admin: 10/15/24 03:12 Dose: 6 ml Documented By: PRASANNA Vital Signs Vital signs: Vital Signs - 8 hr 10/16/24 02:00 10/16/24 02:00 Pulse Rate 78 Blood Pressure 128/61 Pulse Oximetry 96 Oxygen Delivery Method Nasal Cannula Oxygen Flow Rate 2 <Vito Nguyen DO - Last Filed: 10/15/24 15:28> Orders Ordered: Hydrocodone Bitart/Acetaminophen (Hydrocodone/Acet 5/325 Tablet) 1 tab PO Q8HR PRN PRN Reason: Pain, Moderate (4-6) Last Admin: 10/16/24 05:42 Dose: 1 tab Documented By: PRASANNA Aspirin (Aspirin Ec 325 Mg Tablet) 325 mg PO DAILY [facility] Last Admin: 10/15/24 09:41 Dose: 325 mg Documented By: LEANN Atorvastatin Calcium (Atorvastatin 20 Mg Tablet) 40 mg PO DAILY [facility] Last Admin: 10/15/24 09:41 Dose: 40 mg Documented By: LEANN Carvedilol (Carvedilol 12.5 Mg Tablet) 25 mg PO BID [facility] Last Admin: 10/15/24 21:04 Dose: 25 mg Documented By: Admin: 10/15/24 09:40 Dose: 25 mg Documented By: LEANN Gabapentin (Gabapentin 600 Mg Tablet) 600 mg PO TID [facility] Last Admin: 10/15/24 21:06 Dose: 600 mg Documented By: Admin: 10/15/24 15:38 Dose: 600 mg Documented By: Admin: 10/15/24 09:41 Dose: 600 mg Documented By: LEANN Insulin Human Lispro (Insulin Lispro 100 Unit/Ml 3ml Vial) 0 unit [facility]; Protocol Last Admin: 10/15/24 21:06 Dose: Not Given Documented By: Admin: 10/15/24 17:04 Dose: Not Given Documented By: Admin: 10/15/24 11:56 Dose: Not Given Documented By: Admin: 10/15/24 08:28 Dose: Not Given Documented By: LEANN Lisinopril (Lisinopril 10 Mg Tablet) 10 mg PO BID [facility] Last Admin: 10/15/24 21:05 Dose: 10 mg Documented By: Admin: 10/15/24 09:40 Dose: 10 mg Documented By: LEANN Tamsulosin HCl (Tamsulosin 0.4 Mg Capsule) 0.4 mg PO DAILY [facility] Last Admin: 10/15/24 09:41 Dose: 0.4 mg Documented By: LEANN Discontinued Medications Acetaminophen (Acetaminophen 325 Mg Tablet) 650 mg PO NOW ONE Stop: 10/15/24 09:17 Last Admin: 10/15/24 09:41 Dose: 650 mg Documented By: LEANN Hydrocodone Bitart/Acetaminophen (Hydrocodone/Acet 5/325 Tablet) 1 tab PO NOW ONE Stop: 10/15/24 15:52 Last Admin: 10/15/24 16:00 Dose: 1 tab Documented By: CARA Famotidine (Famotidine 20 Mg/2 Ml Vial) 20 mg IV NOW ONE Stop: 10/15/24 18:59 Last Admin: 10/15/24 19:12 Dose: 20 mg Documented By: GABRIELA Sodium Chloride (Normal Saline 0.9%) 1,000 mls @ 1,000 mls/hr IV BOLUS ONE Stop: 10/15/24 00:56 Last Infusion: 10/15/24 01:31 Dose: Infused Documented By: Admin: 10/15/24 00:14 Dose: 1,000 mls/hr Documented By: PRASANNA Lidocaine HCl (Lidocaine 2% (Glydo) 6 Ml Gel) 6 ml TOP NOW ONE Stop: 10/15/24 03:10 Last Admin: 10/15/24 03:12 Dose: 6 ml Documented By: PRASANNA Vital Signs Vital signs: Vital Signs - 8 hr 10/16/24 02:00 10/16/24 02:00 Pulse Rate 78 Blood Pressure 128/61 Pulse Oximetry 96 Oxygen Delivery Method Nasal Cannula Oxygen Flow Rate 2 MDM - Weakness <Earnest Olson, - Last Filed: 10/16/24 06:29> Differential Diagnosis Differential diagnosis: Likely other (ACS, pneumonia, electrolyte abnormality, CVA, urinary tract infection) Lab Data 10/14/24 20:28 10/14/24 20:28 Labs: Lab Results 10/14/24 10/14/24 10/15/24 Range/Units 20:28 23:55 03:25 WBC 7.0 (4.5-11.0) X10^3/uL RBC 3.83 L (4.5-5.9) X10^6/uL Hgb 11.7 L (13.5-17.5) g/dL Hct 35.9 L (41-53) % MCV 94.0 (80-100) fL MCH 30.5 (26-34) PG MCHC 32.5 (30-36) % RDW 17.2 H (11.6-14.8) % Plt Count 321 (150-400) X10^3/uL Neut % (Auto) 68.1 (50-75) % Lymph % (Auto) 16.8 L (25-40) % [place] % (Auto) 10.9 (3-14) % Eos % (Auto) 3.7 (2-4) % Baso % (Auto) 0.5 (0-2) % Neut # (Auto) 4800 (2254-1564) /uL Lymph # (Auto) 1200 (9994-2511) /uL [place] # (Auto) 800 (0-900) /uL Eos # (Auto) 300 (0-450) /uL Baso # (Auto) 0 (0-100) /uL PT 12.2 (9.4-12.5) SECONDS INR 1.1 (0.9-1.3) APTT 36 (25.1-36.5) SECONDS Sodium 133 L (137-145) mmol/L Potassium 5.0 (3.4-5.1) mmol/L Chloride 101 (98-107) mmol/L Carbon Dioxide 18 L (22-32) mmol/L BUN 30 H (9-20) mg/dL Creatinine 1.26 H (0.66-1.25) mg/dL Estimated GFR 58 L (>60) mL/min BUN/Creatinine Ratio 23.8 H (6-22) Glucose 116 H (70-99) mg/dL Calcium 9.7 (8.4-10.2) mg/dL Magnesium 1.9 (1.6-2.3) mg/dL Total Bilirubin 0.6 (0.2-1.3) mg/dL AST 34 (17-59) IU/L ALT 26 (<50) IU/L Alkaline Phosphatase 103 (38-126) U/L Total Creatine Kinase 144 (55-170) U/L Troponin I 0.022 (0.01-0.034) ng/mL NT-Pro-B Natriuret Pep 3440 H (<450) pg/mL Total Protein 6.3 (6.3-8.2) g/dL Albumin 3.7 (3.5-5.0) g/dL Globulin 2.6 (1.7-4.1) g/dL Albumin/Globulin Ratio 1.4 (1.0-2.8) Lipase 477 H (23-300) U/L Urine Color Yellow Urine Appearance Clear Urine pH 5.0 (4.5-8.0) Ur Specific [place] 1.010 (1.000-1.035) Urine Protein Negative (Negative) Urine Glucose (UA) 2+ H (Negative) g/dL Urine Ketones Trace H (NEGATIVE) Urine Occult Blood Negative (Negative) Urine Nitrate Negative (Negative) Urine Bilirubin Negative (NEGATIVE) Urine Urobilinogen 0.2 (0.2) E.U./dL Ur Leukocyte Esterase Negative (NEGATIVE) Urine RBC 0-1/hpf (0-5/HPF) Urine WBC None seen (0-5/HPF) Ur Squamous Epith Cells 0-1 /hpf (0-5/HPF) Urine Bacteria None seen (None) Hyaline Casts 0-1/lpf (None) Ur Culture Indicated? Cult not indicated Vol Urine Centrifuged 10ml (spun) SARS-CoV-2 (PCR) Negative (Negative) Influenza A (RT-PCR) Flu a negative (NEGATIVE) Influenza B (RT-PCR) Flu b negative (NEGATIVE) RSV (PCR) Negative (Negative) Point of Care Testing Glucose POC [address] scan - head: Radiologist Impression: [address] [address] [address] Scan Report Signed Patient: Sanya Gaona MR#: [id number] : 1945 Acct:[id number] Age/Sex: 78 / M Date of Service: 10/14/24 Loc: ED Accession Number: [id number] Procedure: CT head/brain wo con Ordering Provider: Earnest Olson D.O. PROCEDURE: CT HEAD/BRAIN WO CON INDICATIONS: weakness, collapsed just after discharge today TECHNIQUE: Noncontrast 4.5 mm thick angled axial sections acquired from the foramen magnum to the vertex, with coronal and sagittal reformats. For radiation dose reduction, the following was used: automated exposure control, adjustment of mA and/or kV according to patient size. COMPARISON: [facility], CT, CT HEAD/BRAIN WO CON, 11/06/2021, 10:22. FINDINGS: Image quality: Diagnostic. CSF spaces: Basal cisterns are patent. No extra-axial fluid collections. The ventricles are symmetric in size and shape. Brain: No intracranial bleeds or mass effect. There is cerebral volume loss, with resultant ventricular and sulcal prominence. There are periventricular and deep white matter chronic small vessel ischemic changes. There is intracranial internal carotid artery atherosclerosis. Skull and face: Calvarium and visualized facial bones appear intact, without suspicious lesions. Sinuses: Left maxillary sinus disease. Remainder of the paranasal sinuses appear clear. Mastoid air cells are well-aerated. IMPRESSION: 1. CT head without acute intracranial abnormalities or acute calvarial fractures. 2. Age-related senescent changes and sequela of chronic small vessel ischemic disease. 3. Left maxillary sinus disease. Chest x-ray: Radiologist Impression: [place] [id number] [place] [id number] XRay Report Signed Patient: Sanya Gaona MR#: [id number] : 1945 Acct:[id number] Age/Sex: 78 / M Date of Service: 10/14/24 Loc: ED Accession Number: [id number] Procedure: XR chest 1V Ordering Provider: Earnest Olson D.O. PROCEDURE: XR CHEST 1V INDICATIONS: weakness, collapsed just after discharge today TECHNIQUE: One view of the chest was acquired. COMPARISON: [facility], , XR CHEST FOR PICC 1V, 07/28/2024, 0:54. FINDINGS: Surgical changes and devices: Left-sided cardiac pacer device is in place. Previously seen right upper extremity PICC has been removed. Lungs and pleura: Lungs are clear. No pleural effusions or pneumothorax. Mediastinum: Mediastinal contours appear normal. Heart size is normal. Bones and chest wall: No suspicious bony lesions. Overlying soft tissues appear unremarkable. IMPRESSION: No acute cardiopulmonary abnormalities or focal consolidation. ECG Data Interpretation: EKG interpreted by ED physician atrially sensed, ventricularly paced at 73 no STEMI MDM Narrative Medical decision making narrative: Patient is an 78-year-old male with a past medical history of diabetes, hyperlipidemia, normal-pressure hydrocephalus, CAD presenting from home for gait instability, weakness, low back pain. Patient was just seen here a few hours ago by me due to the fact that he was walking with a walker, this is his baseline, and states that his right leg ?gave out he had imaging of his back and hip which did not show any acute fractures, it did demonstrate stable appearances of his compressions fractures as well as stenosis on his lumbar spine. he was able to stand bear weight pivot at discharge however at home patient states he was unable to get out of his car to get into the house therefore brought patient back into the ED. He is now stating that he feels weaker to his lower extremities, no specific side is worse than the other. On exam NIH of 0 no focal deficits, he is able to lift bother legs with 5/5 strengths, to note he states that he has being treated for chronic leg infection but not currently on any antibiotics. Patient had lab work EKG chest x-ray CT scan of the head and urinalysis performed here in the emergency department. Patient lab work did not show any leukocytosis, Chem panel unremarkable, troponin indeterminate at 0.022, the patient not having any active chest pain EKG nonischemic in nature BNP only slightly elevated at 3440 but not requiring any supplemental oxygen chest x-ray without any pleural effusion, patient not complaining of any shortness of breath. While in the emergency department patient found to have acute urinary retention, Pillai catheter placed did drain 600ccs. Urinalysis not consistent with acute urinary tract infection. Did inform patient and family that at this time patient does not meet inpatient requirement they understand that they need to wait until the morning to be evaluated by social work as well as physical therapy. 0700: Patient was signed out to Dr. Nguyen, patient is pending social work and physical therapy consultation and evaluation, patients daily meds ordered, diet ordered, was placed on low-dose insulin sliding scale while here in the emergency department/hospital 10.15.24 @ 1815: Patient was signed out to me by Dr. Nguyen, patient has been evaluated by social work and physical therapy, patient will require an additional 24 hours of observation at which point he will be admitted to the hospital for tomorrow morning 10.16.24 @ 0700: Patient was signed out to Dr. Nguyen, patient to be admitted once patient reaches 48 hours here in the emergency department, it was noted that patient will occasionally dip down into the high 80s whenever he is asleep, he does not have an official diagnosis of obstructive sleep apnea, therefore did apply 2 L nasal cannula at night when he was sleeping, otherwise no overnight events <Vito Nguyen, DO - Last Filed: 10/15/24 15:28> Lab Data Labs: Lab Results 10/14/24 10/14/24 10/15/24 Range/Units 20:28 23:55 03:25 WBC 7.0 (4.5-11.0) X10^3/uL RBC 3.83 L (4.5-5.9) X10^6/uL Hgb 11.7 L (13.5-17.5) g/dL Hct 35.9 L (41-53) % MCV 94.0 (80-100) fL MCH 30.5 (26-34) PG MCHC 32.5 (30-36) % RDW 17.2 H (11.6-14.8) % Plt Count 321 (150-400) X10^3/uL Neut % (Auto) 68.1 (50-75) % Lymph % (Auto) 16.8 L (25-40) % [place] % (Auto) 10.9 (3-14) % Eos % (Auto) 3.7 (2-4) % Baso % (Auto) 0.5 (0-2) % Neut # (Auto) 4800 (4629-2175) /uL Lymph # (Auto) 1200 (7410-2473) /uL [place] # (Auto) 800 (0-900) /uL Eos # (Auto) 300 (0-450) /uL Baso # (Auto) 0 (0-100) /uL PT 12.2 (9.4-12.5) SECONDS INR 1.1 (0.9-1.3) APTT 36 (25.1-36.5) SECONDS Sodium 133 L (137-145) mmol/L Potassium 5.0 (3.4-5.1) mmol/L Chloride 101 (98-107) mmol/L Carbon Dioxide 18 L (22-32) mmol/L BUN 30 H (9-20) mg/dL Creatinine 1.26 H (0.66-1.25) mg/dL Estimated GFR 58 L (>60) mL/min BUN/Creatinine Ratio 23.8 H (6-22) Glucose 116 H (70-99) mg/dL Calcium 9.7 (8.4-10.2) mg/dL Magnesium 1.9 (1.6-2.3) mg/dL Total Bilirubin 0.6 (0.2-1.3) mg/dL AST 34 (17-59) IU/L ALT 26 (<50) IU/L Alkaline Phosphatase 103 (38-126) U/L Total Creatine Kinase 144 (55-170) U/L Troponin I 0.022 (0.01-0.034) ng/mL NT-Pro-B Natriuret Pep 3440 H (<450) pg/mL Total Protein 6.3 (6.3-8.2) g/dL Albumin 3.7 (3.5-5.0) g/dL Globulin 2.6 (1.7-4.1) g/dL Albumin/Globulin Ratio 1.4 (1.0-2.8) Lipase 477 H (23-300) U/L Urine Color Yellow Urine Appearance Clear Urine pH 5.0 (4.5-8.0) Ur Specific [place] 1.010 (1.000-1.035) Urine Protein Negative (Negative) Urine Glucose (UA) 2+ H (Negative) g/dL Urine Ketones Trace H (NEGATIVE) Urine Occult Blood Negative (Negative) Urine Nitrate Negative (Negative) Urine Bilirubin Negative (NEGATIVE) Urine Urobilinogen 0.2 (0.2) E.U./dL Ur Leukocyte Esterase Negative (NEGATIVE) Urine RBC 0-1/hpf (0-5/HPF) Urine WBC None seen (0-5/HPF) Ur Squamous Epith Cells 0-1 /hpf (0-5/HPF) Urine Bacteria None seen (None) Hyaline Casts 0-1/lpf (None) Ur Culture Indicated? Cult not indicated Vol Urine Centrifuged 10ml (spun) SARS-CoV-2 (PCR) Negative (Negative) Influenza A (RT-PCR) Flu a negative (NEGATIVE) Influenza B (RT-PCR) Flu b negative (NEGATIVE) RSV (PCR) Negative (Negative) Point of Care Testing Glucose POC 121 MDM Narrative Medical decision making narrative: Patient is an 78-year-old male with a past medical history of diabetes, hyperlipidemia, normal-pressure hydrocephalus, CAD presenting from home for gait instability, weakness, low back pain. Patient was just seen here a few hours ago by me due to the fact that he was walking with a walker, this is his baseline, and states that his right leg ?gave out he had imaging of his back and hip which did not show any acute fractures, it did demonstrate stable appearances of his compressions fractures as well as stenosis on his lumbar spine. he was able to stand bear weight pivot at discharge however at home patient states he was unable to get out of his car to get into the house therefore brought patient back into the ED. He is now stating that he feels weaker to his lower extremities, no specific side is worse than the other. On exam NIH of 0 no focal deficits, he is able to lift bother legs with 5/5 strengths, to note he states that he has being treated for chronic leg infection but not currently on any antibiotics. Patient had lab work EKG chest x-ray CT scan of the head and urinalysis performed here in the emergency department. Patient lab work did not show any leukocytosis, Chem panel unremarkable, troponin indeterminate at 0.022, the patient not having any active chest pain EKG nonischemic in nature BNP only slightly elevated at 3440 but not requiring any supplemental oxygen chest x-ray without any pleural effusion, patient not complaining of any shortness of breath. While in the emergency department patient found to have acute urinary retention, Pillai catheter placed did drain 600ccs. Urinalysis not consistent with acute urinary tract infection. Did inform patient and family that at this time patient does not meet inpatient requirement they understand that they need to wait until the morning to be evaluated by social work as well as physical therapy. 0700: Patient was signed out to Dr. Nguyen, patient is pending social work and physical therapy consultation and evaluation, patients daily meds ordered, diet ordered, was placed on low-dose insulin sliding scale while here in the emergency department/hospital Discharge Plan Departure Patient Disposition: Admitted as Observation Clinical Impression: Generalized weakness, Acute urinary retention
[2024-10-14 23:31] VITALS: BP 175/76; PULSE 78; RESP 16; TEMP 36.6; O2SAT 95; BMI 30.6
[2024-10-14 23:48] LABS: Add Manual Diff / Slide Review NO; Basophils Absolute Auto 0 /uL (0-100); Basophils Percent Auto 0.5 % (0-2); Eosinophils Absolute Auto 300 /uL (0-450); Eosinophils Percent Auto 3.7 % (2-4); Hematocrit 35.9 % (41-53); Hemoglobin 11.7 g/dL (13.5-17.5); Lymphocytes Absolute Auto 1200 /uL (1100-4500); Lymphocytes Percent Auto 16.8 % (25-40); Mean Corpuscular HGB Conc 32.5 % (30-36); Mean Corpuscular Hemoglobin 30.5 PG (26-34); Monocytes Absolute Auto 800 /uL (0-900); Monocytes Percent Auto 10.9 % (3-14); Neutrophils Absolute Auto 4800 /uL (1500-7000); Neutrophils Percent Auto 68.1 % (50-75); Platelet Count 321 X10^3/uL (150-400); Red Blood Cell Count 3.83 X10^6/uL (4.5-5.9); Red Cell Distribution Width 17.2 % (11.6-14.8)
[2024-10-14 23:50] LABS: INR 1.1 (0.9-1.3); Prothrombin Time 12.2 SECONDS (9.4-12.5)
[2024-10-14 23:54] LABS: Alanine Aminotransferase 26 IU/L (<50); Albumin 3.7 g/dL (3.5-5.0); Albumin Globulin Ratio 1.4 (1.0-2.8); Alkaline Phosphatase 103 U/L (38-126); Aspartate Aminotransferase 34 IU/L (17-59); BUN Creatinine Ratio 23.8 (6-22); Bilirubin Total 0.6 mg/dL (0.2-1.3); Blood Urea Nitrogen 30 mg/dL (9-20); Calcium 9.7 mg/dL (8.4-10.2); Carbon Dioxide 18 mmol/L (22-32); Chloride 101 mmol/L (98-107); Creatine Kinase 144 U/L (55-170); Estimated Glomerular Filt Rate 58 mL/min (>60); Globulin 2.6 g/dL (1.7-4.1); Glucose 116 mg/dL (70-99); HEMOLYSIS < 15 (0-50); Lipase 477 U/L (23-300); Magnesium 1.9 mg/dL (1.6-2.3); Sodium 133 mmol/L (137-145); Total Protein 6.3 g/dL (6.3-8.2)
[2024-10-14 23:59] VITALS: PULSE 75; RESP 23; O2SAT 96
[2024-10-15] VITALS (50 sets, daily range): BP systolic 117–183; BP diastolic 56–87; PULSE 60–88; RESP 10–19; O2SAT 93–100
[2024-10-15 00:01] LABS: PTT Partial Thromboplastin Tim 36 SECONDS (25.1-36.5)
[2024-10-15 00:03] LABS: NT-proBNP (BNP-Adult 18+) 3440 pg/mL (<450)
[2024-10-15 00:06] LABS: Troponin I 0.022 ng/mL (0.01-0.034)
[2024-10-15] MEDS: SODIUM CHLORIDE 0.9% 1,000 ML 1000 ML IV (00:14)
[2024-10-15 00:53] LABS: Influenza A - CEPHEID Flu A NEGATIVE (NEGATIVE); Influenza B - CEPHEID Flu B NEGATIVE (NEGATIVE); Respiratory Syncytial Virus Negative (Negative)
[2024-10-15 00:57] LABS: COVID-19 CEPHEID 4-PLEX PCR Negative (Negative)
[2024-10-15] MEDS: LIDOCAINE 2% (GLYDO) 6 ML GEL TOP (03:12)
[2024-10-15 03:42] LABS: Appearance Urine UA CLEAR; Bilirubin Urine UA NEGATIVE (NEGATIVE); Color Urine UA YELLOW; Glucose Urine UA 2+ g/dL (Negative); Ketones Urine UA TRACE (NEGATIVE); Leukocyte Esterase Urine UA NEGATIVE (NEGATIVE); Nitrite Urine UA NEGATIVE (Negative); Occult Blood Urine UA NEGATIVE (Negative); Protein Urine UA NEGATIVE (Negative); Urobilinogen Urine UA 0.2 E.U./dL (0.2)
[2024-10-15 03:45] LABS: Bacteria Urine None Seen; Hyaline Casts Urine 0-1/LPF; RBC Urine 0-1/HPF (0-5/HPF); Squamous Epithelial Cell Urine 0-1 /HPF (0-5/HPF); Urine Volume 10mL (spun); WBC Urine None Seen (0-5/HPF)
[2024-10-15 03:46] LABS: Culture Indicated Urine Cult Not Indicated
--- NOTE | 2024-10-15 08:29 | PC.NURSE ---
Pt is resting on stretcher. HOB elevated slowly. pt is having pain however controlled at this time. breakfast given. NAD. vitals taken and WNL.
[2024-10-15] MEDS: lisinopriL 10 MG TABLET PO ×2 (09:40→21:05)
[2024-10-15] MEDS: carvediloL 12.5 MG TABLET 25 MG PO ×2 (09:40→21:04)
[2024-10-15] MEDS: ATORVASTATIN 20 MG TABLET 40 MG PO (09:41)
[2024-10-15] MEDS: GABAPENTIN 600 MG TABLET PO ×3 (09:41→21:06)
[2024-10-15] MEDS: TAMSULOSIN 0.4 MG CAPSULE PO (09:41)
[2024-10-15] MEDS: ASPIRIN EC 325 MG TABLET PO (09:41)
[2024-10-15] MEDS: ACETAMINOPHEN 325 MG TABLET 650 MG PO (09:41)
--- NOTE | 2024-10-15 14:00 | PT.IIE ---
Surgical History (Last Reviewed 07/20/24 @ 10:59 by Jose Alejandro Fairchild DO) Anesthesia History of angioplasty (08/09/14) History of inguinal hernia repair (~1954) History of selective injection of anesthetic agent around lumbar nerve root (~07/2020) Hx of hand surgery S/P lumbar spinal fusion Status post appendectomy (~1952) Undescended testicle, unilateral Medical History (Last Reviewed 07/20/24 @ 10:59 by Jose Alejandro Fairchild DO) Acne (~1958) Ankle effusion CAD (coronary artery disease) (~2012) Chickenpox (~1949) Chronic back pain Class 1 obesity (08/28/16) Closed right fibular fracture Collar bone fracture (~1950) Community acquired pneumonia Compression fracture of L1 lumbar vertebra History of ankle fracture (~2015) History of fracture of ankle (08/28/16) History of rib fracture (~1984) 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 Hyperkalemia Hypertension (~1999) Macular degeneration, age related, nonexudative (~03/29/20) Measles (~1949) Neuropathy Normal pressure hydrocephalus Olecranon fracture Psoriasis (~2015) Spinal stenosis Viral cardiomyopathy (~2014) Physical Therapy Inpatient Evaluation/Re-Eval M1 PT/OT-IP Prior Functional Status Start: 10/15/24 15:39 Freq: Status: Active Protocol: Document 10/15/24 14:00 AB (Rec: 10/15/24 15:58 AB Desktop) Medical Review Prior Functional Status Medical History Yes Reviewed Communication able to make needs known Mobility and Gait pt stated that he was modified independent with all mobilities and ambulation using a FWW for indoor ambulation and a 4WW for outdoor ambulation; pt with 5 falls for the last 6 months Social History Household Members spouse Living Arrangements House Number of Floors ( Two Floors Floors) Number of Stairs To pt stays on main level of the house Enter/Railing? has 3 steps L rail ascending to enter the house Home Environment Standard Height Toilet,Built-In Shower Seat Home Equipment Front Wheel Walker,Four Wheel Walker,Hand Held Shower, Grab Bars Near Toilet,Grab Bars In Shower Additional Social pt stated that spouse can assist him some but limited History Comment M2 PT-IP Current Condition Start: 10/15/24 15:39 Freq: Status: Active Protocol: Document 10/15/24 14:00 AB (Rec: 10/15/24 15:58 AB Desktop) Physical Therapy Current Condition Current Condition Evaluation Date 10/15/24 Treatment Diagnosis falls; L1,L3 compression fx; difficulty in walking Onset Date 10/14/24 M3 PT-IP Subjective Start: 10/15/24 15:39 Freq: Status: Active Protocol: Document 10/15/24 14:00 AB (Rec: 10/15/24 15:58 AB Desktop) Subjective Physical Therapy Visit Type Type Initial Evaluation Visit Start Time 14:00 Visit Stop Time 14:50 Number of CAMERA TUNING ENGINEER Visits 0 Physical Therapy Visit Comments Patient Comments agreeable to do PT Therapy Pain Assessment Pain When Pain Assessed During Mobility Pain Present Pain Present Pain Reported Location back Scale Used pain down to RLE: more that 10/10 pain Description Burning Pain Management Distraction,Modification of Treatment,Re-positioning Techniques M4 PT-IP Mobility and Gait Start: 10/15/24 15:39 Freq: Status: Active Protocol: Document 10/15/24 14:00 AB (Rec: 10/15/24 15:58 AB Desktop) PT-Bed Mobility Assessment Rolling Type of Rolling Log Rolling Level of Assist Maximal Assistance Supine to Sit Supine to Sit Maximum Assistance,1 Person Assistance,2 Person Assistance Sit to Supine Sit to Supine Maximum Assistance,2 Person Assistance PT-Transfer Assessment Sit to and From Stand Sit to and from Maximum Assistance,2 Person Assistance,Use of Upper Stand Extremities Equipment Transfer Assistive Gait Belt,Front Wheeled Walker Device Orthotic/Prosthetic No Devices or Brace: Comments Mobility Comments pt seen in the ED. pt in bed and agreeable to do PT. BP : 187/83 O2 sat 100% obtained PLOF and home set up. educated pt on back precautions and log roll bed mobility. pt completed supine to sit log roll max A x 1-2 and max cues. pt able to sit on EOB mod A for sitting balance. increase retrolean and lateral leaning to the L. pt completed sit to stand max A x2 and max cues. pt required max A x 2 for standing balance using FWW for support. pt LE leaning against the bed for support and unable to take any steps to ambulate or even to position closer to the HOB. pt sat back on EOB. assisted back to bed. log roll sit to supine max A x 2 and max cues. positioned pt in bed. call light and table placed within reach. Gait Assessment Comments Gait Comments unable at this time PT-Balance Assessment Sitting Balance and Reactions Static Sitting Fair Balance Ability Dynamic Sitting Poor Balance Ability Standing Balance and Reactions Static Standing Poor Balance Ability Dynamic Standing Poor Balance Ability Device Used FWW M5 PT-IP Objective Assessments Start: 10/15/24 15:39 Freq: Status: Active Protocol: Document 10/15/24 14:00 AB (Rec: 10/15/24 15:58 AB Desktop) Orientation Orientation/Cognition Level of Alertness Alert Orientation Name,Place,Situation Language Function Hard of Hearing Ability Safety Awareness Decreased Safety Awareness Memory Description Short Term Impaired,Usp Impaired Gross Range of Motion Lower Extremity ROM Assessment Within Functional Limits Strength Lower Extremity Strength Assessment Bilaterally Impaired Hip RLE: 3-/5 LLE: 3+/5 Knee 3+/5 Ankle bilateral DF weakness Comments Strength Comments pt presenting to have bilateral foot drop and pt stated that he used AFOs before when he was still walking with a cane but has not used them when he started using FWW years ago Sensation Assessment Sensation Gross Sensation Right LE Impaired,Left LE Impaired Sensation Numbness Description Comments Sensation Comments B feet numbness Muscle Tone Muscle Tone WNL Yes M6 PT-IP Treatment Start: 10/15/24 15:39 Freq: Status: Active Protocol: Document 10/15/24 14:00 AB (Rec: 10/15/24 15:58 AB Desktop) Physical Therapy Treatment Education Education Provided Precautions,Safety M7 PT-IP Assessment and Plan Start: 10/15/24 15:39 Freq: Status: Active Protocol: Document 10/15/24 14:00 AB (Rec: 10/15/24 15:58 AB Desktop) PT Summary Assessment and Plan Potential Rehabilitation Fair Potential Status of Condition Evolving at Evaluation Summary Impairments Pain,ROM,Strength,Balance,Coordination,Sensation,Tone, Cognition,Bed Mobility,Transfers,Gait,Activity Tolerance Progress Towards Slow Progress due to Pain Goals Assessment Summary pt is an 78 y/o M who presented to the ED s/p fall. pt stated that he initially fell backwards on a recycle bin when he was changing the liner on his trash can. pt had increase back pain radiating down to RLE. pt able to ambulate after initial fall but had succeeding falls x 2 when R knee gave out. pt requiring max A x 2 for bed mobility and sit to stand. pt unable to take steps or ambulate using FWW at this time. pt will require 24/ max A x 2/mechanical lift transfers at this time and will require SNF rehab to improve overall strength and mobility. will continue to assess progress. Goals Bed Mobility Goal Minimal Assistance Transfer Goal Minimal Assistance,Front Wheeled Walker Gait Goal Minimal Assistance,Front Wheel Walker Gait Distance 25 Other Goals improve bed mobility, transfers, ambulation using FWW ~ 100 ft SBA up/down 3 steps L rail ascending SBA Days to Meet Goals 10 Frequency of Treatment Frequency Of Once a Day Treatment Treatment Plan Physical Therapy Bed Mobility Training,Transfer Training,Gait Training, Treatment Plan Therapeutic Exercise,Balance Retraining,Discharge Planning,Hot or Cold Pack,Neuromuscular Re-ed, Coordination Retraining,Manual Therapy Precautions Other Precautions falls Recommendations To Nursing Amount of Assist Mechanical Lift Needed Discharge Recommendations PT Discharge SNF Rehab Recommendations Transportation Needs Wheelchair/Cabulance,Stretcher/Ambulance at Discharge - PT assist 2
[2024-10-15] MEDS: HYDROCODONE/ACET 5/325 TABLET 1 TAB PO (16:00)
--- NOTE | 2024-10-15 16:14 | PC.NURSE ---
Patient was offered hospital bed but patient refused stating that they are more comfortable in the ED bed. Patient is repositioned every 2 hours, floating ankles, and call light within reach
--- NOTE | 2024-10-15 17:06 | CM.IDA ---
Initial DCP Assessment Note Patient is 78 y/o male who presents to the ED via EMS for the second time last evening after he was unable to get out of vehicle with lift assist and unable to get into home after ED d/c. Patient initially presented to ED last night due to concern for GLFs requiring lift assist, right leg pain, and weakness. Patient has hx of L1 and L3 compression fx. Patient's PCP is Dr. Kerr, patient has Medicare and [employer] insurance. Patient resides at home with spouse in [place]. Patient presents as A/Ox4. It is reported that patient could ambulate with FWW prior to yesterday and started experiencing increased pain and weakness when attempting to ambulate. Patient has not driven for 2 years and receives transportation from his spouse. It is reported that patient's spouse owns a business and she is not home all the time. It is reported that patient has been requiring assistance with dressing, undressing and bathing. Patient has been unable to use the stairs in the home in the last few weeks. Patient's spouse endorses that patient has been staying on the bottom level of the home, she states that she cannot pick him up when he falls and states they have been calling lift assist. Patient endorses that he goes to outpatient wound care at , has an upcoming infectious disease appt with Dr. Singleton at [facility] due to concern for wounds on patient's right ankle. Patient states he had been going to weekly outpatient PT at [facility] but has not been to appts in recent weeks. It is reported that patient does not meet criteria for medical admission at this time. ULTRASOUND MANAGER discusses SNF rehab, it is reported that paying out of pocket is not an option. Patient endorses preference to d/c to home with home health upon medical clearance. Patient endorses he may be open to SNF rehab if it is covered by insurance. ULTRASOUND MANAGER provides spouse with lists of caregiver agencies and private caregivers, ULTRASOUND MANAGER also provides senior resource guide. ULTRASOUND MANAGER suggests looking into accessing more supports at home to assist patient with ADLs. PT evaluates patient and it is reported that patient is 2 person max assist unable to ambulate at this time, recommending SNF rehab. ED provider reviewed patient with Hospitalist, patient does not meet criteria for medical admission. Patient to board in ED and likely social admit upon 48 hour guidelines. Hospitalist recommends outpatient ortho kyphoplasty surgery upon d/c. Plan: patient to board in ED, PT to continue to evaluate patient, ED team to manage patient's pain, likely social admit tomorrow. Upon d/c likely home with HH with outpatient ortho f/u. KATARZYNA Burroughs Discharge Planning/Care Management CM Discharge Assessment Start: 10/15/24 16:58 Freq: Status: Active Protocol: Document 10/15/24 16:59 LN (Rec: 10/15/24 17:06 LN [id number]) Discharge Planning Assessment Assigned Discharge KATARZYNA Mayer Screener Perfumer DPOA/Assigned Spouse: Geri Gaona Designee Name Contact Information [phone] Advance Directives? Yes Advance Directives No on File History Provided By Patient,Significant Other,Medical Record Has Patient been No admitted in last 30 days? Prior Living House Arrangements Household Members spouse Type of Relies on Others transporation used prior to admit Independent with ADL No 's Is patient alert and Yes oriented? Needs Assistance Bathing,Grooming,Meal Prep,Home Chores / Shopping With Community Services Physical Therapy,Wound Care used prior to admission: Comment Patient sees [facility] weekly. DME Already Rented / FWW / Walker Owned Patient/Family Home with Home Health Preference Comment Patient preference is Home with home health, and SNF rehab if covered by insurance. Patient is unable to pay out of pocket. Comment Patient will likely need outpatient ortho surgery, likely home with home health upon d/c Transportation Depending on patient's mobility- BLS vs. Spouse Arrangement
[2024-10-15] MEDS: FAMOTIDINE 20 MG/2 ML VIAL IV (19:12)
[2024-10-16] VITALS (11 sets, daily range): BP systolic 126–178; BP diastolic 60–81; PULSE 60–78; RESP 16–22; TEMP 36.6–36.7; O2SAT 95–98; BMI 30.6
[2024-10-16] MEDS: HYDROCODONE/ACET 5/325 TABLET 1 TAB PO (05:42)
[2024-10-16] MEDS: carvediloL 12.5 MG TABLET 25 MG PO ×2 (08:33→21:24)
[2024-10-16] MEDS: lisinopriL 10 MG TABLET PO ×2 (08:34→21:25)
[2024-10-16] MEDS: ATORVASTATIN 20 MG TABLET 40 MG PO (08:34)
[2024-10-16] MEDS: GABAPENTIN 600 MG TABLET PO ×3 (08:34→21:22)
[2024-10-16] MEDS: TAMSULOSIN 0.4 MG CAPSULE PO (08:34)
[2024-10-16] MEDS: ASPIRIN EC 325 MG TABLET PO (08:35)
--- NOTE | 2024-10-16 09:30 | PC.NURSE ---
patient finished breakfast, spouse is leaving, and he requested lights down, said he didn't much sleep last night.
[2024-10-16] MEDS: ACETAMINOPHEN 325 MG TABLET 975 MG PO ×2 (11:35→21:23)
--- NOTE | 2024-10-16 11:52 | PC.NURSE ---
Back brace LSO placed by phycial therapy prior to their daily assessment.
--- NOTE | 2024-10-16 15:16 | W.PC.EDHO ---
telephone Report to RIKY Anders
--- NOTE | 2024-10-16 15:47 | CM.DPC ---
DCP Note Continued PT met with patient today, patient was able to ambulate from bed to doorway with back brace on, PT still recommending SNF rehab. Patient endorses that he has supportive neighbors across the street, patient states that his FRANCK (spouse's twin) lives with them but spouse and FRANCK are often at work all day. 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 Patient endorses he is hopeful that he is getting better each day, patient is hoping to d/c to home and to be able to make it to infectious disease appt with Dr. Singleton on Thursday. Plan: Patient admitted as social admit, f/u with PT, likely home with and outpatient ortho f/u kyphoplasty. Leyla Serrano, [employer]
[2024-10-16] MEDS: INSULIN LISPRO 100 UNIT/ML 3ML VIAL SUBCUT (17:13)
[2024-10-16 17:27] LABS: MRSA (Nasal) PCR NOT DETECTED (Not Detect)
--- NOTE | 2024-10-16 21:10 | PM.HP.1 ---
History of Present Illness History of Present Illness Chief complaint: Weakness Narrative: 78-year-old male with diabetes mellitus type 2, hyperlipidemia, NPH, history of coronary artery disease status post stent, previous L1 compression fracture who presented to the emergency department on 10/14/2024 with intractable back pain. Patient suffered a fall on 10/05/2024 sustaining an acute L3 fracture. He had been doing fairly well up until he sustained 2 falls on October 14. One occurred at 3:00 p.m. and 1 occurred at 8:00 p.m. after that time, he became increasingly painful and unable to navigate. He was seen in the emergency department and unfortunately could not stand or mobilize. Prior to that, he was able to walk around in his home. He lives with his and her twin sister. In the emergency department, he underwent imaging which revealed an acute L3 compression fracture with a 10-20% height loss. He was evaluated by Physical therapy on October 15, and required a max 2 person assist and complained of 10/10 pain with efforts at ambulation. The ED continue to work on efforts at pain management. They also placed a TLSO brace. Today, he did have some improvement in pain control and was able to ambulate a few steps with a walker. He does complain of some spasms in his back. He was having some urinary retention and a Pillai catheter was placed. He notes he was having difficulty voiding even before he hurt his back, and has taken Flomax chronically. He does follow with Orthopedic surgery, and notes he was slated to see a back specialist at [facility] sometime in the coming weeks or month due to his chronic L1 issues. He states initially, he was given Tylenol which was not effective. He was then given tramadol which she states was not effective. He was on escalated to oxycodone, which he states ?does not work?. He states he prefers to use Tylenol as it is as effective as anything else has been. He states with his L1 fracture, he took aspirin and that worked for awhile but then became less effective. [facility] Medical History Acne (~1959) Ankle effusion CAD (coronary artery disease) (~2012) Chickenpox (~1950) Chronic back pain Class 1 obesity (08/28/16) Closed right fibular fracture Collar bone fracture (~1950) Community acquired pneumonia Compression fracture of L1 lumbar vertebra History of ankle fracture (~2015) History of fracture of ankle (08/28/16) History of rib fracture (~1984) Homozygous MTHFR mutation [id number] Hyperkalemia Hypertension (~1999) Macular degeneration, age related, nonexudative (~03/29/20) Measles (~1949) Neuropathy Normal pressure hydrocephalus Olecranon fracture Psoriasis (~2015) Spinal stenosis Viral cardiomyopathy (~2014) Surgical History Anesthesia History of angioplasty (08/09/14) History of inguinal hernia repair (~1954) History of selective injection of anesthetic agent around lumbar nerve root (~07/2020) Hx of hand surgery S/P lumbar spinal fusion Status post appendectomy (~1952) Undescended testicle, unilateral Family History Brother No problems noted. Father No problems noted. Sister No problems noted. Social History household members: spouse Smoking Status: Never smoker alcohol intake: current Meds Home Medications and Allergies Home Medications ?Medication ?Instructions ?Recorded ?Confirmed ?Type aspirin 325 mg tablet,delayed 325 mg PO DAILY 09/09/17 10/15/24 History release Disabled Parking Permit #1 ea 09/06/18 10/16/24 Rx cyanocobalamin (vitamin B-12) 1,000 mcg PO DAILY #90 tabs 09/03/20 10/15/24 Rx 1,000 mcg tablet pyridoxine (vitamin B6) 50 mg 50 mg PO DAILY #90 tabs 09/03/20 10/16/24 Rx tablet furosemide 40 mg tablet 40 mg PO DAILY PRN Edema #30 tabs 09/12/20 10/16/24 Rx atorvastatin 40 mg tablet 40 mg PO HS #90 tabs 07/13/23 10/15/24 Rx tamsulosin 0.4 mg capsule (Flomax) 0.8 mg (2 x 0.4 mg) PO BEDTIME 12/07/23 10/15/24 Rx #180 caps metformin 500 mg tablet 250 mg (1/2 x 500 mg) PO BIDCC #90 02/15/24 10/16/24 Rx tabs omeprazole 20 mg capsule,delayed 20 mg PO DAILY #90 caps 02/15/24 10/16/24 Rx release clobetasol 0.05 % scalp solution 1 applic topical BID 2 weeks #25 mL 03/15/24 10/15/24 Rx Disabled Parking Permit #1 ea 07/18/24 10/16/24 Rx calcitonin (salmon) 200 1 spray intranasal (ALT) DAILY 07/20/24 10/15/24 Rx unit/actuation nasal spray sacral fx 3 months #3.7 mL carvedilol 25 mg tablet 25 mg PO BID #180 tabs 08/16/24 10/15/24 Rx empagliflozin 10 mg tablet 10 mg PO DAILY #90 tabs 08/16/24 10/16/24 Rx (Jardiance) lisinopril 10 mg tablet 10 mg PO BID #180 tabs 08/16/24 10/15/24 Rx naproxen 500 mg tablet 500 mg PO BID PRN pain #40 tabs 09/06/24 10/16/24 Rx gabapentin 600 mg tablet 600 mg PO TID #270 tabs 09/30/24 10/15/24 Rx lidocaine 5 % topical patch 1 patch topical DAILY #30 ea 10/05/24 10/15/24 Rx (Lidoderm) tizanidine 4 mg capsule 4 mg PO Q8H PRN muscle spasticity 10/07/24 10/16/24 Rx #60 caps oxycodone-acetaminophen 5 mg-325 1 tab PO Q8H PRN pain #30 tabs 10/11/24 10/15/24 Rx mg tablet (Percocet) Allergies Allergy/AdvReac Type Severity Reaction Status Date / Time clopidogrel (From Plavix) Allergy Rash Verified 10/14/24 20:23 Review of Systems Review of Systems Narrative: All other systems were reviewed negative Exam Vital Signs (past 8 hours): - 10/16/24 14:00 10/16/24 15:45 10/16/24 16:00 Pulse Rate 73 74 Respiratory Rate 16 Blood Pressure 126/60 178/81 H Pulse Oximetry 95 98 Oxygen Delivery Method Room Air Oxygen Flow Rate 0 10/16/24 16:35 Pulse Rate Respiratory Rate Blood Pressure 161/72 H Pulse Oximetry Oxygen Delivery Method Oxygen Flow Rate Oxygen Delivery Method Room Air Oxygen Flow Rate 0 Narrative Exam Narrative: GEN: Pleasant elderly male, Alert and oriented x3, no acute distress HEENT: Normocephalic, face symmetric, pupils equal round reactive to light, extraocular movements intact, sclerae anicteric, conjunctiva clear, nares patent, oropharynx reveals an intact soft and hard palate with moist mucous membranes, dentition is fair NECK: Supple, no lymphadenopathy, thyroid without enlargement or nodularity, carotids no bruits CHEST: Respiratory excursions symmetric, clear to auscultation bilaterally CV: Regular rate and rhythm, no murmurs, rubs, gallops, PMI nondisplaced ABD: Soft, nontender, nondistended, bowel sounds present in all 4 quadrants, body habitus limits exam EXTR: Warm, well perfused, no clubbing/cyanosis/edema SKIN: Warm and dry, without rash NEURO: Alert and oriented x3, grossly intact PSYCH: Mood and affect is within normal limits, judgment and insight are appropriate Objective Labs 10/14/24 20:28 10/14/24 20:28 Labs: Laboratory Results - last 24 hr 10/16/24 15:50 Nasal Screen MRSA (PCR) Not detected Assessment & Plan Assessment & Plan narrative: 1. Acute L3 compression fracture Patient is admitted under observation status for ongoing management of pain related to his acute compression fracture. Will place on scheduled oxycodone, scheduled Tylenol, continue gabapentin, and his Miacalcin nasal spray. Will continue working with PT. Will also work on mobilization. We will place on scheduled senna as well. Will monitor for regular BMs. Initially, I worried he may require kyphoplasty, but given his overall improvement in the past 24 hours, this may not be necessary. I would still recommend contacting [facility] to determine what their availability is in the event this procedure is needed. 2. MICKEY Baseline creatinine is 0.88. His creatinine on the was 1.26. Will repeat labs in the morning. 3. Diabetes mellitus type 2 Continue carb controlled diet. Will place on fingersticks and sliding scale. 4. NPH Continue working with physical therapy. 5. Hyperlipidemia Continue Lipitor Code status DNR per my discussion with the patient today Prophylaxis Lovenox Disposition Admit under observation status Time-Based Coding :: [TOTAL MINUTES] spent with patient and on the chart (including review of chart, obtaining history, exam, reviewing outside data, placing orders, documenting exam and treatment plan, and counseling patient) on [DATE].
[2024-10-16] MEDS: OXYCODONE IR 10 MG TABLET PO (21:22)
[2024-10-16] MEDS: SENNOSIDES 8.6 MG TABLET 17.2 MG PO (21:22)
[2024-10-16] MEDS: TAMSULOSIN 0.4 MG CAPSULE 0.8 MG PO (21:24)
[2024-10-17 05:28] LABS: Add Manual Diff / Slide Review NO; Basophils Absolute Auto 100 /uL (0-100); Basophils Percent Auto 0.9 % (0-2); Eosinophils Absolute Auto 300 /uL (0-450); Eosinophils Percent Auto 5.1 % (2-4); Hematocrit 33.6 % (41-53); Hemoglobin 11.2 g/dL (13.5-17.5); Lymphocytes Absolute Auto 1400 /uL (1100-4500); Lymphocytes Percent Auto 22.3 % (25-40); Mean Corpuscular HGB Conc 33.3 % (30-36); Mean Corpuscular Hemoglobin 30.7 PG (26-34); Mean Corpuscular Volume 92.4 fL (80-100); Monocytes Absolute Auto 700 /uL (0-900); Monocytes Percent Auto 11.7 % (3-14); Neutrophils Absolute Auto 3600 /uL (1500-7000); Platelet Count 303 X10^3/uL (150-400); Red Blood Cell Count 3.63 X10^6/uL (4.5-5.9); Red Cell Distribution Width 16.5 % (11.6-14.8); White Blood Cell Count 6.1 X10^3/uL (4.5-11.0)
[2024-10-17 05:37] LABS: BUN Creatinine Ratio 22.1 (6-22); Blood Urea Nitrogen 17 mg/dL (9-20); Carbon Dioxide 24 mmol/L (22-32); Chloride 106 mmol/L (98-107); Estimated Glomerular Filt Rate > 60 mL/min (>60); Glucose 112 mg/dL (70-99); HEMOLYSIS < 15 (0-50); Potassium 4.2 mmol/L (3.4-5.1); Sodium 135 mmol/L (137-145)
[2024-10-17] MEDS: PANTOPRAZOLE DR 20 MG TABLET PO (06:31)
[2024-10-17 08:00] VITALS: BP 161/76; PULSE 67; RESP 18; TEMP 37; O2SAT 97
[2024-10-17] MEDS: ACETAMINOPHEN 325 MG TABLET 975 MG PO ×2 (08:52→17:14)
[2024-10-17 08:53] VITALS: BP 161/76
[2024-10-17] MEDS: carvediloL 12.5 MG TABLET 25 MG PO (08:53)
[2024-10-17] MEDS: ASPIRIN EC 325 MG TABLET PO (08:53)
[2024-10-17] MEDS: lisinopriL 10 MG TABLET PO (08:53)
[2024-10-17] MEDS: OXYCODONE IR 10 MG TABLET PO ×2 (08:54→17:14)
[2024-10-17] MEDS: ENOXAPARIN 40 MG/0.4 ML SYRINGE SUBCUT (08:54)
[2024-10-17] MEDS: LIDOCAINE 5% PATCH 1 EACH TOP (08:54)
[2024-10-17] MEDS: GABAPENTIN 600 MG TABLET PO ×2 (08:54→17:14)
[2024-10-17] MEDS: CALCITONIN,SALMON, NASAL SPRAY 1 SPRAYS NASAL (10:21)
--- NOTE | 2024-10-17 11:03 | PT.IIE ---
Surgical History (Last Reviewed 07/20/24 @ 10:59 by Jose Alejandro Fairchild DO) Anesthesia History of angioplasty (08/09/14) History of inguinal hernia repair (~1954) History of selective injection of anesthetic agent around lumbar nerve root (~07/2020) Hx of hand surgery S/P lumbar spinal fusion Status post appendectomy (~1952) Undescended testicle, unilateral Medical History (Last Reviewed 07/20/24 @ 10:59 by Jose Alejandro Fairchild DO) Acne (~1958) Ankle effusion CAD (coronary artery disease) (~2012) Chickenpox (~1949) Chronic back pain Class 1 obesity (08/28/16) Closed right fibular fracture Collar bone fracture (~1950) Community acquired pneumonia Compression fracture of L1 lumbar vertebra History of ankle fracture (~2015) History of fracture of ankle (08/28/16) History of rib fracture (~1984) 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 Hyperkalemia Hypertension (~1999) Macular degeneration, age related, nonexudative (~03/29/20) Measles (~1949) Neuropathy Normal pressure hydrocephalus Olecranon fracture Psoriasis (~2015) Spinal stenosis Viral cardiomyopathy (~2014) Physical Therapy Inpatient Evaluation/Re-Eval M1 PT/OT-IP Prior Functional Status Start: 10/15/24 15:39 Freq: Status: Active Protocol: Document 10/15/24 14:00 AB (Rec: 10/15/24 15:58 AB Desktop) Medical Review Prior Functional Status Medical History Yes Reviewed Communication able to make needs known Mobility and Gait pt stated that he was modified independent with all mobilities and ambulation using a FWW for indoor ambulation and a 4WW for outdoor ambulation; pt with 5 falls for the last 6 months Social History Household Members spouse Living Arrangements House Number of Floors ( Two Floors Floors) Number of Stairs To pt stays on main level of the house Enter/Railing? has 3 steps L rail ascending to enter the house Home Environment Standard Height Toilet,Built-In Shower Seat Home Equipment Front Wheel Walker,Four Wheel Walker,Hand Held Shower, Grab Bars Near Toilet,Grab Bars In Shower Additional Social pt stated that spouse can assist him some but limited History Comment M2 PT-IP Current Condition Start: 10/15/24 15:39 Freq: Status: Active Protocol: Document 10/16/24 11:58 KJ (Rec: 10/16/24 12:07 KJ Desktop) Physical Therapy Current Condition Current Condition Treatment Diagnosis Impaired mobility Onset Date 10/14/24 M3 PT-IP Subjective Start: 10/15/24 15:39 Freq: Status: Active Protocol: Document 10/16/24 11:58 KJ (Rec: 10/16/24 12:07 KJ Desktop) Subjective Physical Therapy Visit Type Type Treatment Note Visit Start Time 11:01 Visit Stop Time 11:46 Physical Therapy Visit Comments Patient Comments Thinks he will be ready to go home by tomorrow. His is acquiring a transport chair which he will be able to use in the house. He has multiple medical appointments coming up in the next week and does not want to miss them. Patient Goals To go home tomorrow Therapy Pain Assessment Pain When Pain Assessed During Mobility Pain Present Pain Present Pain Reported Location back Description With Movement Pain Management Modification of Treatment,Re-positioning,Timing of Techniques Activity with Medications M4 PT-IP Mobility and Gait Start: 10/15/24 15:39 Freq: Status: Active Protocol: Document 10/16/24 11:58 KJ (Rec: 10/16/24 12:07 KJ Desktop) PT-Bed Mobility Assessment Rolling Type of Rolling Log Rolling Supine to Sit Supine to Sit Minimal Assistance Sit to Supine Sit to Supine Moderate Assistance Scooting Scooting to Edge of Minimal Assistance Bed PT-Transfer Assessment Sit to and From Stand Sit to and from Contact Guard Assistance Stand Equipment Transfer Assistive Gait Belt Device Orthotic/Prosthetic Yes Devices or Brace: Transfers Transfer Destination Chair Transfer Technique Stand Step Pivot Transfer Ability Level of Assist Minimal Assistance Comments Mobility Comments with LSO, pt attempts mobility by himself Gait Assessment Gait Gait Assistance Minimum Assistance Required: Assistive Devices Assistive Device Gait Belt,Front Wheeled Walker Orthotic/Prosthetic Yes Devices or Brace: Gait Deviations General Gait Pattern Decreased Stride Length,Flexed Trunk,Step-to Gait Factors Limiting Gait Function Factors Limiting Decreased Sensation,Decreased Strength,Pain Gait Function Comments Gait Comments Very rigid in the back and shoulders. Wearing LSO is reported to help with pain. PT-Balance Assessment Sitting Balance and Reactions Static Sitting Good Balance Ability Dynamic Sitting Good Balance Ability Standing Balance and Reactions Static Standing Fair Balance Ability Dynamic Standing Fair Balance Ability M5 PT-IP Objective Assessments Start: 10/15/24 15:39 Freq: Status: Active Protocol: Document 10/16/24 11:58 KJ (Rec: 10/16/24 12:07 KJ Desktop) Orientation Orientation/Cognition Level of Alertness Alert Orientation Name,Age,Birthday Language Function No Deficits Noted Ability Safety Awareness Understands Safety Issues Strength Lower Extremity Strength Assessment Bilaterally Impaired Hip decreased M6 PT-IP Treatment Start: 10/15/24 15:39 Freq: Status: Active Protocol: Document 10/16/24 11:58 KJ (Rec: 10/16/24 12:07 KJ Desktop) Physical Therapy Treatment Exercises Exercises Ankle Pumps,Gluteal Sets,Quad Sets Education Education Provided Safety Brace Education Donning,Jeddito,Patient Equipment Issued Equipment Type and LSO Company M7 PT-IP Assessment and Plan Start: 10/15/24 15:39 Freq: Status: Active Protocol: Document 10/16/24 11:58 KJ (Rec: 10/16/24 12:07 KJ Desktop) PT Summary Assessment and Plan Potential Rehabilitation Fair Potential Status of Condition Evolving at Evaluation Summary Impairments Pain,Strength,Bed Mobility,Transfers,Gait Progress Towards Slow Progress due to Pain Goals Assessment Summary Pt improved today, able to walk 15' x 2 w/CGA in room using fww wearing LSO. Needed more assistance for transfers and supine to/from sit. Goals Bed Mobility Goal Independent Transfer Goal Independent Gait Goal Independent Gait Distance 50 Other Goals don/doff LSO indep ascend/descend 1 step w/fww and CGA Days to Meet Goals 5 Frequency of Treatment Frequency Of Once a Day Treatment Treatment Plan Physical Therapy Bed Mobility Training,Transfer Training,Gait Training Treatment Plan Other Progress to stairs, Progress ambulation Recommendations and Next Treatment Focus Precautions Lumbar Precautions Log Roll Recommendations To Nursing Amount of Assist 2 Person Assist Needed Discharge Recommendations PT Discharge SNF Rehab Recommendations Equipment Needed for is acquiring sheelchair Home Before Discharge Transportation Needs Private Vehicle at Discharge - PT assist x2
--- NOTE | 2024-10-17 12:03 | PT.IPTN ---
Physical Therapy Treatment Note M2 PT-IP Current Condition Start: 10/15/24 15:39 Freq: Status: Active Protocol: Document 10/17/24 11:42 SP (Rec: 10/17/24 14:10 SP [id number]) Physical Therapy Current Condition Current Condition Evaluation Date 10/15/24 Treatment Diagnosis Impaired mobility Onset Date 10/14/24 M3 PT-IP Subjective Start: 10/15/24 15:39 Freq: Status: Active Protocol: Document 10/17/24 11:42 SP (Rec: 10/17/24 14:10 SP [id number]) Subjective Physical Therapy Visit Type Type Treatment Note Visit Start Time 11:42 Visit Stop Time 12:03 Notes Vitals pre mobility: RUE automated BP 155/70 HR 78 SaO2 96% on RA: WNL P Number of KEY PERSON Visits 1 Physical Therapy Visit Comments Patient Comments Pt reclined in bed when arrived, agreeable to working with KEY PERSON. Patient Goals To go home tomorrow, agreeable to HHPT M4 PT-IP Mobility and Gait Start: 10/15/24 15:39 Freq: Status: Active Protocol: Document 10/17/24 11:42 SP (Rec: 10/17/24 14:10 SP [id number]) PT-Bed Mobility Assessment Rolling Type of Rolling Log Rolling Level of Assist Standby Assistance Supine to Sit Supine to Sit Minimal Assistance,Moderate Assistance,1 Person Assistance,Bedrails Scooting Scooting to Edge of Standby Assistance Bed PT-Transfer Assessment Sit to and From Stand Sit to and from Contact Guard Assistance,1 Person Assistance,Use of Stand Upper Extremities Equipment Transfer Assistive Gait Belt Device Orthotic/Prosthetic Yes Devices or Brace: Transfers Transfer Destination Chair Transfer Technique pt ambulated with FWW Transfer Ability Level of Assist Standby Assistance,Contact Guard Assistance,Use of Upper Extremities Comments Mobility Comments Pt required Min A for trunk righting L SL to Sit. KEY PERSON assisted with donning LSO back brace LS and gait belt over chest sitting EOB. CGA/SBA STS and gait around room with FWW. Pt completed step up onto portable step with L sink rail and FWW positioned nearby to assimulate ledge at home door can use for added support , CGA 3 reps. Pt returned to chair with FWW, cues for back up FWW fully before reaching back with controlled descent. He tends to have FWW positioned to far and almost falls into chair, improved with reps 2. Pt was up in chair with legs elevated, call light and all needs in reach before left room. KEY PERSON discussed walking in room with nursing between PT appts for progress mobility, pt verbalized in agreement. Pt agreeableto HHPT at [place] for carryover strength. Gait Assessment Gait Gait Assistance Standby Assistance,Contact Guard Assist,1 Person Assist Required: Distance (Feet) 20 Able to Maintain Yes Weight Bearing Status During Gait Assistive Devices Assistive Device Gait Belt,Front Wheeled Walker Orthotic/Prosthetic Yes Devices or Brace: Gait Deviations General Gait Pattern Antalgic,Decreased Stride Length,Flexed Trunk,Wide Based Gait Factors Limiting Gait Function Factors Limiting Decreased Activity Tolerance,Decreased Sensation, Gait Function Decreased Strength,Pain,Poor Safety Awareness Comments Gait Comments Very rigid in the back and shoulders. Wearing LSO is reported to help with pain. Cues for decrease VENESSA so both feet inside FWW and back walker up fully before reaching to slow sit. Stair Climbing Assessment Evaluation Level of Assist On Contact Guard Assistance,1 Person Assistance Stairs Devices Stair Climbing Front Wheel Walker,Left Railing Assistive Devices Technique/Endurance Stair Climbing Ascend and Descend Direction Stair Climbing Step to Step Technique Number of Steps 1 Climbed Stair Climbing Set # 3 Repetitions (reps) Comments Stair Climbing see mobility comments Comments PT-Balance Assessment Sitting Balance and Reactions Static Sitting Normal Balance Ability Dynamic Sitting Good Balance Ability Standing Balance and Reactions Static Standing Good Balance Ability Dynamic Standing Fair Balance Ability Device Used FWW M5 PT-IP Objective Assessments Start: 10/15/24 15:39 Freq: Status: Active Protocol: Document 10/16/24 11:58 KJ (Rec: 10/16/24 12:07 KJ Desktop) Orientation Orientation/Cognition Level of Alertness Alert Orientation Name,Age,Birthday Language Function No Deficits Noted Ability Safety Awareness Understands Safety Issues Strength Lower Extremity Strength Assessment Bilaterally Impaired Hip decreased M6 PT-IP Treatment Start: 10/15/24 15:39 Freq: Status: Active Protocol: Document 10/17/24 11:42 SP (Rec: 10/17/24 14:10 SP [id number]) Physical Therapy Treatment Education Education Provided Safety Brace Education Jay Raya,Patient M7 PT-IP Assessment and Plan Start: 10/15/24 15:39 Freq: Status: Active Protocol: Document 10/17/24 11:42 SP (Rec: 10/17/24 14:10 SP [id number]) PT Summary Assessment and Plan Potential Rehabilitation Fair Potential Status of Condition Evolving at Evaluation Summary Impairments Pain,Strength,Bed Mobility,Transfers,Gait Progress Towards Progressing Toward Goals,Slow Progress due to Pain,Slow Goals Progress due to Activity Tolerance Assessment Summary Pt improved today, decreased Mod A trunk righting bed mobility, assist to don LSO brace, gait and 3 step mgt BUE support w/CGA in room using fww wearing LSO. decreased assist throughout mobility. Pt ok return home with when medically cleared, recommending HHPT for progression strength and functional mobility. Goals Bed Mobility Goal Independent Transfer Goal Independent Gait Goal Independent Gait Distance 50 Other Goals don/doff LSO indep ascend/descend 1 step w/fww and CGA Days to Meet Goals 5 Frequency of Treatment Frequency Of Once a Day Treatment Treatment Plan Physical Therapy Bed Mobility Training,Transfer Training,Gait Training Treatment Plan Other Progress ambulation distance with FWW Recommendations and Next Treatment Focus Precautions Lumbar Precautions Log Roll Recommendations To Nursing Amount of Assist Standby Assistance,1 Person Assist Needed Discharge Recommendations PT Discharge Home with 17/11 Assist Available,Home Health Recommendations Equipment Needed for is acquiring wheelchair Home Before Discharge Transportation Needs Private Vehicle at Discharge - PT assist x1
[2024-10-17] MEDS: INSULIN LISPRO 100 UNIT/ML 3ML VIAL SUBCUT (12:21)
--- NOTE | 2024-10-17 12:33 | PM.DS.1 ---
History of Present Illness History of Present Illness Date Patient Seen: 10/17/24 Time Patient Seen: 12:33 Chief complaint: Weakness Narrative: 78-year-old male with diabetes mellitus type 2, hyperlipidemia, NPH, history of coronary artery disease status post stent, previous L1 compression fracture who presented to the emergency department on 10/14/2024 with intractable back pain. Patient suffered a fall on 10/05/2024 sustaining an acute L3 fracture. He had been doing fairly well up until he sustained 2 falls on October 14. One occurred at 3:00 p.m. and 1 occurred at 8:00 p.m. after that time, he became increasingly painful and unable to navigate. He was seen in the emergency department and unfortunately could not stand or mobilize. Prior to that, he was able to walk around in his home. He lives with his and her twin sister. In the emergency department, he underwent imaging which revealed an acute L3 compression fracture with a 10-20% height loss. He was evaluated by Physical therapy on October 15, and required a max 2 person assist and complained of 10/10 pain with efforts at ambulation. The ED continue to work on efforts at pain management. They also placed a TLSO brace. Today, he did have some improvement in pain control and was able to ambulate a few steps with a walker. He does complain of some spasms in his back. He was having some urinary retention and a Pillai catheter was placed. He notes he was having difficulty voiding even before he hurt his back, and has taken Flomax chronically. He does follow with Orthopedic surgery, and notes he was slated to see a back specialist at [facility] sometime in the coming weeks or month due to his chronic L1 issues. He states initially, he was given Tylenol which was not effective. He was then given tramadol which she states was not effective. He was on escalated to oxycodone, which he states ?does not work?. He states he prefers to use Tylenol as it is as effective as anything else has been. He states with his L1 fracture, he took aspirin and that worked for awhile but then became less effective. Discharge Providers Provider Date of admission: 10/16/24 15:18 Discharge Date: 10/17/24 Primary care physician: Wilver Kerr MD Consults: 10/15/24 00:16 Consult to [facility] [place] Associate Artistic Director Stat Comment: Associate Artistic Director Consult needed for:: Unable to care for self 10/15/24 03:49 Consult to Physical Therapy Evaluate & Treat Comment: Physician Instructions: Evaluate and Treat 10/17/24 10:35 Consult to Physical Therapy Evaluate & Treat Comment: Physician Instructions: Evaluate and Treat Discharge provider: Earnest Grover DO Summary Hospital Course Discharge Diagnosis: 1. Acute L3 compression fracture 2. MICKEY, resolved 3. Diabetes mellitus type 2 4. Hyperlipidemia Hospital Course: 78-year-old male with diabetes mellitus type 2, hyperlipidemia, NPH, history of coronary artery disease status post stent, previous L1 compression fracture who presented to the emergency department on 10/14/2024 with intractable back pain, he was admitted due to difficulties with controlling pain and decreased ability to walk. Once he was fitted with a TLSO brace, he had marked improvement in pain control with ambulation along with continued oral medications as well. After being evaluated by therapies he was recommended for discharge home with home health. He was given an additional prescription for oxycodone, acetaminophen on discharge though he reported he may not need this given improvement in his pain. Recommend continued therapies in the home until he is able to tolerate outpatient physical therapy, and continued follow-up with primary care provider for ongoing management of pain control. He was also noted to have a mild MICKEY which improved with IV fluids. Time Spent with Patient Time spent: Less than 30 minutes Exam Vital Signs (past 8 hours): - 10/17/24 08:00 10/17/24 08:53 10/17/24 08:53 Temperature 98.6 F Pulse Rate 67 Respiratory Rate 18 Blood Pressure 161/76 H 161/76 H 161/76 H Pulse Oximetry 97 Oxygen Flow Rate 0 Oxygen Delivery Method Room Air Oxygen Flow Rate 0 Narrative Exam Narrative: GEN: Pleasant elderly male, Alert and oriented x3, no acute distress HEENT: Normocephalic, face symmetric, pupils equal round reactive to light, extraocular movements intact, sclerae anicteric, conjunctiva clear, nares patent, oropharynx reveals an intact soft and hard palate with moist mucous membranes, dentition is fair NECK: Supple, no lymphadenopathy, thyroid without enlargement or nodularity, carotids no bruits CHEST: Respiratory excursions symmetric, clear to auscultation bilaterally CV: Regular rate and rhythm, no murmurs, rubs, gallops, PMI nondisplaced ABD: Soft, nontender, nondistended, bowel sounds present in all 4 quadrants, body habitus limits exam EXTR: Warm, well perfused, no clubbing/cyanosis/edema SKIN: Warm and dry, without rash NEURO: Alert and oriented x3, grossly intact PSYCH: Mood and affect is within normal limits, judgment and insight are appropriate Objective Labs 10/17/24 04:20 10/17/24 04:20 Labs: Laboratory Results - last 24 hr 10/16/24 10/17/24 15:50 04:20 WBC 6.1 RBC 3.63 L Hgb 11.2 L Hct 33.6 L MCV 92.4 MCH 30.7 MCHC 33.3 RDW 16.5 H Plt Count 303 Neut % (Auto) 60.0 Lymph % (Auto) 22.3 L Forrest % (Auto) 11.7 Eos % (Auto) 5.1 H Baso % (Auto) 0.9 Neut # (Auto) 3600 Lymph # (Auto) 1400 Forrest # (Auto) 700 Eos # (Auto) 300 Baso # (Auto) 100 Sodium 135 L Potassium 4.2 Chloride 106 Carbon Dioxide 24 BUN 17 Creatinine 0.77 Estimated GFR > 60 BUN/Creatinine Ratio 22.1 H Glucose 112 H Calcium 9.0 Nasal Screen MRSA (PCR) Not detected [facility] Medical History Acne (~1958) Ankle effusion CAD (coronary artery disease) (~2012) Chickenpox (~1949) Chronic back pain Class 1 obesity (08/28/16) Closed right fibular fracture Collar bone fracture (~1950) Community acquired pneumonia Compression fracture of L1 lumbar vertebra History of ankle fracture (~2015) History of fracture of ankle (08/28/16) History of rib fracture (~1984) Homozygous MTHFR mutation [id number] Hyperkalemia Hypertension (~1999) Macular degeneration, age related, nonexudative (~03/29/20) Measles (~1949) Neuropathy Normal pressure hydrocephalus Olecranon fracture Psoriasis (~2015) Spinal stenosis Viral cardiomyopathy (~2014) Surgical History Anesthesia History of angioplasty (08/09/14) History of inguinal hernia repair (~1954) History of selective injection of anesthetic agent around lumbar nerve root (~07/2020) Hx of hand surgery S/P lumbar spinal fusion Status post appendectomy (~1952) Undescended testicle, unilateral Family History Brother No problems noted. Father No problems noted. Sister No problems noted. Social History household members: spouse Smoking Status: Never smoker alcohol intake: current Discharge Plan Discharge Plan Patient Disposition: Home Health Service Provider Discharge Comment: You were admitted to the hospital with pain due to a new compression fracture. Improved with bracing. No changes to home medications, therapy evaluations recommended home with home health. Discharge orders & Medications Prescriptions: Continued (DME) Disabled Parking Permit Qty: 1 0RF Dose Instruction: As directed Rx Instructions: I find this patient to be medically disabled and qualified for disabled parking as indicated, and signed, on the accompanying disabled parking application. cyanocobalamin (vitamin B-12) 1,000 mcg tablet 1,000 mcg PO DAILY Qty: 90 3RF pyridoxine (vitamin B6) 50 mg tablet 50 mg PO DAILY Qty: 90 3RF furosemide 40 mg tablet 40 mg PO DAILY PRN (Reason: Edema) Qty: 30 0RF atorvastatin 40 mg tablet 40 mg PO HS Qty: 90 3RF omeprazole 20 mg capsule,delayed release(DR/EC) 20 mg PO DAILY Qty: 90 1RF metformin 500 mg tablet 250 mg PO BIDCC Qty: 90 3RF (DME) Disabled Parking Permit See Rx Instructions .ROUTE .MEDSUPPLY Qty: 1 0RF Rx Instructions: I find this patient to be medically disabled and qualified for Disabled Parking as indicated and signed on the accompanying Disabled Parking Application for Individuals. calcitonin (salmon) 200 unit/actuation spray,non-aerosol 1 spray intranasal (ALT) DAILY 90 Days Qty: 3.7 2RF Rx Instructions: sacral fx carvedilol 25 mg tablet 25 mg PO BID Qty: 180 1RF Rx Instructions: must administer with a meal/food. Jardiance 10 mg tablet 10 mg PO DAILY Qty: 90 1RF lisinopril 10 mg tablet 10 mg PO BID Qty: 180 1RF oxycodone-acetaminophen [Percocet] 5-325 mg tablet 1 tab PO Q8H PRN (Reason: pain) Qty: 30 0RF aspirin 325 mg tablet,delayed release (DR/EC) 325 mg PO DAILY gabapentin 600 mg tablet 600 mg PO TID Qty: 270 3RF tizanidine 4 mg capsule 4 mg PO Q8H PRN (Reason: muscle spasticity) Qty: 60 0RF tamsulosin [Flomax] 0.4 mg capsule 0.8 mg PO BEDTIME Qty: 180 3RF clobetasol 0.05 % solution 1 applic topical BID 14 Days Qty: 25 1RF Rx Instructions: apply to affected area on scalp naproxen 500 mg tablet 500 mg PO BID PRN (Reason: pain) Qty: 40 0RF lidocaine [Lidoderm] 5 % adhesive patch,medicated 1 patch topical DAILY Qty: 30 0RF Rx Instructions: leave on most painful area for up to 12 hrs Follow up/Referrals: Wilver Kerr MD [Primary Care Provider, Family Practice] Diet/Activity/Treatments Diet: Diet as Tolerated, Regular and Carb-consistent/Diabetic Activity: No restrictions, use brace as needed for discomfort. Visit Report/Discharge Packet Stand Alone Forms: Patient Portal/API, Stroke Signs & Symptoms Discharge Data Primary Care Provider: Wilver Kerr Attending Provider: Gabi Nolasco Admit Date/Time: 10/16/24 15:18
--- NOTE | 2024-10-17 15:08 | CM.DPC ---
DCP Discharge Home Per PT, pt able to ambulate around his room with brace on and completed stairs without need of physical assist and recommending home with HH PT. Pt agreeable and wants HH before eventual transition to outpt PT. No HH preference. Per MD, pt stable for discharge home today and in agreement with HH. Sig HH referral made based on Vendor Calendar and F2F and orders completed and sent. Per RN, discharge instructions provided and spouse to transport home and no concerns noted. HUMAIRA Brasher
--- NOTE | 2024-10-17 18:57 | PC.NURSE ---
Discharge Note Patient A&O, VSS, RA, no complaints of pain/discomfort besides chronic pain. Patient agreeable to discharge plan. Discharge packet reviewed with patient, all questions/concerns addressed. PIV discontinued. Patient able to dress self and pack all belongings with assistance. Patient taken down via wheelchair to POV.
== END 2024-10-17 18:30 | disposition home health service (06) ==
LOC: ED 10-16 07:07 → AC 10-16 15:18 → ICU 10-16 15:37
PROVIDERS: Student in an Organized Health Care Education/Training Program; Admitting Provider Family Medicine; Emergency Provider Family Medicine; PCP Family Medicine; Referring Provider Family Medicine; Visit Provider Family Medicine
DX: R53.1 Weakness (principal); W18.30XA Fall on same level, unspecified, initial encounter; R26.89 Other abnormalities of gait and mobility; M48.56XA Collapsed vertebra, not elsewhere classified, lumbar region, initial encounter for fracture; R29.700 NIHSS score 0; E78.5 Hyperlipidemia, unspecified; I25.10 Atherosclerotic heart disease of native coronary artery without angina pectoris; E11.9 Type 2 diabetes mellitus without complications; M48.061 Spinal stenosis, lumbar region without neurogenic claudication; R33.9 Retention of urine, unspecified; N17.9 Acute kidney failure, unspecified; Z66 Do not resuscitate; Z79.84 Long term (current) use of oral hypoglycemic drugs; Z95.818 Presence of other cardiac implants and grafts
CPT/HCPCS: 0241U; 36415; 51798; 70450; 71045; 80048; 80053; 81001; 82550; 82962; 83690; 83735; 83880; 84484; 85025; 85610; 85730; 87797; 93005; 93010; 96361; 96372; 96374; 97116; 97162; 97530; 99285; G0378; J1650; J1815

== ENCOUNTER → 2024-10-18 14:18 | Outpatient (CLI) | payer MEDICARE, OTHER, SELFPAY ==
[2024-10-16 15:45] VITALS: BMI 30.6
== END ==
PROVIDERS: PCP Family Medicine; Referring Provider Family Medicine; Visit Provider Surgery
DX: E11.622 Type 2 diabetes mellitus with other skin ulcer (principal); E11.42 Type 2 diabetes mellitus with diabetic polyneuropathy; L97.325 Non-pressure chronic ulcer of left ankle with muscle involvement without evidence of necrosis; M86.172 Other acute osteomyelitis, left ankle and foot; E66.9 Obesity, unspecified; Z68.30 Body mass index [BMI] 30.0-30.9, adult
CPT/HCPCS: 11042; 99213

== ENCOUNTER 2024-10-20 11:07 | Emergency (ER) | payer MEDICARE, OTHER, SELFPAY ==
[2024-10-18 14:27] VITALS: BMI 30.6
[2024-10-20 11:14] VITALS: BP 127/58; PULSE 65; RESP 18; TEMP 36.4; O2SAT 100; BMI 30.4
[2024-10-20 12:15] VITALS: BP 159/67; PULSE 71; O2SAT 97
[2024-10-20 12:47] LABS: Add Manual Diff / Slide Review NO; Basophils Absolute Auto 100 /uL (0-100); Basophils Percent Auto 1.1 % (0-2); Eosinophils Absolute Auto 400 /uL (0-450); Eosinophils Percent Auto 5.9 % (2-4); Hematocrit 36.4 % (41-53); Lymphocytes Absolute Auto 1100 /uL (1100-4500); Lymphocytes Percent Auto 17.6 % (25-40); Mean Corpuscular Hemoglobin 30.3 PG (26-34); Mean Corpuscular Volume 91.8 fL (80-100); Monocytes Absolute Auto 600 /uL (0-900); Monocytes Percent Auto 10.5 % (3-14); Neutrophils Absolute Auto 3900 /uL (1500-7000); Neutrophils Percent Auto 64.9 % (50-75); Platelet Count 361 X10^3/uL (150-400); Red Blood Cell Count 3.96 X10^6/uL (4.5-5.9); Red Cell Distribution Width 16.5 % (11.6-14.8)
[2024-10-20 13:06] LABS: Alanine Aminotransferase 26 IU/L (<50); Albumin Globulin Ratio 1.4 (1.0-2.8); Alkaline Phosphatase 119 U/L (38-126); Aspartate Aminotransferase 40 IU/L (17-59); BUN Creatinine Ratio 34.8 (6-22); Bilirubin Total 0.5 mg/dL (0.2-1.3); Blood Urea Nitrogen 39 mg/dL (9-20); Calcium 9.6 mg/dL (8.4-10.2); Carbon Dioxide 24 mmol/L (22-32); Chloride 104 mmol/L (98-107); Estimated Glomerular Filt Rate > 60 mL/min (>60); Globulin 2.9 g/dL (1.7-4.1); Glucose 115 mg/dL (70-99); HEMOLYSIS < 15 (0-50); Potassium 5.2 mmol/L (3.4-5.1); Sodium 137 mmol/L (137-145); Total Protein 6.9 g/dL (6.3-8.2)
[2024-10-20 13:18] LABS: Troponin I < 0.012 ng/mL (0.01-0.034)
--- NOTE | 2024-10-20 13:27 | PC.NURSE ---
late entry for 1235, 2 unsuccessful iv attempts to left upper extremity, supervisor in charge notified.
--- NOTE | 2024-10-20 14:03 | EKG_ITS ---
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
[2024-10-20 14:33] VITALS: PULSE 75; O2SAT 95
[2024-10-20 14:34] VITALS: BP 143/65; PULSE 77; O2SAT 95
[2024-10-20 15:00] VITALS: BP 154/68; PULSE 76; O2SAT 95
--- NOTE | 2024-10-20 15:21 | ED.RECABL ---
HPI - Recheck/Abnormal Lab/Rx General Chief Complaint: Recheck/Abnormal Lab/Rx Stated Complaint: Sent from [facility] . Low blood pressure Time Seen by Provider: 10/20/24 11:38 Source: patient Mode of arrival: Wheelchair History of Present Illness HPI narrative: 78-year-old gentleman with a history of type 2 diabetes with neuropathy, coronary artery disease, hypertension, hyperlipidemia, peripheral arterial disease post lower extremity angioplasty May of 2024 on Plavix, pacemaker, gait instability left ankle foot osteomyelitis has been seen by [facility] followed by [facility]ious Disease at [facility]. He was following up with Dr. Singleton in clinic today. He notes that he got up took all his blood pressure medications including a muscle relaxer, had half a cup of coffee and went to his doctor's appointment. There, he was found to have pressures that were quite low initially 77/62 same on repeat and similar with manual blood pressure cuff as well. Patient was completely asymptomatic with this. Dr. Singleton was concerned that this could represent developing sepsis and requested that he come to the emergency room for further evaluation. On arrival now in the emergency department he is feeling still at his baseline with no complaints, initial blood pressure is 127/58, no pain no fevers and he was simply following doctor's instructions. Related Data Home Medications ?Medication ?Instructions ?Recorded ?Confirmed aspirin 325 mg tablet,delayed 325 mg PO DAILY 09/09/17 10/18/24 release Previous Rx's ?Medication ?Instructions ?Recorded Disabled Parking Permit #1 ea 09/06/18 cyanocobalamin (vitamin B-12) 1,000 mcg PO DAILY #90 tabs 09/03/20 1,000 mcg tablet pyridoxine (vitamin B6) 50 mg 50 mg PO DAILY #90 tabs 09/03/20 tablet furosemide 40 mg tablet 40 mg PO DAILY PRN Edema #30 tabs 09/12/20 atorvastatin 40 mg tablet 40 mg PO HS #90 tabs 07/13/23 tamsulosin 0.4 mg capsule (Flomax) 0.8 mg (2 x 0.4 mg) PO BEDTIME 12/07/23 #180 caps metformin 500 mg tablet 250 mg (1/2 x 500 mg) PO BIDCC #90 02/15/24 tabs omeprazole 20 mg capsule,delayed 20 mg PO DAILY #90 caps 02/15/24 release clobetasol 0.05 % scalp solution 1 applic topical BID 2 weeks #25 mL 03/15/24 Disabled Parking Permit #1 ea 07/18/24 calcitonin (salmon) 200 1 spray intranasal (ALT) DAILY 07/20/24 unit/actuation nasal spray sacral fx 3 months #3.7 mL carvedilol 25 mg tablet 25 mg PO BID #180 tabs 08/16/24 empagliflozin 10 mg tablet 10 mg PO DAILY #90 tabs 08/16/24 (Jardiance) lisinopril 10 mg tablet 10 mg PO BID #180 tabs 08/16/24 naproxen 500 mg tablet 500 mg PO BID PRN pain #40 tabs 09/06/24 gabapentin 600 mg tablet 600 mg PO TID #270 tabs 09/30/24 lidocaine 5 % topical patch 1 patch topical DAILY #30 ea 10/05/24 (Lidoderm) tizanidine 4 mg capsule 4 mg PO Q8H PRN muscle spasticity 10/07/24 #60 caps oxycodone-acetaminophen 5 mg-325 1 tab PO Q8H PRN pain #30 tabs 10/11/24 mg tablet (Percocet) Allergies Allergy/AdvReac Type Severity Reaction Status Date / Time clopidogrel (From Plavix) Allergy Rash Verified 10/20/24 11:15 Review of Systems Review of Systems Narrative: Pertinent positive and negative findings as per HPI Patient History Medical History Spinal stenosis Compression fracture of L1 lumbar vertebra Hyperkalemia Neuropathy Chronic back pain Macular degeneration, age related, nonexudative (~03/29/20) Ankle effusion Closed right fibular fracture Olecranon fracture Normal pressure hydrocephalus 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 History of ankle fracture (~2015) History of rib fracture (~1984) Collar bone fracture (~1950) Psoriasis (~2015) Acne (~1958) Chickenpox (~1949) Measles (~1949) Viral cardiomyopathy (~2014) Hypertension (~1999) CAD (coronary artery disease) (~2012) Class 1 obesity (08/28/16) History of fracture of ankle (08/28/16) Community acquired pneumonia Surgical History S/P lumbar spinal fusion Hx of hand surgery History of selective injection of anesthetic agent around lumbar nerve root (~07/2020) Anesthesia Undescended testicle, unilateral History of inguinal hernia repair (~1954) Status post appendectomy (~1952) History of angioplasty (08/09/14) Family History Brother No problems noted. Father No problems noted. Sister No problems noted. Social History household members: spouse Smoking Status: Never smoker alcohol intake: current Smoking Status: Never smoker alcohol intake frequency: 0-2 drinks per day Alcohol type: wine Exam Initial Vital Signs Initial Vital Signs: Vital Signs Temperature 97.5 F L 10/20/24 11:14 Pulse Rate 65 10/20/24 11:14 Respiratory Rate 18 10/20/24 11:14 Blood Pressure 127/58 L 10/20/24 11:14 Pulse Oximetry 100 10/20/24 11:14 Oxygen Delivery Method Room Air 10/20/24 11:14 General: Chronically ill-appearing but in no acute distress. Able to give a complete and coherent history. Well-nourished well-developed HEENT: Moist mucous membranes, normal sclera with reactive pupils, Respiratory: Lungs with minor scattered wheeze, no rhonchi Cardiac: Regular rate and rhythm no murmurs no bruits Abdomen: Soft, nontender, no rebound or guarding, no flank pain Neurologic: Globally weak but Grossly neurologically intact with no obvious asymmetries or abnormalities Extremities: Left foot and lower extremity in a compression sock with wound care dressings recently replaced and not undone today Psych: Cooperative, appropriate insight and affect Course Orders Ordered: ED Orders 10/20/24 12:13 EKG-12 Lead Stat 10/20/24 12:38 Complete Blood Count AUTO DIFF Stat Comprehensive Metabolic Panel Stat Troponin I Stat Vital Signs Vital signs: Vital Signs - 8 hr 10/20/24 11:14 10/20/24 12:15 10/20/24 14:33 Temperature 97.5 F L Pulse Rate 65 71 75 Respiratory Rate 18 Blood Pressure 127/58 L 159/67 H Pulse Oximetry 100 97 95 Oxygen Delivery Method Room Air 10/20/24 14:34 10/20/24 14:34 10/20/24 15:00 Temperature Pulse Rate 77 Respiratory Rate Blood Pressure 143/65 H 154/68 H Pulse Oximetry 95 Oxygen Delivery Method 10/20/24 15:00 Temperature Pulse Rate 76 Respiratory Rate Blood Pressure Pulse Oximetry 95 Oxygen Delivery Method MDM - Recheck/Abnormal Lab/Rx Lab Data 10/20/24 12:38 10/20/24 12:38 Labs: Lab Results 10/20/24 Range/Units 12:38 WBC 6.0 (4.5-11.0) X10^3/uL RBC 3.96 L (4.5-5.9) X10^6/uL Hgb 12.0 L (13.5-17.5) g/dL Hct 36.4 L (41-53) % MCV 91.8 (80-100) fL MCH 30.3 (26-34) PG MCHC 33.0 (30-36) % RDW 16.5 H (11.6-14.8) % Plt Count 361 (150-400) X10^3/uL Neut % (Auto) 64.9 (50-75) % Lymph % (Auto) 17.6 L (25-40) % Price % (Auto) 10.5 (3-14) % Eos % (Auto) 5.9 H (2-4) % Baso % (Auto) 1.1 (0-2) % Neut # (Auto) 3900 (8088-3236) /uL Lymph # (Auto) 1100 (9942-7708) /uL Price # (Auto) 600 (0-900) /uL Eos # (Auto) 400 (0-450) /uL Baso # (Auto) 100 (0-100) /uL Sodium 137 (137-145) mmol/L Potassium 5.2 H (3.4-5.1) mmol/L Chloride 104 (98-107) mmol/L Carbon Dioxide 24 (22-32) mmol/L BUN 39 H (9-20) mg/dL Creatinine 1.12 (0.66-1.25) mg/dL Estimated GFR > 60 (>60) mL/min BUN/Creatinine Ratio 34.8 H (6-22) Glucose 115 H (70-99) mg/dL Calcium 9.6 (8.4-10.2) mg/dL Total Bilirubin 0.5 (0.2-1.3) mg/dL AST 40 (17-59) IU/L ALT 26 (<50) IU/L Alkaline Phosphatase 119 (38-126) U/L Troponin I < 0.012 (0.01-0.034) ng/mL Total Protein 6.9 (6.3-8.2) g/dL Albumin 4.0 (3.5-5.0) g/dL Globulin 2.9 (1.7-4.1) g/dL Albumin/Globulin Ratio 1.4 (1.0-2.8) Discharge Plan Departure Patient Disposition: Home Clinical Impression: Acute hypotension, Polypharmacy Activity Restrictions/Additional Instructions: Thank you for coming in today With your blood pressure as low as it was this morning in the infectious disease clinic, concern was definitely for recurring infection. Fortunately, when you got to our emergency department your blood pressure has not only increased but it is continuing to increase. Your exam is quite reassuring. Blood work does not suggest acute infection or significant chemistry abnormalities. Your potassium was minimally elevated at 5.2 but your renal function actually looks quite good. You discussed the fact that you took all of your blood pressure medications including a muscle relaxer prior to your doctor appointment this morning. I suspect that is the reason that your blood pressure was so low yet you felt reasonably well. There was no sign of infection, we do not need to do any additional blood work you do not need to stay in the hospital. I would recommend that you make sure you are drinking an extra glass of water today to help that minimally elevated potassium returned down to normal levels. In the future, spreading up your medications by at least half an hour might be helpful in avoiding this asymptomatic blood pressure. Specifically waiting at least 1-2 hours from blood pressure medications before you take muscle relaxers we will also likely be helpful If you have more concerns or further issues please do return to the ER. I will update Dr. Singleton on all our findings today Prescriptions: No Action (DME) Disabled Parking Permit Qty: 1 0RF Dose Instruction: As directed Rx Instructions: I find this patient to be medically disabled and qualified for disabled parking as indicated, and signed, on the accompanying disabled parking application. cyanocobalamin (vitamin B-12) 1,000 mcg tablet 1,000 mcg PO DAILY Qty: 90 3RF pyridoxine (vitamin B6) 50 mg tablet 50 mg PO DAILY Qty: 90 3RF furosemide 40 mg tablet 40 mg PO DAILY PRN (Reason: Edema) Qty: 30 0RF atorvastatin 40 mg tablet 40 mg PO HS Qty: 90 3RF omeprazole 20 mg capsule,delayed release(DR/EC) 20 mg PO DAILY Qty: 90 1RF metformin 500 mg tablet 250 mg PO BIDCC Qty: 90 3RF (DME) Disabled Parking Permit See Rx Instructions .ROUTE .MEDSUPPLY Qty: 1 0RF Rx Instructions: I find this patient to be medically disabled and qualified for Disabled Parking as indicated and signed on the accompanying Disabled Parking Application for Individuals. calcitonin (salmon) 200 unit/actuation spray,non-aerosol 1 spray intranasal (ALT) DAILY 90 Days Qty: 3.7 2RF Rx Instructions: sacral fx carvedilol 25 mg tablet 25 mg PO BID Qty: 180 1RF Rx Instructions: must administer with a meal/food. Jardiance 10 mg tablet 10 mg PO DAILY Qty: 90 1RF lisinopril 10 mg tablet 10 mg PO BID Qty: 180 1RF oxycodone-acetaminophen [Percocet] 5-325 mg tablet 1 tab PO Q8H PRN (Reason: pain) Qty: 30 0RF aspirin 325 mg tablet,delayed release (DR/EC) 325 mg PO DAILY gabapentin 600 mg tablet 600 mg PO TID Qty: 270 3RF tizanidine 4 mg capsule 4 mg PO Q8H PRN (Reason: muscle spasticity) Qty: 60 0RF tamsulosin [Flomax] 0.4 mg capsule 0.8 mg PO BEDTIME Qty: 180 3RF clobetasol 0.05 % solution 1 applic topical BID 14 Days Qty: 25 1RF Rx Instructions: apply to affected area on scalp naproxen 500 mg tablet 500 mg PO BID PRN (Reason: pain) Qty: 40 0RF lidocaine [Lidoderm] 5 % adhesive patch,medicated 1 patch topical DAILY Qty: 30 0RF Rx Instructions: leave on most painful area for up to 12 hrs Referrals: Wilver Kerr MD [Primary Care Provider, Family Practice] Stand Alone Forms: Patient Portal/API
[2024-10-20 15:30] VITALS: BP 162/76; PULSE 85; O2SAT 96
== END 2024-10-20 15:40 | disposition home or self-care (01) ==
PROVIDERS: Emergency Provider Emergency Medicine; PCP Family Medicine
DX: I95.9 Hypotension, unspecified (principal); Z79.899 Other long term (current) drug therapy
CPT/HCPCS: 36415; 80053; 84484; 85025; 93005; 99283; 99284

== ENCOUNTER → 2024-10-25 08:54 | Outpatient (CLI) | payer MEDICARE, OTHER, SELFPAY ==
[2024-10-18 14:27] VITALS: BMI 30.6
== END ==
LOC: WC 08:56
PROVIDERS: PCP Family Medicine; Referring Provider Family Medicine; Visit Provider Surgery
DX: E11.622 Type 2 diabetes mellitus with other skin ulcer (principal); E11.42 Type 2 diabetes mellitus with diabetic polyneuropathy; L97.325 Non-pressure chronic ulcer of left ankle with muscle involvement without evidence of necrosis; M86.172 Other acute osteomyelitis, left ankle and foot
CPT/HCPCS: 11042; 99213

== ENCOUNTER → 2024-10-31 11:03 | Outpatient (CLI) | payer MEDICARE, OTHER, SELFPAY ==
[2024-10-18 14:27] VITALS: BMI 30.6
== END ==
PROVIDERS: PCP Family Medicine; Referring Provider Family Medicine; Visit Provider Surgery
DX: E11.622 Type 2 diabetes mellitus with other skin ulcer (principal); E11.42 Type 2 diabetes mellitus with diabetic polyneuropathy; L97.325 Non-pressure chronic ulcer of left ankle with muscle involvement without evidence of necrosis; M86.172 Other acute osteomyelitis, left ankle and foot; L53.9 Erythematous condition, unspecified; R60.0 Localized edema
CPT/HCPCS: 11042

== ENCOUNTER → 2024-11-04 14:22 | Outpatient (CLI) | payer MEDICARE, OTHER, SELFPAY ==
[2024-10-18 14:27] VITALS: BMI 30.6
[2024-11-04 15:06] LABS: Add Manual Diff / Slide Review NO; Hematocrit 36.0 % (41-53); Hemoglobin 12.2 g/dL (13.5-17.5); Lymphocytes Absolute Auto 1100 /uL (1100-4500); Mean Corpuscular HGB Conc 33.8 % (30-36); Mean Corpuscular Hemoglobin 31.0 PG (26-34); Mean Corpuscular Volume 91.8 fL (80-100); Platelet Count 209 X10^3/uL (150-400)
[2024-11-04 15:29] LABS: Alanine Aminotransferase 19 IU/L (<50); Albumin 3.8 g/dL (3.5-5.0); Albumin Globulin Ratio 1.6 (1.0-2.8); Alkaline Phosphatase 126 U/L (38-126); Globulin 2.4 g/dL (1.7-4.1); HEMOLYSIS < 15 (0-50); Total Protein 6.2 g/dL (6.3-8.2)
== END ==
LOC: LAB 14:26
PROVIDERS: PCP Family Medicine; Referring Provider Internal Medicine Infectious Disease; Visit Provider Internal Medicine Infectious Disease
DX: T14.8XXA Other injury of unspecified body region, initial encounter (principal)
CPT/HCPCS: 36415; 80076; 85025; 86140

== ENCOUNTER → 2024-11-07 10:46 | Outpatient (CLI) | payer MEDICARE, OTHER, SELFPAY ==
[2024-10-18 14:27] VITALS: BMI 30.6
== END ==
LOC: WC 11:01
PROVIDERS: PCP Family Medicine; Referring Provider Family Medicine; Visit Provider Surgery
DX: E11.622 Type 2 diabetes mellitus with other skin ulcer (principal); E11.42 Type 2 diabetes mellitus with diabetic polyneuropathy; L97.325 Non-pressure chronic ulcer of left ankle with muscle involvement without evidence of necrosis; M86.172 Other acute osteomyelitis, left ankle and foot
CPT/HCPCS: 11042

== ENCOUNTER → 2024-11-14 11:59 | Outpatient (CLI) | payer MEDICARE, OTHER, SELFPAY ==
[2024-10-18 14:27] VITALS: BMI 30.6
== END ==
LOC: WC 12:01
PROVIDERS: PCP Family Medicine; Referring Provider Family Medicine; Visit Provider Surgery
DX: E11.621 Type 2 diabetes mellitus with foot ulcer (principal); E11.42 Type 2 diabetes mellitus with diabetic polyneuropathy; L97.525 Non-pressure chronic ulcer of other part of left foot with muscle involvement without evidence of necrosis; M86.172 Other acute osteomyelitis, left ankle and foot
CPT/HCPCS: 11042

== ENCOUNTER → 2024-11-16 11:22 | Outpatient (CLI) | payer MEDICARE, OTHER, SELFPAY ==
[2024-10-18 14:27] VITALS: BMI 30.6
--- NOTE | 2024-11-16 11:25 | DI.RAD.S_ITS ---
PROCEDURE: XR LUMBAR SPINE MIN 4V INDICATIONS: BACK PAIN TECHNIQUE: 5 views of the lumbar spine were acquired, including bilateral oblique views. COMPARISON: [facility], CT, CT LUMBAR SPINE WO CON, 10/14/2024, 20:55. [facility], CR, XR LUMBAR SPINE MIN 4V, 07/15/2024, 13:42. FINDINGS: Bones: Postoperative changes are seen, with bilateral pedicle screws at the L4, L5, and S1 levels. The screws appear well placed. Vertical fixation rods are seen. Disc spacers are seen at L4-L5 and L5-S1 No findings of hardware failure or hardware loosening can be seen. Bone grafting material is noted. 5 nonrib-bearing, lumbar type vertebral bodies are seen. There is a chronic fracture of L1, unchanged from priors, with 60% loss of height anteriorly. There is an L3 fracture seen, which has progressed compared to the 10/14/2024 CT, now with 65% loss of height centrally. The disc heights are relatively well preserved. Soft tissues: Overlying bowel gas pattern is normal. No suspicious soft tissue calcifications. Oblique images: No pars defects. IMPRESSION: Interval progression of the known L3 compression deformity. Stable L1 compression deformity. Lumbosacral fixation hardware. Dictated by: Vahe Santana M.D. on 11/16/2024 at 11:26 Approved by: Vahe Santana M.D. on 11/16/2024 at 11:29
== END ==
LOC: RAD 11:25
PROVIDERS: PCP Family Medicine; Referring Provider Family Medicine; Visit Provider Family Medicine
DX: S32.010A Wedge compression fracture of first lumbar vertebra, initial encounter for closed fracture (principal); M48.56XA Collapsed vertebra, not elsewhere classified, lumbar region, initial encounter for fracture; M48.062 Spinal stenosis, lumbar region with neurogenic claudication; Z98.1 Arthrodesis status
CPT/HCPCS: 72110

== ENCOUNTER → 2024-11-21 09:23 | Outpatient (CLI) | payer MEDICARE, OTHER, SELFPAY ==
[2024-10-18 14:27] VITALS: BMI 30.6
== END ==
PROVIDERS: PCP Family Medicine; Referring Provider Family Medicine; Visit Provider Surgery
DX: E11.622 Type 2 diabetes mellitus with other skin ulcer (principal); L97.325 Non-pressure chronic ulcer of left ankle with muscle involvement without evidence of necrosis; R60.0 Localized edema; M86.172 Other acute osteomyelitis, left ankle and foot; I10 Essential (primary) hypertension; E66.9 Obesity, unspecified; Z68.30 Body mass index [BMI] 30.0-30.9, adult; R26.89 Other abnormalities of gait and mobility; E11.42 Type 2 diabetes mellitus with diabetic polyneuropathy
CPT/HCPCS: 11042; 99213

== ENCOUNTER → 2024-12-27 16:16 | Outpatient (CLI) | payer MEDICARE, OTHER, SELFPAY ==
[2024-10-18 14:27] VITALS: BMI 30.6
== END ==
PROVIDERS: PCP Family Medicine; Referring Provider Family Medicine; Visit Provider Surgery
DX: E11.622 Type 2 diabetes mellitus with other skin ulcer (principal); L97.325 Non-pressure chronic ulcer of left ankle with muscle involvement without evidence of necrosis; M86.9 Osteomyelitis, unspecified; E11.40 Type 2 diabetes mellitus with diabetic neuropathy, unspecified; I10 Essential (primary) hypertension; I25.10 Atherosclerotic heart disease of native coronary artery without angina pectoris; Z79.2 Long term (current) use of antibiotics; Z99.89 Dependence on other enabling machines and devices; R26.89 Other abnormalities of gait and mobility; Z98.62 Peripheral vascular angioplasty status
CPT/HCPCS: 11042

== ENCOUNTER → 2025-01-03 14:14 | Outpatient (CLI) | payer MEDICARE, OTHER, SELFPAY ==
[2024-10-18 14:27] VITALS: BMI 30.6
== END ==
LOC: WC 14:15
PROVIDERS: PCP Family Medicine; Referring Provider Family Medicine; Visit Provider Surgery
DX: E11.622 Type 2 diabetes mellitus with other skin ulcer (principal); L97.325 Non-pressure chronic ulcer of left ankle with muscle involvement without evidence of necrosis; M86.172 Other acute osteomyelitis, left ankle and foot
CPT/HCPCS: 15275; Q4186

== ENCOUNTER → 2025-01-09 15:50 | Outpatient (CLI) | payer MEDICARE, OTHER, SELFPAY ==
[2024-10-18 14:27] VITALS: BMI 30.6
== END ==
LOC: WC 15:51
PROVIDERS: PCP Family Medicine; Referring Provider Family Medicine; Visit Provider Surgery
DX: E11.622 Type 2 diabetes mellitus with other skin ulcer (principal); L97.325 Non-pressure chronic ulcer of left ankle with muscle involvement without evidence of necrosis; M86.172 Other acute osteomyelitis, left ankle and foot
CPT/HCPCS: 15271; Q4186

== ENCOUNTER → 2025-01-17 16:47 | Outpatient (CLI) | payer MEDICARE, OTHER, SELFPAY ==
[2024-10-18 14:27] VITALS: BMI 30.6
== END ==
LOC: WC 16:47
PROVIDERS: PCP Family Medicine; Referring Provider Family Medicine; Visit Provider Surgery
DX: M86.172 Other acute osteomyelitis, left ankle and foot (principal); L97.325 Non-pressure chronic ulcer of left ankle with muscle involvement without evidence of necrosis; E11.622 Type 2 diabetes mellitus with other skin ulcer; E11.42 Type 2 diabetes mellitus with diabetic polyneuropathy; R60.0 Localized edema
CPT/HCPCS: 15271; 99213; Q4186

== ENCOUNTER → 2025-01-23 12:57 | Outpatient (CLI) | payer MEDICARE, OTHER, SELFPAY ==
[2024-10-18 14:27] VITALS: BMI 30.6
== END ==
LOC: WC 13:07
PROVIDERS: PCP Family Medicine; Referring Provider Family Medicine; Visit Provider Surgery
DX: E11.622 Type 2 diabetes mellitus with other skin ulcer (principal); L97.325 Non-pressure chronic ulcer of left ankle with muscle involvement without evidence of necrosis; M86.172 Other acute osteomyelitis, left ankle and foot; E11.42 Type 2 diabetes mellitus with diabetic polyneuropathy; R20.8 Other disturbances of skin sensation; R60.0 Localized edema
CPT/HCPCS: 11042

== ENCOUNTER → 2025-01-31 10:54 | Outpatient (CLI) | payer MEDICARE, OTHER, SELFPAY ==
[2024-10-18 14:27] VITALS: BMI 30.6
== END ==
LOC: WC 10:58
PROVIDERS: PCP Family Medicine; Referring Provider Family Medicine; Visit Provider Surgery
DX: E11.622 Type 2 diabetes mellitus with other skin ulcer (principal); L97.322 Non-pressure chronic ulcer of left ankle with fat layer exposed; M86.172 Other acute osteomyelitis, left ankle and foot; E11.40 Type 2 diabetes mellitus with diabetic neuropathy, unspecified; R21 Rash and other nonspecific skin eruption; I10 Essential (primary) hypertension; I25.10 Atherosclerotic heart disease of native coronary artery without angina pectoris; Z99.89 Dependence on other enabling machines and devices; Z79.2 Long term (current) use of antibiotics; Z74.09 Other reduced mobility; Z98.62 Peripheral vascular angioplasty status
CPT/HCPCS: 11042

== ENCOUNTER → 2025-02-01 12:30 | Outpatient (CLI) | payer MEDICARE, OTHER, SELFPAY ==
[2024-10-18 14:27] VITALS: BMI 30.6
[2025-02-01 14:10] LABS: Add Manual Diff / Slide Review NO; Hematocrit 39.3 % (41-53); Hemoglobin 13.0 g/dL (13.5-17.5); Lymphocytes Absolute Auto 1300 /uL (1100-4500); Mean Corpuscular HGB Conc 33.2 % (30-36); Mean Corpuscular Hemoglobin 30.9 PG (26-34); Mean Corpuscular Volume 93.1 fL (80-100); Platelet Count 217 X10^3/uL (150-400)
[2025-02-01 14:23] LABS: Alanine Aminotransferase 18 IU/L (<50); Albumin 4.0 g/dL (3.5-5.0); Albumin Globulin Ratio 1.6 (1.0-2.8); Alkaline Phosphatase 99 U/L (38-126); Blood Urea Nitrogen 27 mg/dL (9-20); Calcium 9.6 mg/dL (8.4-10.2); Carbon Dioxide 24 mmol/L (22-32); Chloride 103 mmol/L (98-107); Estimated Glomerular Filt Rate > 60 mL/min (>60); Globulin 2.5 g/dL (1.7-4.1); Glucose 81 mg/dL (70-99); HEMOLYSIS < 15 (0-50); Sodium 136 mmol/L (137-145); Total Protein 6.5 g/dL (6.3-8.2)
[2025-02-01 14:25] LABS: Potassium 6.2 mmol/L (3.4-5.1)
== END ==
PROVIDERS: PCP Family Medicine; Referring Provider Surgery; Visit Provider Surgery
DX: E11.622 Type 2 diabetes mellitus with other skin ulcer (principal)
CPT/HCPCS: 36415; 80053; 85025; 86140

== ENCOUNTER → 2025-02-04 09:29 | Outpatient (CLI) | payer MEDICARE, OTHER, SELFPAY ==
[2024-10-18 14:27] VITALS: BMI 30.6
[2025-02-04 10:55] LABS: HEMOLYSIS < 15 (0-50); Potassium 5.0 mmol/L (3.4-5.1)
== END ==
PROVIDERS: PCP Family Medicine; Referring Provider Surgery; Visit Provider Internal Medicine Infectious Disease
DX: E87.5 Hyperkalemia (principal)
CPT/HCPCS: 36415; 84132

== ENCOUNTER → 2025-02-06 13:17 | Outpatient (CLI) | payer MEDICARE, OTHER, SELFPAY ==
[2024-10-18 14:27] VITALS: BMI 30.6
== END ==
LOC: WC 13:18
PROVIDERS: PCP Family Medicine; Referring Provider Family Medicine; Visit Provider Surgery
DX: E11.622 Type 2 diabetes mellitus with other skin ulcer (principal); L97.325 Non-pressure chronic ulcer of left ankle with muscle involvement without evidence of necrosis; M86.172 Other acute osteomyelitis, left ankle and foot; E11.42 Type 2 diabetes mellitus with diabetic polyneuropathy; R60.0 Localized edema
CPT/HCPCS: 11042

== ENCOUNTER → 2025-02-13 13:29 | Outpatient (CLI) | payer MEDICARE, OTHER, SELFPAY ==
[2024-10-18 14:27] VITALS: BMI 30.6
== END ==
LOC: WC 13:43
PROVIDERS: PCP Family Medicine; Referring Provider Family Medicine; Visit Provider Surgery
DX: E11.622 Type 2 diabetes mellitus with other skin ulcer (principal); L97.322 Non-pressure chronic ulcer of left ankle with fat layer exposed; E11.42 Type 2 diabetes mellitus with diabetic polyneuropathy; M86.172 Other acute osteomyelitis, left ankle and foot; R60.0 Localized edema
CPT/HCPCS: 11042; 99213

== ENCOUNTER → 2025-02-20 13:00 | Outpatient (CLI) | payer MEDICARE, OTHER, SELFPAY ==
[2024-10-18 14:27] VITALS: BMI 30.6
== END ==
LOC: WC 13:02
PROVIDERS: PCP Family Medicine; Referring Provider Family Medicine; Visit Provider Surgery
DX: E11.621 Type 2 diabetes mellitus with foot ulcer (principal); L97.325 Non-pressure chronic ulcer of left ankle with muscle involvement without evidence of necrosis; R60.0 Localized edema
CPT/HCPCS: 99213

== ENCOUNTER → 2025-02-22 11:20 | Outpatient (CLI) | payer MEDICARE, OTHER, SELFPAY ==
[2024-10-18 14:27] VITALS: BMI 30.6
--- NOTE | 2025-02-22 11:26 | DI.RAD.S_ITS ---
PROCEDURE: XR LUMBAR SPINE 6V W BENDING INDICATIONS: Closed compression fracture of body of L1 vertebra and L3 ve TECHNIQUE: 5 views of the lumbar spine acquired, including flexion and extension views. COMPARISON: [facility], CR, XR LUMBAR SPINE MIN 4V, 11/16/2024, 11:35. [facility], CR, XR LUMBAR SPINE MIN 4V, 07/15/2024, 13:42. FINDINGS: Bones: 5 nonrib-bearing vertebrae are present. Loss of the normal lumbar lordosis. Retrolisthesis of L1 on L2 and L3 on L4. Postoperative changes from L4 through S1 posterior spinal fixation discectomy. Stable L1 and L3 compression deformities. Decreased osseous mineralization. No suspicious bony lesions. Redemonstration of multilevel degenerative changes. Soft tissues: Overlying bowel gas pattern is normal. No suspicious soft tissue calcifications. Atherosclerotic vascular calcifications. Flexion/extension: There is limited range of motion, with preserved alignment. IMPRESSION: Stable L1 and L3 compression deformities. Redemonstration of degenerative changes and fixation hardware. Limited range of motion. Dictated by: Simon Vasquez M.D. on 02/22/2025 at 20:40 Approved by: Simon Vasquez M.D. on 02/22/2025 at 20:42
== END ==
PROVIDERS: PCP Family Medicine; Referring Provider Physician Assistant Surgical; Visit Provider Physician Assistant Surgical
DX: S32.010A Wedge compression fracture of first lumbar vertebra, initial encounter for closed fracture (principal); S32.030A Wedge compression fracture of third lumbar vertebra, initial encounter for closed fracture; M47.816 Spondylosis without myelopathy or radiculopathy, lumbar region
CPT/HCPCS: 72114

== ENCOUNTER → 2025-02-28 13:26 | Outpatient (CLI) | payer MEDICARE, OTHER, SELFPAY ==
[2024-10-18 14:27] VITALS: BMI 30.6
== END ==
LOC: WC 13:27
PROVIDERS: PCP Family Medicine; Referring Provider Family Medicine; Visit Provider Surgery
DX: E11.622 Type 2 diabetes mellitus with other skin ulcer (principal); L97.325 Non-pressure chronic ulcer of left ankle with muscle involvement without evidence of necrosis; M86.172 Other acute osteomyelitis, left ankle and foot; E11.42 Type 2 diabetes mellitus with diabetic polyneuropathy; R60.0 Localized edema
CPT/HCPCS: 11042

== ENCOUNTER → 2025-03-01 15:48 | Outpatient (CLI) | payer MEDICARE, OTHER, SELFPAY ==
[2024-10-18 14:27] VITALS: BMI 30.6
[2025-03-01 16:57] LABS: Add Manual Diff / Slide Review NO; Hematocrit 41.2 % (41-53); Hemoglobin 13.7 g/dL (13.5-17.5); Lymphocytes Absolute Auto 1500 /uL (1100-4500); Mean Corpuscular HGB Conc 33.2 % (30-36); Mean Corpuscular Hemoglobin 31.2 PG (26-34); Mean Corpuscular Volume 94.1 fL (80-100); Platelet Count 192 X10^3/uL (150-400)
[2025-03-01 17:16] LABS: Hemoglobin A1C% w Est Avg Glu 5.6 % (4.0-6.0)
[2025-03-01 17:21] LABS: Alanine Aminotransferase 18 IU/L (<50); Albumin 4.2 g/dL (3.5-5.0); Albumin Globulin Ratio 1.8 (1.0-2.8); Alkaline Phosphatase 105 U/L (38-126); Blood Urea Nitrogen 25 mg/dL (9-20); Calcium 9.7 mg/dL (8.4-10.2); Carbon Dioxide 24 mmol/L (22-32); Chloride 104 mmol/L (98-107); Estimated Glomerular Filt Rate > 60 mL/min (>60); Globulin 2.4 g/dL (1.7-4.1); Glucose 99 mg/dL (70-99); HEMOLYSIS < 15 (0-50); Potassium 4.6 mmol/L (3.4-5.1); Sodium 137 mmol/L (137-145); Total Protein 6.6 g/dL (6.3-8.2)
== END ==
PROVIDERS: PCP Family Medicine; Referring Provider Internal Medicine Infectious Disease; Visit Provider Internal Medicine Infectious Disease
DX: M48.062 Spinal stenosis, lumbar region with neurogenic claudication (principal); E08.43 Diabetes mellitus due to underlying condition with diabetic autonomic (poly)neuropathy; T14.8XXA Other injury of unspecified body region, initial encounter
CPT/HCPCS: 36415; 80048; 80076; 83036; 85025; 86140

== ENCOUNTER → 2025-03-06 13:15 | Outpatient (CLI) | payer MEDICARE, OTHER, SELFPAY ==
[2024-10-18 14:27] VITALS: BMI 30.6
== END ==
LOC: WC 13:19
PROVIDERS: PCP Family Medicine; Referring Provider Family Medicine; Visit Provider Surgery
DX: E11.622 Type 2 diabetes mellitus with other skin ulcer (principal); L97.325 Non-pressure chronic ulcer of left ankle with muscle involvement without evidence of necrosis; M86.172 Other acute osteomyelitis, left ankle and foot; E11.42 Type 2 diabetes mellitus with diabetic polyneuropathy; R60.0 Localized edema
CPT/HCPCS: 11042

== ENCOUNTER → 2025-03-13 13:09 | Outpatient (CLI) | payer MEDICARE, OTHER, SELFPAY ==
[2024-10-18 14:27] VITALS: BMI 30.6
== END ==
LOC: WC 13:11
PROVIDERS: PCP Family Medicine; Referring Provider Family Medicine; Visit Provider Surgery
DX: E11.622 Type 2 diabetes mellitus with other skin ulcer (principal); L97.322 Non-pressure chronic ulcer of left ankle with fat layer exposed; E11.42 Type 2 diabetes mellitus with diabetic polyneuropathy; M86.172 Other acute osteomyelitis, left ankle and foot; R60.0 Localized edema; Z74.09 Other reduced mobility
CPT/HCPCS: 11042; 99213

== ENCOUNTER → 2025-03-20 13:07 | Outpatient (CLI) | payer MEDICARE, OTHER, SELFPAY ==
[2024-10-18 14:27] VITALS: BMI 30.6
== END ==
LOC: WC 13:10
PROVIDERS: PCP Family Medicine; Referring Provider Family Medicine; Visit Provider Surgery
DX: E11.622 Type 2 diabetes mellitus with other skin ulcer (principal); L97.322 Non-pressure chronic ulcer of left ankle with fat layer exposed; M86.172 Other acute osteomyelitis, left ankle and foot; E11.42 Type 2 diabetes mellitus with diabetic polyneuropathy
CPT/HCPCS: 11042

== ENCOUNTER → 2025-03-27 16:26 | Outpatient (CLI) | payer MEDICARE, OTHER, SELFPAY ==
[2024-10-18 14:27] VITALS: BMI 30.6
== END ==
LOC: WC 16:26
PROVIDERS: PCP Family Medicine; Referring Provider Family Medicine; Visit Provider Surgery
DX: E11.622 Type 2 diabetes mellitus with other skin ulcer (principal); L97.325 Non-pressure chronic ulcer of left ankle with muscle involvement without evidence of necrosis; E11.42 Type 2 diabetes mellitus with diabetic polyneuropathy; M86.172 Other acute osteomyelitis, left ankle and foot; R60.0 Localized edema
CPT/HCPCS: 11042; 99212

== ENCOUNTER → 2025-04-03 15:44 | Outpatient (CLI) | payer MEDICARE, OTHER, SELFPAY ==
[2024-10-18 14:27] VITALS: BMI 30.6
== END ==
LOC: WC 15:46
PROVIDERS: PCP Family Medicine; Referring Provider Family Medicine; Visit Provider Surgery
DX: E11.622 Type 2 diabetes mellitus with other skin ulcer (principal); L97.325 Non-pressure chronic ulcer of left ankle with muscle involvement without evidence of necrosis; L98.8 Other specified disorders of the skin and subcutaneous tissue; M86.172 Other acute osteomyelitis, left ankle and foot; E11.40 Type 2 diabetes mellitus with diabetic neuropathy, unspecified; I10 Essential (primary) hypertension; I25.10 Atherosclerotic heart disease of native coronary artery without angina pectoris; R26.89 Other abnormalities of gait and mobility; Z99.89 Dependence on other enabling machines and devices; Z79.2 Long term (current) use of antibiotics
CPT/HCPCS: 11042

== ENCOUNTER → 2025-04-12 10:06 | Outpatient (CLI) | payer MEDICARE, OTHER, SELFPAY ==
[2024-10-18 14:27] VITALS: BMI 30.6
== END ==
LOC: WC 10:07
PROVIDERS: PCP Family Medicine; Referring Provider Family Medicine; Visit Provider Surgery
DX: E11.42 Type 2 diabetes mellitus with diabetic polyneuropathy (principal); E11.622 Type 2 diabetes mellitus with other skin ulcer; L97.322 Non-pressure chronic ulcer of left ankle with fat layer exposed; R60.0 Localized edema
CPT/HCPCS: 11042; 99213

== ENCOUNTER → 2025-04-17 10:27 | Outpatient (CLI) | payer MEDICARE, OTHER, SELFPAY ==
[2024-10-18 14:27] VITALS: BMI 30.6
== END ==
LOC: WC 10:29
PROVIDERS: PCP Family Medicine; Referring Provider Family Medicine; Visit Provider Surgery
DX: E11.622 Type 2 diabetes mellitus with other skin ulcer (principal); L97.325 Non-pressure chronic ulcer of left ankle with muscle involvement without evidence of necrosis; E11.42 Type 2 diabetes mellitus with diabetic polyneuropathy; M86.172 Other acute osteomyelitis, left ankle and foot
CPT/HCPCS: 11042

== ENCOUNTER → 2025-04-25 09:59 | Outpatient (CLI) | payer MEDICARE, OTHER, SELFPAY ==
[2024-10-18 14:27] VITALS: BMI 30.6
== END ==
LOC: WC 10:00
PROVIDERS: PCP Family Medicine; Referring Provider Family Medicine; Visit Provider Surgery
DX: E11.622 Type 2 diabetes mellitus with other skin ulcer (principal); L97.325 Non-pressure chronic ulcer of left ankle with muscle involvement without evidence of necrosis; L98.8 Other specified disorders of the skin and subcutaneous tissue; M86.172 Other acute osteomyelitis, left ankle and foot; E11.40 Type 2 diabetes mellitus with diabetic neuropathy, unspecified; I10 Essential (primary) hypertension; I25.10 Atherosclerotic heart disease of native coronary artery without angina pectoris; Z79.2 Long term (current) use of antibiotics; R26.89 Other abnormalities of gait and mobility; Z99.89 Dependence on other enabling machines and devices
CPT/HCPCS: 11042